=== PATIENT | female | born 1955 | race Caucasian/White ===

== ENCOUNTER 2021-07-19 10:45 | Outpatient (REF) | payer OTHER, SELFPAY ==
[2021-07-19 11:04] LABS: MANUAL DIFF FLAG NO
[2021-07-19 11:18] LABS: Basophils Absolute Auto 0.1 X10*3/uL (0.0-0.2); Basophils Percent Auto 1.3 % (0-2); Eosinophils Absolute Auto 0.2 X10*3/uL (0.0-0.4); Eosinophils Percent Auto 2.7 % (0-4); Hematocrit 45.1 % (37.0-47.0); Hemoglobin 14.3 g/dl (12.0-16.0); Imm Gran Abs Auto 0.02 X10*3/uL (0.00-0.03); Imm Gran Pct Auto 0.3 % (0.0-0.4); Lymphocytes Absolute Auto 1.6 X10*3/uL (1.2-4.9); Lymphocytes Percent Auto 20.4 % (20-40); Mean Corpuscular HGB Conc 31.7 g/dl (31.0-35.0); Mean Corpuscular Hemoglobin 29.5 pg (27.0-33.0); Mean Platelet Volume 8.9 fL (9.4-12.3); Monocytes Absolute Auto 0.6 X10*3/uL (0.1-1.2); Monocytes Percent Auto 7.4 % (2-11); Neutrophils Absolute Auto 5.3 x10*3/uL (2.0-8.3); Neutrophils Percent Auto 67.9 % (45-73); Platelet Count 390 X10*3/uL (160-400); Red Blood Count 4.85 X10*6/uL (4.20-5.50); Red Cell Distribution Width 13.8 % (11.0-16.0); White Blood Count 7.8 X10*3/uL (4.8-10.8)
[2021-07-19 11:43] LABS: Alanine Aminotransferase 27 U/L (0-31); Albumin Level 4.8 g/dL (3.5-5.0); Alkaline Phosphatase 91 U/L (39-117); Anion Gap 13 (12-20); Aspartate Amino Transferase 23 U/L (5-31); Bilirubin Total 0.4 mg/dL (0.0-1.0); Blood Urea Nitrogen 10 mg/dL (9-16); Calcium 10.3 mg/dL (8.4-10.2); Carbon Dioxide 28 mmol/L (22-29); Chloride 100 mmol/L (96-108); Cholesterol 222 mg/dL; Estimated Glomerular Filt Rate > 60; Glucose Fasting 107 mg/dL (60-99); HDL Cholesterol 61 mg/dL; LDL Cholesterol Calculated 147 mg/dl; Sodium 136 mmol/L (135-145); Total Protein 8.1 g/dL (6.5-8.0); Triglycerides 71 mg/dL
[2021-07-19 12:04] LABS: TSH reflex Free T4 0.53 uIU/mL (0.32-4.0)
== END 2021-07-19 10:46 | disposition home or self-care (01) ==
LOC: HO.LAB 10:45
PROVIDERS: PCP Family Medicine; Visit Provider Family Medicine
DX: Z00.00 Encounter for general adult medical examination without abnormal findings (principal)
CPT/HCPCS: 36415; 80053; 80061; 84443; 85025

== ENCOUNTER 2022-03-01 10:41 | Inpatient (IN) | payer OTHER, SELFPAY ==
[2022-03-01] VITALS (11 sets, daily range): BP systolic 100–143; BP diastolic 43–80; PULSE 77–106; RESP 16–24; TEMP 36.5–37; O2SAT 87–98; BMI 11.2
--- NOTE | ~2022-03-01 | CT_ITS ---
EXAMINATION: CT CHEST ANGIOGRAM PE PROTOCOL CLINICAL INFORMATION: Could be an enlarged impressing today, Reason for Exam Hypoxia. Cough, COPD/SOB COMPARISON: 2019 TECHNIQUE: Volumetric imaging was performed through the chest. Reformatted coronal and sagittal imaging was performed. 3-D MIP images performed at a dedicated separate workstation. This CT examination was performed using dose optimization techniques as appropriate, variously including the following: *Automated exposure control *Adjustment of mA and/or kV according to patient size (this includes techniques or standardized protocols for targeted exams where dose is matched to indication/reason for exam; i.e. extremities or head) *Use of iterative reconstruction technique CONTRAST: 65 mL Omnipaque 350 injected DLP: 168 FINDINGS: PULMONARY ARTERIES: There is proper opacification of the pulmonary artery and its main branches. No CT evidence of pulmonary emboli. LINES/TUBES: None LUNGS: Lung Parenchyma: Postsurgical changes, right upper lobe partial pneumonectomy. Chronic unchanged. Adjacent scar stable. Diffuse pulmonary emphysema. Lung Nodules:Newly developed solid nodule right upper lobe measures 1.3 x 1 cm image 14 series 6. Stable hypodense nodule right lower lobe 4 mm image 27 series 6. Several other scattered tiny calcified and noncalcified nodules/densities measuring 5 mm or less. Multiple nodules left lower lobe tree in bud pattern, suggesting infection, acute or chronic over neoplastic process. AIRWAYS: Trachea and bronchi are normal. PLEURA: No pleural effusion or pneumothorax. MEDIASTINUM AND BUDDY: The visualized thyroid gland is unremarkable. No mediastinal, hilar or axillary lymphadenopathy. There is no mediastinal mass. VESSELS: Thoracic aorta is normal in size. HEART AND PERICARDIUM: Heart is normal in size. There is no pericardial effusion. There are few coronary calcifications. CHEST WALL, LOWER NECK, SURROUNDING SOFT TISSUES: Normal VISUALIZED ABDOMEN: Unremarkable BONES: The visualized bony thorax is within normal limits. CT/CT angio chest PE protocol IMPRESSION: * No CT evidence of pulmonary emboli. * There is a new 1.3 cm nodule in the right upper lobe. This require correlation with follow-up PET/CT or CT-guided biopsy if not performed short-term follow-up chest CT in 3 months recommended.. * Additional Several scattered calcified and noncalcified lung nodules measuring 5 mm or less. * Stable postsurgical changes right upper lobe. * Pulmonary emphysema. * No lymphadenopathy. * Multiple nodules left lower lobe tree in bud pattern, suggesting infection, acute or chronic over neoplastic process. Various management parameters for solitary pulmonary nodules are in the literature. According to the UPDATED 2017 Fleischner Society recommendations, the advised follow-up imaging for a single solid nodule measuring 8 mm or greater is: Consider CT, PET/CT, or tissue sampling at 3 months. Reference: Guidelines for Management of Incidental Pulmonary Nodules Detected on CT Images: From the Fleischner Society 2017.
--- NOTE | ~2022-03-01 | XR_ITS ---
EXAMINATION: XR CHEST CLINICAL INFORMATION: Shortness of breath with productive cough. COMPARISON: November 17, 2018 TECHNIQUE: AP portable view of the chest was obtained. FINDINGS: There is hyperinflation of the lungs consistent with COPD. There are calcified granulomas present. There is a region of density seen about the right upper lobe which may represent a lung nodule and CT of the chest would be of help in further evaluation of this finding. No confluent pneumonitis is appreciated. There is scoliosis of the thoracic spine convex right. Images rotated. XR/XR chest 1V IMPRESSION: COPD. Old granulomatous disease. Question right upper lobe nodule.
--- NOTE | 2022-03-01 10:45 | ED.SOB ---
HPI - SOB/Dyspnea General Chief Complaint: Upper Respiratory Symptoms Stated Complaint: PRODUCTIVE COUGH,SOB Time Seen by Provider: 03/01/22 10:44 Source: patient and EMS Mode of arrival: EMS History of Present Illness HPI Narrative: 66-year-old female with a past medical history of chronic back pain, HLD, COPD, presenting to the ED via EMS complaining of productive cough, SOB, generalized fatigue/weakness and decreased p.o. intake x5 days. Admits her [employer] recently sick. Also reports abdominal discomfort and diarrhea. Denies known fever, chills, chest pain, vomiting, dysuria/hematuria, headache MD elicited complaint: shortness of breath and cough Pertinent past history: COPD Related Data Home Medications Medication Instructions Recorded Confirmed gabapentin 400 mg capsule 400 mg PO BEDTIME 03/01/22 03/01/22 Previous Rx's Medication Instructions Recorded foam bandage 5 X 5 (Allevyn #10 ea 02/16/20 Gentle Border) naloxone 4 mg/actuation nasal 4 mg intranasal Q2M PRN opioid 07/30/21 spray (Narcan) overdose #2 ea food supplemt, lactose-reduced 1 ea PO BID nutrition 30 days 08/16/21 0.08 gram-1.5 kcal/mL oral liquid #14,220 mL (Ensure Enlive) omeprazole 40 mg capsule,delayed 40 mg PO DAILY #90 caps 10/29/21 release albuterol sulfate 2.5 mg/3 mL 2.5 mg (3 mL) inhalation Q4-6H PRN 12/24/21 (0.083 %) solution for nebulization shortness of breath or wheezing #90 mL albuterol sulfate 90 mcg/actuation 2 puff inhalation Q4-6H PRN 12/24/21 aerosol inhaler (ProAir HFA) shortness of breath or wheezing 30 days #8.5 grams fluticasone propionate 220 2 puff inhalation BID 30 days #12 01/19/22 mcg/actuation HFA aerosol inhaler grams ipratropium bromide 17 2 puff PO QID #12.9 grams 01/19/22 mcg/actuation HFA aerosol inhaler (Atrovent HFA) ropinirole 4 mg tablet 4 mg PO BEDTIME 30 days #30 tabs 01/19/22 benzonatate 100 mg capsule 100 mg PO TID PRN cough #20 caps 03/04/22 dexamethasone 6 mg tablet 6 mg PO DAILY #6 tabs 03/04/22 guaifenesin 600 mg tablet, 600 mg PO BID #14 tabs 03/04/22 extended release 12 hr (Mucinex) carisoprodol 350 mg tablet 350 mg PO BID PRN muscle pain 30 03/17/22 days #60 tabs oxycodone-acetaminophen 5 mg-325 1 tab PO TID PRN pain 28 days #84 03/17/22 mg tablet (Percocet) tabs Allergies Allergy/AdvReac Type Severity Reaction Status Date / Time bee pollen [BEE STINGS] Allergy Intermediate THROAT Verified 01/10/22 13:37 SWELLING penicillin V Allergy Intermediate nausea and Verified 01/10/22 13:37 vomiting Penicillins [PENICILLINS] Allergy Intermediate YEAST Verified 01/10/22 13:37 INFECTIONS- UTI - NAUSEA codeine [Codeine] Allergy Mild ITCHING Verified 01/10/22 13:37 celecoxib [From Celebrex] AdvReac Severe RECTAL Verified 01/10/22 13:37 BLEEDING Review of Systems Review of Systems: Constitutional: No Fever, No Chills, No Night Sweats,+ Fatigue, + Malaise ENT/Mouth: No Ear Pain, No Nasal Congestion, No Sinus Pain, No Hoarseness, No sore throat, No Rhinorrhea, No Swallowing Difficulty Eyes: No Eye Pain, No Swelling, No Redness, No Vision Changes Cardiovascular: No Chest Pain, + SOB, + Dyspnea on Exertion, + Orthopnea, No Edema, No Palpitations Respiratory: + Cough, + Sputum, + Wheezing, No Smoke Exposure, No Dyspnea Gastrointestinal: No Nausea, No Vomiting, No Diarrhea, No Constipation, No Abdominal pain Genitourinary: No irregular bleeding, No Dysuria, No Urinary Frequency, No Hematuria, No Flank Pain Musculoskeletal: No joint pain, No Myalgias, No Joint Swelling Skin: No Skin Lesions, No rash Neuro: + Weakness, No Numbness, No Paresthesias, No Dizziness, No Headache Yes all other systems are reviewed and are negative Constitutional: Constitutional: Reports as per HPI Neurologic: Denies Abnormal speech present [facility] Past Medical History Attestation statement: The following information was validated with the patient. Surgical History History of biopsy History of fusion of cervical spine History of lung biopsy History of rhinoplasty History of shoulder surgery History of surgery on left wrist Family History Family History Father Cirrhosis Substance use disorder Mother No problems noted. Brother No problems noted. Son No problems noted. Son No problems noted. Daughter No problems noted. Daughter No problems noted. Daughter No problems noted. Social History Social History Household Members: Family Housing: Apartment Do you presently have visiting nurse or other home services: Yes Patient Tobacco Use Status: Current someday Tobacco user Cigarettes Per Day: 2 e-Cigarette/Vaping Use: Never Used Second Hand Smoke Exposure: No service: No Current occupational status: retired and disabled Current occupational exposures/hazards: No Cognitive needs: No Hearing needs: No Vision needs: Yes Physical Exam Vital Signs: Vital Signs: Last Vital Signs Temp 98.3 F 03/04/22 15:48 Pulse 85 03/04/22 15:48 Resp 15 03/04/22 15:48 BP 122/62 03/04/22 15:48 Pulse Ox 92 03/04/22 15:48 O2 Del Method 03/04/22 15:48 O2 Flow Rate 2 03/02/22 04:04 BMI result Body Mass Index 11.2 Const: General: cooperative and no acute distress Nutritional Appearance: cachectic Orientation/consciousness: patient oriented x3 Limitations: no limitations HEENT: Head: Yes normal to inspection and Yes atraumatic Ears: hearing grossly normal bilaterally General nose exam: Normal external nose present Face and sinus: Yes normal facial exam Throat: Yes posterior oropharynx normal Eyes: General: appearance normal, both eyes and all related structures EOM: EOMs intact bilaterally Neck: Neck: Yes normal visual inspection and Yes no meningeal signs Resp: Effort & Inspection: labored and respiratory distress (mild) Auscultation: rhonchi throughout and wheezes expiratory wheezes and throughout Cardio: Rate: regular rate and tachycardic Heart sounds: S1 normal heart sound present and S2 normal heart sound present GI: Inspection: Yes normal to inspection Palpation (GI): Soft to palpation, nontender, no guarding and not rigid Skin: Rashes: no rashes Wounds: no wounds Neuro: General: patient oriented x3, tone normal, moves all extremities, no meningeal signs, no focal motor deficits and CN's II-XI intact bilaterally Cranial nerves: Yes CN's II-XII intact bilaterally Cognition (Neuro): normal cognition Speech: No Abnormal speech present Extrem: General: Yes normal to inspection and Yes no pedal edema Course Course Course Narrative: -1223--no leukocytosis. Lactic acid negative. Initial troponin 8.7 > will obtain 3 hour repeat XR chest 1V IMPRESSION: COPD. Old granulomatous disease. Question right upper lobe nodule. >> patient desatted to 87% on RA > on re-evaluation still very coarse lung sounds > will obtain CTA to rule out PE/pneumonia -COVID-19 positive -1257--potassium low at 3.2 > p.o. repletion ordered. BUN elevated to 39 > likely from dehydration. Hypermagnesemia likely from renal dysfunction/dehydration > will treat with NS 1600--CT angio chest PE protocol IMPRESSION: *? No CT evidence of pulmonary emboli. ? *? There is a new 1.3 cm nodule in the right upper lobe. This require correlation with follow-up PET/CT or CT-guided biopsy if not performed short-term follow-up chest CT in 3 months recommended.. ? *? Additional Several scattered calcified and noncalcified lung nodules measuring 5 mm or less. ? *? Stable postsurgical changes right upper lobe. ? *? Pulmonary emphysema. ? *? No lymphadenopathy. ? *? Multiple nodules left lower lobe tree in bud pattern, suggesting infection, acute or chronic over neoplastic process. ? >> plan to admit for further management Medications Administered Discontinued Medications Generic Name Dose Route Start Last Admin Trade Name Freq PRN Reason Stop Dose Admin Acetaminophen 650 mg 03/01/22 10:56 03/01/22 11:42 Acetaminophen 325 Mg Tablet PO 03/01/22 10:57 650 mg ONCE ONE Administration Acetaminophen 650 mg 03/01/22 18:06 03/02/22 04:49 Acetaminophen 325 Mg Tablet PO 650 mg Q6H PRN Administration Pain, Mild (Pain Scale 1-3) Albuterol Sulfate 5 mg/ 7.5 mg 03/01/22 10:56 03/01/22 11:48 Albuterol Sulfate 2.5 mg INHALE 03/01/22 10:57 7.5 mg ONCE ONE Administration Albuterol/Ipratropium 3 ml 03/01/22 10:56 03/01/22 11:48 Albuterol/Iprat 2.5/0.5mg 3 Ml Ampul.Neb INHALE 03/01/22 10:57 3 ml ONCE ONE Administration Albuterol/Ipratropium 3 ml 03/01/22 20:00 03/04/22 15:19 Albuterol/Iprat 2.5/0.5mg 3 Ml Ampul.Neb INHALE Not Given RQ4H WHILE AWAKE BRIGID Benzocaine 1 lozenge 03/02/22 04:04 03/03/22 21:30 Throat Lozenge, Medicated Lozenge MUCOUS MEM 1 lozenge Q2H PRN Administration Sore Throat Benzonatate 200 mg 03/03/22 19:31 03/04/22 13:59 Benzonatate 100 Mg Capsule PO 200 mg TID PRN Administration cough Carisoprodol 350 mg 03/01/22 18:11 03/03/22 16:14 Carisoprodol 350 Mg Tablet PO 350 mg BID PRN Administration muscle pain Carisoprodol 350 mg 03/04/22 09:00 03/04/22 16:33 Carisoprodol 350 Mg Tablet PO 350 mg BID PRN Administration muscle pain Dexamethasone 6 mg 03/02/22 09:00 03/04/22 08:23 Dexamethasone 6 Mg Tablet PO 03/11/22 08:59 6 mg DAILY BRIGID Administration Enoxaparin Sodium 30 mg 03/01/22 20:00 03/02/22 20:04 Enoxaparin Sodium 30 Mg/0.3 Ml Syringe SUBCUT 30 mg Q24H BRIGID Administration Enoxaparin Sodium 40 mg 03/03/22 20:00 03/03/22 21:29 Enoxaparin Sodium 40 Mg/0.4 Ml Syringe SUBCUT 40 mg Q24H BRIGID Administration Gabapentin 400 mg 03/01/22 21:00 03/03/22 21:29 Gabapentin 400 Mg Capsule PO 400 mg BEDTIME BRIGID Administration Guaifenesin 600 mg 03/03/22 09:40 03/04/22 08:22 Guaifenesin La 600 Mg Tab.Er.12h PO 600 mg BID BRIGID Administration Guaifenesin/Dextromethorphan 5 ml 03/02/22 04:04 03/03/22 03:43 Guaifenesin Dm 100/10/5 Ml 5 Ml Syrup PO 5 ml Q4H PRN Administration Cough Sodium Chloride 1,000 mls @ 999 mls/hr 03/01/22 11:00 03/01/22 13:20 Ns IV 03/01/22 12:00 Infused .Q1H1M BRIGID Infusion Ceftriaxone Sodium 1 gm/ 50 mls @ 100 mls/hr 03/01/22 11:02 03/01/22 13:21 Sodium Chloride IV 03/01/22 11:31 Infused ONCE ONE Infusion Magnesium Sulfate 2 gm in 50 mls @ 25 mls/hr 03/01/22 11:21 03/01/22 12:45 Magnesium Sulfate/H2o IV 03/01/22 13:20 Infused ONCE ONE Infusion Sodium Chloride 500 mls @ 999 mls/hr 03/01/22 13:00 03/01/22 14:43 Ns IV 03/01/22 13:30 Infused .Q31M BRIGID Infusion Lactated Ringer's 1,000 mls @ 100 mls/hr 03/01/22 18:25 03/02/22 05:13 Lr IVCONT 03/02/22 04:24 Infused .Q10H ONE Infusion Iohexol 100 ml 03/01/22 13:43 03/01/22 13:44 Iohexol 350 Mg/Ml 100 Ml Infus..Btl IV 03/01/22 13:44 65 ml ONCE ONE Administration Methylprednisolone Sodium Succinate 125 mg 03/01/22 10:56 03/01/22 11:41 Methylprednisolone Sod Succ 125 Mg/2 Ml Vial IVPUSH 03/01/22 10:57 125 mg ONCE ONE Administration Omeprazole 40 mg 03/02/22 06:30 03/04/22 08:22 Omeprazole 40 Mg Capsule.Dr PO 40 mg DAILY@0630 BRIGID Administration Ondansetron HCl 4 mg 03/01/22 10:56 03/01/22 11:42 Ondansetron Hcl 4 Mg/2 Ml Vial IVPUSH 03/01/22 10:57 4 mg ONCE ONE Administration Oxycodone HCl 5 mg 03/01/22 18:36 03/04/22 00:27 Oxycodone Hcl Immed Release 5 Mg Tablet PO 5 mg TID PRN Administration Pain, Moderate (Pain Scale 4-6 Oxycodone HCl 5 mg 03/04/22 09:00 03/04/22 16:33 Oxycodone Hcl Immed Release 5 Mg Tablet PO 5 mg TID PRN Administration Pain, Moderate (Pain Scale 4-6 Polyethylene Glycol 17 gm 03/03/22 20:17 03/03/22 21:29 Polyethylene Glycol 3350 17 Gm Powd.Pack PO 17 gm DAILY PRN Administration constipation Potassium Chloride 60 meq 03/01/22 12:45 03/01/22 13:18 Potassium Chloride Er 20 Meq Tab.Er.Prt PO 03/01/22 12:46 60 meq ONCE ONE Administration Ropinirole HCl 4 mg 03/01/22 21:00 03/03/22 21:29 Ropinirole Hcl 2 Mg Tablet PO 4 mg BEDTIME BRIGID Administration Sodium Chloride 3 ml 03/02/22 00:00 03/04/22 16:34 0.9 % Sodium Chloride Flush 3 Ml Syringe IVFLUSH 3 ml QSHIFT BRIGID Administration Medical Decision Making Medical Decision Making [facility] Narrative: 66-year-old female with a past medical history of chronic back pain, HLD, COPD, presenting to the ED via EMS complaining of productive cough, SOB, generalized fatigue/weakness and decreased p.o. intake x5 days. On exam tachypneic, tachycardic, satting 94% on room air, cachectic, diffuse expiratory wheeze and rhonchi with coarse lung sounds throughout, abdomen soft, no rebound or guarding. Concern for viral illness vs COPD exacerbation vs pneumonia vs metabolic/infectious etiologies vs gastroenteritis. Low suspicion for ACS/PE or CHF. Low suspicion for severe sepsis at this time. Vital sign abnormalities likely from chronic disease Plan: EKG, labs, CXR, COVID-19/influenza/RSV testing, DuoNeb, IV Solu-Medrol, IV magnesium, +/-CT, anticipate admission Differential Diagnosis Differential Diagnoses: The differential diagnosis associated with the presentation includes As above Admission/Observation Consideration of admission/observation: Escalation of care including admission/observation considered Consult Healthcare Provider Management of the patient was discussed with: Hospitalist Lab Data [facility] Lab Attestation statement: I reviewed the patient's lab results. 03/03/22 06:42 03/04/22 06:19 Labs: Lab Results 03/01/22 03/01/22 03/01/22 Range/Units 11:24 11:25 11:25 WBC 6.0 (4.8-10.8) X10*3/uL RBC 4.60 (4.20-5.50) X10*6/uL Hgb 13.5 (12.0-16.0) g/dl Hct 40.7 (37.0-47.0) % MCV 88.5 (80.0-98.0) fL MCH 29.3 (27.0-33.0) pg MCHC 33.2 (31.0-35.0) g/dl RDW 13.3 (11.0-16.0) % Plt Count 216 D (160-400) X10*3/uL MPV 9.1 L (9.4-12.3) fL Immature Gran % (Auto) 0.5 H (0.0-0.4) % Neut % (Auto) 76.2 H (45-73) % Lymph % (Auto) 11.1 L (20-40) % Gillespie % (Auto) 10.8 (2-11) % Eos % (Auto) 0.7 (0-4) % Baso % (Auto) 0.7 (0-2) % Lymph # (Auto) 0.7 L (1.2-4.9) X10*3/uL Gillespie # (Auto) 0.6 (0.1-1.2) X10*3/uL Eos # (Auto) 0.0 (0.0-0.4) X10*3/uL Baso # (Auto) 0.0 (0.0-0.2) X10*3/uL Abs Immat Gran (auto) 0.03 (0.00-0.03) X10*3/uL Absolute Neuts (auto) 4.5 (2.0-8.3) x10*3/uL Absolute Nucleated RBC 0.000 (0.0-0.012) X10*3/uL Nucleated RBC % (auto) 0.0 (0.0-0.2) /100WBC PT (10.0-13.1) SEC INR (0.9-1.1) Sodium (135-145) mmol/L Potassium (3.3-5.1) mmol/L Chloride (96-108) mmol/L Carbon Dioxide (22-29) mmol/L Anion Gap (12-20) BUN (9-16) mg/dL Creatinine (0.5-1.4) mg/dL Estim Creat Clear Calc Estimated GFR Random Glucose (60-115) mg/dL Lactic Acid 1.4 (0.5-2.0) mmol/L Calcium (8.4-10.2) mg/dL Magnesium (1.6-2.6) mg/dL Ferritin (10-250) ng/mL Total Bilirubin (0.0-1.0) mg/dL Direct Bilirubin (0.0-0.5) mg/dL AST (5-31) U/L ALT (0-31) U/L Alkaline Phosphatase (39-117) U/L Lactate Dehydrogenase (122-220) U/L Troponin I High Sens 8.7 (<3.5-17.0) ng/L C-Reactive Protein (< or = 0.50) mg/dL B-Natriuretic Peptide (<100) pg/mL Total Protein (6.5-8.0) g/dL Albumin (3.5-5.0) g/dL Lipase (8-78) U/L Procalcitonin ng/mL Influenza Type A (PCR) (Negative) Influenza Type B (PCR) (Negative) RSV RNA Qual (PCR) (Negative) SARS-CoV-2 RNA (RT-PCR) (Negative) 03/01/22 03/01/22 03/01/22 Range/Units 11:25 11:25 11:25 WBC (4.8-10.8) X10*3/uL RBC (4.20-5.50) X10*6/uL Hgb (12.0-16.0) g/dl Hct (37.0-47.0) % MCV (80.0-98.0) fL MCH (27.0-33.0) pg MCHC (31.0-35.0) g/dl RDW (11.0-16.0) % Plt Count (160-400) X10*3/uL MPV (9.4-12.3) fL Immature Gran % (Auto) (0.0-0.4) % Neut % (Auto) (45-73) % Lymph % (Auto) (20-40) % Gillespie % (Auto) (2-11) % Eos % (Auto) (0-4) % Baso % (Auto) (0-2) % Lymph # (Auto) (1.2-4.9) X10*3/uL Gillespie # (Auto) (0.1-1.2) X10*3/uL Eos # (Auto) (0.0-0.4) X10*3/uL Baso # (Auto) (0.0-0.2) X10*3/uL Abs Immat Gran (auto) (0.00-0.03) X10*3/uL Absolute Neuts (auto) (2.0-8.3) x10*3/uL Absolute Nucleated RBC (0.0-0.012) X10*3/uL Nucleated RBC % (auto) (0.0-0.2) /100WBC PT 10.6 (10.0-13.1) SEC INR 0.9 (0.9-1.1) Sodium (135-145) mmol/L Potassium (3.3-5.1) mmol/L Chloride (96-108) mmol/L Carbon Dioxide (22-29) mmol/L Anion Gap (12-20) BUN (9-16) mg/dL Creatinine (0.5-1.4) mg/dL Estim Creat Clear Calc Estimated GFR Random Glucose (60-115) mg/dL Lactic Acid (0.5-2.0) mmol/L Calcium (8.4-10.2) mg/dL Magnesium (1.6-2.6) mg/dL Ferritin (10-250) ng/mL Total Bilirubin (0.0-1.0) mg/dL Direct Bilirubin (0.0-0.5) mg/dL AST (5-31) U/L ALT (0-31) U/L Alkaline Phosphatase (39-117) U/L Lactate Dehydrogenase (122-220) U/L Troponin I High Sens (<3.5-17.0) ng/L C-Reactive Protein (< or = 0.50) mg/dL B-Natriuretic Peptide 29 (<100) pg/mL Total Protein (6.5-8.0) g/dL Albumin (3.5-5.0) g/dL Lipase (8-78) U/L Procalcitonin 0.25 ng/mL Influenza Type A (PCR) (Negative) Influenza Type B (PCR) (Negative) RSV RNA Qual (PCR) (Negative) SARS-CoV-2 RNA (RT-PCR) (Negative) 03/01/22 03/01/22 Range/Units 11:38 12:00 WBC (4.8-10.8) X10*3/uL RBC (4.20-5.50) X10*6/uL Hgb (12.0-16.0) g/dl Hct (37.0-47.0) % MCV (80.0-98.0) fL MCH (27.0-33.0) pg MCHC (31.0-35.0) g/dl RDW (11.0-16.0) % Plt Count (160-400) X10*3/uL MPV (9.4-12.3) fL Immature Gran % (Auto) (0.0-0.4) % Neut % (Auto) (45-73) % Lymph % (Auto) (20-40) % Gillespie % (Auto) (2-11) % Eos % (Auto) (0-4) % Baso % (Auto) (0-2) % Lymph # (Auto) (1.2-4.9) X10*3/uL Gillespie # (Auto) (0.1-1.2) X10*3/uL Eos # (Auto) (0.0-0.4) X10*3/uL Baso # (Auto) (0.0-0.2) X10*3/uL Abs Immat Gran (auto) (0.00-0.03) X10*3/uL Absolute Neuts (auto) (2.0-8.3) x10*3/uL Absolute Nucleated RBC (0.0-0.012) X10*3/uL Nucleated RBC % (auto) (0.0-0.2) /100WBC PT (10.0-13.1) SEC INR (0.9-1.1) Sodium 136 (135-145) mmol/L Potassium 3.2 L D (3.3-5.1) mmol/L Chloride 100 (96-108) mmol/L Carbon Dioxide 28 (22-29) mmol/L Anion Gap 11 L (12-20) BUN 39 H (9-16) mg/dL Creatinine 0.85 (0.5-1.4) mg/dL Estim Creat Clear Calc 28.3 Estimated GFR > 60 Random Glucose 149 H (60-115) mg/dL Lactic Acid (0.5-2.0) mmol/L Calcium 8.5 D (8.4-10.2) mg/dL Magnesium 4.8 H* (1.6-2.6) mg/dL Ferritin 105 (10-250) ng/mL Total Bilirubin 0.2 (0.0-1.0) mg/dL Direct Bilirubin < 0.2 (0.0-0.5) mg/dL AST 27 (5-31) U/L ALT 17 (0-31) U/L Alkaline Phosphatase 66 (39-117) U/L Lactate Dehydrogenase 141 (122-220) U/L Troponin I High Sens (<3.5-17.0) ng/L C-Reactive Protein 1.38 H (< or = 0.50) mg/dL B-Natriuretic Peptide (<100) pg/mL Total Protein 5.9 L (6.5-8.0) g/dL Albumin 3.6 (3.5-5.0) g/dL Lipase 28 (8-78) U/L Procalcitonin ng/mL Influenza Type A (PCR) NEGATIVE (Negative) Influenza Type B (PCR) NEGATIVE (Negative) RSV RNA Qual (PCR) NEGATIVE (Negative) SARS-CoV-2 RNA (RT-PCR) POSITIVE A (Negative) Independent Interpretation I performed an independent interpretation of an: EKG and Plain X-Ray Interpretation: My interpretation of the EKG: Normal sinus rhythm at a rate of 98. QTC 490. QRS 74. No STEMI Radiology Impression Discussion of test interpretation with radiology: I have reviewed the radiologist's reading. Independent Historian Clinical information obtained from an independent historian. History obtained from or confirmed by: EMS External Record Review External record reviewed: Office record and Prior outpatient labs Prescription Management I considered prescription management with: Pain Medication, Antiviral and Antibiotic Critical Care Time Critical Care Time Critical Care Time: Yes Total Critical Care Time: 40 Attestation: I have personally provided critical care time exclusive of time spent on separately billable procedures. Time includes review of lab data, radiology results, discussion with consultants, and monitoring for potential decompensation. Intervention performed as documented. Discharge Plan Discharge Clinical Impression: COVID-19, Hypoxia Patient Disposition: Admitted As Inpatient Interventions: Admission Worksheet (ED) Last Done: 03/01/22 19:40 Discharge Date/Time: 03/01/22 20:44
--- NOTE | 2022-03-01 10:57 | ECG_ITS ---
Test Reason : GEN WEAKNESS Blood Pressure : / mmHG Vent. Rate : 098 BPM Atrial Rate : 098 BPM P-R Int : 144 ms QRS Dur : 074 ms QT Int : 384 ms P-R-T Axes : 085 040 073 degrees QTc Int : 490 ms Normal sinus rhythm Right atrial enlargement Minimal voltage criteria for LVH, may be normal variant ( [place] product ) Anterior infarct (cited on or before 18-APR-2017) Abnormal ECG When compared with ECG of 17-NOV-2018 07:02, No significant change was found Referred By: Mini Carranza Electronically Signed By:KAELYN GREENE MD
--- NOTE | 2022-03-01 11:28 | PC.NURSE ---
pt alert and oriented, skin pwd, respirations even and unlabored, ls clear, pt is frail in appearance, pt reports since Thursday having a wet cough/general weakness/diarrhea x1 and is reporting some nausea and poor po intake do to lack of appetite vs stable, ns on the monitor
[2022-03-01 11:30] LABS: MANUAL DIFF FLAG NO
[2022-03-01 11:34] LABS: Basophils Percent Auto 0.7 % (0-2); Eosinophils Percent Auto 0.7 % (0-4); Hematocrit 40.7 % (37.0-47.0); Hemoglobin 13.5 g/dl (12.0-16.0); Imm Gran Abs Auto 0.03 X10*3/uL (0.00-0.03); Imm Gran Pct Auto 0.5 % (0.0-0.4); Lymphocytes Absolute Auto 0.7 X10*3/uL (1.2-4.9); Lymphocytes Percent Auto 11.1 % (20-40); Mean Corpuscular HGB Conc 33.2 g/dl (31.0-35.0); Mean Corpuscular Hemoglobin 29.3 pg (27.0-33.0); Mean Corpuscular Volume 88.5 fL (80.0-98.0); Mean Platelet Volume 9.1 fL (9.4-12.3); Monocytes Absolute Auto 0.6 X10*3/uL (0.1-1.2); Monocytes Percent Auto 10.8 % (2-11); Neutrophils Absolute Auto 4.5 x10*3/uL (2.0-8.3); Neutrophils Percent Auto 76.2 % (45-73); Platelet Count 216 X10*3/uL (160-400); Red Cell Distribution Width 13.3 % (11.0-16.0)
[2022-03-01 11:38] LABS: INTERNATIONAL NORM RATIO 0.9 (0.9-1.1); Prothrombin Time 10.6 SEC (10.0-13.1)
[2022-03-01] MEDS: methylPREDNISolone Sod Succ 125 MG/2 ML VIAL IVPUSH (11:41)
[2022-03-01] MEDS: 0.9 % Sodium Chloride 1,000 ML 999 ML IV (11:41)
[2022-03-01] MEDS: Magnesium Sulfate/H2O 2 GM/50 ML PIGGYBACK IV (11:42)
[2022-03-01] MEDS: Acetaminophen 325 MG TABLET 650 MG PO (11:42)
[2022-03-01] MEDS: ondansetron HCL 4 MG/2 ML VIAL IVPUSH (11:42)
[2022-03-01 11:47] LABS: Lactic Acid 1.4 mmol/L (0.5-2.0)
[2022-03-01] MEDS: Albuterol/Iprat 2.5/0.5MG 3 ML AMPUL.NEB INHALE (11:48)
[2022-03-01] MEDS: Albuterol Sulfate 5 MG, Albuterol Sulfate (0.083%) 2.5 MG 7.5 MG INHALE (11:48)
[2022-03-01 11:57] LABS: B Type Natriuretic Peptide 29 pg/mL (<100)
[2022-03-01 11:58] LABS: Troponin-I High Sensitivity 8.7 ng/L (<3.5-17.0)
--- NOTE | 2022-03-01 12:10 | PC.NURSE ---
pt's oxygen dropped to 87% and put on oxygen 2l via nasal cannual
[2022-03-01] MEDS: cefTRIAXone sodium 1 GM in 0.9 % Sodium Chloride 50 ML IV (12:19)
[2022-03-01 12:32] LABS: Influenza A PCR NEGATIVE (Negative); Influenza B PCR NEGATIVE (Negative); Resp Syncy Virus RNA Qual PCR NEGATIVE (Negative); SARS COV2 PCR INHOUSE POSITIVE (Negative)
[2022-03-01 12:40] LABS: Alanine Aminotransferase 17 U/L (0-31); Albumin Level 3.6 g/dL (3.5-5.0); Alkaline Phosphatase 66 U/L (39-117); Anion Gap 11 (12-20); Aspartate Amino Transferase 27 U/L (5-31); Bilirubin Direct < 0.2 mg/dL (0.0-0.5); Bilirubin Total 0.2 mg/dL (0.0-1.0); Blood Urea Nitrogen 39 mg/dL (9-16); Calcium 8.5 mg/dL (8.4-10.2); Carbon Dioxide 28 mmol/L (22-29); Chloride 100 mmol/L (96-108); Creatinine Clr Calc Pharmacy 28.3; Estimated Glomerular Filt Rate > 60; Glucose Random 149 mg/dL (60-115); Lipase 28 U/L (8-78); Potassium 3.2 mmol/L (3.3-5.1); Sodium 136 mmol/L (135-145); Total Protein 5.9 g/dL (6.5-8.0)
[2022-03-01 12:54] LABS: Magnesium 4.8 mg/dL (1.6-2.6)
[2022-03-01] MEDS: Potassium Chloride ER 20 MEQ TAB.ER.PRT 60 MEQ PO (13:18)
[2022-03-01] MEDS: 0.9 % Sodium Chloride 500 ML 999 ML IV (13:18)
--- NOTE | 2022-03-01 13:39 | PHA.MEDREC ---
Pharmacy Consult ? Medication Reconciliation Pharmacy has completed the medication reconciliation. PT states that she is taking soma tid, but refill hisotry and rx label support bid dosing. also states they take 1 gabapentin amie bazanu
[2022-03-01] MEDS: iohexoL 350 MG/ML 100 ML INFUS..BTL IV (13:44)
--- NOTE | 2022-03-01 16:09 | MHC.EDTECH ---
PT DRANK A CUP OF WATER .
--- NOTE | 2022-03-01 16:56 | P.HPHOSP_ITS ---
History of Present Illness Date of Service: 03/01/22 Chief Complaint: SOB Pt is a 66-year-old female with a PMH significant for COPD, HLD, chronic neck pain, and current smoker who presents to the ED with a 5-day history of SOB and mostly unproductive cough. Pt states her symptoms began on Thursday when she woke up feeling sick : she had a sore throat ( felt like razor blades ), cough and SOB. On Thursday patient also experienced abdominal pain and diarrhea which resolved by the next day and have not yet recurred. Patient has had decreased p.o. intake of both solids and fluids since then and has experienced generalized fatigue and weakness, and lightheadedness and dizziness walking. Of note patient has been vaccinated against COVID and received 1 booster shot. Patient denies fever, chills, nausea, vomiting. No chest pain/pressure, palpitations. In the ED labs were significant for hypokalemia of 3.2, BUN elevated at 39, and hyper magnesium of 4.8. Chest x-ray significant for hyperinflation lungs with question of a right upper lobe nodule. CT of chest found no evidence of pulmonary emboli, but did find left lower lobe nodules suggestive of infection and a new 1.3 cm nodule in the right upper lobe that requires further workup with a PET scan or CT-guided biopsy. Patient tested positive for COVID. Pt will be admitted to the hospital for treatment of COPD exacerbation in the setting of COVID infection. Review of Systems Review of Systems: SOB with exertion Mostly nonproductive cough Sore throat Generalized weakness No chest pain/pressure Yes all other systems are reviewed and are negative [facility] Family History Father Cirrhosis Substance use disorder Mother No problems noted. Brother No problems noted. Son No problems noted. Son No problems noted. Daughter No problems noted. Daughter No problems noted. Daughter No problems noted. Surgical History History of biopsy History of fusion of cervical spine History of lung biopsy History of rhinoplasty History of shoulder surgery History of surgery on left wrist Social History Household Members: Family Housing: Apartment Do you presently have visiting nurse or other home services: Yes Patient Tobacco Use Status: Current someday Tobacco user Cigarettes Per Day: 2 Smoked in Last 30 Days: Yes e-Cigarette/Vaping Use: Never Used Second Hand Smoke Exposure: No Use of substances other than those prescribed or required for medical reasons: No Have you been hit, kicked, punched, or otherwise hurt by someone within the past year? If so, by whom?: No Do you feel safe in your current relationship?: No Current Relationship Is there a partner from a previous relationship who is making you feel unsafe now?: No Are you made to feel afraid or neglected: No Advance Directives: No Do you have thoughts of harming others: None Do you have a plan to hurt others: No Plan Recently lost weight without trying: No Nutrition Risks: No Nutritional Risk Patient : No : No Poor oral hygiene: No service: No Current occupational status: retired and disabled Current occupational exposures/hazards: No Cognitive needs: No Hearing needs: No Vision needs: Yes Meds Allergies Allergy/AdvReac Type Severity Reaction Status Date / Time bee pollen [BEE STINGS] Allergy Intermediate THROAT Verified 01/10/22 13:37 SWELLING penicillin V Allergy Intermediate nausea and Verified 01/10/22 13:37 vomiting Penicillins [PENICILLINS] Allergy Intermediate YEAST Verified 01/10/22 13:37 INFECTIONS- UTI - NAUSEA codeine [Codeine] Allergy Mild ITCHING Verified 01/10/22 13:37 celecoxib [From Celebrex] AdvReac Severe RECTAL Verified 01/10/22 13:37 BLEEDING Home Medications Medication Instructions Recorded Confirmed Last Taken Type gabapentin 400 mg capsule 400 mg PO BEDTIME 03/01/22 03/01/22 02/28/22 History Physical Exam Vital Signs and Narrative: Vital Signs: Last Vital Signs Temp 97.8 F 03/01/22 16:00 Pulse 85 03/01/22 16:00 Resp 16 03/01/22 16:00 BP 111/53 L 03/01/22 16:00 Pulse Ox 97 03/01/22 16:00 O2 Del Method 03/01/22 16:00 O2 Flow Rate 2 03/01/22 16:00 BMI result Body Mass Index 11.2 Constitutional: Frail looking, emaciated. Alert, in no acute distress. Mental Status: Oriented to person, place and time. Eyes: Pupils are equal, round, and reactive to light. Ear, Nose, and Throat: Oropharynx clear, mucous membranes dry. Ears and nose without deformities. Trachea midline. Respiratory: Diffuse expiratory rhonchi. Cardiovascular: S1, S2 regular. No murmurs, rubs, or gallops. Gastrointestinal: Abdomen soft, non-tender, non-distended. Normal bowel sounds. Neurologic: Cranial nerves II-XI are grossly intact. No focal neurological deficits. Moves all extremities spontaneously. Skin: No rashes of lesions. Musculoskeletal: No cyanosis or clubbing. Extremities: No edema. Psychiatric: Normal mood and affect. Results Labs CBC and Chem 7: 03/02/22 08:02 03/02/22 08:02 Labs: Laboratory Results - last 24 hr 03/01/22 03/01/22 03/01/22 11:24 11:25 11:25 MCV 88.5 MCH 29.3 MCHC 33.2 RDW 13.3 Plt Count 216 D MPV 9.1 L Immature Gran % (Auto) 0.5 H Neut % (Auto) 76.2 H Lymph % (Auto) 11.1 L [place] % (Auto) 10.8 Eos % (Auto) 0.7 Baso % (Auto) 0.7 Lymph # (Auto) 0.7 L [place] # (Auto) 0.6 Eos # (Auto) 0.0 Baso # (Auto) 0.0 Abs Immat Gran (auto) 0.03 Absolute Neuts (auto) 4.5 Absolute Nucleated RBC 0.000 Nucleated RBC % (auto) 0.0 PT INR Anion Gap Estim Creat Clear Calc Estimated GFR Random Glucose Lactic Acid 1.4 Calcium Magnesium Total Bilirubin Direct Bilirubin AST ALT Alkaline Phosphatase Troponin I High Sens 8.7 B-Natriuretic Peptide Total Protein Albumin Lipase Influenza Type A (PCR) Influenza Type B (PCR) RSV RNA Qual (PCR) SARS-CoV-2 RNA (RT-PCR) 03/01/22 03/01/22 03/01/22 11:25 11:25 11:38 MCV MCH MCHC RDW Plt Count MPV Immature Gran % (Auto) Neut % (Auto) Lymph % (Auto) [place] % (Auto) Eos % (Auto) Baso % (Auto) Lymph # (Auto) [place] # (Auto) Eos # (Auto) Baso # (Auto) Abs Immat Gran (auto) Absolute Neuts (auto) Absolute Nucleated RBC Nucleated RBC % (auto) PT 10.6 INR 0.9 Anion Gap Estim Creat Clear Calc Estimated GFR Random Glucose Lactic Acid Calcium Magnesium Total Bilirubin Direct Bilirubin AST ALT Alkaline Phosphatase Troponin I High Sens B-Natriuretic Peptide 29 Total Protein Albumin Lipase Influenza Type A (PCR) NEGATIVE Influenza Type B (PCR) NEGATIVE RSV RNA Qual (PCR) NEGATIVE SARS-CoV-2 RNA (RT-PCR) POSITIVE A 03/01/22 12:00 MCV MCH MCHC RDW Plt Count MPV Immature Gran % (Auto) Neut % (Auto) Lymph % (Auto) [place] % (Auto) Eos % (Auto) Baso % (Auto) Lymph # (Auto) [place] # (Auto) Eos # (Auto) Baso # (Auto) Abs Immat Gran (auto) Absolute Neuts (auto) Absolute Nucleated RBC Nucleated RBC % (auto) PT INR Anion Gap 11 L Estim Creat Clear Calc 28.3 Estimated GFR > 60 Random Glucose 149 H Lactic Acid Calcium 8.5 D Magnesium 4.8 H* Total Bilirubin 0.2 Direct Bilirubin < 0.2 AST 27 ALT 17 Alkaline Phosphatase 66 Troponin I High Sens B-Natriuretic Peptide Total Protein 5.9 L Albumin 3.6 Lipase 28 Influenza Type A (PCR) Influenza Type B (PCR) RSV RNA Qual (PCR) SARS-CoV-2 RNA (RT-PCR) Imaging Radiologist's Impressions: Impressions Chest X-Ray 03/01/22 11:06 IMPRESSION: COPD. Old granulomatous disease. Question right upper lobe nodule. Chest CTA 03/01/22 13:52 IMPRESSION: * No CT evidence of pulmonary emboli. * There is a new 1.3 cm nodule in the right upper lobe. This require correlation with follow-up PET/CT or CT-guided biopsy if not performed short-term follow-up chest CT in 3 months recommended.. * Additional Several scattered calcified and noncalcified lung nodules measuring 5 mm or less. * Stable postsurgical changes right upper lobe. * Pulmonary emphysema. * No lymphadenopathy. * Multiple nodules left lower lobe tree in bud pattern, suggesting infection, acute or chronic over neoplastic process. Various management parameters for solitary pulmonary nodules are in the literature. According to the UPDATED 2017 Fleischner Society recommendations, the advised follow-up imaging for a single solid nodule measuring 8 mm or greater is: Consider CT, PET/CT, or tissue sampling at 3 months. Reference: Guidelines for Management of Incidental Pulmonary Nodules Detected on CT Images: From the Fleischner Society 2017. Assessment and Plan (1) COVID-19: Status: Acute (2) Hypoxia: Status: Acute (3) COPD exacerbation: Status: Acute Plan Pt is a 66-year-old female with a PMH significant for COPD, HLD, chronic neck pain, and current smoker who presents to the ED with a 5-day history of SOB and mostly unproductive cough. Pt tested positive for COVID. She will be admitted to the hospital for treatment of acute respiratory failure d/t COPD and COVID infection. # acute respiratory failure in the setting of COVID infection and COPD -- O2 sat was 87% on RA -- 6mg dexamethasone day 03/11 -- DuoNeb 3mg q4h while awake -- check CRP, ferritin, procalcitonin, and LDH, and recheck every other day -- hold on abx for now pending procalcitonin -- symptoms for 5 days; remdesivir not indicated -- nasal canula titrated to O2>92 -- encourage po fluid and solid intake -- pt does not meet sepsis criteria # acute COPD exacerbation -- likely secondary to COVID infection -- DuoNebs, albuterol inhaler, steroids # hypotension -- likely due to hypovolemia from decreased po intake -- IVF, 1L LR 80mls/hr # hypokalemia -- potassium 3.2 at admission; received supplementation -- follow labs # hypermagnesmia -- follow labs # right upper lobe nodule -- CT found a new 1.3 cm nodule in the right upper lobe -- oncology consult -- follow-up outpatient with either PET/CT or CT-guided biopsy # neck pain, chronic -- continue home meds for pain management Full code DVT Prophylaxis: Lovenox, renally dosed Attending: Dr. Addison Pt will require a hospitalization of at least two nights for treatment of respiratory failure and COVID infection. Time Spent With Patient Time: Total time managing care of this patient today ____ minutes. Quality Stroke Does the patient have a stroke diagnosis?: No VTE Prior VTE?: No VTE Risk Level:: Medical - moderate - high VTE Device Contraindication: Treatment Not Indicated VTE Drug Contraindication: N/A - Med Ordered
[2022-03-01] MEDS: Lactated Ringers 1,000 ML 100 ML IVCONT (18:44)
[2022-03-01 19:05] LABS: Procalcitonin 0.25 ng/mL
[2022-03-01 19:09] LABS: C Reactive Protein 1.38 mg/dL (< or = 0.50); Lactate Dehydrogenase 141 U/L (122-220)
[2022-03-01 19:21] LABS: Ferritin 105 ng/mL (10-250)
--- NOTE | 2022-03-01 19:45 | MHC.EDTECH ---
PT WAS SERVED DINNER ,PT ATE 25 % OF MEAL AND DRANK 240 ML WATER .
[2022-03-01] MEDS: Gabapentin 400 MG CAPSULE PO (21:31)
[2022-03-01] MEDS: rOPINIRole HCL 2 MG TABLET 4 MG PO (21:31)
[2022-03-01] MEDS: Enoxaparin Sodium 30 MG/0.3 ML SYRINGE SUBCUT (21:32)
[2022-03-01] MEDS: oxyCODONE HCl Immed Release 5 MG TABLET PO (22:01)
[2022-03-01] MEDS: carisoprodoL 350 MG TABLET PO (22:01)
[2022-03-02] VITALS (9 sets, daily range): BP systolic 107–132; BP diastolic 53–66; PULSE 59–102; RESP 14–21; TEMP 36.8–37.3; O2SAT 91–96
[2022-03-02] MEDS: guaiFENesin DM 100/10/5 ML 5 ML SYRUP PO ×3 (04:43→21:45)
[2022-03-02] MEDS: Throat Lozenge, Medicated LOZENGE 1 LOZENGE MUCOUS MEM ×2 (04:43→21:50)
[2022-03-02] MEDS: Acetaminophen 325 MG TABLET 650 MG PO (04:49)
[2022-03-02] MEDS: Omeprazole 40 MG CAPSULE.DR PO (05:07)
[2022-03-02] MEDS: Albuterol/Iprat 2.5/0.5MG 3 ML AMPUL.NEB INHALE ×3 (07:53→19:12)
[2022-03-02 08:24] LABS: Hematocrit 32.3 % (37.0-47.0); Hemoglobin 10.4 g/dl (12.0-16.0); Mean Corpuscular HGB Conc 32.2 g/dl (31.0-35.0); Mean Corpuscular Hemoglobin 29.1 pg (27.0-33.0); Mean Corpuscular Volume 90.2 fL (80.0-98.0); Mean Platelet Volume 9.4 fL (9.4-12.3); Platelet Count 178 X10*3/uL (160-400); Red Blood Count 3.58 X10*6/uL (4.20-5.50); Red Cell Distribution Width 13.4 % (11.0-16.0); White Blood Count 3.2 X10*3/uL (4.8-10.8)
[2022-03-02 08:43] LABS: Anion Gap 8 (12-20); Blood Urea Nitrogen 21 mg/dL (9-16); Calcium 8.5 mg/dL (8.4-10.2); Carbon Dioxide 29 mmol/L (22-29); Chloride 106 mmol/L (96-108); Estimated Glomerular Filt Rate > 60; Glucose Random 94 mg/dL (60-115); Potassium 4.8 mmol/L (3.3-5.1); Sodium 138 mmol/L (135-145)
[2022-03-02] MEDS: carisoprodoL 350 MG TABLET PO ×2 (09:12→20:12)
[2022-03-02] MEDS: dexAMETHasone 6 MG TABLET PO (09:12)
[2022-03-02] MEDS: oxyCODONE HCl Immed Release 5 MG TABLET PO ×2 (09:13→20:11)
[2022-03-02] MEDS: 0.9 % Sodium Chloride Flush 3 ML SYRINGE IVFLUSH ×2 (09:13→17:29)
--- NOTE | 2022-03-02 10:17 | MHC.CM.PN ---
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
--- NOTE | 2022-03-02 12:44 | HO.PM.IMPN ---
Subjective Subjective Date of Service: 03/02/22 Interval History: the patient was seen and evaluated this morning Laying in bed, feels comfortable having her breakfast Complaining of neck pain Denies any fever, chills or shortness of breath No reported other overnight events. Systemic review: No fever, chills or weakness No chest pain, palpitation Dyspnea improved significantly, less coughing No abdominal pain, nausea or vomiting No urinary symptoms No reported rash Physical Exam Vital Signs: Vital Signs: Last Vital Signs Temp 98.3 F 03/02/22 08:00 Pulse 75 03/02/22 11:31 Resp 18 03/02/22 11:27 BP 132/66 03/02/22 08:00 Pulse Ox 91 L 03/02/22 11:31 O2 Del Method 03/02/22 08:00 O2 Flow Rate 2 03/02/22 04:04 BMI result Body Mass Index 11.2 Const: Other: Constitutional : Awake, interactive, frail looking, not in distress Neck : Normal inspection, Supple Cardiovascular : RRR, no JVP, no lower extremity edema Respiratory : Fair bilateral air entry, no crackles, expiratory wheezes Gastrointestinal: soft, lax, Normal bowel sounds, Non tender Skin : Warm, Dry Neurological : Alert & oriented x3, No focal deficit Objective Data Active Medications Acetaminophen (Acetaminophen 325 Mg Tablet) 650 mg PO Q6H PRN PRN Reason: Pain, Mild (Pain Scale 1-3) Last Admin: 03/02/22 04:49 Dose: 650 mg Documented By: MAX Albuterol Sulfate (Albuterol Sulfate (0.083%) 2.5 Mg/3 Ml Vial.Neb) 2.5 mg INHALE Q4H PRN PRN Reason: shortness of breath or wheezing Albuterol/Ipratropium (Albuterol/Iprat 2.5/0.5mg 3 Ml Ampul.Neb) 3 ml INHALE RQ4H WHILE AWAKE BRIGID Last Admin: 03/02/22 11:25 Dose: 3 ml Documented By: KESHA Benzocaine (Throat Lozenge, Medicated Lozenge) 1 lozenge MUCOUS MEM Q2H PRN PRN Reason: Sore Throat Last Admin: 03/02/22 04:43 Dose: 1 lozenge Documented By: MXA Carisoprodol (Carisoprodol 350 Mg Tablet) 350 mg PO BID PRN PRN Reason: muscle pain Last Admin: 03/02/22 09:12 Dose: 350 mg Documented By: BAILEE Dexamethasone (Dexamethasone 6 Mg Tablet) 6 mg PO DAILY [facility] Stop: 03/11/22 08:59 Last Admin: 03/02/22 09:12 Dose: 6 mg Documented By: BAILEE Enoxaparin Sodium (Enoxaparin Sodium 30 Mg/0.3 Ml Syringe) 30 mg SUBCUT Q24H [facility] Last Admin: 03/01/22 21:32 Dose: 30 mg Documented By: MAX Gabapentin (Gabapentin 400 Mg Capsule) 400 mg PO BEDTIME [facility] Last Admin: 03/01/22 21:31 Dose: 400 mg Documented By: MAX Guaifenesin/Dextromethorphan (Guaifenesin Dm 100/10/5 Ml 5 Ml Syrup) 5 ml PO Q4H PRN PRN Reason: Cough Last Admin: 03/02/22 09:13 Dose: 5 ml Documented By: BAILEE Omeprazole (Omeprazole 40 Mg Capsule.Dr) 40 mg PO DAILY@0630 [facility] Last Admin: 03/02/22 05:07 Dose: 40 mg Documented By: MAX Ondansetron HCl (Ondansetron Hcl 4 Mg/2 Ml Vial) 4 mg IVPUSH Q8H PRN PRN Reason: Nausea and Vomiting Oxycodone HCl (Oxycodone Hcl Immed Release 5 Mg Tablet) 5 mg PO TID PRN PRN Reason: Pain, Moderate (Pain Scale 4-6 Last Admin: 03/02/22 09:13 Dose: 5 mg Documented By: BAILEE Ropinirole HCl (Ropinirole Hcl 2 Mg Tablet) 4 mg PO BEDTIME [facility] Last Admin: 03/01/22 21:31 Dose: 4 mg Documented By: MAX Sodium Chloride (0.9 % Sodium Chloride Flush 3 Ml Syringe) 3 ml IVFLUSH QSHIFT [facility] Last Admin: 03/02/22 09:13 Dose: 3 ml Documented By: BAILEE Labs CBC & Chem 7: 03/02/22 08:02 03/02/22 08:02 Labs: Laboratory Results - last 24 hr 03/01/22 03/01/2203/02/23 11:25 12:00 08:02 MCV 90.2 MCH 29.1 MCHC 32.2 RDW 13.4 Plt Count 178 MPV 9.4 Absolute Nucleated RBC 0.000 Nucleated RBC % (auto) 0.0 Anion Gap Estim Creat Clear Calc Estimated GFR Random Glucose Calcium Magnesium 4.8 H* Ferritin 105 Lactate Dehydrogenase 141 C-Reactive Protein 1.38 H Procalcitonin 0.25 03/02/22 03/02/22 08:02 08:02 MCV MCH MCHC RDW Plt Count MPV Absolute Nucleated RBC Nucleated RBC % (auto) Anion Gap 8 L Estim Creat Clear Calc 33.0 Estimated GFR > 60 Random Glucose 94 Calcium 8.5 Magnesium 2.0 Ferritin Lactate Dehydrogenase C-Reactive Protein Procalcitonin Assessment and Plan (1) COVID-19: Status: Acute (2) Hypoxia: Status: Acute (3) COPD exacerbation: Status: Acute (4) Acute respiratory failure with hypoxia: Status: Acute Plan Pt is a 66-year-old female with a PMH significant for COPD, HLD, chronic neck pain, and current smoker who presents to the ED with a 5-day history of SOB and mostly unproductive cough. Pt tested positive for COVID. She will be admitted to the hospital for treatment of acute respiratory failure d/t COPD and COVID infection. # acute respiratory failure in the setting of COVID infection and COPD Continue 6mg dexamethasone day 2/10 DuoNeb 3mg q4h while awake Follow CRP, and LDH every other day symptoms for 5 days; remdesivir not indicated Wean oxygen down as tolerated encourage po fluid and solid intake # acute COPD exacerbation secondary to COVID infection DuoNebs, albuterol inhaler, steroids # hypotension Improved, likely due to hypovolemia from decreased po intake DC IVF # hypokalemia Recovered after supplementation follow labs # hypermagnesmia Resolved # right upper lobe nodule CT found a new 1.3 cm nodule in the right upper lobe oncology consult follow-up outpatient with either PET/CT or CT-guided biopsy # neck pain, chronic continue home meds for pain management DVT Prophylaxis: Lovenox, renally dosed Pt will require overnight hospital stay for treatment of respiratory failure and COVID infection pending safe discharge plan Time Spent With Patient Time: Total time managing care of this patient today ____ minutes. Quality Stroke Does the patient have a stroke diagnosis?: No VTE Prior VTE?: No VTE Risk Level:: Medical - moderate - high VTE Device Contraindication: Treatment Not Indicated VTE Drug Contraindication: N/A - Med Ordered
[2022-03-02] MEDS: Enoxaparin Sodium 30 MG/0.3 ML SYRINGE SUBCUT (20:04)
[2022-03-02] MEDS: rOPINIRole HCL 2 MG TABLET 4 MG PO (21:43)
[2022-03-02] MEDS: Gabapentin 400 MG CAPSULE PO (21:43)
[2022-03-03] MEDS: 0.9 % Sodium Chloride Flush 3 ML SYRINGE IVFLUSH ×4 (01:01→21:30)
[2022-03-03] MEDS: Omeprazole 40 MG CAPSULE.DR PO (03:43)
[2022-03-03] MEDS: oxyCODONE HCl Immed Release 5 MG TABLET PO ×2 (03:43→16:14)
[2022-03-03] MEDS: guaiFENesin DM 100/10/5 ML 5 ML SYRUP PO (03:43)
[2022-03-03] MEDS: carisoprodoL 350 MG TABLET PO ×2 (03:47→16:14)
[2022-03-03 07:25] LABS: Hematocrit 32.4 % (37.0-47.0); Hemoglobin 10.8 g/dl (12.0-16.0); Mean Corpuscular HGB Conc 33.3 g/dl (31.0-35.0); Mean Platelet Volume 9.4 fL (9.4-12.3); Platelet Count 201 X10*3/uL (160-400); Red Cell Distribution Width 13.4 % (11.0-16.0); White Blood Count 4.2 X10*3/uL (4.8-10.8)
[2022-03-03 07:36] LABS: Anion Gap 10 (12-20); Blood Urea Nitrogen 12 mg/dL (9-16); Calcium 8.7 mg/dL (8.4-10.2); Carbon Dioxide 30 mmol/L (22-29); Chloride 102 mmol/L (96-108); Creatinine Clr Calc Pharmacy 40.9; Estimated Glomerular Filt Rate > 60; Glucose Random 86 mg/dL (60-115); Potassium 4.3 mmol/L (3.3-5.1); Sodium 138 mmol/L (135-145)
[2022-03-03 07:45] VITALS: BP 101/70; PULSE 89; RESP 18; TEMP 36.3; O2SAT 94
[2022-03-03] MEDS: dexAMETHasone 6 MG TABLET PO (08:33)
[2022-03-03] MEDS: Albuterol/Iprat 2.5/0.5MG 3 ML AMPUL.NEB INHALE ×3 (08:48→19:35)
[2022-03-03 08:50] VITALS: PULSE 74; RESP 18; O2SAT 93
--- NOTE | 2022-03-03 10:25 | MHC.CM.PN ---
Female 66 Covid+ DP home with resumption of [employer] services. She may need assist with transportation. DC plan may change pending PT eval.
[2022-03-03] MEDS: guaiFENesin LA 600 MG TAB.ER.12H PO ×2 (10:39→21:29)
[2022-03-03] MEDS: Throat Lozenge, Medicated LOZENGE 1 LOZENGE MUCOUS MEM ×3 (10:39→21:30)
[2022-03-03 11:31] VITALS: BP 106/65; PULSE 90; RESP 18; TEMP 36.6; O2SAT 96
--- NOTE | 2022-03-03 12:15 | P.PNIM_ITS ---
Subjective Subjective Date of Service: 03/03/22 Interval History: the patient was seen and evaluated this morning Laying in bed, feels congested, coughing and feeling tired No reported other overnight events. Systemic review: No fever, chills or weakness No chest pain, palpitation Dyspnea improved significantly, having congestion with coughing No abdominal pain, nausea or vomiting No urinary symptoms No reported rash Physical Exam Vital Signs: Vital Signs: Last Vital Signs Temp 98 F 03/03/22 11:31 Pulse 90 03/03/22 11:31 Resp 18 03/03/22 11:31 BP 106/65 03/03/22 11:31 Pulse Ox 96 03/03/22 11:31 O2 Del Method 03/03/22 11:31 O2 Flow Rate 2 03/02/22 04:04 BMI result Body Mass Index 11.2 Const: Other: Constitutional : Awake, interactive, frail looking, not in distress Neck : Normal inspection, Supple Cardiovascular : RRR, no JVP, no lower extremity edema Respiratory : Fair bilateral air entry, no crackles, expiratory wheezes Gastrointestinal: soft, lax, Normal bowel sounds, Non tender Skin : Warm, Dry Neurological : Alert & oriented x3, No focal deficit Objective Data Active Medications Acetaminophen (Acetaminophen 325 Mg Tablet) 650 mg PO Q6H PRN PRN Reason: Pain, Mild (Pain Scale 1-3) Last Admin: 03/02/22 04:49 Dose: 650 mg Documented By: MAX Albuterol Sulfate (Albuterol Sulfate (0.083%) 2.5 Mg/3 Ml Vial.Neb) 2.5 mg INHALE Q4H PRN PRN Reason: shortness of breath or wheezing Albuterol/Ipratropium (Albuterol/Iprat 2.5/0.5mg 3 Ml Ampul.Neb) 3 ml INHALE RQ4H WHILE AWAKE BRIGID Last Admin: 03/03/22 08:48 Dose: 3 ml Documented By: CAMILLE Benzocaine (Throat Lozenge, Medicated Lozenge) 1 lozenge MUCOUS MEM Q2H PRN PRN Reason: Sore Throat Last Admin: 03/03/22 10:39 Dose: 1 lozenge Documented By: CLAYTON Carisoprodol (Carisoprodol 350 Mg Tablet) 350 mg PO BID PRN PRN Reason: muscle pain Last Admin: 03/03/22 03:47 Dose: 350 mg Documented By: DEEPAK Dexamethasone (Dexamethasone 6 Mg Tablet) 6 mg PO DAILY [facility] Stop: 03/11/22 08:59 Last Admin: 03/03/22 08:33 Dose: 6 mg Documented By: CLAYTON Enoxaparin Sodium (Enoxaparin Sodium 30 Mg/0.3 Ml Syringe) 30 mg SUBCUT Q24H [facility] Last Admin: 03/02/22 20:04 Dose: 30 mg Documented By: CULLEN Gabapentin (Gabapentin 400 Mg Capsule) 400 mg PO BEDTIME [facility] Last Admin: 03/02/22 21:43 Dose: 400 mg Documented By: CULLEN Guaifenesin (Guaifenesin La 600 Mg Tab.Er.12h) 600 mg PO BID [facility] Last Admin: 03/03/22 10:39 Dose: 600 mg Documented By: CLAYTON Omeprazole (Omeprazole 40 Mg Capsule.Dr) 40 mg PO DAILY@0630 [facility] Last Admin: 03/03/22 03:43 Dose: 40 mg Documented By: DEEPAK Ondansetron HCl (Ondansetron Hcl 4 Mg/2 Ml Vial) 4 mg IVPUSH Q8H PRN PRN Reason: Nausea and Vomiting Oxycodone HCl (Oxycodone Hcl Immed Release 5 Mg Tablet) 5 mg PO TID PRN PRN Reason: Pain, Moderate (Pain Scale 4-6 Last Admin: 03/03/22 03:43 Dose: 5 mg Documented By: DEEPAK Ropinirole HCl (Ropinirole Hcl 2 Mg Tablet) 4 mg PO BEDTIME [facility] Last Admin: 03/02/22 21:43 Dose: 4 mg Documented By: CULLEN Sodium Chloride (0.9 % Sodium Chloride Flush 3 Ml Syringe) 3 ml IVFLUSH QSHIFT [facility] Last Admin: 03/03/22 08:34 Dose: 3 ml Documented By: CLAYTON Labs CBC & Chem 7: 03/03/22 06:42 03/03/22 06:42 Labs: Laboratory Results - last 24 hr 03/03/22 03/03/22 06:42 06:42 MCV 90.0 MCH 30.0 MCHC 33.3 RDW 13.4 Plt Count 201 MPV 9.4 Absolute Nucleated RBC 0.000 Nucleated RBC % (auto) 0.0 Anion Gap 10 L Estim Creat Clear Calc 40.9 Estimated GFR > 60 Random Glucose 86 Calcium 8.7 Microbiology Microbiology Results: Microbiology 03/01/22 11:38 Blood Culture - Preliminary Blood - Venous No growth after 24 hours. 03/01/22 11:25 Blood Culture - Preliminary Blood - Venous No growth after 24 hours. Assessment and Plan (1) COVID-19: Status: Acute (2) COPD exacerbation: Status: Acute Plan Pt is a 66-year-old female with a PMH significant for COPD, HLD, chronic neck pain, and current smoker who presents to the ED with a 5-day history of SOB and mostly unproductive cough. Pt tested positive for COVID. She will be admitted to the hospital for treatment of acute respiratory failure d/t COPD and COVID infection. # acute respiratory failure in the setting of COVID infection and COPD Continue 6mg dexamethasone day 3/10 DuoNeb 3mg q4h while awake Start Mucinex symptoms for 5 days; remdesivir not indicated Wean oxygen down as tolerated encourage po fluid and solid intake # acute COPD exacerbation secondary to COVID infection DuoNebs, albuterol inhaler, steroids # hypotension Improved, likely due to hypovolemia from decreased po intake DC IVF # hypokalemia Recovered after supplementation follow labs # hypermagnesmia Resolved # right upper lobe nodule CT found a new 1.3 cm nodule in the right upper lobe oncology consult follow-up outpatient with either PET/CT or CT-guided biopsy # neck pain, chronic continue home meds for pain management DVT Prophylaxis: Lovenox, renally dosed Pt will require overnight hospital stay for treatment of COVID infection pending safe discharge plan Time Spent With Patient Time: Total time managing care of this patient today ____ minutes. Quality Stroke Does the patient have a stroke diagnosis?: No VTE Prior VTE?: No VTE Risk Level:: Medical - moderate - high VTE Device Contraindication: Treatment Not Indicated VTE Drug Contraindication: N/A - Med Ordered
[2022-03-03 14:12] VITALS: PULSE 89; RESP 18; O2SAT 98
[2022-03-03 15:38] VITALS: BP 130/58; PULSE 93; RESP 17; TEMP 36.8; O2SAT 92
[2022-03-03 19:35] VITALS: PULSE 80; RESP 17; O2SAT 95
[2022-03-03] MEDS: Benzonatate 100 MG CAPSULE 200 MG PO (21:29)
[2022-03-03] MEDS: Gabapentin 400 MG CAPSULE PO (21:29)
[2022-03-03] MEDS: polyethylene glycoL 3350 17 GM POWD.PACK PO (21:29)
[2022-03-03] MEDS: rOPINIRole HCL 2 MG TABLET 4 MG PO (21:29)
[2022-03-03] MEDS: Enoxaparin Sodium 40 MG/0.4 ML SYRINGE SUBCUT (21:29)
[2022-03-04] VITALS (7 sets, daily range): BP systolic 122–134; BP diastolic 58–87; PULSE 83–120; RESP 12–16; TEMP 36.6–37.3; O2SAT 91–95; BMI 11.2
[2022-03-04] MEDS: oxyCODONE HCl Immed Release 5 MG TABLET PO ×3 (00:27→16:33)
[2022-03-04 06:52] LABS: Anion Gap 10 (12-20); Blood Urea Nitrogen 9 mg/dL (9-16); C Reactive Protein 0.44 mg/dL (< or = 0.50); Calcium 9.2 mg/dL (8.4-10.2); Carbon Dioxide 34 mmol/L (22-29); Chloride 100 mmol/L (96-108); Creatinine Clr Calc Pharmacy 40.9; Estimated Glomerular Filt Rate > 60; Glucose Random 91 mg/dL (60-115); Lactate Dehydrogenase 173 U/L (122-220); Potassium 4.2 mmol/L (3.3-5.1); Sodium 140 mmol/L (135-145)
[2022-03-04] MEDS: Albuterol/Iprat 2.5/0.5MG 3 ML AMPUL.NEB INHALE ×2 (08:14→11:39)
[2022-03-04] MEDS: guaiFENesin LA 600 MG TAB.ER.12H PO (08:22)
[2022-03-04] MEDS: Omeprazole 40 MG CAPSULE.DR PO (08:22)
[2022-03-04] MEDS: dexAMETHasone 6 MG TABLET PO (08:23)
[2022-03-04] MEDS: carisoprodoL 350 MG TABLET PO ×2 (08:24→16:33)
[2022-03-04] MEDS: 0.9 % Sodium Chloride Flush 3 ML SYRINGE IVFLUSH ×2 (08:25→16:34)
--- NOTE | 2022-03-04 11:10 | MHC.CLN ---
PT IS SEVERELY MALNOURISHED PT WITH MODERATELY DEPLETED SUBCUTANEOUS FAT AND MUSCLE MASS, BMI 11 WITH POOR PO INTAKE AND INCREASED NEEDS R/T ACUTE ILLNESS (COVID) AND PRESSURE INJURY DIET RX: REGULAR-APPROPRIATE RECOMMEND ADDING ENSURE BID TO INCREASE KCALS SUPP TO PROVIDE 700KCALS, 40G PROTEIN MONITOR K+, PHOS AND MG CLOSELY FOR INCREASED RISK FOR RE-FEEDING MONITOR PO INTAKE SEE ALSO FULL CLINICAL NUTRITION ASSESSMENT
--- NOTE | 2022-03-04 13:40 | W.MHC.F2F ---
Service Date Service Date: 03/04/22 Encounter Date of encounter: 03/04/22 Reasons for Services Signs and symptoms assessed: Physical deconditioning Reason for senior care: teach disease management Reason for physical therapy: home safety and mobility and therapeutic exercises Homebound: Leaving the home is medically contraindicated at this time without the asist of a device and/or another person due th the listed conditions above and below. Reason homebound: unsteady gait / fall risk Certification: Based on the above findings, I certify that this patient is confined to the home and needs intermittent senior care care, physical therapy and/or speech therapy, or continues to need occupational therapy. The patient is under my care, and I have initiated the establishment of the plan of care. The patient will be followed by a physician who will periodically review the plan of care. Time Spent With Patient Time: Total time managing care of this patient today ____ minutes.
--- NOTE | 2022-03-04 13:41 | PM.DS ---
DS: Providers Provider Date of Service: 03/04/22 Date of admission: 03/01/22 17:53 Primary care physician: Ed Murillo MD DS: Diagnosis Discharge Diagnosis (1) COVID-19: Status: Acute (2) COPD exacerbation: Status: Acute (3) Acute respiratory failure with hypoxia: Status: Acute DS: Summary Hospital Course Hospital Course: Admission note HPI Pt is a 66-year-old female with a PMH significant for COPD, HLD, chronic neck pain, and current smoker who presents to the ED with a 5-day history of SOB and mostly unproductive cough. Pt states her symptoms began on Thursday when she woke up feeling sick : she had a sore throat ( felt like razor blades ), cough and SOB. On Thursday patient also experienced abdominal pain and diarrhea which resolved by the next day and have not yet recurred.? Patient has had decreased p.o. intake of both solids and fluids since then and has experienced generalized fatigue and weakness, and lightheadedness and dizziness walking.? Of note patient has been vaccinated against COVID and received 1 booster shot.? Patient denies fever, chills, nausea, vomiting.? No chest pain/pressure, palpitations. In the ED labs were significant for hypokalemia of 3.2, BUN elevated at 39, and hyper magnesium of 4.8. Chest x-ray significant for hyperinflation lungs with question of a right upper lobe nodule.? CT of chest found no evidence of pulmonary emboli, but did find left lower lobe nodules suggestive of infection and a new 1.3 cm nodule in the right upper lobe that requires further workup with a PET scan or CT-guided biopsy.? Patient tested positive for COVID. Pt will be admitted to the hospital for treatment of COPD exacerbation in the setting of COVID infection. Hospital course The patient was admitted to the hospital for treatment of acute respiratory failure in setting of COVID-19 infection and COPD exacerbation. Treated with steroids, bronchodilator nebulizers and cough medication with good response over the course of hospital stay as she was weaned off the oxygen and became able to ambulate on room air with no reported dyspnea. She participated with Physical therapy who recommended short-term rehab but she prefers to go back home with visiting nurses which will be arranged by watch case polisher. CT scan of the chest was consistent with right upper lobe nodule of 1.3 cm which will need outpatient follow-up for CT-guided biopsy/PET scan to be arranged by her PCP. Continue dexamethasone as prescribed Continue cough medication as needed Come back to the hospital for any worsening shortness of breath or chest pain Time Spent with Patient Time attestation: Total time managing care of this patient today ____ minutes. Discharge coordination time: Greater than 30 minutes Quality: Safe Use of Opioids Does Pt have an Active Cancer Diagnosis on the Problem List?: No Quality: Stroke Does the patient have a stroke diagnosis?: No Physical Exam Vital Signs: Vital Signs: Last Vital Signs Temp 99.1 F 03/04/22 11:05 Pulse 120 H 03/04/22 11:40 Resp 12 03/04/22 11:40 BP 125/87 03/04/22 11:05 Pulse Ox 91 L 03/04/22 11:05 O2 Del Method 03/04/22 11:05 O2 Flow Rate 2 03/02/22 04:04 BMI result Body Mass Index 11.2 Const: Other: Constitutional : Awake, interactive, frail looking, not in distress Neck : Normal inspection, Supple Cardiovascular : RRR, no JVP, no lower extremity edema Respiratory : Fair bilateral air entry, no crackles, scattered expiratory wheezes Gastrointestinal: soft, lax, Normal bowel sounds, Non tender Skin : Warm, Dry Neurological : Alert & oriented x3, No focal deficit DS: Data Data Completed and Pending Labs on day of discharge: Laboratory Results - last 24 hr 03/04/22 03/04/22 06:19 06:19 Sodium 140 Potassium 4.2 Chloride 100 Carbon Dioxide 34 H Anion Gap 10 L BUN 9 Creatinine 0.59 Estim Creat Clear Calc 40.9 Estimated GFR > 60 Random Glucose 91 Calcium 9.2 Lactate Dehydrogenase 173 C-Reactive Protein 0.44 Preliminary micro results at discharge 03/01/22 11:38 Blood Culture - Preliminary Blood - Venous No growth after 48 hours. 03/01/22 11:25 Blood Culture - Preliminary Blood - Venous No growth after [address] scan - chest: Radiologist's impression: ITS Impressions Chest X-Ray 03/01/22 11:06 IMPRESSION: COPD. Old granulomatous disease. Question right upper lobe nodule. Chest CTA 03/01/22 13:52 IMPRESSION: * No CT evidence of pulmonary emboli. * There is a new 1.3 cm nodule in the right upper lobe. This require correlation with follow-up PET/CT or CT-guided biopsy if not performed short-term follow-up chest CT in 3 months recommended.. * Additional Several scattered calcified and noncalcified lung nodules measuring 5 mm or less. * Stable postsurgical changes right upper lobe. * Pulmonary emphysema. * No lymphadenopathy. * Multiple nodules left lower lobe tree in bud pattern, suggesting infection, acute or chronic over neoplastic process. Various management parameters for solitary pulmonary nodules are in the literature. According to the UPDATED 2017 Fleischner Society recommendations, the advised follow-up imaging for a single solid nodule measuring 8 mm or greater is: Consider CT, PET/CT, or tissue sampling at 3 months. Reference: Guidelines for Management of Incidental Pulmonary Nodules Detected on CT Images: From the Fleischner Society 2017. Discharge Plan Discharge Anticipated Discharge Date/Time: 03/04/22 12:32 Patient Disposition: Home Health Service Discharge Diagnosis: Acute hypoxic respiratory failure COVID-19 infection COPD exacerbation Referrals: Ed Murillo MD [Primary Care Provider] - 1 Week Discharge Medications: New dexamethasone 6 mg Tablet 6 mg PO DAILY Qty: 6 0RF benzonatate 100 mg Capsule 100 mg PO TID PRN (Reason: cough) Qty: 20 0RF guaifenesin [Mucinex] 600 mg Tablet Extended Release 12hr 600 mg PO BID Qty: 14 0RF Continued (DME) Allevyn Gentle Border 5 X 5 bandage See Rx Instructions .ROUTE .MEDSUPPLY Qty: 10 6RF Rx Instructions: change every 72 hours (Q 3 days) naloxone [Narcan] 4 mg/actuation spray,non-aerosol 4 mg intranasal Q2M PRN (Reason: opioid overdose) Qty: 2 2RF Rx Instructions: spray 1 dose into ONE nostril; alternate nostrils w each dose until help arrives Ensure Enlive 0.08 gram-1.5 kcal/mL liquid 1 ea PO BID 30 Days Qty: 14097 12RF Rx Instructions: Chocolate Only omeprazole 40 mg capsule,delayed release(DR/EC) 40 mg PO DAILY Qty: 90 3RF albuterol sulfate 2.5 mg /3 mL (0.083 %) solution for nebulization 2.5 mg inhalation Q4-6H PRN (Reason: shortness of breath or wheezing) Qty: 90 3RF albuterol sulfate [ProAir HFA] 90 mcg/actuation HFA aerosol inhaler 2 puff inhalation Q4-6H PRN (Reason: shortness of breath or wheezing) 30 Days Qty: 8.5 4RF fluticasone propionate 220 mcg/actuation HFA aerosol inhaler 2 puff inhalation BID 30 Days Qty: 12 6RF Atrovent HFA 17 mcg/actuation HFA aerosol inhaler 2 puff PO QID Qty: 12.9 3RF ropinirole 4 mg tablet 4 mg PO BEDTIME 30 Days Qty: 30 3RF Rx Instructions: administer 1-3 hours before bedtime carisoprodol 350 mg tablet 350 mg PO BID PRN (Reason: muscle pain) 30 Days Qty: 60 0RF oxycodone-acetaminophen [Percocet] 5-325 mg tablet 1 tab PO TID PRN (Reason: pain) 28 Days Qty: 84 0RF Rx Instructions: MassPat verified. Partial refill upon request. gabapentin 400 mg capsule 400 mg PO BEDTIME Discharge Orders: Discharge Order (Routine); Ordered 03/04/22 Ordered By: Charline Addison Diet: Advance to usual diet Activity on Discharge: As tolerated Stand Alone Forms: Patient Portal Discharge page Care Plan Goals: Read below Health Concerns: Read below Plan of Treatment: Read below Assessment: You were admitted to the hospital for evaluation of difficulty breathing. Found to have COVID-19 infection along with COPD exacerbation requiring oxygen supplement. Treated with steroids, bronchodilator nebulizers and oxygen which was weaned down to room air during the hospital stay. You were able to ambulate on room air. Continue dexamethasone as prescribed Continue cough medication as needed To follow-up with PCP for evaluation of right-sided lung nodule of 1.3 cm
[2022-03-04] MEDS: Benzonatate 100 MG CAPSULE 200 MG PO (13:59)
--- NOTE | 2022-03-04 14:47 | MHC.CDI.RETR ---
Documented by User: Rosa Collado RN 03/04/22 14:53 Retrospective Query PHYSICIAN'S DOCUMENTATION REQUEST Date of Query: 03/04/22 [id number] Patient Name: Earlene Martinez Admit Date: 03/01/22 Dear Doctor, A review of the medical record indicates additional documentation may be needed. Please review below and update the documentation accordingly. Clinical Indicators: Documentation by the heating and ventilating tender includes the diagnosis of severe malnutrition. Please confirm or rule out this diagnosis below and in the discharge summary: Risk Factors/Clinical Indicators/Treatments POA/RESOLVED/TREAT/RULE OUT Per provider progress notes: Patient has had decreased p.o. intake of both solids and fluids Per heating and ventilating tender consult on 03/04: PT IS SEVERELY MALNOURISHED PT WITH MODERATELY DEPLETED SUBCUTANEOUS FAT AND MUSCLE MASS, BMI 11 WITH POOR PO INTAKE AND INCREASED NEEDS R/T ACUTE ILLNESS (COVID) AND PRESSURE INJURY BMI: 11.3 Height: 5ft 2in Weight: 28kg If possible, please provide in your progress notes, additional specificity regarding the severity of the malnutrition using the above information: Mild Moderate Severe Other (please specify) Unable to determine Use of terms such as suspected, likely, concern for, or probable (associated with a specific diagnosis that is being evaluated, monitored, or treated as if it exists) are acceptable and can be coded in the inpatient setting, when documented at the time of discharge. Thank you, Rosa Collado, MS, RN, CCRN Extension: [phone] Please use your independent medical judgment in providing your response. THIS QUERY IS PART OF THE PERMANENT MEDICAL RECORD Documented by User: Charline Addison MD 03/04/22 15:45 Retrospective Query Provider Response: Severe Protein-Calorie Malnutrition
== END 2022-03-04 05:40 | disposition home health service (06) | DRG 177 ==
LOC: HO.ED 16:47 → HO.EDOVER 18:12 → HO.IMC 19:14
PROVIDERS: Physician Assistant; Admitting Provider Student in an Organized Health Care Education/Training Program; Emergency Provider Emergency Medicine; PCP Family Medicine; Visit Provider Student in an Organized Health Care Education/Training Program
DX: U07.1 COVID-19 (principal); E43 Unspecified severe protein-calorie malnutrition; J96.01 Acute respiratory failure with hypoxia; J44.1 Chronic obstructive pulmonary disease with (acute) exacerbation; Z68.1 Body mass index [BMI] 19.9 or less, adult; Z98.1 Arthrodesis status; G89.29 Other chronic pain; E78.5 Hyperlipidemia, unspecified; R91.8 Other nonspecific abnormal finding of lung field; E87.6 Hypokalemia; M54.2 Cervicalgia; I95.9 Hypotension, unspecified; E83.41 Hypermagnesemia; F17.210 Nicotine dependence, cigarettes, uncomplicated; Z71.6 Tobacco abuse counseling; Z88.0 Allergy status to penicillin; Z88.5 Allergy status to narcotic agent; Z88.6 Allergy status to analgesic agent; Z79.51 Long term (current) use of inhaled steroids; Z79.899 Other long term (current) drug therapy
CPT/HCPCS: 0241U; 36415; 71045; 71275; 80048; 80076; 82728; 83605; 83615; 83690; 83735; 83880; 84145; 84484; 85025; 85027; 85610; 86140; 87040; 93005; 94640; 96361; 96374; 96375; 97161; 99285; J0696; J1650; J2405; J2930; J3475; J8540; Q9967

== ENCOUNTER 2022-10-07 14:18 | Outpatient (AMB) | payer OTHER, SELFPAY ==
--- NOTE | 2022-10-07 13:57 | MHC.PC.OV ---
Intake Visit Reasons: Medications [phone] Intake Note: Patient is calling regarding her medication carisoprodol, . Allergies bee pollen [BEE STINGS] Allergy (Intermediate, Verified 10/07/22 14:01) THROAT SWELLING penicillin V Allergy (Intermediate, Verified 10/07/22 14:01) nausea and vomiting Penicillins [PENICILLINS] Allergy (Intermediate, Verified 10/07/22 14:01) YEAST INFECTIONS- UTI - NAUSEA codeine [Codeine] Allergy (Mild, Verified 10/07/22 14:01) ITCHING celecoxib [From Celebrex] Adverse Reaction (Severe, Verified 10/07/22 14:01) RECTAL BLEEDING Tobacco use date assessed: 10/07/22 Fall risk assessment: No Falls in past year Last assessed Fall Risk: 10/07/22 Dental Screening Dental Screen Date: 10/07/22 Did you have a dental visit in the last 12 months?: Yes Did you have a dental problem in the last 6 months where you did not have access to dental care?: No Was dental information given to patient?: No HPI Medications [phone] HPI Details 67 y/o female presents today to discuss her medications. [facility] Surgical History (Updated 10/07/22 @ 14:03 by Francheska Cornejo CMA) H/O oral surgery History of biopsy History of fusion of cervical spine History of lung biopsy History of rhinoplasty History of shoulder surgery History of surgery on left wrist Family History Father Cirrhosis Substance use disorder Mother No problems noted. Brother No problems noted. Son No problems noted. Son No problems noted. Daughter No problems noted. Daughter No problems noted. Daughter No problems noted. Social History Household Members: Family Housing: Apartment Do you presently have visiting nurse or other home services: Yes Patient Tobacco Use Status: Current someday Tobacco user Cigarettes Per Day: 5 e-Cigarette/Vaping Use: Never Used Second Hand Smoke Exposure: No service: No Current occupational status: retired and disabled Current occupational exposures/hazards: No Cognitive needs: No Hearing needs: No Vision needs: Yes Questionnaire Thrive Questionnaire Date Thrive assessed: 03/11/21 DEON-7 AMB Questionnaire DEON-7 Date DEON - 7 assessed: 03/11/21 Source: Developed by Drs. All Hoyos, Linda Madison, Omar Crowell and colleagues, with an educational wilton from [employer]. Review of Systems Const Denies chills, Denies fatigue, Denies fever(s), Denies headache(s) and Denies weakness ENT Denies dizziness and Denies headache(s) Card Denies dyspnea Resp Denies cough, Denies dyspnea, Denies wheezing and Denies other (shortness of breath) Musc Denies numbness and Denies tingling Neuro Denies dizziness, Denies headache(s), Denies numbness, Denies tingling and Denies weakness Psych Denies anxiety and Denies depression Endo Denies fatigue Aller/Immun Denies wheezing Physical exam (Primary Care) Tobacco/Smoking Status: Tobacco use Status Tobacco use date assessed 10/07/22 10/07/22 14:03 Patient Tobacco Use Status Current someday Tobacco 10/07/22 14:03 e-Cigarette/Vaping Use Never Used 10/07/22 14:03 Thrive Assessment: Date of Thrive Assessment Date Thrive assessed 03/11/21 10/07/22 14:03 Telehealth Telehealth Location of provider rendering services: practice address Location of patient: address on file Patient Identification confirmed using: Name, : Yes Telehealth method: voice only Patient verbally consented to treatment: Yes Patient verbally consented to billing insurance company: Yes Patient informed of any privacy concerns related to visit: Yes Minutes spent on Phone/Video with Pt.: 10 Assessment and Plan Assessment & Plan (1) Chronic pain: Code(s): G89.29 - Other chronic pain Qualifiers: Chronic pain type: other chronic postprocedural pain Qualified Code(s): G89.28 - Other chronic postprocedural pain Plan: Patient takes Percocet and carisoprodol. She had some difficulties getting Her medications Over the weekend she has her medications now. Will ask the nurse navigator to look in to medication deliveries and also to look in to getting her lab draws at home-[facility] may provide this service for their insurance clients. Orders: Orders Comprehensive [place]. Panel Fast Today Z00.00 - Encounter for general adult medical examination without abnormal findings Lipid Panel Today Z00.00 - Encounter for general adult medical examination without abnormal findings TSH reflex Free T4 Today Z00.00 - Encounter for general adult medical examination without abnormal findings Microalbumin, Random (w Creat) Today I10 - Essential (primary) hypertension Complete Blood Count Auto Diff Today Z00.00 - Encounter for general adult medical examination without abnormal findings UA and rflx microscopic Today Z00.00 - Encounter for general adult medical examination without abnormal findings Referrals Nurse Navigator Referral G89.29 - Other chronic pain, J44.9 - Chronic obstructive pulmonary disease, unspecified, M54.9 - Dorsalgia, unspecified Coding Level of Care Code Tele Est Pt Level 2 (68061) Diagnoses Chronic pain G89.28 Chronic pain type: other chronic postprocedural pain
== END 2022-10-07 14:20 | disposition home or self-care (01) ==
LOC: HO.HMGFM 14:19
PROVIDERS: PCP Family Medicine; Visit Provider Family Medicine
DX: G89.28 Other chronic postprocedural pain (principal)
CPT/HCPCS: 99441

== ENCOUNTER 2022-11-18 | Outpatient (REF) | payer OTHER, SELFPAY ==
[2022-11-27 08:31] LABS: Codeine, Ur NEGATIVE; Hydrocodone, Ur NEGATIVE
[2022-11-27 08:32] LABS: Hydromorphone, Ur NEGATIVE; Morphine, Ur NEGATIVE; Norhydrocodone, Ur NEGATIVE; Oxymorphone, Ur NEGATIVE
== END 2022-11-18 00:01 | disposition home or self-care (01) ==
LOC: HO.LNP
PROVIDERS: Visit Provider Family Medicine
DX: M54.9 Dorsalgia, unspecified (principal); G89.29 Other chronic pain
CPT/HCPCS: 80364; 80365

== ENCOUNTER 2022-11-18 15:53 | Outpatient (AMB) | payer OTHER, SELFPAY ==
[2022-11-18 15:58] VITALS: BP 100/62; PULSE 87; O2SAT 96; BMI 11.5
--- NOTE | 2022-11-18 15:58 | MHC.PC.OV ---
Vital Signs 11/18/22 15:58 Height 5 ft 2 in Weight 63 lb BMI 11.5 BP 100/62 Blood Pressure Location Lt brachial Position Sitting Pulse 87 Pulse Source Pulse Oximeter Pulse Oximetry (%) 96 Oxygen Delivery Method Room Air Intake Visit Reasons: Extended exam with f/u labs and health [place] Intake Note: Patient is here for extended exam, and health maintenance. Allergies bee pollen [BEE STINGS] Allergy (Intermediate, Verified 10/07/22 14:01) THROAT SWELLING penicillin V Allergy (Intermediate, Verified 10/07/22 14:01) nausea and vomiting Penicillins [PENICILLINS] Allergy (Intermediate, Verified 10/07/22 14:01) YEAST INFECTIONS- UTI - NAUSEA codeine [Codeine] Allergy (Mild, Verified 10/07/22 14:01) ITCHING celecoxib [From Celebrex] Adverse Reaction (Severe, Verified 10/07/22 14:01) RECTAL BLEEDING Tobacco use date assessed: 11/18/22 Fall risk assessment: 1 Fall in past year Last assessed Fall Risk: 11/18/22 Dental Screening Dental Screen Date: 11/18/22 Did you have a dental visit in the last 12 months?: Yes Did you have a dental problem in the last 6 months where you did not have access to dental care?: No Was dental information given to patient?: Patient has dentist HPI Extended exam with f/u labs and health [place] HPI Details 67 y/o female presents for an extended exam with f/u labs and health maintenance. No recent labs to review. She declines mammograms/colonoscopies. She does not get pap smears. Pt had questions about the pneumonia shot. [facility] Surgical History H/O oral surgery History of fusion of cervical spine History of biopsy History of lung biopsy History of surgery on left wrist History of shoulder surgery History of rhinoplasty Family History Father Cirrhosis Substance use disorder Mother No problems noted. Brother No problems noted. Son No problems noted. Son No problems noted. Daughter No problems noted. Daughter No problems noted. Daughter No problems noted. Social History Household Members: Family Housing: Apartment Do you presently have visiting nurse or other home services: Yes Patient Tobacco Use Status: Current someday Tobacco user Cigarettes Per Day: 7 e-Cigarette/Vaping Use: Never Used Second Hand Smoke Exposure: No service: No Current occupational status: retired and disabled Current occupational exposures/hazards: No Cognitive needs: No Hearing needs: No Vision needs: Yes Questionnaire Thrive Questionnaire Date Thrive assessed: 03/11/21 DEON-7 AMB Questionnaire DEON-7 Date DEON - 7 assessed: 03/11/21 Source: Developed by Drs. All Hoyos, Linda Madison, Omar Crowell and colleagues, with an educational wilton from [employer]. Review of Systems Const Denies chills, Denies fatigue, Denies fever(s), Denies headache(s) and Denies weakness Eyes Denies change in vision ENT Denies dizziness, Denies headache(s), Denies hearing loss, Denies nasal congestion, Denies sinus pain, Denies sinus pressure and Denies sore throat Card Denies chest pain, Denies lightheadedness, Denies dyspnea and Denies other (palpitations) Resp Denies cough, Denies dyspnea and Denies wheezing GI Denies abdominal pain, Denies melena, Denies hematochezia, Denies change in bowel habits, Denies dyspepsia and Denies nausea Denies hematuria and Denies dysuria Musc Denies abnormal gait, Denies myalgias, Denies arthralgias, Denies numbness and Denies tingling Skin/Breast Denies rash, Denies unusual bruising and Denies wounds Neuro Denies abnormal gait, Denies dizziness, Denies headache(s), Denies memory loss, Denies numbness, Denies Sensory deficit (Neuro), Denies tingling and Denies weakness Psych Denies anxiety, Denies depression and Denies memory loss Endo Denies cold intolerance, Denies fatigue, Denies heat intolerance, Denies polydipsia and Denies polyuria Yg/Lymph Denies easy bleeding and Denies easy bruising Aller/Immun Denies wheezing Physical exam (Primary Care) Vital Signs: Last Vital Signs Pulse 87 11/18/22 15:58 BP 100/62 11/18/22 15:58 Pulse Ox 96 11/18/22 15:58 Oxygen Delivery Method Room Air 09/19/23 15:58 BMI result Body Mass Index 11.5 Tobacco/Smoking Status: Tobacco use Status Tobacco use date assessed 11/18/22 11/18/22 16:10 Patient Tobacco Use Status Current someday Tobacco 11/18/22 16:03 e-Cigarette/Vaping Use Never Used 11/18/22 16:03 Thrive Assessment: Date of Thrive Assessment Date Thrive assessed 03/11/21 11/18/22 16:03 Const General: no acute distress, well developed, alert and awake Nutritional Appearance: underweight Orientation/consciousness: patient oriented x3 HENMT Head: Yes normocephalic and Yes atraumatic Ears: hearing grossly normal bilaterally and TM's normal bilaterally General nose exam: Normal external nose present and Normal nares present Mouth: Normal oral and palatal mucosa present and moist mucous membranes Teeth and gingiva: dentition normal Throat: Yes posterior oropharynx normal Eyes General: appearance normal, both eyes and all related structures Pupils: Equal, round and reactive pupils present and Pupil accommodation reflex normal EOM: EOMs intact bilaterally Neck Neck: Yes normal visual inspection, Yes no lymphadenopathy and Yes trachea midline Thyroid: Thyroid normal Carotids: no bruits Lymphatic: no lymphadenopathy noted Chest Chest palpation & inspection: normal inspection of the chest Resp Other: Scattered wheezing and rhonchi at the bases Effort & Inspection: normal respiratory effort Auscultation: clear to auscultation bilaterally Cardio Rate: regular rate Rhythm: regular rhythm Heart sounds: S1 normal heart sound present, S2 normal heart sound present, no gallops, no murmurs and no rubs Bruits: no abdominal aortic bruits and no carotid bruits GI Palpation (GI): No Abdominal aortic bruit present, Soft to palpation, nontender, No hepatosplenomegaly present and No Rebound tenderness present Auscultation: normal bowel sounds General: Yes no CVA tenderness Back/Spine/Pelvis Back: no CVA tenderness Cervical Spine: cervical ROM normal and No Cervical spine tenderness Thoracic/Lumbar Spine: thoraco-lumbar ROM normal, No pain with thoraco-lumbar ROM, No thoracic spinal tenderness and No lumbar spinal tenderness Skin Lesions: no lesions Rashes: no rashes Trauma: no lacerations or abrasions Wounds: no wounds Nails: normal Neuro General: patient oriented x3 Cranial nerves: Yes Equal, round and reactive pupils present Cognition (Neuro): normal cognition Gait exam (Neuro): Normal gait present Motor exam (neuro): 5/5 motor strength present throughout Sensory Exam: No Sensory deficit (Neuro) Deep tendon reflexes (DTR's): Right patellar reflex intensity grade: 2+ and Left patellar reflex intensity grade: 2+ Extrem General: Yes normal to inspection and No edema Psych Appearance: grossly normal Affect: normal affect Attitude: cooperative Thought process: Normal thought process present Assessment and Plan Assessment & Plan (1) COPD (chronic obstructive pulmonary disease): Code(s): J44.9 - Chronic obstructive pulmonary disease, unspecified Plan: Coarse breath sounds today She has increased her smoking and is working on decreasing it again. Continue inhaled medications We will follow-up at her telemedicine appointment in a couple of weeks and if she is still having any signs or symptoms of exacerbation, will ask her to get a chest x-ray. Ordered. (2) Abnormal lung sounds: Code(s): R09.89 - Other specified symptoms and signs involving the circulatory and respiratory systems Plan: As above (3) Smoker: Code(s): F17.200 - Nicotine dependence, unspecified, uncomplicated Plan: Continue working on weaning down and cessation (4) Chronic back pain: Code(s): M54.9 - Dorsalgia, unspecified; G89.29 - Other chronic pain Plan: Appears compliant with medication. Check urine opiate GCMS. (5) Underweight: Code(s): R63.6 - Underweight Plan: Secondary to COPD Has gained couple of lb Will continue to monitor (6) Screening for colon cancer: Code(s): Z12.11 - Encounter for screening for malignant neoplasm of colon Plan: Patient declines testing (7) Breast cancer screening by mammogram: Code(s): Z12.31 - Encounter for screening mammogram for malignant neoplasm of breast Plan: Patient declines testing (8) Immunization counseling: Code(s): Z71.85 - Encounter for immunization safety counseling Plan: Did not have pneumonia shot in office today. She will get her flu shot towards the end this month. I recommended COVID vaccination and she will get her pneumonia shot when available. (9) Adult general medical exam: Code(s): Z00.00 - Encounter for general adult medical examination without abnormal findings Orders: Orders Opiates GCMS Expanded, Ur Today G89.29 - Other chronic pain, M54.9 - Dorsalgia, unspecified XR chest 2V Today R09.89 - Other specified symptoms and signs involving the circulatory and respiratory systems Coding Level of Care Code Est Pt Level 4 (14059) Diagnoses COPD (chronic obstructive pulmonary disease) J44.9 Abnormal lung sounds R09.89 Smoker F17.200 Chronic back pain M54.9; G89.29 Underweight R63.6 Screening for colon cancer Z12.11 Breast cancer screening by mammogram Z12.31 Immunization counseling Z71.85 Adult general medical exam Z00.00
== END 2022-11-18 16:59 | disposition home or self-care (01) ==
PROVIDERS: PCP Family Medicine; Visit Provider Family Medicine
DX: J44.9 Chronic obstructive pulmonary disease, unspecified (principal); R09.89 Other specified symptoms and signs involving the circulatory and respiratory systems; F17.200 Nicotine dependence, unspecified, uncomplicated; M54.9 Dorsalgia, unspecified; G89.29 Other chronic pain; R63.6 Underweight; Z12.11 Encounter for screening for malignant neoplasm of colon; Z12.31 Encounter for screening mammogram for malignant neoplasm of breast; Z71.85 Encounter for immunization safety counseling; Z00.00 Encounter for general adult medical examination without abnormal findings
CPT/HCPCS: 99214

== ENCOUNTER 2022-12-15 14:33 | Outpatient (AMB) | payer OTHER, SELFPAY ==
--- NOTE | 2022-12-15 14:30 | A.OFFPC_ITS ---
Intake Visit Reasons: f/u labs Intake Note: Patient would like to use todays telehealth visit to discuss her labs. 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 Accompanied by: Self / Same As Patient Allergies bee pollen [BEE STINGS] Allergy (Intermediate, Verified 12/15/22 14:33) THROAT SWELLING penicillin V Allergy (Intermediate, Verified 12/15/22 14:33) nausea and vomiting Penicillins [PENICILLINS] Allergy (Intermediate, Verified 12/15/22 14:33) YEAST INFECTIONS- UTI - NAUSEA codeine [Codeine] Allergy (Mild, Verified 12/15/22 14:33) ITCHING celecoxib [From Celebrex] Adverse Reaction (Severe, Verified 12/15/22 14:33) RECTAL BLEEDING Tobacco use date assessed: 11/18/22 HPI f/u labs HPI Details 67 y/o female presents to f/u CPE-labs v ia telemedicine. Labs were drawn 11/11/22. Reviewed labs with pt. TC 167. Triglycerides 60. HDL 56. LDL 99. Pt reports stiffness in her neck. [facility] Surgical History H/O oral surgery History of fusion of cervical spine History of biopsy History of lung biopsy History of surgery on left wrist History of shoulder surgery History of rhinoplasty Family History Father Cirrhosis Substance use disorder Mother No problems noted. Brother No problems noted. Son No problems noted. Son No problems noted. Daughter No problems noted. Daughter No problems noted. Daughter No problems noted. Social History Household Members: Family Housing: Apartment Do you presently have visiting nurse or other home services: Yes Patient Tobacco Use Status: Current someday Tobacco user Cigarettes Per Day: 7 e-Cigarette/Vaping Use: Never Used Second Hand Smoke Exposure: No service: No Current occupational status: retired and disabled Current occupational exposures/hazards: No Cognitive needs: No Hearing needs: No Vision needs: Yes Questionnaire Thrive Questionnaire Date Thrive assessed: 03/11/21 DEON-7 AMB Questionnaire DEON-7 Date DEON - 7 assessed: 03/11/21 Source: Developed by Drs. All Hoyos, Linda B.W. Omar Madison and colleagues, with an educational wilton from [employer]. Physical exam (Primary Care) Tobacco/Smoking Status: Tobacco use Status Tobacco use date assessed 11/18/22 12/15/22 14:34 Patient Tobacco Use Status Current someday Tobacco 12/15/22 14:34 e-Cigarette/Vaping Use Never Used 12/15/22 14:34 Thrive Assessment: Date of Thrive Assessment Date Thrive assessed 03/11/21 12/15/22 14:34 Telehealth Telehealth Location of provider rendering services: practice address Location of patient: address on file Patient Identification confirmed using: Name, : Yes Telehealth method: voice only Patient verbally consented to treatment: Yes Patient verbally consented to billing insurance company: Yes Patient informed of any privacy concerns related to visit: Yes Minutes spent on Phone/Video with Pt.: 8 Assessment and Plan Assessment & Plan (1) Elevated random blood glucose level: Code(s): R73.09 - Other abnormal glucose Plan: Likely?patient?not?fasting Can?check?A1c?at?her?next?appointment (2) Cervicalgia: Code(s): M54.2 - Cervicalgia Plan: Mild?increased?neck?pain?and?stiffness Can?use?a?heating?pad Carisoprodol?and?has?Percocet?chronically?for?chronic?pain. (3) Borderline anemia: Code(s): D64.9 - Anemia, unspecified Plan: Mild?anemia Likely?secondary?to?chronic?opioid?use We?can?monitor?periodically (4) Abnormal lung sounds: Code(s): R09.89 - Other specified symptoms and signs involving the circulatory and respiratory systems Plan: She?had?had?abnormal?lung?sounds?at?her?last?visit. She?has?not?gotten?her?chest?x-ray?and?had?been?apprehensive?about?doing?so. She?says?her?breathing?is?fine She?will?let?me?know?if?she?has?any?problems. We?discussed?that?if?her?lung?exam?is?abnormal?again?I?will?again?recommend?a?ch est?x-ray. Coding Level of Care Code Tele Est Pt Level 2 (74451) Diagnoses Elevated random blood glucose level R73.09 Cervicalgia M54.2 Borderline anemia D64.9 Abnormal lung sounds R09.89
== END 2022-12-15 16:16 | disposition home or self-care (01) ==
PROVIDERS: PCP Family Medicine; Visit Provider Family Medicine
DX: R73.09 Other abnormal glucose (principal); M54.2 Cervicalgia; D64.9 Anemia, unspecified; R09.89 Other specified symptoms and signs involving the circulatory and respiratory systems
CPT/HCPCS: 99441

== ENCOUNTER 2023-08-20 13:45 | Outpatient (AMB) | payer OTHER, SELFPAY ==
--- NOTE | 2023-08-20 14:07 | A.OFFPC_ITS ---
Vital Signs 08/20/23 14:09 Height 5 ft 2 in Weight 74 lb 2 oz BMI 13.6 BP 110/70 Blood Pressure Location Rt brachial Position Sitting Respiration 15 Pulse 92 Pulse Source Pulse Oximeter Temp 97.9 F Temp Source Temporal Artery Scan Pulse Oximetry (%) 95 Oxygen Delivery Method Room Air Intake Visit Reasons: cronic conditions Intake Note: Patient would like small portable oxygen machine ordered. patient has been having [id number] of breath and nausea. 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: No Accompanied by: Self / Same As Patient Allergies bee pollen [BEE STINGS] Allergy (Intermediate, Verified 08/20/23 14:13) THROAT SWELLING penicillin V Allergy (Intermediate, Verified 08/20/23 14:13) nausea and vomiting Penicillins [PENICILLINS] Allergy (Intermediate, Verified 08/20/23 14:13) YEAST INFECTIONS- UTI - NAUSEA codeine [Codeine] Allergy (Mild, Verified 08/20/23 14:13) ITCHING celecoxib [From Celebrex] Adverse Reaction (Severe, Verified 08/20/23 14:13) RECTAL BLEEDING Medication List - Last Reconciled 08/20/23 by Ed Murillo MD albuterol sulfate 2.5 mg (3 mL) inhalation Q4-6H PRN albuterol sulfate 90 mcg/actuation (ProAir HFA) 2 puffs inhalation Q4-6H PRN 30 days carisoprodol 350 mg PO BID PRN 30 days dexamethasone 6 mg PO DAILY fluticasone propionate 220 mcg/actuation 2 puffs inhalation BID 30 days foam bandage (Allevyn Gentle Border) change every 72 hours (Q 3 days) food supplemt, lactose-reduced (Ensure Enlive) 1 ea PO BID 30 days gabapentin 400 mg PO BEDTIME 30 days ipratropium bromide 17 mcg/actuation (Atrovent HFA) 2 puffs PO QID naloxone 4 mg/actuation (Narcan) 4 mg intranasal Q2M PRN omeprazole 40 mg PO DAILY oxycodone-acetaminophen 5-325 mg (Percocet) 1 tab PO TID 28 days ropinirole 6 mg (1.5 x 4 mg) PO BEDTIME 30 days Tobacco use date assessed: 08/20/23 Fall risk assessment: No Falls in past year Last assessed Fall Risk: 08/20/23 Dental Screening Dental Screen Date: 11/18/22 HPI cronic conditions HPI Details 68 y/o female presents to f/u chronic co nditions. Pt reports shortness of breath and nausea. She notes vinegar seems to have provided her some relief for her nausea. Hx of elevated fasting glucose. A1c today 08/20/23 is 5.6%. HPI Comments History of Present Illness Details Documentation assistance for Ed Murillo MD, was provided by Faisal Woodruff,? Network Specialist on 08/20/2023 at 2:18 PM EST. I, Dr. Murillo, have read, observed, and verified documentation. [facility] Medical History (Updated 08/20/23 @ 14:44 by Faisal Woodruff) No pertinent past medical history Surgical History H/O oral surgery History of fusion of cervical spine History of biopsy History of lung biopsy History of surgery on left wrist History of shoulder surgery History of rhinoplasty Family History Father Cirrhosis Substance use disorder Mother No problems noted. Brother No problems noted. Son No problems noted. Son No problems noted. Daughter No problems noted. Daughter No problems noted. Daughter No problems noted. Social History Household Members: Family Housing: Apartment Do you presently have visiting nurse or other home services: Yes Patient Tobacco Use Status: Former Tobacco user Cigarettes Per Day: 7 e-Cigarette/Vaping Use: Never Used Second Hand Smoke Exposure: No service: No Current occupational status: retired and disabled Current occupational exposures/hazards: No Cognitive needs: No Hearing needs: No Vision needs: Yes Questionnaire Thrive Questionnaire Date Thrive assessed: 03/11/21 DEON-7 AMB Questionnaire DEON-7 Date DEON - 7 assessed: 03/11/21 Source: Developed by Drs. All Hoyos, Linda Madison, Omar Crowell and colleagues, with an educational wilton from [employer]. Review of Systems Const Denies chills, Denies fatigue, Denies fever(s), Denies headache(s) and Denies weakness ENT Denies dizziness and Denies headache(s) Card Reports dyspnea Resp Denies cough, Reports dyspnea, Denies wheezing and Denies other (shortness of breath) GI Reports nausea Musc Details: Knee pain Denies numbness and Denies tingling Neuro Denies dizziness, Denies headache(s), Denies numbness, Denies tingling and Denies weakness Psych Denies anxiety and Denies depression Endo Denies fatigue Aller/Immun Denies wheezing Physical exam (Primary Care) Vital Signs: Last Vital Signs Temp 97.9 F 08/20/23 14:09 Pulse 92 08/20/23 14:09 Resp 15 08/20/23 14:09 BP 110/70 08/20/23 14:09 Pulse Ox 95 08/20/23 14:09 Oxygen Delivery Method Room Air 08/20/23 14:09 BMI result Body Mass Index 13.6 Tobacco/Smoking Status: Tobacco use Status Tobacco use date assessed 08/20/23 08/20/23 14:15 Patient Tobacco Use Status Former Tobacco user 08/20/23 14:15 e-Cigarette/Vaping Use Never Used 08/20/23 14:08 Thrive Assessment: Date of Thrive Assessment Date Thrive assessed 03/11/21 08/20/23 14:08 Const General: well developed; No acute distress Nutritional Appearance: well nourished and underweight Orientation/consciousness: patient oriented x3 HENMT Head: Yes normocephalic and Yes atraumatic Eyes General: appearance normal, both eyes and all related structures Pupils: Equal, round and reactive pupils present EOM: EOMs intact bilaterally Resp Other: Squeaking Effort & Inspection: normal respiratory effort Auscultation: not clear to auscultation bilaterally Cardio Rate: regular rate Rhythm: regular rhythm Heart sounds: S1 normal heart sound present, S2 normal heart sound present, no g allops, no murmurs and no rubs Neuro General: patient oriented x3 and gait normal Cranial nerves: Yes Equal, round and reactive pupils present Psych Affect: normal affect Results AMB Hemoglobin A1c AMB Hemoglobin A1c 5.6 % Last Edit by Francheska Cornejo CMA on 08/20/23 14:30 Results Reviewed Results Reviewed: Laboratory Last Values Hgb A1c (Clinic) 5.6 % (4.0-6.0) 08/20/23 14:25 Assessment and Plan Assessment & Plan (1) Shortness of breath: Code(s): R06.02 - Shortness of breath Plan: Significant?shortness?of?breath?over?t he?last?few?months.??However,?today?she?has?marked wheezing?diffusely?and?bilaterally. Likely?COPD?exacerbation Will?give?her A?prednisone?taper She?can?continue?fluticasone?and?albuterol I?am?referr ing?her?to?pulmonary?Medicine.??I?think?she?would?also?benefit?from?supplemental ?oxygen?at?least?while?ambulating. (2) Elevated fasting glucose: Code(s): R73.01 - Impaired fasting glucose Plan: A1c?5.6%?which?is?top?normal?range. Will?continue?to?follow Encouraged?diet?lower?in?sugars?and?starches (3) Underweight: Code(s): R63.6 - Underweight Plan: Likely?secondary?to?chronic?COPD Will?follow Will?also?try?to?treat?her?nausea?- see?below (4) Nausea: Code(s): R11.0 - Nausea Plan: Has?had?Phenergan?in?the?past. Will?trial?Zofran (5) Borderline anemia: Code(s): D64.9 - Anemia, unspecified Plan: Check?labs Orders: Orders Complete Blood Count Auto Diff Today Z00.00 - Encounter for general adult medical examination without abnormal findings Microalbumin, Random (w Creat) Today I10 - Essential (primary) hypertension TSH reflex Free T4 Today Z00.00 - Encounter for general adult medical examination without abnormal findings Vitamin D 25-OH Total Today E55.9 - Vitamin D deficiency, unspecified AMB Hemoglobin A1c Today Z13.9 - Encounter for screening, unspecified Reticulocyte Count Today D64.9 - Anemia, unspecified Vitamin B12 and Folate Today D64.9 - Anemia, unspecified, E53.8 - Deficiency of other specified B group vitamins Comprehensive Met. Panel Today D64.9 - Anemia, unspecified Lipid Panel Today Z00.00 - Encounter for general adult medical examination without abnormal findings Comprehensive [place]. Panel Fast Today Z00.00 - Encounter for general adult medical examination without abnormal findings UA and rflx microscopic Today Z00.00 - Encounter for general adult medical examination without abnormal findings Basic Metabolic Panel Today R06.02 - Shortness of breath, Z00.00 - Encounter for general adult medical examination without abnormal findings IRON PROFILE Today D64.9 - Anemia, unspecified Referrals Pulmonology Referral J44.9 - Chronic obstructive pulmonary disease, unspecified Medications: New ondansetron 4 mg PO Q8H 30 days PRN 10 tabs 1RF nausea and vomiting Coding Level of Care Code Est Pt Level 4 (64580) Diagnoses Shortness of breath R06.02 Elevated fasting glucose R73.01 Underweight R63.6 Nausea R11.0 Borderline anemia D64.9
[2023-08-20 14:09] VITALS: BP 110/70; PULSE 92; RESP 15; TEMP 36.6; O2SAT 95; BMI 13.6
== END 2023-08-20 15:08 | disposition home or self-care (01) ==
PROVIDERS: PCP Family Medicine; Visit Provider Family Medicine
DX: R06.02 Shortness of breath (principal); R73.01 Impaired fasting glucose; R63.6 Underweight; R11.0 Nausea; D64.9 Anemia, unspecified
CPT/HCPCS: 83036; 99214

== ENCOUNTER 2023-08-20 14:55 | Outpatient (REF) | payer OTHER, SELFPAY ==
[2023-08-20 17:30] LABS: MANUAL DIFF FLAG NO
[2023-08-20 17:36] LABS: Basophils Absolute Auto 0.1 X10*3/uL (0.0-0.2); Basophils Percent Auto 1.3 % (0-2); Eosinophils Absolute Auto 0.7 X10*3/uL (0.0-0.4); Eosinophils Percent Auto 8.9 % (0-4); Hemoglobin 10.4 g/dl (12.0-16.0); Imm Gran Abs Auto 0.03 X10*3/uL (0.00-0.03); Imm Gran Pct Auto 0.4 % (0.0-0.4); Immature Retic Fraction 14.1 % (3.0-15.9); Lymphocytes Absolute Auto 0.8 X10*3/uL (1.2-4.9); Lymphocytes Percent Auto 10.1 % (20-40); Mean Corpuscular HGB Conc 30.6 g/dl (31.0-35.0); Mean Corpuscular Hemoglobin 25.6 pg (27.0-33.0); Mean Corpuscular Volume 83.7 fL (80.0-98.0); Mean Platelet Volume 9.3 fL (9.4-12.3); Monocytes Absolute Auto 0.5 X10*3/uL (0.1-1.2); Monocytes Percent Auto 6.5 % (2-11); Neutrophils Percent Auto 72.8 % (45-73); Platelet Count 310 X10*3/uL (160-400); Red Blood Count 4.06 X10*6/uL (4.20-5.50); Red Cell Distribution Width 16.5 % (11.0-16.0); Retic HGB Equivalent 28.8 pg (30.0-35.0); Reticulocytes Absolute 0.042 X10*6/uL (0.026-0.095); White Blood Count 8.2 X10*3/uL (4.8-10.8)
[2023-08-20 17:53] LABS: Alanine Aminotransferase 8 U/L (0-31); Albumin Level 3.9 g/dL (3.5-5.0); Alkaline Phosphatase 87 U/L (39-117); Anion Gap 13 (12-20); Aspartate Amino Transferase 14 U/L (5-31); Bilirubin Total 0.2 mg/dL (0.0-1.0); Blood Urea Nitrogen 12 mg/dL (9-16); Calcium 9.3 mg/dL (8.4-10.2); Carbon Dioxide 31 mmol/L (22-29); Chloride 100 mmol/L (96-108); Estimated Glomerular Filt Rate > 60; Glucose Random 86 mg/dL (60-115); Iron 26 mcg/dL (30-160); Percent Iron Saturation 7 % (15-50); Potassium 3.9 mmol/L (3.3-5.1); Sodium 140 mmol/L (135-145); Total Iron Binding Capacity 365 mcg/dL (228-428); Unsaturated Iron Binding 339 ug/dL
[2023-08-20 18:08] LABS: TSH reflex Free T4 1.01 uIU/mL (0.32-4.0); Vitamin D 25-OH Total 38.2 ng/mL (>30)
[2023-08-20 18:23] LABS: Vitamin B12 235 pg/mL (200-900)
== END 2023-08-20 14:56 | disposition home or self-care (01) ==
LOC: HO.WFDLDS 14:55
PROVIDERS: Visit Provider Family Medicine
DX: Z00.00 Encounter for general adult medical examination without abnormal findings (principal); E55.9 Vitamin D deficiency, unspecified; D64.9 Anemia, unspecified; E53.8 Deficiency of other specified B group vitamins; R06.02 Shortness of breath; I10 Essential (primary) hypertension
CPT/HCPCS: 36415; 80053; 82306; 82607; 82746; 83540; 84443; 85025; 85045

== ENCOUNTER 2024-02-16 11:57 | Outpatient (AMB) | payer OTHER, SELFPAY ==
--- NOTE | 2024-02-16 13:01 | A.OFFPC_ITS ---
Vital Signs 02/16/24 13:07 Height 5 ft 2 in Weight 67 lb 8 oz BMI 12.3 BP 90/62 Blood Pressure Location Rt brachial Position Sitting Respiration 14 Pulse 86 Pulse Source Pulse Oximeter Temp 98.3 F Temp Source Oral Pulse Oximetry (%) 87 L Oxygen Delivery Method Room Air Intake Visit Reasons: CPE with f/u labs and health maint. 30 mins Intake Note: cpe Allergies bee pollen [BEE STINGS] Allergy (Intermediate, Verified 02/16/24 13:02) THROAT SWELLING penicillin V Allergy (Intermediate, Verified 02/16/24 13:02) nausea and vomiting Penicillins [PENICILLINS] Allergy (Intermediate, Verified 02/16/24 13:02) YEAST INFECTIONS- UTI - NAUSEA codeine [Codeine] Allergy (Mild, Verified 02/16/24 13:02) ITCHING celecoxib [From Celebrex] Adverse Reaction (Severe, Verified 02/16/24 13:02) RECTAL BLEEDING Medication List - Last Reconciled 02/16/24 by Ed Murillo MD albuterol sulfate 90 mcg/actuation 2 puffs inhalation Q4-6H PRN 30 days albuterol sulfate 2.5 mg (3 mL) inhalation Q4-6H PRN carisoprodol 350 mg PO BID PRN 30 days dexamethasone 6 mg PO DAILY fluticasone propionate 220 mcg/actuation 2 puffs inhalation BID 30 days foam bandage (Allevyn Gentle Border) change every 72 hours (Q 3 days) food supplemt, lactose-reduced (Ensure Enlive) 1 ea PO BID 30 days ipratropium bromide 17 mcg/actuation (Atrovent HFA) 2 puffs PO QID naloxone 4 mg/actuation (Narcan) 4 mg intranasal Q2M PRN omeprazole 40 mg PO DAILY oxycodone-acetaminophen 5-325 mg (Percocet) 1 tab PO TID 28 days ropinirole 6 mg (1.5 x 4 mg) PO BEDTIME 30 days Tobacco use date assessed: 08/20/23 Dental Screening Dental Screen Date: 11/18/22 HPI CPE with f/u labs and health maint. 30 mins HPI Details 68 y/o female presents for a CPE with f/ u labs and health maintenance. No recent labs to review. Did have a mild anemia from last set of labs drawn. Had lost some weight since last office visit. Has not been able to get her protein shakes. Reports ongoing shortness of breath. [facility] Medical History No pertinent past medical history Surgical History H/O oral surgery History of fusion of cervical spine History of biopsy History of lung biopsy History of surgery on left wrist History of shoulder surgery History of rhinoplasty Family History Father Cirrhosis Substance use disorder Mother No problems noted. Brother No problems noted. Son No problems noted. Son No problems noted. Daughter No problems noted. Daughter No problems noted. Daughter No problems noted. Social History Household Members: Family Housing: Apartment Do you presently have visiting nurse or other home services: Yes Patient Tobacco Use Status: Former Tobacco user Cigarettes Per Day: 7 e-Cigarette/Vaping Use: Never Used Second Hand Smoke Exposure: No service: No Current occupational status: retired and disabled Current occupational exposures/hazards: No Cognitive needs: No Hearing needs: No Vision needs: Yes Questionnaire Thrive Questionnaire Date Thrive assessed: 03/11/21 DEON-7 AMB Questionnaire DEON-7 Date DEON - 7 assessed: 03/11/21 Source: Developed by Drs. All Hoyos, Linda Madison, Omar Crowell and colleagues, with an educational wilton from [employer]. Review of Systems Const Denies chills, Denies fatigue, Denies fever(s), Denies headache(s) and Denies weakness Eyes Denies change in vision ENT Denies dizziness, Denies headache(s), Denies hearing loss, Denies nasal congestion, Denies sinus pain, Denies sinus pressure and Denies sore throat Card Denies chest pain, Denies lightheadedness, Reports dyspnea and Denies other (palpitations) Resp Denies cough, Reports dyspnea and Denies wheezing GI Denies abdominal pain, Denies melena, Denies hematochezia, Denies change in bowel habits, Denies dyspepsia and Denies nausea Denies hematuria and Denies dysuria Musc Denies abnormal gait, Denies myalgias, Denies arthralgias, Denies numbness and Denies tingling Skin/Breast Denies rash, Denies unusual bruising and Denies wounds Neuro Denies abnormal gait, Denies dizziness, Denies headache(s), Denies memory loss, Denies numbness, Denies Sensory deficit (Neuro), Denies tingling and Denies weakness Psych Reports anxiety, Denies depression and Denies memory loss Endo Denies cold intolerance, Denies fatigue, Denies heat intolerance, Denies polydipsia and Denies polyuria Yg/Lymph Denies easy bleeding and Denies easy bruising Aller/Immun Denies wheezing Physical exam (Primary Care) Vital Signs: Last Vital Signs Temp 98.3 F 02/16/24 13:07 Pulse 86 02/16/24 13:07 Resp 14 02/16/24 13:07 BP 90/62 02/16/24 13:07 Pulse Ox 87 L 02/16/24 13:07 Oxygen Delivery Method Room Air 02/16/24 13:07 BMI result Body Mass Index 12.3 Tobacco/Smoking Status: Tobacco use Status Tobacco use date assessed 08/20/23 02/16/24 13:12 Patient Tobacco Use Status Former Tobacco user 02/16/24 13:12 e-Cigarette/Vaping Use Never Used 02/16/24 13:12 Thrive Assessment: Date of Thrive Assessment Date Thrive assessed 03/11/21 02/16/24 13:12 Const General: no acute distress, well developed, alert and awake Nutritional Appearance: underweight Orientation/consciousness: patient oriented x3 HENMT Head: Yes normocephalic and Yes atraumatic Ears: hearing grossly normal bilaterally and TM's normal bilaterally General nose exam: Normal external nose present and Normal nares present Mouth: Normal oral and palatal mucosa present and moist mucous membranes Teeth and gingiva: dentition normal Throat: Yes posterior oropharynx normal Eyes General: appearance normal, both eyes and all related structures Pupils: Equal, round and reactive pupils present and Pupil accommodation reflex normal EOM: EOMs intact bilaterally Neck Neck: Yes normal visual inspection, Yes no lymphadenopathy and Yes trachea midline Thyroid: Thyroid normal Carotids: no bruits Lymphatic: no lymphadenopathy noted Chest Chest palpation & inspection: normal inspection of the chest Resp Effort & Inspection: normal respiratory effort Auscultation: clear to auscultation bilaterally Cardio Rate: regular rate Rhythm: regular rhythm Heart sounds: S1 normal heart sound present, S2 normal heart sound present, no gallops, no murmurs and no rubs Bruits: no abdominal aortic bruits and no carotid bruits GI Palpation (GI): No Abdominal aortic bruit present, Soft to palpation, nontender, No hepatosplenomegaly present and No Rebound tenderness present Auscultation: normal bowel sounds General: Yes no CVA tenderness Back/Spine/Pelvis Back: no CVA tenderness Cervical Spine: cervical ROM normal and No Cervical spine tenderness Thoracic/Lumbar Spine: thoraco-lumbar ROM normal, No pain with thoraco-lumbar ROM, No thoracic spinal tenderness and No lumbar spinal tenderness Skin Lesions: no lesions Rashes: no rashes Trauma: no lacerations or abrasions Wounds: no wounds Nails: normal Neuro General: patient oriented x3 Cranial nerves: Yes Equal, round and reactive pupils present Cognition (Neuro): normal cognition Gait exam (Neuro): Normal gait present Motor exam (neuro): 5/5 motor strength present throughout Sensory Exam: No Sensory deficit (Neuro) Deep tendon reflexes (DTR's): Right patellar reflex intensity grade: 2+ and Left patellar reflex intensity grade: 2+ Extrem General: Yes normal to inspection and No edema Psych Appearance: grossly normal Affect: normal affect Attitude: cooperative Thought process: Normal thought process present Coding Level of Care Code Est Pt Level 3 (89404) Est Pt Prev Care >65y(06178) Diagnoses Adult general medical exam Z00.00 Shortness of breath R06.02 COPD (chronic obstructive pulmonary disease) J44.9 Underweight R63.6 Unsteady gait R26.81 Mild anemia D64.9 Screening for colon cancer Z12.11 Breast cancer screening by mammogram Z12.31 Screening for osteoporosis Z13.820 Anxiety F41.9 Assessment & Plan Assessment & Plan (1) Adult general medical exam: Code(s): Z00.00 - Encounter for general adult medical examination without abnormal findings Category: Medical Plan: 68-year-old?female?presents?for complete?physical?exam (2) Shortness of breath: Code(s): R06.02 - Shortness of breath Category: Medical Plan: Ongoing?shortness?of?breath?and?worsening?hypoxia?despite?qu itting?smoking?1?year?ago. Patient?declines?referral?to?pulmonology?at?this?time. She?would?benefit?from?an?oxygen?concentrator?and?I?will?send?script (3) COPD (chronic obstructive pulmonary disease): Code(s): J44.9 - Chronic obstructive pulmonary disease, unspecified Category: Medical Plan: Lungs are CTA No wheezing, No secretions Pt has quit smoking and remained so Still SOB and Hypoxic. See above Continue inhaled medications (4) Underweight: Code(s): R63.6 - Underweight Category: Medical Plan: Continue?nutrition?supplement?drink Work?at?high?calorie?foods?and?high?protein?foods (5) Unsteady gait: Code(s): R26.81 - Unsteadiness on feet Category: Medical Plan: Use?cane?or?walker?as?needed May?benefit?from?physical?therapy?once?her?shortness?of?breath?is?improved (6) Mild anemia: Code(s): D64.9 - Anemia, unspecified Category: Medical Plan: Stable Continue?OTC?iron?supplement?as?tolerated Will?recheck?labs?at?a?subsequent?visit (7) Screening for colon cancer: Code(s): Z12.11 - Encounter for screening for malignant neoplasm of colon Category: Medical Plan: Patient?has?Cologuard?test?at?home Encouraged?her?to?take?test?and?send?in (8) Breast cancer screening by mammogram: Code(s): Z12.31 - Encounter for screening mammogram for malignant neoplasm of breast Category: Medical Plan: Patient?declines?mammogram She?performs?self?examinations?and?me?know?if?she?has?any?concerns (9) Screening for osteoporosis: Code(s): Z13.820 - Encounter for screening for osteoporosis Category: Medical Plan: Bone?density?test?ordered (10) Anxiety: Code(s): F41.9 - Anxiety disorder, unspecified Category: Medical Plan: Patient?has?difficulty?with?outpatient?test?such?as?bone?density?testing?in?publ ic She?had?had?a?script?for?diazepam?in?the?past. Will?give?her?a?script?and?she?c an?use?p.r.n.?for?getting?on?the?house?and?for?procedures. Advised?her?not?to?use?too?close?to?her?pain?medication?or?to?close?to?bed Medications: New miscellaneous medical supply Oxygen Concetrator. Daily As directed, 999 days 1 ea 0RF J44.9 - Chronic obstructive pulmonary disease, unspecified, R09.02 - Hypoxemia diazepam Take once a day as needed for anxiety prior medical visits/procedures. 2 mg PO DAILY 30 days PRN 5 tabs 0RF Anxiety/procedures Refilled oxycodone-acetaminophen 5-325 mg (Percocet) [facility] verified. Partial refill upon request. 1 tab PO TID 28 days 84 tabs 0RF pain M54.9 - Dorsalgia, unspecified carisoprodol 350 mg PO BID 30 days PRN 60 tabs 0RF muscle pain omeprazole 40 mg PO DAILY 90 caps 3RF
[2024-02-16 13:07] VITALS: BP 90/62; PULSE 86; RESP 14; TEMP 36.8; O2SAT 87; BMI 12.3
== END 2024-02-16 13:50 | disposition home or self-care (01) ==
PROVIDERS: PCP Family Medicine; Visit Provider Family Medicine
DX: Z00.00 Encounter for general adult medical examination without abnormal findings (principal); R06.02 Shortness of breath; J44.9 Chronic obstructive pulmonary disease, unspecified; D64.9 Anemia, unspecified; R63.6 Underweight; R26.81 Unsteadiness on feet; Z12.11 Encounter for screening for malignant neoplasm of colon; Z12.31 Encounter for screening mammogram for malignant neoplasm of breast; Z13.820 Encounter for screening for osteoporosis; F41.9 Anxiety disorder, unspecified

== ENCOUNTER 2024-02-16 12:33 | Outpatient (REF) | payer OTHER, SELFPAY ==
[2024-02-16 13:52] LABS: MANUAL DIFF FLAG NO
[2024-02-16 13:55] LABS: Basophils Absolute Auto 0.1 X10*3/uL (0.0-0.2); Eosinophils Absolute Auto 0.2 X10*3/uL (0.0-0.4); Eosinophils Percent Auto 3.3 % (0-4); Hematocrit 37.3 % (37.0-47.0); Imm Gran Abs Auto 0.01 X10*3/uL (0.00-0.03); Imm Gran Pct Auto 0.2 % (0.0-0.4); Lymphocytes Absolute Auto 0.7 X10*3/uL (1.2-4.9); Lymphocytes Percent Auto 11.9 % (20-40); Mean Corpuscular HGB Conc 29.5 g/dl (31.0-35.0); Mean Corpuscular Hemoglobin 23.3 pg (27.0-33.0); Mean Corpuscular Volume 78.9 fL (80.0-98.0); Monocytes Absolute Auto 0.4 X10*3/uL (0.1-1.2); Monocytes Percent Auto 6.5 % (2-11); Neutrophils Absolute Auto 4.6 x10*3/uL (2.0-8.3); Neutrophils Percent Auto 76.1 % (45-73); Platelet Count 399 X10*3/uL (160-400); Red Blood Count 4.73 X10*6/uL (4.20-5.50); Red Cell Distribution Width 16.4 % (11.0-16.0)
[2024-02-16 14:01] LABS: Appearance Urine Clear; Color Urine Yellow; Glucose Urine UA Negative (Negative); Leukocyte Esterase Urine Negative (Negative); Nitrite Urine Negative (Negative); Urine Blood Negative (Negative); Urine Ketones Negative (Negative); Urine Protein Negative (Neg-Trace)
[2024-02-16 14:16] LABS: Alanine Aminotransferase 8 U/L (0-31); Alkaline Phosphatase 82 U/L (39-117); Anion Gap 10 (12-20); Aspartate Amino Transferase 17 U/L (5-31); Bilirubin Total 0.3 mg/dL (0.0-1.0); Blood Urea Nitrogen 12 mg/dL (9-16); Calcium 9.1 mg/dL (8.4-10.2); Carbon Dioxide 37 mmol/L (22-29); Chloride 93 mmol/L (96-108); Cholesterol 181 mg/dL (<200); Estimated Glomerular Filt Rate > 60; Glucose Fasting 101 mg/dL (60-99); Glucose Random 100 mg/dL (60-115); HDL Cholesterol 53 mg/dL (>40); LDL Cholesterol Calculated 114 mg/dL (<100); Potassium 4.1 mmol/L (3.3-5.1); Sodium 136 mmol/L (135-145); Triglycerides 74 mg/dL (<150)
[2024-02-16 14:27] LABS: Creatinine Urine 56.88 mg/dL; Microalbum/Creatinine Ratio Ur 10.5 ug/mg cr (<30)
[2024-02-16 14:35] LABS: TSH reflex Free T4 0.71 uIU/mL (0.32-4.0)
== END 2024-02-16 12:34 | disposition home or self-care (01) ==
LOC: HO.WFDLDS 12:33
PROVIDERS: Visit Provider Family Medicine
DX: Z00.01 Encounter for general adult medical examination with abnormal findings (principal); R06.02 Shortness of breath; R09.02 Hypoxemia; I10 Essential (primary) hypertension; J44.9 Chronic obstructive pulmonary disease, unspecified; R63.6 Underweight; R26.81 Unsteadiness on feet; D64.9 Anemia, unspecified; F41.9 Anxiety disorder, unspecified; Z87.891 Personal history of nicotine dependence
CPT/HCPCS: 36415; 80048; 80053; 80061; 81003; 82043; 82570; 84443; 85025; 99212; 99397

== ENCOUNTER 2024-03-21 14:16 | Inpatient (IN) | payer OTHER, SELFPAY ==
[2024-03-21] VITALS (7 sets, daily range): BP systolic 109–125; BP diastolic 53–66; PULSE 91–108; RESP 14–16; TEMP 36.7–36.8; O2SAT 86–100; BMI 15.7
--- NOTE | ~2024-03-21 | XR_ITS ---
EXAMINATION: XR CHEST CLINICAL INFORMATION: hypoxia COMPARISON: CTA chest 03/01/2022 TECHNIQUE: 2 views of the chest were obtained. FINDINGS: The lungs are inflated with bilateral pleural effusions right greater than left and underlying atelectasis. There are multiple small pulmonary nodules in both upper lobes. The heart size and pulmonary vascularity is normal. No gross bony abnormality seen. XR/XR chest 2V IMPRESSION: Bilateral pleural effusions right greater than left with underlying atelectasis. There are several bilateral upper lobe parenchymal nodules. On previous CT chest exam solitary nodule was visualized in right upper lobe. Electronically signed by: Ortiz Chaudhry MD 03/21/2024 04:24 PM EST
--- NOTE | ~2024-03-21 | XR_ITS ---
EXAMINATION: XR CHEST 1 VIEW HISTORY: s/p chest tube manipulation, evaluate right pneumo COMPARISON: Comparison is made with the prior examination performed earlier in the day at 9:36 AM. FINDINGS: A single AP portable view of the chest performed at 11:58 AM is submitted. A right-sided chest tube is again seen in place at the lung base. There is a small right pneumothorax without change. The lungs remain hyperinflated, consistent with COPD. Multiple calcified granulomas are again noted in the upper lung zones. Again seen is a small left pleural effusion. There is no pulmonary vascular congestion. The heart is normal in size. The bones are intact. XR/XR chest 1V IMPRESSION: Right-sided chest tube in place. Small right pneumothorax without change. Small left pleural effusion. Electronically signed by: All Varma MD 03/28/2024 12:56 PM [facility]
--- NOTE | ~2024-03-21 | XR_ITS ---
CLINICAL HISTORY: chest pain 1 view chest x-ray 8:07 p.m. Comparison: Same date 11:58 a.m. Findings: Right chest catheter has changed position. It now projects over the right mid chest. Minimal right apical pneumothorax. This is decreased since prior study. New left pleural effusion and basilar atelectasis. Heart size normal. No bony abnormality. Impression: Trace right apical pneumothorax, improving New left base atelectasis and pleural effusion This document has been electronically signed by: Yves Carl MD on 03/28/2024 21:13:00
--- NOTE | ~2024-03-21 | XR_ITS ---
EXAMINATION: XR CHEST CLINICAL INFORMATION: right chest tube clamped @ 815 COMPARISON: August 25, 2024 at 7:30 AM. TECHNIQUE: Frontal view of the chest was obtained. FINDINGS: There is a small to moderate volume of right-sided pneumothorax best seen on the upper right hemithorax. Pigtail chest tube ends in the periphery of the right lower hemithorax. There is a meniscal shaped opacity in the left lower hemithorax with blunting of the left costophrenic angle. Pulmonary reticular nodular pattern. Cardiomediastinal silhouette is normal size. Multilevel thoracic spondylosis. Metallic hardware lower cervical spine no fully included in the [id number]. XR/XR chest 1V IMPRESSION: Right-sided pneumothorax, small to moderate volume. Left-sided pleural effusion, moderate volume. Smaller since prior exam. Chronic interstitial lung disease. Electronically signed by: José Miguel Dutta MD 03/28/2024 10:30 AM [facility]
--- NOTE | ~2024-03-21 | XR_ITS ---
EXAMINATION: XR CHEST 1 VIEW HISTORY: s/p right chest tube for loculated effusion COMPARISON: Comparison is made with the prior examination dated 03/24/2024. FINDINGS: A single AP portable view of the chest performed at 2:21 PM is submitted. There is been interval placement of a chest tube at the right lung base. A tiny residual right pleural effusion is noted. There is a tiny right apical pneumothorax. Again seen is a small left pleural effusion. Underlying atelectasis or pneumonia at the left lung base is not excluded. There is no pulmonary vascular congestion. The heart is normal in size. There is degenerative disc disease of the spine. XR/XR chest 1V IMPRESSION: 1. Interval insertion of a right chest tube. The previously seen pleural effusion is much smaller. Tiny right apical pneumothorax. 2. Small left pleural effusion. Underlying atelectasis or pneumonia at the left lung base is not excluded. Electronically signed by: All Varma MD 03/25/2024 02:50 PM EST
--- NOTE | ~2024-03-21 | FL_ITS ---
EXAMINATION: Modified Barium Swallow CLINICAL INFORMATION: Dysphagia COMPARISON: None TECHNIQUE: Modified barium swallow was performed under lateral fluoroscopy with patient in standing position. Barium mixed with solids and liquids of different consistencies was administered by the speech pathologist. Examination was recorded in the fluoroscopy suite. FINDINGS: Posterior cervical hardware is present at C3-C6. Trace laryngeal penetration is seen with thin consistency barium. No subglottic or tracheal aspiration was observed. There is moderate cricopharyngeal achalasia present. FLUOROSCOPY TIME: 1 minute 36 seconds Number of Spot Images: N/A DOSE AREA PRODUCT: 293 uGy-m2 (microgray-meter squared) FL/FL Modified Barium Swallow IMPRESSION: 1. Trace laryngeal penetration with thin consistency barium. No subglottic or tracheal aspiration was observed. 2. Moderate cricopharyngeal achalasia. 3. Posterior cervical hardware is noted at C3-C6. Refer to the speech therapy report for further clarification This procedure was performed by Wilder Ha PA-C, and supervised by Dr. Negro Electronically signed by: Bruce Negro MD 03/24/2024 03:21 PM [facility] [place]
--- NOTE | ~2024-03-21 | US_ITS ---
CLINICAL HISTORY: abd pain, ?cholecystitis US Abdomen Limited, Right Upper Quadrant COMPARISON: Portions of CT/SR - CT ABDOMEN PELVIS WO IV CON - 03/21/24 17:18 EST FINDINGS: Multiple echogenic, shadowing calculi in the gallbladder. No gallbladder wall thickening. No pericholecystic fluid. Mildly distended gallbladder. Negative sonographic Concepcion sign. No bile duct dilation. Common bile duct measures 5 mm in diameter. Small ascites adjacent to the liver and gallbladder. IMPRESSION: Cholelithiasis without evidence of acute cholecystitis. Small ascites. This document has been electronically signed by: George Vanegas MD on 03/22/2024 00:01:25
--- NOTE | ~2024-03-21 | US_ITS ---
PROCEDURE: Ultrasound-guided chest tube placement HISTORY: Right loculated pleural effusion SPECIMEN: A specimen was appropriately labeled and sent to the laboratory as requested ACCESS: 5 fr Yueh needle/catheter MEDICATIONS: 10 mL 1% lidocaine TECHNIQUE/FINDINGS Appropriate preprocedural clinical history and imaging studies were reviewed. The patient was brought to the department and placed in the left lateral decubitus position. Ultrasound images of the right thorax were obtained to localize a large loculated pleural effusion. Permanent ultrasound images were saved. The risks and benefits and possible complications were discussed with the patient and consent form was signed. An area of the patient's right back was prepped and draped in the usual sterile fashion. 10 mL of 1% lidocaine was used to obtain local anesthesia of the skin and deeper tissues. A 25 gauge hypodermic needle was introduced to sample pleural fluid and demonstrate a safe access route. A 5 Camb[place]ian Yueh catheter was then used to access the pleural cavity. A 0.035 guidewire was then placed through the catheter and into the chest. The access site was then dilated. A 10 fr locking catheter was then advanced over the wire and into the right pleural space. The wire was removed and the catheter was secured to the skin with a single suture and a sterile dressing was applied over the site. The catheter was then connected to a close chest drainage system. The patient tolerated the procedure well. There were no immediate complications US/US drain thoracentesis w image Impression: Ultrasound-guided right chest tube placement yielding yellow fluid. This procedures performed by Wilder Ha PA-C and supervised by Dr. Matos. Electronically signed by: Kris Matos MD 03/25/2024 02:20 PM [facility] [place]
--- NOTE | ~2024-03-21 | CT_ITS ---
CLINICAL HISTORY: abdominal pain, elevated liver enzymes CT abdomen and pelvis without contrast Comparison: 09/12/2013 Findings: Bilateral partially loculated pleural effusions. These are only partially visualized on this study. Bilateral lower lobe atelectasis noted. No acute bony abnormalities. Body wall edema consistent with anasarca. Small volume ascites in abdomen and pelvis. Hepatomegaly without significant focal abnormality. Pancreas, Spleen and adrenal glands unremarkable. Cholelithiasis with gallbladder distention. Pericholecystic fluid also noted. Gallbladder wall never well visualized. Consider ultrasound if symptomatic. No bilateral renal stone or hydronephrosis. No focal renal abnormality or ureteral dilation. No evidence for aortic aneurysm. 6 cm right pelvic soft tissue mass noted. Etiology and origin are unknown. Question primary disease versus metastatic disease. Free fluid noted in the pelvis. Uterus not well visualized. Impression: Right pelvic mass as above Anasarca with ascites and body wall edema Cholelithiasis with gallbladder distention Consider ultrasound if biliary colic symptoms Bilateral pleural effusions with lower lobe atelectasis This document has been electronically signed by: Yves Carl MD on 03/21/2024 18:48:20
--- NOTE | ~2024-03-21 | XR_ITS ---
EXAMINATION: XR CHEST CLINICAL INFORMATION: assess for pneumo, chest tube removed COMPARISON: Chest x-ray 03/29/2024. TECHNIQUE: Frontal view of the chest was obtained. FINDINGS: There is hyperinflated lungs without any acute pneumonic process. Increased interstitial markings likely chronic changes are stable. There is trace right apical pneumothorax improved since 03/29/2024. No pleural effusion seen. The heart size and pulmonary vascularity is normal through no gross bony abnormality. XR/XR chest 1V IMPRESSION: Trace right apical pneumothorax improved since 03/21/2024. No further follow up needed. Hyperinflated lungs with diffuse interstitial prominence is stable. Electronically signed by: Ortiz Chaudhry MD 03/30/2024 08:33 AM [facility]
--- NOTE | ~2024-03-21 | XR_ITS ---
CLINICAL HISTORY: follow up chest tube pneumo 1 view chest x-ray Comparison: CR - XR CHEST 1V - 03/26/24 08:41 EST CR/SR - XR CHEST 1V - 03/25/24 14:20 EST CR/SR - XR CHEST 1V - 03/24/24 08:07 EST Findings: Stable right pigtail chest tube with trace residual right pneumothorax decreased from prior. Stable left base consolidation with small pleural effusion. Stable cardiomediastinal silhouette. Stable with additional chronic lung changes. Lower cervical fusion. Nonobstructive bowel gas pattern. Impression: Trace right pneumothorax decreased from prior. No other changes. This document has been electronically signed by: Ulices Farias MD on 03/27/2024 08:46:50
--- NOTE | ~2024-03-21 | CT_ITS ---
CLINICAL HISTORY: eval loculated pleural effusions, sob, hypoxia CT chest without contrast Comparison: 03/01/2022 Findings: Moderate-sized bilateral loculated pleural effusions. Bilateral lower lobe subsegmental atelectasis. Stable bilateral linear and nodular densities. Stable irregular right apical scarring noted. No significant mediastinal adenopathy. Dense coronary artery calcifications. No acute bony abnormality. Impression: Moderate-size bilateral loculated pleural effusions Bilateral lower lobe subsegmental atelectasis Stable chronic findings as above This document has been electronically signed by: Yves Carl MD on 03/21/2024 21:24:00
--- NOTE | ~2024-03-21 | XR_ITS ---
CLINICAL HISTORY: s p right chest tube reposition 1 view chest x-ray. Comparison: CR - XR CHEST 1V - 03/28/24 20:07 EST Findings: Normal lung volumes. Stable pleural-parenchymal disease left lower lobe. Stable infiltrate versus atelectasis right upper lobe. Stable less than 5% right apical pneumothorax. Heart size normal. No passive venous congestion. Patient is rotated. Posterior fusion cervical spine partially imaged.Minimal subcutaneous emphysema right lateral travis thorax. Right-sided percutaneous pleural catheter unchanged in position. Impression: 1. Stable less than 5% right apical pneumothorax with percutaneous pleural catheter unchanged. Stable pleural-parenchymal disease left lower lobe and infiltrate/atelectasis right upper lobe. This document has been electronically signed by: Malcom Johnson MD on 03/29/2024 11:42:01
--- NOTE | ~2024-03-21 | XR_ITS ---
CLINICAL HISTORY: follow up chest tube apical neumo 1 view chest x-ray Comparison: CR/SR - XR CHEST 1V - 03/25/24 14:20 EST CR/SR - XR CHEST 1V - 03/24/24 08:07 EST Findings: Similar appearance to small right basilar pigtail chest tube. Right pneumothorax measures slightly larger currently at approximate 10%. Proximally 5% on prior. Residual blunting right lateral costophrenic sulcus suggesting residual small effusion. Continued opacification left base suggesting left pleural effusion and consolidation. Additional chronic appearing changes throughout the remainder of the chest appearing stable with stable cardiomediastinal silhouette. Nonobstructive bowel gas pattern with enteric contrast in the colon. Bones unchanged. Impression: Mild increase in in size of small right pneumothorax. Otherwise little change. This document has been electronically signed by: Ulices Farias MD on 03/26/2024 09:24:18
--- NOTE | ~2024-03-21 | XR_ITS ---
EXAMINATION: XR CHEST CLINICAL INFORMATION: right chest tube clamped, evaluate for pneumothora COMPARISON: Chest x-ray 03/29/2024 at 7:54 AM. TECHNIQUE: Frontal view of the chest was obtained. FINDINGS: The lungs are hyperinflated from emphysema. Chronic interstitial markings are stable. Left apical likely calcified nodule, stable There is a small right apical pneumothorax which is stable compared to earlier exam from 754. There is a right chest tube in the mid lungs which is stable. Right lateral chest wall emphysema has improved. There is bilateral apical pleural thickening which is stable. XR/XR chest 1V IMPRESSION: Stable very small right apical pneumothorax. No change in the right chest catheter with its tip in the right midlung. Emphysema, stable Electronically signed by: Ortiz Chaudhry MD 03/29/2024 12:10 PM [facility]
--- NOTE | ~2024-03-21 | IR_ITS ---
68-year-old female status post right chest tube placement for loculated pleural effusion. Patient is developed a small pneumothorax and subcutaneous emphysema. The catheter has retracted most the chest wall. The patient presents for repositioning of the catheter. PROCEDURES: 1. Fluoroscopic replacement of the right chest tube. CLINICIANS: Wilder Ha PA-C MEDICATIONS: -Fentanyl 75 mcg, and lidocaine 1% 10 mL SQ -Antibiotics: None -For additional details, please see nursing flowsheet. COMPLICATIONS: None ESTIMATED BLOOD LOSS: < 5 ml CONTRAST: None SPECIMENS: None PROCEDURE NOTE: The procedure, risks, benefits, and alternatives were carefully explained to the patient and written informed consent was obtained. The patient was placed in the left decubitus position on the exam table. A timeout was performed. The patient's right back was prepped and draped in usual sterile fashion. The right pleural catheter was cut, and a 0.035 stiff Glidewire was inserted through the catheter and coiled into the right pleural space. The catheter was removed over the wire. Using a 5 Malaysian KMP, the wire was manipulated superiorly to the mid chest. The wire was exchanged for 0.035 J-wire. Over the wire, a new 10 Malaysian locking pigtail was advanced and coiled in the mid chest. The catheter was secured to the skin with a 2-0 nylon pursestring suture. Xeroform gauze was applied over the dressing. An image demonstrating the catheter position was saved in PACS. There were no immediate complications. The patient was stable after the procedure and transferred back to the medical floor. IR/IR Drain Lung Right Impression: Fluoroscopic replacement of the right chest tube. The tube now overlies the right mid chest. The tube will remain on suction overnight. This procedure was performed by Wilder Ha PA-C and supervised by Dr. Matos. Electronically signed by: Kris Matos MD 04/06/2024 01:47 PM [facility]
--- NOTE | ~2024-03-21 | US_ITS ---
CLINICAL HISTORY: ascites US abdomen limited Comparison: US - US ABDOMEN LIMITED - 03/21/24 23:02 EST Findings: Mild ascites visualized in the right upper quadrant and right lower quadrant. No ascites seen on left side of the abdomen. Right-sided pleural effusion is visualized. IMPRESSION: 1. Mild ascites in right upper quadrant and right lower quadrant. 2. Right pleural effusion. This document has been electronically signed by: Zaynab Martin MD on 03/23/2024 20:12:49
--- NOTE | ~2024-03-21 | XR_ITS ---
EXAMINATION: XR CHEST CLINICAL INFORMATION: re-eval effusions COMPARISON: Re-evaluate effusions TECHNIQUE: Frontal view of the chest was obtained. FINDINGS: There is bibasilar moderate haziness from effusion or underlying atelectasis. Small nodular densities and patchy linear opacity visualized in right upper lobe likely scarring atelectasis. Punctate nodule is seen in the left upper lobe. The heart size and pulmonary vascularity is normal. No gross bony abnormality seen. XR/XR chest 1V IMPRESSION: Bibasilar pleural effusions with underlying atelectasis. Scarring atelectasis right upper lobe. In addition there are small nodules seen in bilateral upper lobes. Electronically signed by: Ortiz Chaudhry MD 03/24/2024 08:52 AM EST
--- NOTE | 2024-03-21 15:03 | ECG_ITS ---
Test Reason : weakness Blood Pressure : */* mmHG Vent. Rate : 101 BPM Atrial Rate : 101 BPM P-R Int : 150 ms QRS Dur : 76 ms QT Int : 338 ms P-R-T Axes : 93 122 44 degrees QTcB Int : 438 ms Suspect limb lead reversal, interpretation assumes no reversal Sinus tachycardia Low voltage QRS Possible Anterolateral infarct Abnormal ECG When compared with ECG of 01-Mar-2022 11:11, Significant changes have occurred Referred By: Deepa Mcnamara Electronically Signed By: KAELYN GREENE MD
--- NOTE | 2024-03-21 15:10 | PC.NURSE ---
pt was placed on O2 NC 3l and increased to 93% during triage
[2024-03-21] MEDS: Albuterol/Iprat 2.5/0.5MG 3 ML AMPUL.NEB INHALE (15:28)
--- NOTE | 2024-03-21 15:37 | ED.ABDPAIN ---
HPI - Abdominal Pain General Chief Complaint: Abdominal Pain Stated Complaint: DTR STS WEAK,ABD PAIN X DAYS PER EMS Time Seen by Provider: 03/21/24 14:33 Source: patient and EMS Mode of arrival: EMS Limitations: no limitations History of Present Illness ED Provider: Deepa Mcnamara APRN HPI narrative: 66-year-old female with a past medical history of chronic back pain, HLD, COPD here with complaints of left-sided abdominal pain for the last 4 days with decreased appetite and nausea. Patient denies any diarrhea, constipation, urinary symptoms, fevers or chills. She does reports shortness of breath but no cough or fever. She is a former smoker and quit 1 year ago. She does not have home oxygen. She was 86% on room air for EMS. Denies chest pain, leg swelling, leg pain, orthopnea. No recent travel or sick contact. Related Data Previous Rx's ?Medication ?Instructions ?Recorded foam bandage 5 X 5 (Allevyn #10 ea 02/16/20 Gentle Border) naloxone 4 mg/actuation nasal 4 mg intranasal Q2M PRN opioid 07/30/21 spray (Narcan) overdose #2 ea dexamethasone 6 mg tablet 6 mg PO DAILY #6 tabs 03/04/22 food supplemt, lactose-reduced 1 ea PO BID nutrition 30 days 06/17/22 0.08 gram-1.5 kcal/mL oral liquid #14,220 mL (Ensure Enlive) fluticasone propionate 220 2 puff inhalation BID 30 days #12 10/02/23 mcg/actuation HFA aerosol inhaler grams ipratropium bromide 17 2 puff PO QID #12.9 grams 10/28/23 mcg/actuation HFA aerosol inhaler (Atrovent HFA) ropinirole 4 mg tablet 6 mg (1.5 x 4 mg) PO BEDTIME 30 12/25/23 days #45 tabs albuterol sulfate 2.5 mg/3 mL 2.5 mg (3 mL) inhalation Q4-6H PRN 01/26/24 (0.083 %) solution for nebulization shortness of breath or wheezing #90 mL diazepam 2 mg tablet 2 mg PO DAILY PRN 02/16/24 Anxiety/procedures 30 days #5 tabs miscellaneous medical supply #1 ea 02/16/24 omeprazole 40 mg capsule,delayed 40 mg PO DAILY #90 caps 02/16/24 release albuterol sulfate 90 mcg/actuation 2 puff inhalation Q4-6H PRN 03/18/24 aerosol inhaler shortness of breath or wheezing 30 days #8.5 grams carisoprodol 350 mg tablet 350 mg PO BID PRN muscle pain 30 03/20/24 days #60 tabs oxycodone-acetaminophen 5 mg-325 1 tab PO TID pain 28 days #84 tabs 03/20/24 mg tablet (Percocet) Allergies Allergy/AdvReac Type Severity Reaction Status Date / Time bee pollen [BEE STINGS] Allergy Intermediate THROAT Verified 03/21/24 15:12 SWELLING penicillin V Allergy Intermediate nausea and Verified 03/21/24 15:12 vomiting Penicillins [PENICILLINS] Allergy Intermediate YEAST Verified 03/21/24 15:12 INFECTIONS- UTI - NAUSEA codeine [Codeine] Allergy Mild ITCHING Verified 03/21/24 15:12 celecoxib [From Celebrex] AdvReac Severe RECTAL Verified 03/21/24 15:12 BLEEDING Review of Systems Review of Systems Yes all other systems are reviewed and are negative Constitutional: Reports no additional constitutional complaints, Denies body ache(s), Denies chills, Denies fever(s), Denies headache(s) and Denies weakness Eyes: Reports no additional eye complaints and Denies change in vision Reports system reviewed and no additional complaints, except as documented, Denies dizziness, Denies headache(s), Denies nasal congestion, Denies nasal discharge and Denies neck pain Cardiovascular: Reports no additional cardiovascular complaints, Denies chest pain, Denies leg edema and Reports dyspnea Respiratory: Reports no additional respiratory complaints, Denies cough and Reports dyspnea Gastrointestinal: Reports no additional gastrointestinal complaints, Reports abdominal pain, Denies diarrhea, Denies nausea and Denies vomiting Genitourinary: Reports no additional female genitourinary complaints and Denies urinary incontinence Musculoskeletal: Reports no additional musculoskeletal complaints, Denies back pain, Denies arthralgias, Denies joint swelling, Denies neck pain, Denies numbness and Denies tingling Skin/Breast: Reports system reviewed and no additional complaints, except as docu and Denies rash Denies Abnormal speech present, Denies dizziness, Denies headache(s), Denies numbness, Denies tingling and Denies weakness PMFSH Past Medical History Attestation statement: The following information was validated with the patient. Source: old records reviewed and nursing notes reviewed Medical History No pertinent past medical history Surgical History H/O oral surgery History of fusion of cervical spine History of biopsy History of lung biopsy History of surgery on left wrist History of shoulder surgery History of rhinoplasty Family History Family History Father Cirrhosis Substance use disorder Mother No problems noted. Brother No problems noted. Son No problems noted. Son No problems noted. Daughter No problems noted. Daughter No problems noted. Daughter No problems noted. Social History Social History Household Members: Family Housing: Apartment Do you presently have visiting nurse or other home services: Yes Unable to assess alcohol history related to: Unknown Patient Tobacco Use Status: Former Tobacco user Cigarettes Per Day: 7 e-Cigarette/Vaping Use: Never Used Second Hand Smoke Exposure: No Use of substances other than those prescribed or required for medical reasons: Unknown Advance Directives: No Advance Directives Information Provided: No Do you have a plan to hurt others: No Plan service: No Current occupational status: retired and disabled Current occupational exposures/hazards: No Cognitive needs: No Hearing needs: No Vision needs: Yes Physical Exam ED Vital Signs: Vital Signs - 24 hr 03/21/24 15:10 03/21/24 15:25 03/21/24 17:38 Temperature 98.1 F Pulse Rate 105 H 105 H 108 H Respiratory Rate 16 16 16 Blood Pressure 114/55 L Pulse Oximetry 86 L 95 Oxygen Delivery Method Room Air Nasal Cannula Oxygen Flow Rate 4 03/21/24 19:15 Temperature 98.3 F Pulse Rate 93 Respiratory Rate 14 Blood Pressure 115/59 L Pulse Oximetry 97 Oxygen Delivery Method Nasal Cannula Oxygen Flow Rate 6 BMI result Body Mass Index 15.7 Const General: cooperative, healthy appearing, comfortable and no acute distress Orientation/consciousness: patient oriented x3 Limitations: no limitations HENMT Head: Yes normal to inspection Ears: hearing grossly normal bilaterally General nose exam: Normal external nose present Face and sinus: Yes normal facial exam Mouth: Normal oral and palatal mucosa present Throat: Yes posterior oropharynx normal Eyes General: appearance normal, both eyes and all related structures Pupils: Equal, round and reactive pupils present Neck Neck: Yes normal visual inspection Chest Chest palpation & inspection: normal inspection of the chest Resp Effort & Inspection: normal respiratory effort Auscultation: wheezes Cardio Rate: regular rate Rhythm: regular rhythm Peripheral pulses: Peripheral pulses 2+ throughout GI Inspection: Yes normal to inspection Palpation (GI): Soft to palpation, Tenderness to palpation present (GI) in the LLQ and in the LUQ; with no rebound tenderness and no guarding Auscultation: normal bowel sounds Back/Spine/Pelvis Thoracic/Lumbar Spine: thoracic and lumbar spine normal to inspection Skin General skin exam: no rashes or lesions noted Neuro General: patient oriented x3, no focal motor deficits and normal sensation to monofilament Cranial nerves: Yes Equal, round and reactive pupils present Cognition (Neuro): normal cognition Speech: No Abnormal speech present Gait exam (Neuro): Normal gait present Motor exam (neuro): 5/5 motor strength present throughout Extrem General: Yes normal to inspection, Yes no pedal edema and Yes no calf tenderness Course Course Course Narrative: 1640- lactic is 4.4. No clear source of infection. At this time infection can not be ruled out so antibiotics will be given. Labs show mildly elevated renal function however potassium is 6.0. Patient will be given insulin, dextrose and Lokelma. Patient's labs also show elevated LFTs from baseline and a microcytic anemia. Patient does not require a blood transfusion at this time. Refusing rectal exam. She has been taking excedrin (multiple tabs daily) for migraines. Her BNP is elevated 1845 and her chest x-ray shows bilateral effusions. Clinically she does not appear to be in fluid overload and has no leg swelling, no leg pain, no JVD on exam. She has wheezing on exam which seems to be more related to her COPD versus congestive heart failure. her CT is pending Reevaluation(s) Reevaluation #1: 194- CT shows right pelvic mass with small ascites, cholelithiasis. I have low suspicion for SBP. I have high suspicion for malignancy. Spoke to patient and she tells me she has had this mass for years and has been seen by [facility] and had negative US for malignancy. May need further w/u now. See discussions in MDM with specialist. VBG initially showed mild acidosis which improved while in ER without need for BIPAP. Plan is for inpatient management by hospitalist pending repeat labs, UA and CT chest Reevaluation #2: 2015-Confirmed with medicine they will follow up on repeat labs, UA, CT chest and plan to admit to service Medical Decision Making Medical Decision Making MDM Narrative: 66-year-old female with a past medical history of chronic back pain, HLD, COPD here with complaints of left-sided abdominal pain for the last 4 days with decreased appetite and nausea. Patient denies any diarrhea, constipation, urinary symptoms, fevers or chills. She does reports shortness of breath but no cough or fever. She is a former smoker and quit 1 year ago. She does not have home oxygen. She was 86% on room air for EMS. Denies chest pain, leg swelling, leg pain, orthopnea. No recent travel or sick contact. on arrival patient's room air saturation is 86%. She improved with 2 L of nasal cannula. This is from chronic lung disease and not from infection. Her lungs have some wheezing. She has tenderness to the left upper and left lower quadrant with no rebound or guarding. Patient will need labs, viral testing, EKG, chest x-ray, CT abdomen and pelvis, UA will provide Solu-Medrol, nebulizer, analgesia, antiemetic Differential Diagnosis Differential Diagnoses: The differential diagnosis associated with the presentation includes 1640- AP- diverticulitis, appendicitis, SBO, UTI. low suspicion for ACS, AAA SOB-COPD exacerbation, viral syndrome, influenza, pneumonia, PE Admission/Observation Consideration of admission/observation: Escalation of care including admission/observation considered see course of care Consult Healthcare Provider Management of the patient was discussed with: Hospitalist and Lab Support Service Tech CT shows 1) R pelvic mass with anasarca w/ ascites (small volume). Etiology and origin are unknown. Question primary disease versus metastatic disease. Sent patient information to [facility] [employer] [employer](Mahendra) to make aware of patient @[phone] 2) Cholelithiasis with gallbladder distention with elevated LFTS. Pain is left sided on exam and she has no RUQ pain on palpation. Elevated liver enzymes may be multifactorial. No obstructing stone seen. Spoke to Estela (@1845) who reviewed CT imaging. No surgical intervention at this time. 3) Spoke to Dr Stanford at 1900. Requesting repeat BMP, VBG which have been ordered and are pending. Also requested CT chest d/t ?loculated pleural effusions seen on CT. This was ordered. Lab Data MDM Lab Attestation statement: I reviewed the patient's lab results. 03/21/24 15:36 03/21/24 19:37 Labs: Lab Results 03/21/24 03/21/24 03/21/24 Range/Units 15:36 15:37 16:02 WBC 9.1 (4.8-10.8) X10*3/uL RBC 4.52 (4.20-5.50) X10*6/uL Hgb 9.7 L (12.0-16.0) g/dl Hct 35.4 L (37.0-47.0) % MCV 78.3 L (80.0-98.0) fL MCH 21.5 L (27.0-33.0) pg MCHC 27.4 L (31.0-35.0) g/dl RDW 18.3 H (11.0-16.0) % Plt Count 315 (160-400) X10*3/uL MPV 9.0 L (9.4-12.3) fL Immature Gran % (Auto) 0.3 (0.0-0.4) % Neut % (Auto) 89.0 H (45-73) % Lymph % (Auto) 2.6 L (20-40) % [place] % (Auto) 7.4 (2-11) % Eos % (Auto) 0.0 (0-4) % Baso % (Auto) 0.7 (0-2) % Lymph # (Auto) 0.2 L (1.2-4.9) X10*3/uL [place] # (Auto) 0.7 (0.1-1.2) X10*3/uL Eos # (Auto) 0.0 (0.0-0.4) X10*3/uL Baso # (Auto) 0.1 (0.0-0.2) X10*3/uL Abs Immat Gran (auto) 0.03 (0.00-0.03) X10*3/uL Absolute Neuts (auto) 8.1 (2.0-8.3) x10*3/uL Absolute Nucleated RBC 0.040 H (0.0-0.012) X10*3/uL Nucleated RBC % (auto) 0.4 H (0.0-0.2) /100WBC PT 19.3 H (10.9-12.4) SEC INR 1.7 H (0.9-1.1) VBG pH 7.23 L (7.32-7.43) VBG pCO2 80 mmHg VBG pO2 47 mmHg VBG HCO3 33 H (22-26) mmol/L VBG O2 Saturation 59.0 % VBG Base Excess 4.0 mmol/L Sodium 135 (135-145) mmol/L Potassium 6.0 H* D (3.3-5.1) mmol/L Chloride 95 L (96-108) mmol/L Carbon Dioxide 29 (22-29) mmol/L Anion Gap 17 (12-20) BUN 36 H (9-16) mg/dL Creatinine 1.66 H (0.5-1.4) mg/dL Estim Creat Clear Calc 19.6 Estimated GFR 31 Random Glucose 85 (60-115) mg/dL Lactic Acid 4.4 H* (0.5-2.0) mmol/L Lactic Acid F/U @ 2Hr (0.5-2.0) mmol/L Calcium 8.8 (8.4-10.2) mg/dL Magnesium 2.1 (1.6-2.6) mg/dL Total Bilirubin 1.4 H (0.0-1.0) mg/dL Direct Bilirubin 0.8 H (0.0-0.5) mg/dL AST 556 H (5-31) U/L ALT 476 H (0-31) U/L Alkaline Phosphatase 78 (39-117) U/L Total Creatine Kinase 51 (26-140) U/L Troponin I High Sens 32.8 H D (<3.5-17.0) ng/L B-Natriuretic Peptide 1845 H (<100) pg/mL Total Protein 5.9 L (6.5-8.0) g/dL Albumin 3.3 L (3.5-5.0) g/dL Salicylates (15-30) mg/dL Acetaminophen (<30) mcg/mL Influenza Type A (PCR) NEGATIVE (Negative) Influenza Type B (PCR) NEGATIVE (Negative) RSV RNA Qual (PCR) NEGATIVE (Negative) SARS-CoV-2 RNA (RT-PCR) NEGATIVE (Negative) 03/21/24 03/21/24 03/21/24 Range/Units 18:16 19:37 19:39 WBC (4.8-10.8) X10*3/uL RBC (4.20-5.50) X10*6/uL Hgb (12.0-16.0) g/dl Hct (37.0-47.0) % MCV (80.0-98.0) fL MCH (27.0-33.0) pg MCHC (31.0-35.0) g/dl RDW (11.0-16.0) % Plt Count (160-400) X10*3/uL MPV (9.4-12.3) fL Immature Gran % (Auto) (0.0-0.4) % Neut % (Auto) (45-73) % Lymph % (Auto) (20-40) % [place] % (Auto) (2-11) % Eos % (Auto) (0-4) % Baso % (Auto) (0-2) % Lymph # (Auto) (1.2-4.9) X10*3/uL [place] # (Auto) (0.1-1.2) X10*3/uL Eos # (Auto) (0.0-0.4) X10*3/uL Baso # (Auto) (0.0-0.2) X10*3/uL Abs Immat Gran (auto) (0.00-0.03) X10*3/uL Absolute Neuts (auto) (2.0-8.3) x10*3/uL Absolute Nucleated RBC (0.0-0.012) X10*3/uL Nucleated RBC % (auto) (0.0-0.2) /100WBC PT (10.9-12.4) SEC INR (0.9-1.1) VBG pH 7.32 (7.32-7.43) VBG pCO2 60 mmHg VBG pO2 65 mmHg VBG HCO3 31 H (22-26) mmol/L VBG O2 Saturation 90.0 % VBG Base Excess 4.1 mmol/L Sodium 134 L (135-145) mmol/L Potassium 5.6 H (3.3-5.1) mmol/L Chloride 96 (96-108) mmol/L Carbon Dioxide 28 (22-29) mmol/L Anion Gap 16 (12-20) BUN 33 H (9-16) mg/dL Creatinine 1.44 H (0.5-1.4) mg/dL Estim Creat Clear Calc 22.7 Estimated GFR 36 Random Glucose 191 H (60-115) mg/dL Lactic Acid (0.5-2.0) mmol/L Lactic Acid F/U @ 2Hr 3.2 H* (0.5-2.0) mmol/L Calcium 8.4 (8.4-10.2) mg/dL Magnesium (1.6-2.6) mg/dL Total Bilirubin (0.0-1.0) mg/dL Direct Bilirubin (0.0-0.5) mg/dL AST (5-31) U/L ALT (0-31) U/L Alkaline Phosphatase (39-117) U/L Total Creatine Kinase (26-140) U/L Troponin I High Sens 34.0 H (<3.5-17.0) ng/L B-Natriuretic Peptide (<100) pg/mL Total Protein (6.5-8.0) g/dL Albumin (3.5-5.0) g/dL Salicylates < 5.0 L (15-30) mg/dL Acetaminophen < 3 (<30) mcg/mL Influenza Type A (PCR) (Negative) Influenza Type B (PCR) (Negative) RSV RNA Qual (PCR) (Negative) SARS-CoV-2 RNA (RT-PCR) (Negative) Independent Interpretation I performed an independent interpretation of an: EKG, Plain X-Ray and CT Scan Interpretation: I independently viewed the EKG which shows sinus tachycardia with a rate of 101, normal IL, normal QRS, and QT I independently reviewed the x-ray and CT scan agree with the radiology report Radiology Impression Discussion of test interpretation with radiology: I have reviewed the radiologist's reading. Radiologist Impression: [address] [address] XRay Report Signed Patient: Earlene Martinez MR#: [id number] : 1955 Acct:[id number] Age/Sex: 68 / F ADM Date: 03/21/24 Loc: HO.ED Attending Dr: Ordering Physician: Deepa Mcnamara NP Date of Service: 03/21/24 Procedure(s): XR chest 2V Accession Number(s): [id number] cc: Ed Murillo MD; Deepa Mcnamara CLINICAL TRIAL SPECIALIST~ EXAMINATION: XR CHEST CLINICAL INFORMATION: hypoxia COMPARISON: CTA chest 03/01/2022 TECHNIQUE: 2 views of the chest were obtained. FINDINGS: The lungs are inflated with bilateral pleural effusions right greater than left and underlying atelectasis. There are multiple small pulmonary nodules in both upper lobes. The heart size and pulmonary vascularity is normal. No gross bony abnormality seen. XR/XR chest 2V IMPRESSION: Bilateral pleural effusions right greater than left with underlying atelectasis. There are several bilateral upper lobe parenchymal nodules. On previous CT chest exam solitary nodule was visualized in right upper lobe. Electronically signed by: Ortiz Chaudhry MD 03/21/2024 04:24 PM [facility] [place] [address] CT Scan Report Signed Patient: Earlene Martinez MR#: [id number] : 1955 Acct:[id number] Age/Sex: 68 / F ADM Date: 03/21/24 Loc: HO.ED Attending Dr: Ordering Physician: Deepa Mcnamara NP Date of Service: 03/21/24 Procedure(s): CT abdomen pelvis wo IV con Accession Number(s): [id number] cc: Ed Murillo MD; Deepa Mcnamara NP~ Report Number: [id number]: Total DLP = 434.00 mGy-cm CLINICAL HISTORY: abdominal pain, elevated liver enzymes CT abdomen and pelvis without contrast Comparison: 09/12/2013 Findings: Bilateral partially loculated pleural effusions. These are only partially visualized on this study. Bilateral lower lobe atelectasis noted. No acute bony abnormalities. Body wall edema consistent with anasarca. Small volume ascites in abdomen and pelvis. Hepatomegaly without significant focal abnormality. Pancreas, Spleen and adrenal glands unremarkable. Cholelithiasis with gallbladder distention. Pericholecystic fluid also noted. Gallbladder wall never well visualized. Consider ultrasound if symptomatic. No bilateral renal stone or hydronephrosis. No focal renal abnormality or ureteral dilation. No evidence for aortic aneurysm. 6 cm right pelvic soft tissue mass noted. Etiology and origin are unknown. Question primary disease versus metastatic disease. Free fluid noted in the pelvis. Uterus not well visualized. Impression: Right pelvic mass as above Anasarca with ascites and body wall edema Cholelithiasis with gallbladder distention Consider ultrasound if biliary colic symptoms Bilateral pleural effusions with lower lobe atelectasis This document has been electronically signed by: Yves Carl MD on 03/21/2024 18:48:20 Independent Historian Clinical information obtained from an independent historian. History obtained from or confirmed by: EMS Medications Administered Discontinued Medications Generic Name Dose Route Start Last Admin Trade Name Freq PRN Reason Stop Dose Admin Albuterol/Ipratropium 3 ml 03/21/24 15:25 03/21/24 15:28 Albuterol/Iprat 2.5/0.5mg 3 Ml Ampul.Neb INHALE 03/21/24 15:26 3 ml ONCE ONE Administration Ceftriaxone Sodium 2 gm 03/21/24 16:40 03/21/24 17:50 Ceftriaxone Sodium 2 Gm Vial IVPUSH 03/21/24 16:41 2 gm ONCE ONE Administration Sodium Chloride 1,000 mls @ 999 mls/hr 03/21/24 15:15 03/21/24 16:54 Ns IV 03/21/24 16:15 999 mls/hr .Q1H1M STA Administration Dextrose 250 mls @ 750 mls/hr 03/21/24 17:00 03/21/24 17:51 D10 IV 03/21/24 17:19 750 mls/hr Q15M STA Administration Insulin Human Regular 5 unit 03/21/24 16:55 03/21/24 18:40 Insulin Regular, Human 100 Unit/Ml 10 Ml Vial IVPUSH 03/21/24 16:56 5 unit ONCE ONE Administration Methylprednisolone Sodium Succinate 60 mg 03/21/24 15:38 03/21/24 16:55 Methylprednisolone Sod Succ 125 Mg/2 Ml Vial IVPUSH 03/21/24 15:39 60 mg ONCE ONE Administration Morphine Sulfate 2 mg 03/21/24 15:18 03/21/24 16:54 Morphine Sulfate 2 Mg/Ml Cartridge IVPUSH 03/21/24 15:19 2 mg ONCE ONE Administration Protocol Ondansetron HCl 4 mg 03/21/24 15:18 03/21/24 16:55 Ondansetron Hcl 4 Mg/2 Ml Vial IVPUSH 03/21/24 15:19 4 mg ONCE ONE Administration Sodium Zirconium Cyclosilicate 10 gm 03/21/24 16:55 03/21/24 17:50 Sodium Zirconium Cyclosilicate 10 Gm Powd.Pack PO 03/21/24 16:56 10 gm ONCE ONE Administration Critical Care Time Critical Care Time Critical Care Time: Yes Total Critical Care Time: 120 Attestation: multiple electrolyte lab abnormalities requiring intervention, hypoxia requiring supplemental oxygen, discussion with both specialist and hospitalist Discharge Plan Discharge Clinical Impression: Hypoxia, Pleural effusion, Elevated brain natriuretic peptide (BNP) level, Anemia, Acute hyperkalemia, PACO (acute kidney injury), Elevated lactic acid level, Elevated liver enzymes, Pelvic mass Patient Disposition: Admitted As Inpatient Print Language: Citizen Of [place]
[2024-03-21 15:44] LABS: MANUAL DIFF FLAG NO
[2024-03-21 15:45] LABS: Basophils Absolute Auto 0.1 X10*3/uL (0.0-0.2); Basophils Percent Auto 0.7 % (0-2); Hematocrit 35.4 % (37.0-47.0); Hemoglobin 9.7 g/dl (12.0-16.0); Imm Gran Abs Auto 0.03 X10*3/uL (0.00-0.03); Imm Gran Pct Auto 0.3 % (0.0-0.4); Lymphocytes Absolute Auto 0.2 X10*3/uL (1.2-4.9); Lymphocytes Percent Auto 2.6 % (20-40); Mean Corpuscular HGB Conc 27.4 g/dl (31.0-35.0); Mean Corpuscular Hemoglobin 21.5 pg (27.0-33.0); Mean Corpuscular Volume 78.3 fL (80.0-98.0); Monocytes Absolute Auto 0.7 X10*3/uL (0.1-1.2); Monocytes Percent Auto 7.4 % (2-11); NRBC Pct Auto 0.4 /100WBC (0.0-0.2); Neutrophils Absolute Auto 8.1 x10*3/uL (2.0-8.3); Platelet Count 315 X10*3/uL (160-400); Red Blood Count 4.52 X10*6/uL (4.20-5.50); Red Cell Distribution Width 18.3 % (11.0-16.0); White Blood Count 9.1 X10*3/uL (4.8-10.8)
[2024-03-21 15:50] LABS: INTERNATIONAL NORM RATIO 1.7 (0.9-1.1); Prothrombin Time 19.3 SEC (10.9-12.4)
[2024-03-21 16:07] LABS: VBG HCO3 33 mmol/L (22-26); VBG pCO2 80 mmHg; VBG pH 7.23 (7.32-7.43); VBG pO2 47 mmHg
[2024-03-21 16:08] LABS: Venous Blood Gas Refer to POC result
[2024-03-21 16:12] LABS: Troponin-I High Sensitivity 32.8 ng/L (<3.5-17.0)
[2024-03-21 16:30] LABS: Influenza A PCR NEGATIVE (Negative); Influenza B PCR NEGATIVE (Negative); Resp Syncy Virus RNA Qual PCR NEGATIVE (Negative); SARS COV2 PCR INHOUSE NEGATIVE (Negative)
[2024-03-21 16:39] LABS: Lactic Acid 4.4 mmol/L (0.5-2.0)
[2024-03-21 16:41] LABS: Alanine Aminotransferase 476 U/L (0-31); Albumin Level 3.3 g/dL (3.5-5.0); Alkaline Phosphatase 78 U/L (39-117); Anion Gap 17 (12-20); Aspartate Amino Transferase 556 U/L (5-31); Bilirubin Direct 0.8 mg/dL (0.0-0.5); Bilirubin Total 1.4 mg/dL (0.0-1.0); Blood Urea Nitrogen 36 mg/dL (9-16); Calcium 8.8 mg/dL (8.4-10.2); Carbon Dioxide 29 mmol/L (22-29); Chloride 95 mmol/L (96-108); Creatinine Clr Calc Pharmacy 19.6; Estimated Glomerular Filt Rate 31; Glucose Random 85 mg/dL (60-115); Magnesium 2.1 mg/dL (1.6-2.6); Sodium 135 mmol/L (135-145); Total Protein 5.9 g/dL (6.5-8.0)
[2024-03-21] MEDS: Morphine Sulfate 2 MG/ML CARTRIDGE IVPUSH (16:54)
[2024-03-21] MEDS: 0.9 % Sodium Chloride 1,000 ML 999 ML IV (16:54)
[2024-03-21] MEDS: ondansetron HCL 4 MG/2 ML VIAL IVPUSH (16:55)
[2024-03-21] MEDS: methylPREDNISolone Sod Succ 125 MG/2 ML VIAL 60 MG IVPUSH (16:55)
[2024-03-21 17:02] LABS: B Type Natriuretic Peptide 1845 pg/mL (<100)
--- NOTE | 2024-03-21 17:07 | PC.NURSE ---
22 ga iv placed in rac
[2024-03-21 17:42] LABS: Reflex Lactate? Lactic Acid Added
[2024-03-21] MEDS: Sodium Zirconium Cyclosilicate 10 GM POWD.PACK PO (17:50)
[2024-03-21] MEDS: cefTRIAXone sodium 2 GM VIAL IVPUSH (17:50)
[2024-03-21] MEDS: Dextrose 10 % 250 ML 750 ML IV (17:51)
[2024-03-21] MEDS: Insulin Regular, Human 100 UNIT/ML 10 ML VIAL IVPUSH (18:40)
[2024-03-21 18:57] LABS: ~Lactic Acid-LAB USE ONLY 3.2 mmol/L (0.5-2.0)
--- NOTE | 2024-03-21 19:39 | MHC.EDTECH ---
This tech took over care of pt at 1900,rounded and introduced self to pt,vitals taken,repeat labs drawn and sent to lab,pt is refusing the occult stool,and to be straight cathed,provider is aware,attempting to get a a urine at this time
[2024-03-21 19:46] LABS: VBG Base Excess 4.1 mmol/L; VBG HCO3 31 mmol/L (22-26); VBG pCO2 60 mmHg; VBG pH 7.32 (7.32-7.43); VBG pO2 65 mmHg
[2024-03-21 19:48] LABS: Venous Blood Gas Refer to POC result
[2024-03-21 19:58] LABS: Acetaminophen LAB < 3 mcg/mL (<30); Salicylate < 5.0 mg/dL (15-30)
--- NOTE | 2024-03-21 19:59 | MHC.EDTECH ---
Patient got up to commode with minimal assist,pt urinated 100MLS of urine concentrated in color, sample collected and sent to lab,belongings list completed,copy placed in chart
[2024-03-21 20:02] LABS: Anion Gap 16 (12-20); Blood Urea Nitrogen 33 mg/dL (9-16); Carbon Dioxide 28 mmol/L (22-29); Chloride 96 mmol/L (96-108); Creatinine Clr Calc Pharmacy 22.7; Estimated Glomerular Filt Rate 36; Glucose Random 191 mg/dL (60-115); Potassium 5.6 mmol/L (3.3-5.1); Sodium 134 mmol/L (135-145)
[2024-03-21 20:05] LABS: Calcium 8.4 mg/dL (8.4-10.2)
[2024-03-21 20:11] LABS: Appearance Urine Cloudy; Color Urine Dark Yellow; Glucose Urine UA Negative (Negative); Leukocyte Esterase Urine Small (1+) (Negative); Nitrite Urine Negative (Negative); Specific Gravity - Urine 1.025 (1.005-1.025); UMIC TRIGGER UACC YES; Urine Blood Negative (Negative); Urine Ketones Trace mg/dL (Negative); Urine Protein 300 (3+) mg/dL (Neg-Trace)
[2024-03-21 20:19] LABS: Reflex Lactate? 2 Y
[2024-03-21 21:00] LABS: Bacteria Urine 4+ (None Seen); Calcium Oxalate Crystals Urine Present; Granular Casts Urine Present; Other Crystals Urine Present; RBC Urine 0-2 /HPF (0-2); UACC Culture Trigger YES; WBC Urine 0-5 /HPF (0-5)
[2024-03-21 21:03] LABS: ~Lactic Acid-LAB USE ONLY 3.1 mmol/L (0.5-2.0)
--- NOTE | 2024-03-21 21:26 | PHA.MEDREC ---
Addendum entered by Cindy Ramirez mihir 03/21/24 21:51: Reviewed by pharmacist Original Note: Pharmacy Consult ? Medication Reconciliation Pharmacy has completed the medication reconciliation.Spoke to patient to confirm med list. Patient had Pharmacy labels of her medications. Patient is no longer taking Dexamethasone 6 mg, Diazepam 2 mg. Patient last took her medication yesterday.
--- NOTE | 2024-03-21 22:34 | P.HPHOSP_ITS ---
History of Present Illness Date of Service: 03/21/24 Attending physician on admission: Feroz Stanford Chief Complaint: LLQ pain, SOB Patient is a 68-year-old female with a past medical history significant for chronic back pain, HLD, COPD unspecified and ?MAC, to the ED with complaints of left lower quadrant pain, dry heaves, decreased appetite, and shortness of breath with exertion, and bloating with eating for the past 4 days. She reports the shortness of breath has been going on for much longer than this. She has no diagnosis of congestive heart failure, cirrhosis or kidney issues. She denies any hematochezia or melena. She has had dry heaves but no actual vomiting. Her left lower quadrant pain radiates from the flank. She denies any history of kidney stones and is not constipated. She has no urinary symptoms including hematuria, dysuria, urgency or frequency. She experiences shortness of breath mostly with exertion but feels that she would have orthopnea she lied flat. She reports due to chronic neck pain she can not lie flat. She has also been experiencing numbness and tingling in her toes. Review of Systems 2 Constitutional: Constitutional: Denies body ache(s), Denies chills, Reports fatigue, Denies fever(s) and Denies headache(s) Eyes: Eyes: Denies change in vision ENT: Denies headache(s), Denies nasal congestion, Denies nasal discharge and Denies sore throat Comments: dry throat Cardiovascular: Cardiovascular: Denies chest pain, Denies rapid heart rate, Denies lightheadedness and Reports dyspnea on exertion Respiratory: Respiratory: Denies chest congestion, Denies cough, Reports dyspnea on exertion and Denies wheezing Gastrointestinal: Gastrointestinal: Denies melena, Denies hematochezia, Denies coffee ground emesis, Denies constipation, Denies diarrhea, Reports nausea and Denies vomiting Genitourinary: Genitourinary: Denies difficulty voiding, Denies dysuria and Denies urinary urgency Musculoskeletal: Musculoskeletal: Denies myalgias Integumentary/Breasts: Skin/Breast: Denies rash Neurologic: Denies confusion and Denies headache(s) Psychiatric: Psychiatric: Denies confusion Endocrine: Endocrine: Reports fatigue Hematologic/Lymphatic: Hematologic/Lymphatic: Denies easy bleeding and Denies easy bruising Allergic/Immunologic: Allergic/Immunologic: Denies wheezing PMFSH Medical History No pertinent past medical history Family History Father Cirrhosis Substance use disorder Mother No problems noted. Brother No problems noted. Son No problems noted. Son No problems noted. Daughter No problems noted. Daughter No problems noted. Daughter No problems noted. Surgical History H/O oral surgery History of fusion of cervical spine History of biopsy History of lung biopsy History of surgery on left wrist History of shoulder surgery History of rhinoplasty Social History Household Members: Family Housing: Apartment Do you presently have visiting nurse or other home services: Yes Unable to assess alcohol history related to: Unknown Patient Tobacco Use Status: Former Tobacco user Cigarettes Per Day: 7 e-Cigarette/Vaping Use: Never Used Second Hand Smoke Exposure: No Use of substances other than those prescribed or required for medical reasons: Unknown Advance Directives: No Advance Directives Information Provided: No Do you have a plan to hurt others: No Plan service: No Current occupational status: retired and disabled Current occupational exposures/hazards: No Cognitive needs: No Hearing needs: No Vision needs: Yes Narrative: No smoking, drinking or drug use Meds Allergies Allergy/AdvReac Type Severity Reaction Status Date / Time bee pollen [BEE STINGS] Allergy Intermediate THROAT Verified 03/21/24 15:12 SWELLING penicillin V Allergy Intermediate nausea and Verified 03/21/24 15:12 vomiting Penicillins [PENICILLINS] Allergy Intermediate YEAST Verified 03/21/24 15:12 INFECTIONS- UTI - NAUSEA codeine [Codeine] Allergy Mild ITCHING Verified 03/21/24 15:12 celecoxib [From Celebrex] AdvReac Severe RECTAL Verified 03/21/24 15:12 BLEEDING Home Medications ?Medication ?Instructions ?Recorded ?Confirmed ?Last Taken ?Type ipratropium bromide 17 2 puff inhalation QID 03/21/24 03/21/24 03/20/24 History mcg/actuation HFA aerosol inhaler (Atrovent HFA) omeprazole 40 mg capsule,delayed 40 mg PO DAILY@0630 03/21/24 03/21/24 03/20/24 History release Physical Exam 2 Vital Signs and Narrative: Vital Signs: Last Vital Signs Temp 98.3 F 03/21/24 19:15 Pulse 93 03/21/24 19:15 Resp 14 03/21/24 19:15 BP 115/59 L 03/21/24 19:15 Pulse Ox 97 03/21/24 19:15 O2 Del Method Nasal Cannula 03/21/24 19:15 O2 Flow Rate 6 03/21/24 19:15 BMI result Body Mass Index 15.7 General: AOx3, no acute distress Resp: CTA bilaterally. diminished throughout CVS: S1, S2, RRR GI: +BS, NT, distended Skin: Warm, dry Neuro: Cranial nerves II-XII grossly intact bilaterally. Motor grossly intact bilaterally Extremities: No LE edema Psych: Appropriate affect Const: General: No confusion Orientation/consciousness: No confusion Neuro: General: No confusion Results Labs 03/21/24 15:36 03/21/24 19:37 Labs: Laboratory Results - last 24 hr 03/21/24 03/21/24 03/21/24 15:36 15:37 16:02 MCV 78.3 L MCH 21.5 L MCHC 27.4 L RDW 18.3 H Plt Count 315 MPV 9.0 L Immature Gran % (Auto) 0.3 Neut % (Auto) 89.0 H Lymph % (Auto) 2.6 L Clayton % (Auto) 7.4 Eos % (Auto) 0.0 Baso % (Auto) 0.7 Lymph # (Auto) 0.2 L [place] # (Auto) 0.7 Eos # (Auto) 0.0 Baso # (Auto) 0.1 Abs Immat Gran (auto) 0.03 Absolute Neuts (auto) 8.1 Absolute Nucleated RBC 0.040 H Nucleated RBC % (auto) 0.4 H PT 19.3 H INR 1.7 H VBG pH 7.23 L VBG pCO2 80 VBG pO2 47 VBG HCO3 33 H VBG O2 Saturation 59.0 VBG Base Excess 4.0 Anion Gap 17 Estim Creat Clear Calc 19.6 Estimated GFR 31 Random Glucose 85 Lactic Acid 4.4 H* Lactic Acid F/U @ 2Hr Lactic Acid F/U @ 4Hr Calcium 8.8 Magnesium 2.1 Total Bilirubin 1.4 H Direct Bilirubin 0.8 H AST 556 H ALT 476 H Alkaline Phosphatase 78 Total Creatine Kinase 51 Troponin I High Sens 32.8 H D B-Natriuretic Peptide 1845 H Total Protein 5.9 L Albumin 3.3 L Urine Color Urine Appearance Urine pH Ur Specific [place] Urine Protein Urine Glucose (UA) Urine Ketones Urine Blood Urine Nitrite Ur Leukocyte Esterase Urine RBC Urine WBC Ur Squamous Epith Cells Calcium Oxalate Crystal Other Crystals Urine Bacteria Hyaline Casts Granular Casts Salicylates Acetaminophen Influenza Type A (PCR) NEGATIVE Influenza Type B (PCR) NEGATIVE RSV RNA Qual (PCR) NEGATIVE SARS-CoV-2 RNA (RT-PCR) NEGATIVE 03/21/24 03/21/24 03/21/24 18:16 19:37 19:39 MCV MCH MCHC RDW Plt Count MPV Immature Gran % (Auto) Neut % (Auto) Lymph % (Auto) [place] % (Auto) Eos % (Auto) Baso % (Auto) Lymph # (Auto) [place] # (Auto) Eos # (Auto) Baso # (Auto) Abs Immat Gran (auto) Absolute Neuts (auto) Absolute Nucleated RBC Nucleated RBC % (auto) PT INR VBG pH 7.32 VBG pCO2 60 VBG pO2 65 VBG HCO3 31 H VBG O2 Saturation 90.0 VBG Base Excess 4.1 Anion Gap 16 Estim Creat Clear Calc 22.7 Estimated GFR 36 Random Glucose 191 H Lactic Acid Lactic Acid F/U @ 2Hr 3.2 H* Lactic Acid F/U @ 4Hr Calcium 8.4 Magnesium Total Bilirubin Direct Bilirubin AST ALT Alkaline Phosphatase Total Creatine Kinase Troponin I High Sens 34.0 H B-Natriuretic Peptide Total Protein Albumin Urine Color Urine Appearance Urine pH Ur Specific [place] Urine Protein Urine Glucose (UA) Urine Ketones Urine Blood Urine Nitrite Ur Leukocyte Esterase Urine RBC Urine WBC Ur Squamous Epith Cells Calcium Oxalate Crystal Other Crystals Urine Bacteria Hyaline Casts Granular Casts Salicylates < 5.0 L Acetaminophen < 3 Influenza Type A (PCR) Influenza Type B (PCR) RSV RNA Qual (PCR) SARS-CoV-2 RNA (RT-PCR) 03/21/24 03/21/24 19:58 20:39 MCV MCH MCHC RDW Plt Count MPV Immature Gran % (Auto) Neut % (Auto) Lymph % (Auto) [place] % (Auto) Eos % (Auto) Baso % (Auto) Lymph # (Auto) [place] # (Auto) Eos # (Auto) Baso # (Auto) Abs Immat Gran (auto) Absolute Neuts (auto) Absolute Nucleated RBC Nucleated RBC % (auto) PT INR VBG pH VBG pCO2 VBG pO2 VBG HCO3 VBG O2 Saturation VBG Base Excess Anion Gap Estim Creat Clear Calc Estimated GFR Random Glucose Lactic Acid Lactic Acid F/U @ 2Hr Lactic Acid F/U @ 4Hr 3.1 H* Calcium Magnesium Total Bilirubin Direct Bilirubin AST ALT Alkaline Phosphatase Total Creatine Kinase Troponin I High Sens B-Natriuretic Peptide Total Protein Albumin Urine Color Dark Yellow Urine Appearance Cloudy Urine pH 5.0 Ur Specific [place] 1.025 Urine Protein 300 (3+) H Urine Glucose (UA) Negative Urine Ketones Trace Urine Blood Negative Urine Nitrite Negative Ur Leukocyte Esterase Small (1+) H Urine RBC 0-2 Urine WBC 0-5 Ur Squamous Epith Cells 6-10 Calcium Oxalate Crystal Present Other Crystals Present Urine Bacteria 4+ Hyaline Casts 3-5 Granular Casts Present Salicylates Acetaminophen Influenza Type A (PCR) Influenza Type B (PCR) RSV RNA Qual (PCR) SARS-CoV-2 RNA (RT-PCR) Imaging Radiologist's Impressions: Impressions Chest X-Ray 03/21/24 16:10 IMPRESSION: Bilateral pleural effusions right greater than left with underlying atelectasis. There are several bilateral upper lobe parenchymal nodules. On previous CT chest exam solitary nodule was visualized in right upper lobe. Electronically signed by: Ortiz Chaudhry MD 03/21/2024 04:24 PM [facility] [place] Assessment and Plan (1) Acute respiratory failure with hypoxia: Status: Acute (2) Acute exacerbation of CHF (congestive heart failure): Status: Acute (3) PACO (acute kidney injury): Status: Acute (4) Acute hyperkalemia: Status: Acute (5) Pelvic mass: Status: Acute (6) Anemia: Status: Acute (7) Lactic acid acidosis: Status: Acute (8) Hyperglycemia: Status: Acute Plan Patient is a 68-year-old female with a past medical history significant for chronic back pain, HLD, COPD unspecified and ?MAC, to the ED with complaints of left lower quadrant pain, dry heaves, decreased appetite, and shortness of breath with exertion, and bloating with eating for the past 4 days. Acute hypoxic respiratory failure secondary to acute exacerbation of CHF with bilateral pleural effusions - WBC 9.1, mild tachypnea, lactic acid elevated secondary to hypoperfusion, no infectious source, no sepsis - BNP 1845, LFTs elevated, AST 556, ALT 406 - chest x-ray with bilateral pleural effusions right greater than left with underlying atelectasis - chest CT with moderate size bilateral loculated pleural effusions, bilateral lower lobe sub segmental atelectasis - hold off on IV fluids - Lasix 60 mg q.d. - echocardiogram - repeat chest x-ray in a few days to re-evaluate loculated pleural effusion - low-salt diet - monitor CBC and BMP Hyperkalemia - potassium 6.0, 5.6 on repeat - secondary to PACO, monitor BMP Left lower quadrant/left flank pain, pain likely secondary to chronic back pain - abdominopelvic CT with right pelvic mass, 6 cm, cholelithiasis without gallbladder distention, anasarca with ascites and body wall edema - pelvic mass known to patient, reports this has been followed for many years and she was told this was benign - follow-up outpatient regarding pelvic mass Lactic acidosis - no sepsis, secondary to hypoperfusion due to heart failure Anemia, normocytic - hemoglobin 9.7, hematocrit 35.4 - fecal occult blood test - check B12 and folate given numbness and tingling in fingers - repeat CBC - consider GI consult if H&H continues to drop Hyperglycemia - check A1c COPD unspecified - continue home meds Full code VTE prophylaxis: Lovenox Patient with acute hypoxic respiratory failure secondary to acute decompensation of congestive heart failure complicated by bilateral pleural effusions, requiring admission for at least 2 midnight stay for diuresis and monitoring. Quality Stroke Does the patient have a stroke diagnosis?: No VTE Prior VTE?: No VTE Risk Level:: Medical - moderate - high VTE Device Contraindication: Treatment Not Indicated VTE Drug Contraindication: N/A - Med Ordered
[2024-03-21] MEDS: Heparin Sodium,Porcine 5,000 UNIT/ML VIAL 5000 UNIT SUBCUT (23:32)
[2024-03-21] MEDS: Furosemide 100 MG/10 ML VIAL 60 MG IVPUSH (23:34)
[2024-03-21] MEDS: 0.9 % Sodium Chloride Flush 3 ML SYRINGE IVFLUSH (23:34)
[2024-03-22] VITALS (7 sets, daily range): BP systolic 95–113; BP diastolic 39–77; PULSE 88–94; RESP 12–20; TEMP 36.5–36.8; O2SAT 95–100
[2024-03-22 01:23] LABS: Vitamin B12 794 pg/mL (200-900)
[2024-03-22 05:23] LABS: Hemoglobin 9.6 g/dl (12.0-16.0); Mean Corpuscular HGB Conc 27.4 g/dl (31.0-35.0); Mean Corpuscular Hemoglobin 21.1 pg (27.0-33.0); Mean Corpuscular Volume 77.1 fL (80.0-98.0); NRBC Pct Auto 0.7 /100WBC (0.0-0.2); Platelet Count 281 X10*3/uL (160-400); Red Blood Count 4.54 X10*6/uL (4.20-5.50); Red Cell Distribution Width 18.1 % (11.0-16.0); White Blood Count 10.6 X10*3/uL (4.8-10.8)
[2024-03-22 05:35] LABS: Anion Gap 16 (12-20); Blood Urea Nitrogen 39 mg/dL (9-16); Calcium 8.4 mg/dL (8.4-10.2); Carbon Dioxide 28 mmol/L (22-29); Chloride 97 mmol/L (96-108); Creatinine Clr Calc Pharmacy 18.8; Estimated Glomerular Filt Rate 29; Glucose Random 119 mg/dL (60-115); Potassium 5.7 mmol/L (3.3-5.1); Sodium 135 mmol/L (135-145)
--- NOTE | 2024-03-22 05:40 | PC.NURSE ---
dr chacon made aware of potassium of 5.7. message acknowledged no new orders
[2024-03-22 06:28] LABS: Estimated Average Glucose 126 mg/dL; Hemoglobin A1C 105.1944 umol/L; Total Hemoglobin (HGBA1C) 2491.7613 umol/L
[2024-03-22] MEDS: Sodium Zirconium Cyclosilicate 10 GM POWD.PACK PO (06:36)
--- NOTE | 2024-03-22 07:00 | CA_ITS ---
Transthoracic Echocardiogram Patient (Last, First, Middle): Earlene Martinez A Gender: Female Date of : 1955 Age: 68 Procedure Date: 03/22/2024 Procedure Type: Transthoracic Echocardiogram Location: ER Height: 157.48 cm Weight: 38.56 kg BSA: 1.33 m2 Heart Rate: bpm BP: 94 / 35 mmHg Applied Biology Professor: BOZENA Referring MD: Feroz Stanford MD Bolting Machine Operator: Willard Navarro MD Symptoms: CHF Study Quality: Adequate ECG Rhythm: Sinus Conclusions: - 1. Normal LV ejection fraction of 65-70% with grade 1 diastolic dysfunction 2. Moderately dilated right ventricle with [id number] RV dysfunction 3. Moderately dilated right atrium 4. Moderate tricuspid regurgitation next 5. [id number] elevated right ventricular systolic pressure with significantly elevated right atrial pressures 6. No gross pericardial effusion Findings Left Ventricle Normal left ventricular size, thickness, and systolic function. The visually estimated ejection fraction is between 65-70%. There is a flattened septum in systole consistent with right ventricular pressure overload. Spectral Doppler is indicative of an impaired relaxation filling pattern. E/E prime ratio is <8, consistent with normal filling pressures. Evidence suggests grade I (mild) diastolic dysfunction. Right Ventricle Moderately increased right ventricular cavity size. There is mild to moderately decreased right ventricular systolic function. Atria The left atrium is normal in size. There is no evidence of interatrial shunt. The right atrium is moderately dilated. Aortic Valve Normal aortic valve structure and function. There is no aortic valve stenosis. There is no aortic valve regurgitation. Mitral Valve Normal mitral valve structure and function. There is trace mitral valve regurgitation. There is no mitral valve stenosis. Pulmonic Valve The pulmonic valve is likely normal. There is trace pulmonic valve regurgitation. Tricuspid Valve Normal tricuspid valve structure. There is moderate tricuspid valve regurgitation. Significantly elevated right atrial pressure. Mild to moderate pulmonary hypertension is present. Great Vessels All visible segments of the aorta are normal in size. The pulmonary artery was not well visualized. There is no dilatation of the ascending aorta measuring 3.40 cm. Venous The inferior vena cava is moderately dilated and does not collapse with inspiration. Pericardium/Pleural There is no evidence of pericardial effusion. There is a left sided pleural effusion. Measurements 2D Linear Measurements IVSd: 0.99 0.6-0.9/0.6-1.0 cm LVIDd: 3.10 3.9-5.3/4.2-5.9 cm LVIDd Index: 2.33 2.4-3.2/2.2-3.1 cm/m2 LVIDs: 2.09 2.0-3.6 cm LVPWd: 0.84 0.7-1.1 cm LA Diam: 2.50 2.7-3.8/3.0-4.0 cm LAIDs Index: 1.88 1.5-2.3 cm/m2 LV Mass: 93.71 67-162/88-224 g LV Mass Index: 70.46 43-95/49-115 g/m2 LVOT Diam: 2.00 3.0+(-)1.3 cm 2D Systolic Function EF 4C: 67.50 >55% EF 2C: 69.40 >55% EF BiP: 68.90 >55% Mitral Valve MV Pk E: 0.83 MV PK A: 0.83 MV Decel Time: 212.00 E/A: 1.00 E'Lateral: 11.40 E'Medial: 7.29 E/E' Med: 11.30 E/E' Lat: 7.30 PHT: 62.00 MVA PHT: 3.55 Decel Wirt: 3.91 Aortic Valve AoV Pk Bhargav: 1.28 AoV Mn Bhargav: 0.90 AoV VTI: 0.24 AoV Pk Grad: 7.00 Aov Mn Grad: 4.00 MICHELE Cont.VTI: 2.18 LVOT LVOT Pk Bhargav: 1.06 LVOT Mn Bhargav: 0.60 LVOT VTI: 0.17 LVOT Pk Grad: 4.00 LVOT Mn Grad: 2.00 LVOT Diam: 2.00 LVOT Area: 3.14 Diastolic Function MV Pk E: 0.83 MV Pk A: 0.83 E/A: 1.00 E'Medial: 7.29 E/E' Med: 11.30 E' Laterial: 11.40 E/E' Lat: 7.30 Right Ventricle TAPSE (mm): 15.10 TVS' Bhargav: 12.40 Tricuspid Valve TR Pk Bhargav: 2.82 TR Pk Grad: 32.00 RA Press: 15.00 RVSP: 47.00 Great Vessels Aorta Sinus of Valsalva: 3.72 2.0-3.[address] Ridge: 2.55 1.7-3.4 cm Ao Asc: 3.40 2.1-3.4 cm Updated in Other Vendor System with Status of Final Willard Navarro MD electronically signed on 03/22/2024 12:12:52 PM with status of Final
[2024-03-22 07:30] LABS: Glucose, Whole Blood 114 mg/dL (60-115)
[2024-03-22] MEDS: 0.9 % Sodium Chloride Flush 3 ML SYRINGE IVFLUSH ×2 (09:27→16:28)
--- NOTE | 2024-03-22 09:51 | MHC.CM.PN ---
IMM 03/22/24, Pt lives with her dtr (who is recovering from surgery). She has [employer] services 20 hrs per week. For DME, she has walker with a seat, cane, nebulizer. She will need assistance with transport home at [place]. PCP confirmed: Dr. Murillo, HCP discussed, pt declined to complete form. DCP: home with services. CM to follow for DC needs.
--- NOTE | 2024-03-22 09:58 | PC.NURSE ---
Pt is alert and oriented. Speaking full sentences. Breathing is unlabored on rest. NSR on tele. Pt states chronic neck pain, declines to change position at this time. Pharmacy made aware of med rec. BP soft, Iesha GUM DIPPER made aware and order to hold Lasix at this time. Pt states only voiding last night, Iesha GUM DIPPER aware. No extr. edema noted. IV patent however area below insertion site ( posterior forearm) noted swollen,no redness, not cool or hot touch, denies pain. ?dependent edema, elevated on pillows at this time. Sat 98% on 4lpm via nc. Pt able to make needs known. Did report some swallowing difficulties with breakfast, other neuros intact. Iesha aware ? swallow eval
[2024-03-22 12:04] LABS: Glucose, Whole Blood 114 mg/dL (60-115)
[2024-03-22] MEDS: Heparin Sodium,Porcine 5,000 UNIT/ML VIAL 5000 UNIT SUBCUT ×2 (12:14→22:48)
--- NOTE | 2024-03-22 13:36 | HO.PM.IMPN ---
Subjective Subjective Date of Service: 03/22/24 Review of Systems Follow up resp failure feeling generally unwell Physical Exam Vital Signs: Vital Signs: Last Vital Signs Temp 98.3 F 03/22/24 05:22 Pulse 88 03/22/24 12:05 Resp 14 03/22/24 12:05 BP 96/39 L 03/22/24 12:05 Pulse Ox 98 03/22/24 12:05 O2 Del Method Nasal Cannula 03/22/24 12:05 O2 Flow Rate 4 03/22/24 12:05 BMI result Body Mass Index 15.7 Appearing in no acute distress lung sounds are clear to auscultation heart regular rate rhythm, clear S1, S2 positive bowel sounds, abdomen is soft, nontender neuro patient is alert x3, no focal deficits Objective Data Active Medications Acetaminophen (Acetaminophen 325 Mg Tablet) 650 mg PO Q6H PRN PRN Reason: Pain, Mild 1-3,fever,headache Calcium Carbonate (Calcium Carbonate 750 Mg Tab.Chew) 750 mg PO Q4H PRN PRN Reason: Heartburn Furosemide (Furosemide 100 Mg/10 Ml Vial) 60 mg IVPUSH DAILY [facility]; Protocol Last Admin: 03/22/24 09:35 Dose: Not Given Documented By: MIGUEL Non-Admin Reason: Physician Held Med Glucose (Glucose Gel 15 Gm Gel..Gram.) 15 gm PO Q15M PRN; Protocol PRN Reason: per Hypoglycemia Standing Ord. Heparin Sodium (Porcine) (Heparin Sodium,Porcine 5,000 Unit/Ml Vial) 5,000 unit SUBCUT Q12H [facility] Last Admin: 03/22/24 12:14 Dose: 5,000 unit Documented By: MIGUEL Dextrose (D10) 250 mls @ 750 mls/hr IV Q15M PRN; Protocol PRN Reason: per Hypoglycemia Standing Ord. Insulin Human Lispro (Insulin Lispro 100 Unit/Ml 3 Ml Vial) 0 unit SUBCUT QIDACHS [facility]; Protocol Last Admin: 03/22/24 12:14 Dose: Not Given Documented By: MIGUEL Non-Admin Reason: No Insulin Coverage Melatonin (Melatonin 3 Mg Tablet) 6 mg PO BEDTIME PRN PRN Reason: Insomnia Ondansetron HCl (Ondansetron Hcl 4 Mg/2 Ml Vial) 4 mg IVPUSH Q8H PRN PRN Reason: Nausea and Vomiting Sodium Chloride (0.9 % Sodium Chloride Flush 3 Ml Syringe) 3 ml IVFLUSH QSHIFT [facility] Last Admin: 03/22/24 09:27 Dose: 3 ml Documented By: MIGUEL Labs 03/22/24 05:18 03/22/24 05:18 Labs: Laboratory Results - last 24 hr 03/21/24 03/21/24 03/21/24 15:36 15:37 16:02 MCV 78.3 L MCH 21.5 L MCHC 27.4 L RDW 18.3 H Plt Count 315 MPV 9.0 L Immature Gran % (Auto) 0.3 Neut % (Auto) 89.0 H Lymph % (Auto) 2.6 L Henry % (Auto) 7.4 Eos % (Auto) 0.0 Baso % (Auto) 0.7 Lymph # (Auto) 0.2 L Henry # (Auto) 0.7 Eos # (Auto) 0.0 Baso # (Auto) 0.1 Abs Immat Gran (auto) 0.03 Absolute Neuts (auto) 8.1 Absolute Nucleated RBC 0.040 H Nucleated RBC % (auto) 0.4 H PT 19.3 H INR 1.7 H VBG pH 7.23 L VBG pCO2 80 VBG pO2 47 VBG HCO3 33 H VBG O2 Saturation 59.0 VBG Base Excess 4.0 Anion Gap 17 Estim Creat Clear Calc 19.6 Estimated GFR 31 POC Glucose Random Glucose 85 Estimat Average Glucose Hemoglobin A1c % Lactic Acid 4.4 H* Lactic Acid F/U @ 2Hr Lactic Acid F/U @ 4Hr Calcium 8.8 Magnesium 2.1 Total Bilirubin 1.4 H Direct Bilirubin 0.8 H AST 556 H ALT 476 H Alkaline Phosphatase 78 Total Creatine Kinase 51 Troponin I High Sens 32.8 H D B-Natriuretic Peptide 1845 H Total Protein 5.9 L Albumin 3.3 L Vitamin B12 Folate Urine Color Urine Appearance Urine pH Ur Specific Greenleaf Urine Protein Urine Glucose (UA) Urine Ketones Urine Blood Urine Nitrite Ur Leukocyte Esterase Urine RBC Urine WBC Ur Squamous Epith Cells Calcium Oxalate Crystal Other Crystals Urine Bacteria Hyaline Casts Granular Casts Salicylates Acetaminophen Influenza Type A (PCR) NEGATIVE Influenza Type B (PCR) NEGATIVE RSV RNA Qual (PCR) NEGATIVE SARS-CoV-2 RNA (RT-PCR) NEGATIVE 03/21/24 03/21/24 03/21/24 18:16 19:37 19:39 MCV MCH MCHC RDW Plt Count MPV Immature Gran % (Auto) Neut % (Auto) Lymph % (Auto) Henry % (Auto) Eos % (Auto) Baso % (Auto) Lymph # (Auto) Henry # (Auto) Eos # (Auto) Baso # (Auto) Abs Immat Gran (auto) Absolute Neuts (auto) Absolute Nucleated RBC Nucleated RBC % (auto) PT INR VBG pH 7.32 VBG pCO2 60 VBG pO2 65 VBG HCO3 31 H VBG O2 Saturation 90.0 VBG Base Excess 4.1 Anion Gap 16 Estim Creat Clear Calc 22.7 Estimated GFR 36 POC Glucose Random Glucose 191 H Estimat Average Glucose Hemoglobin A1c % Lactic Acid Lactic Acid F/U @ 2Hr 3.2 H* Lactic Acid F/U @ 4Hr Calcium 8.4 Magnesium Total Bilirubin Direct Bilirubin AST ALT Alkaline Phosphatase Total Creatine Kinase Troponin I High Sens 34.0 H B-Natriuretic Peptide Total Protein Albumin Vitamin B12 Folate Urine Color Urine Appearance Urine pH Ur Specific Greenleaf Urine Protein Urine Glucose (UA) Urine Ketones Urine Blood Urine Nitrite Ur Leukocyte Esterase Urine RBC Urine WBC Ur Squamous Epith Cells Calcium Oxalate Crystal Other Crystals Urine Bacteria Hyaline Casts Granular Casts Salicylates < 5.0 L Acetaminophen < 3 Influenza Type A (PCR) Influenza Type B (PCR) RSV RNA Qual (PCR) SARS-CoV-2 RNA (RT-PCR) 03/21/24 03/21/24 03/22/24 19:58 20:39 00:12 MCV MCH MCHC RDW Plt Count MPV Immature Gran % (Auto) Neut % (Auto) Lymph % (Auto) Henry % (Auto) Eos % (Auto) Baso % (Auto) Lymph # (Auto) Henry # (Auto) Eos # (Auto) Baso # (Auto) Abs Immat Gran (auto) Absolute Neuts (auto) Absolute Nucleated RBC Nucleated RBC % (auto) PT INR VBG pH VBG pCO2 VBG pO2 VBG HCO3 VBG O2 Saturation VBG Base Excess Anion Gap Estim Creat Clear Calc Estimated GFR POC Glucose Random Glucose Estimat Average Glucose 126 Hemoglobin A1c % 6.0 Lactic Acid Lactic Acid F/U @ 2Hr Lactic Acid F/U @ 4Hr 3.1 H* Calcium Magnesium Total Bilirubin Direct Bilirubin AST ALT Alkaline Phosphatase Total Creatine Kinase Troponin I High Sens B-Natriuretic Peptide Total Protein Albumin Vitamin B12 794 Folate 16.0 Urine Color Dark Yellow Urine Appearance Cloudy Urine pH 5.0 Ur Specific Greenleaf 1.025 Urine Protein 300 (3+) H Urine Glucose (UA) Negative Urine Ketones Trace Urine Blood Negative Urine Nitrite Negative Ur Leukocyte Esterase Small (1+) H Urine RBC 0-2 Urine WBC 0-5 Ur Squamous Epith Cells 6-10 Calcium Oxalate Crystal Present Other Crystals Present Urine Bacteria 4+ Hyaline Casts 3-5 Granular Casts Present Salicylates Acetaminophen Influenza Type A (PCR) Influenza Type B (PCR) RSV RNA Qual (PCR) SARS-CoV-2 RNA (RT-PCR) 03/22/24 03/22/24 03/22/24 05:18 07:25 12:00 MCV 77.1 L MCH 21.1 L MCHC 27.4 L RDW 18.1 H Plt Count 281 MPV 9.0 L Immature Gran % (Auto) Neut % (Auto) Lymph % (Auto) Henry % (Auto) Eos % (Auto) Baso % (Auto) Lymph # (Auto) Henry # (Auto) Eos # (Auto) Baso # (Auto) Abs Immat Gran (auto) Absolute Neuts (auto) Absolute Nucleated RBC 0.070 H Nucleated RBC % (auto) 0.7 H PT INR VBG pH VBG pCO2 VBG pO2 VBG HCO3 VBG O2 Saturation VBG Base Excess Anion Gap 16 Estim Creat Clear Calc 18.8 Estimated GFR 29 POC Glucose 114 114 Random Glucose 119 H Estimat Average Glucose Hemoglobin A1c % Lactic Acid Lactic Acid F/U @ 2Hr Lactic Acid F/U @ 4Hr Calcium 8.4 Magnesium Total Bilirubin Direct Bilirubin AST ALT Alkaline Phosphatase Total Creatine Kinase Troponin I High Sens B-Natriuretic Peptide Total Protein Albumin Vitamin B12 Folate Urine Color Urine Appearance Urine pH Ur Specific Greenleaf Urine Protein Urine Glucose (UA) Urine Ketones Urine Blood Urine Nitrite Ur Leukocyte Esterase Urine RBC Urine WBC Ur Squamous Epith Cells Calcium Oxalate Crystal Other Crystals Urine Bacteria Hyaline Casts Granular Casts Salicylates Acetaminophen Influenza Type A (PCR) Influenza Type B (PCR) RSV RNA Qual (PCR) SARS-CoV-2 RNA (RT-PCR) Microbiology Microbiology Results: Microbiology 03/21/24 Unknown Urine Culture - Preliminary Urine clean catch - Clean Catch Midstream No growth to date. Assessment and Plan (1) Elevated brain natriuretic peptide (BNP) level: Status: Acute Plan 68-year-old female with a past medical history significant for chronic back pain, HLD, COPD unspecified and ?MAC, to the ED with complaints of left lower quadrant pain, dry heaves, decreased appetite, and shortness of breath with exertion, and bloating with eating for the past 4 days. Acute hypoxic respiratory failure secondary to acute exacerbation of CHF with bilateral pleural effusions WBC 9.1, mild tachypnea, lactic acid elevated secondary to hypoperfusion, no infectious source, no sepsis BNP 1845, LFTs elevated, AST 556, ALT [address] with moderate size bilateral loculated pleural effusions, bilateral lower lobe sub segmental atelectasis Lasix 60 mg q.d. echocardiogram> grade 1 diastolic dysfunction, no valvular issues repeat chest x-ray in a few days to re-evaluate loculated pleural effusion cardiology consult pending Dysphagia speech consultation Hyperkalemia secondary to PACO, monitor BMP s/p lokelma Left lower quadrant/left flank pain, pain likely secondary to chronic back pain abdominopelvic CT with right pelvic mass, 6 cm, cholelithiasis without gallbladder distention, anasarca with ascites and body wall edema pelvic mass known to patient, reports this has been followed for many years and she was told this was benign follow-up outpatient regarding pelvic mass Lactic acidosis no sepsis secondary to hypoperfusion due to heart failure Anemia, normocytic hemoglobin 9.7, hematocrit 35.4 fecal occult blood test pending normal B12 and folate consider GI consult if H&H continues to drop Hyperglycemia A1c 6.0 COPD unspecified continue home meds Full code Attending Dr. Huerta VTE prophylaxis: Lovenox Quality Stroke Does the patient have a stroke diagnosis?: No VTE Prior VTE?: No VTE Risk Level:: Medical - moderate - high VTE Device Contraindication: Treatment Not Indicated VTE Drug Contraindication: N/A - Med Ordered
[2024-03-22 16:32] LABS: Glucose, Whole Blood 138 mg/dL (60-115)
--- NOTE | 2024-03-22 17:03 | MHC.SL.SWA ---
Speech Pathologist Impression: Risk of Aspiration, Pharyngoesophageal Dysphagia Dysphasia Diet Status: Downgrade to NDD3 Liquid Consistency and Strategies for Safe Swallow: Liquid Intake Recommendation: Thin Liquid Intake Strategies: Small Sips Solid Food Consistency: Dietary Recommendations: Chopped/Advanced (NDD3) Oral Medication Intake: Whole with Liquid Please contact the pharmacy regarding appropriate crushable or liquid drug formulations that are available whenever modified delivery is recommended. Compensatory Strategies and Precautions to be Taken for Safe Swallow: Sitting Upright (90 deg) Small Bites and Sips Alternate Liquids/Solids Rate of Ingestion Change Supervision While Eating and Drinking for Safe Swallow: Intermittent Supervision Swallowing Recommended Treatments: Compens. Strategy Educat. Recommendation for Speech: Inpatient Speech Therapy Modified Barium Swallow Study - Outpatient Comment: Patient w/ pharyngoesophageal symptoms, reporting globus sensation and hx reflux. She is recommended G.I. consult, followed by [facility] (outpatient) if indicated Frequency/Duration: M-F Date Range for Service Req: Timeline to reassess: PRN Dial Lathe Operator Clinican/Clinical Fellow: No Supervisory Statement: I have reviewed and agree with the student/clinical fellow's documentation: N/A Speech Language Pathologist: Little Gonzalez M.A., CCC-WAITER/WAITRESS CABIN CLASS
[2024-03-22] MEDS: carisoprodoL 350 MG TABLET PO (22:45)
[2024-03-22] MEDS: ondansetron HCL 4 MG/2 ML VIAL IVPUSH (22:45)
[2024-03-22] MEDS: oxyCODONE HCl Immed Release 5 MG TABLET PO (22:45)
[2024-03-22] MEDS: Acetaminophen 325 MG TABLET 650 MG PO (22:46)
[2024-03-22] MEDS: rOPINIRole HCL 2 MG TABLET 6 MG PO (22:47)
[2024-03-23] VITALS (11 sets, daily range): BP systolic 90–106; BP diastolic 43–56; PULSE 80–96; RESP 12–20; TEMP 36.5–37.5; O2SAT 93–100; BMI 15.7
[2024-03-23] MEDS: 0.9 % Sodium Chloride Flush 3 ML SYRINGE IVFLUSH ×4 (00:31→21:20)
[2024-03-23] MEDS: Omeprazole 40 MG CAPSULE.DR PO (07:34)
--- NOTE | 2024-03-23 07:47 | PC.NURSE ---
Pt refuses to have POC assessed this AM prior to breakfast. Insulin held at this time as appropriate dosing cannot be determined. Pt given breakfast and will continue to assess POC throughout the day as ordered/PRN.
--- NOTE | 2024-03-23 07:48 | MHC.EDTECH ---
PATIENT REFUSED POC BLOOD GLUCOSE. PATIENT STATES THAT SHE IS NOT DIABETIC. RN AWARE.
--- NOTE | 2024-03-23 09:16 | P.PNIM_ITS ---
Subjective Subjective Date of Service: 03/23/24 Review of Systems Follow up resp failure feeling generally unwell Physical Exam 2 Vital Signs: Vital Signs: Last Vital Signs Temp 97.7 F 03/23/24 06:33 Pulse 88 03/23/24 06:33 Resp 12 03/23/24 06:33 BP 106/56 L 03/23/24 06:33 Pulse Ox 100 03/23/24 06:33 O2 Del Method Nasal Cannula 03/23/24 06:33 O2 Flow Rate 2 03/23/24 06:33 BMI result Body Mass Index 15.7 Appearing in no acute distress, thin and frail lung sounds are clear to auscultation heart regular rate rhythm, clear S1, S2 positive bowel sounds, abdomen is soft, nontender neuro patient is alert x3, no focal deficits Objective Data Active Medications Acetaminophen (Acetaminophen 325 Mg Tablet) 650 mg PO Q6H PRN PRN Reason: Pain, Mild 1-3,fever,headache Last Admin: 03/22/24 22:46 Dose: 650 mg Documented By: TAPAN Calcium Carbonate (Calcium Carbonate 750 Mg Tab.Chew) 750 mg PO Q4H PRN PRN Reason: Heartburn Carisoprodol (Carisoprodol 350 Mg Tablet) 350 mg PO BID PRN PRN Reason: muscle pain Last Admin: 03/22/24 22:45 Dose: 350 mg Documented By: TAPAN Fluticasone Propionate (Fluticasone Propionate 250 Mcg Blst.W.Dev) 2 puff INHALE RBID [facility] Furosemide (Furosemide 100 Mg/10 Ml Vial) 60 mg IVPUSH DAILY BRIG[facility]; Protocol Last Admin: 03/22/24 09:35 Dose: Not Given Documented By: MIGUEL Non-Admin Reason: Physician Held Med Glucose (Glucose Gel 15 Gm Gel..Gram.) 15 gm PO Q15M PRN; Protocol PRN Reason: per Hypoglycemia Standing Ord. Heparin Sodium (Porcine) (Heparin Sodium,Porcine 5,000 Unit/Ml Vial) 5,000 unit SUBCUT Q12H [facility] Last Admin: 03/22/24 22:48 Dose: 5,000 unit Documented By: TAPAN Dextrose (D10) 250 mls @ 750 mls/hr IV Q15M PRN; Protocol PRN Reason: per Hypoglycemia Standing Ord. Insulin Human Lispro (Insulin Lispro 100 Unit/Ml 3 Ml Vial) 0 unit SUBCUT QIDACHS [facility]; Protocol Last Admin: 03/23/24 07:35 Dose: Not Given Documented By: CELE Non-Admin Reason: Pt refused POC, see note Ipratropium [place] (Ipratropium [place] 1 Puff/17 Mcg Inhaler) 2 puff INHALE RQID [facility] Melatonin (Melatonin 3 Mg Tablet) 6 mg PO BEDTIME PRN PRN Reason: Insomnia Omeprazole (Omeprazole 40 Mg Capsule.Dr) 40 mg PO DAILY@0630 [facility] Last Admin: 03/23/24 07:34 Dose: 40 mg Documented By: CELE Ondansetron HCl (Ondansetron Hcl 4 Mg/2 Ml Vial) 4 mg IVPUSH Q8H PRN PRN Reason: Nausea and Vomiting Last Admin: 03/22/24 22:45 Dose: 4 mg Documented By: TAPAN Oxycodone HCl (Oxycodone Hcl Immed Release 5 Mg Tablet) 5 mg PO TID [facility] Last Admin: 03/22/24 22:45 Dose: 5 mg Documented By: TAPAN Ropinirole HCl (Ropinirole Hcl 2 Mg Tablet) 6 mg PO BEDTIME [facility] Last Admin: 03/22/24 22:47 Dose: 4 mg Documented By: TAPAN Comments: takes 4mg of Requip daily, NOT 6mg. Given 4mg Requip. Sodium Chloride (0.9 % Sodium Chloride Flush 3 Ml Syringe) 3 ml IVFLUSH QSHIFT [facility] Last Admin: 03/23/24 00:31 Dose: 3 ml Documented By: TAPAN Labs 03/23/24 09:23 03/23/24 09:23 Labs: Laboratory Results - last 24 hr 03/22/24 03/22/24 12:00 16:27 POC Glucose 114 138 H Microbiology Microbiology Results: Microbiology 03/21/24 16:01 Blood Culture - Preliminary Blood - Venous No growth after 24 hours. 03/21/24 15:57 Blood Culture - Preliminary Blood - Venous No growth after 24 hours. 03/21/24 Unknown Urine Culture - Preliminary Urine clean catch - Clean Catch Midstream No growth to date. Assessment and Plan (1) Elevated brain natriuretic peptide (BNP) level: Status: Acute Plan 68-year-old female with a past medical history significant for chronic back pain, HLD, COPD unspecified and ?MAC, to the ED with complaints of left lower quadrant pain, dry heaves, decreased appetite, and shortness of breath with exertion, and bloating with eating for the past 4 days. Acute hypoxic respiratory failure secondary to acute exacerbation of CHF with bilateral pleural effusions lactic acid elevated secondary to hypoperfusion, no infectious source, no sepsis BNP 1845, LFTs elevated, AST 556, ALT [address] with moderate size bilateral loculated pleural effusions, bilateral lower lobe sub segmental atelectasis Lasix 60 mg q.d. initially echocardiogram> grade 1 diastolic dysfunction, no valvular issues repeat chest x-ray in a few days to re-evaluate loculated pleural effusion cardiology consult> not overly overloaded, gentle diuresis lasix 20 mg BID IV , right sided heart failure, consult pulm for likely resp status contributing Dysphagia speech consultation> rec GI consultation and possible MBS if indicated Hyperkalemia secondary to PACO, monitor BMP s/p lokelma Left lower quadrant/left flank pain, pain likely secondary to chronic back pain abdominopelvic CT with right pelvic mass, 6 cm, cholelithiasis without gallbladder distention, anasarca with ascites and body wall edema pelvic mass known to patient, reports this has been followed for many years and she was told this was benign follow-up outpatient regarding pelvic mass Anemia, normocytic hemoglobin 9.7, hematocrit 35.4 fecal occult blood test pending normal B12 and folate consider GI consult if H&H continues to drop Hyperglycemia A1c 6.0 no need to check BS COPD unspecified continue home meds Full code Attending Dr. Funes VTE prophylaxis: Heparin Quality Stroke Does the patient have a stroke diagnosis?: No VTE Prior VTE?: No VTE Risk Level:: Medical - moderate - high VTE Device Contraindication: Treatment Not Indicated VTE Drug Contraindication: N/A - Med Ordered
[2024-03-23 09:43] LABS: Hematocrit 32.7 % (37.0-47.0); Mean Corpuscular HGB Conc 27.5 g/dl (31.0-35.0); Mean Corpuscular Hemoglobin 21.6 pg (27.0-33.0); Mean Corpuscular Volume 78.6 fL (80.0-98.0); Mean Platelet Volume 9.4 fL (9.4-12.3); NRBC Pct Auto 0.4 /100WBC (0.0-0.2); Platelet Count 207 X10*3/uL (160-400); Red Blood Count 4.16 X10*6/uL (4.20-5.50); White Blood Count 6.8 X10*3/uL (4.8-10.8)
[2024-03-23 09:57] LABS: Anion Gap 8 (12-20); Blood Urea Nitrogen 48 mg/dL (9-16); Calcium 8.4 mg/dL (8.4-10.2); Carbon Dioxide 35 mmol/L (22-29); Chloride 97 mmol/L (96-108); Creatinine Clr Calc Pharmacy 26.9; Estimated Glomerular Filt Rate 44; Glucose Random 119 mg/dL (60-115); Sodium 135 mmol/L (135-145)
[2024-03-23 10:04] LABS: B Type Natriuretic Peptide 1230 pg/mL (<100)
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
[2024-03-23] MEDS: Acetaminophen 325 MG TABLET 650 MG PO ×2 (10:53→16:55)
[2024-03-23] MEDS: carisoprodoL 350 MG TABLET PO (10:54)
[2024-03-23] MEDS: oxyCODONE HCl Immed Release 5 MG TABLET PO ×3 (10:54→21:21)
[2024-03-23] MEDS: Furosemide 100 MG/10 ML VIAL 60 MG IVPUSH (10:55)
[2024-03-23] MEDS: Heparin Sodium,Porcine 5,000 UNIT/ML VIAL 5000 UNIT SUBCUT (10:56)
--- NOTE | 2024-03-23 11:22 | MHC.CM.PN ---
EMR REVIEWED, PT W/CHF, PLAN TO CONT IV LASIX BID, PER HOSPITALIST ANTIC DC IN 1-2 DAYS, CM WILL CONT TO FOLLOW DC NEEDS.
[2024-03-23] MEDS: Fluticasone Propionate 250 MCG BLST.W.DEV 2 PUFF INHALE ×2 (11:37→19:27)
[2024-03-23] MEDS: Ipratropium Bromide 1 PUFF/17 MCG INHALER 2 PUFF INHALE ×3 (11:45→19:27)
--- NOTE | 2024-03-23 12:55 | MHC.CLN ---
PT IS MODERATELY MALNOURISHED PT WITH MILDLY DEPLETED SUBCUTANEOUS FAT AND MUSCLE MASS WITH BMI 15.7 PT WITH 16% SIGNIFICANT WT GAIN X 6 MONTHS. PT PREVIOUSLY DX SEVERE PCM HOWEVER WT UP SINCE LAST ASSESSMENT (03/04/22) AND IMPROVED OVERALL. NOW DX MODERATELY MALNOURISHED-NON SEVERE IN CONTEXT OF CHRONIC ILLNESS DIET RX: CARDIAC CHOPPED-APPROPRIATE RECOMMEND ADDING ENSURE BID TO INCREASE KCALS AND PROMOTE FURTHER WT GAIN SUPP TO PROVIDE 700KCALS, 40G PROTEIN MONITOR PO INTAKE AND ENCOURAGE SUPPLEMENTS SEE ALSO FULL CLINICAL NUTRITION ASSESSMENT
--- NOTE | 2024-03-23 13:19 | MHC.SLORD ---
Speech Language Pathology Order Status: Pt seen for dysphagia treatment, RN consulted. Pt sitting upright in bed, expressed she 'cannot eat anything' as food/liquid does not pass. Pt requested assistance with setting up her computer and having blankets adjusted. Pt did not want to eat at time WAX ENGRAVER present, though asked when lunch was coming. Pt endorsed history of GI issues. WAX ENGRAVER texted hospitalist to request GI consult given nature of pt complaints and history. WAX ENGRAVER continues to follow, pt is on NDD3 with thins. RN noted pt took oral meds without difficulty.
[2024-03-23] MEDS: Midodrine HCl 5 MG TABLET PO (17:05)
[2024-03-23] MEDS: rOPINIRole HCL 2 MG TABLET 6 MG PO (21:20)
[2024-03-24] VITALS (12 sets, daily range): BP systolic 99–112; BP diastolic 50–74; PULSE 83–93; RESP 14–20; TEMP 36.4–37.7; O2SAT 90–97
[2024-03-24] MEDS: Heparin Sodium,Porcine 5,000 UNIT/ML VIAL 5000 UNIT SUBCUT ×2 (00:48→11:31)
[2024-03-24] MEDS: bisacodyL 5 MG TABLET.DR 10 MG PO ×2 (05:35→21:12)
[2024-03-24] MEDS: Omeprazole 40 MG CAPSULE.DR PO (05:35)
[2024-03-24] MEDS: Ipratropium Bromide 1 PUFF/17 MCG INHALER 2 PUFF INHALE ×4 (07:54→21:13)
[2024-03-24] MEDS: Fluticasone Propionate 250 MCG BLST.W.DEV 2 PUFF INHALE (07:54)
--- NOTE | 2024-03-24 08:00 | CONS_ITS ---
DATE OF SERVICE: 03/23/2024 REFERRING PHYSICIAN: Iesha Grimm NP REASON FOR CONSULTATION: Oropharyngeal dysphagia. HISTORY OF PRESENT ILLNESS: The patient is a pleasant 68-year-old woman, who was admitted to the hospital on March 21 with complaints of left lower quadrant pain and swelling as well as abdominal bloating, decreased oral appetite and decreased oral intake and shortness of breath with exertion. GI consultation was requested regarding the patient's complaints of dysphagia. She states that since admission she has had symptoms of discomfort in the neck area with food seeming to stick, which improves when she drinks liquids. She has not had problems like this before. She denies chronic reflux symptoms and has previously been evaluated with upper endoscopy approximately 13 years ago for reflux. At that time, findings were consistent with Cecilia and an irregular EG junction biopsies showed gastritis. H pylori testing was negative and she had no evidence of Cam esophagus. She was treated with acid suppressive therapy with improvement. During this hospitalization, she was evaluated with speech pathology and dietary recommendations included chopped/advance diet (NDD 3) with compensatory strategies. GI consultation was recommended. She has been on a proton pump inhibitor as an outpatient and this has been continued. PAST MEDICAL HISTORY: 1. COPD. 2. Back pain. 3. Hyperlipidemia. 4. Congestive heart failure. 5. Pelvic mass, benign according to the patient. 6. Anxiety. 7. Hyperlipidemia. CURRENT MEDICATIONS: Her current medication list is reviewed in the chart. ALLERGIES: MULTIPLE ALLERGIES ARE REVIEWED. FAMILY HISTORY: This is reviewed with the patient and is noncontributory. SOCIAL HISTORY: There is no current tobacco, alcohol, or substance abuse. She states she has quit smoking 1 year ago. REVIEW OF SYSTEMS: SKIN: No pruritus. HEENT: Negative. CARDIOPULMONARY: No shortness of breath or chest pain currently. GASTROINTESTINAL: As above. GENITOURINARY: Negative. NEUROPSYCHIATRIC: Negative. PHYSICAL EXAMINATION: GENERAL: Shows a pleasant female, who is somewhat cachectic and appears older than her stated age. VITAL SIGNS: Reviewed in electronic medical record and are stable. She has been afebrile. SKIN: Anicteric. HEENT: Shows no scleral icterus. NECK: Without lymphadenopathy or thyromegaly. LUNGS: Clear. HEART: Shows a regular rate and rhythm. S1, S2. No murmur. ABDOMEN: Soft. Bowel sounds are present. There appears to be some mild swelling to the left lower side of the abdomen and less so on the right. EXTREMITIES: Without edema. LABORATORY DATA: CT imaging is reviewed. This showed a right pelvic mass which the patient states has been benign. There is also some small volume of ascites in the abdomen and pelvis. She has hepatomegaly, but no focal abnormality. Pericholecystic fluid was noted. Liver function tests are also elevated and needs followup. Speech pathology records are reviewed. She is receiving dysphagia treatment. IMPRESSION: 1. Dysphagia. 2. Gastroesophageal reflux disease. 3. Elevated liver function tests with abnormal CT scan with ascites and pericholecystic fluid. I agree with treating her symptomatically with speech pathology for her dysphagia. This seems consistent with oropharyngeal dysphagia and I would recommend modified barium swallow as Speech Pathology has recommended. Her reflux symptoms appear under good control at this time, and I would recommend continuing her proton pump inhibitor. She should have followup liver function tests because of her elevated liver function tests as well as ultrasound imaging because of the abnormalities on CT scan and she may need further evaluation of her pelvic mass given her findings as well. Thanks for asking me to see her. I will follow her in the hospital with you. MD JIMENA Pires/GARRETT / [phone]
[2024-03-24 08:45] LABS: INTERNATIONAL NORM RATIO 1.2 (0.9-1.1); Prothrombin Time 14.3 SEC (10.9-12.4)
[2024-03-24 08:57] LABS: Alanine Aminotransferase 522 U/L (0-31); Albumin Level 3.2 g/dL (3.5-5.0); Alkaline Phosphatase 69 U/L (39-117); Anion Gap 8 (12-20); Aspartate Amino Transferase 202 U/L (5-31); Bilirubin Direct 0.3 mg/dL (0.0-0.5); Bilirubin Total 0.5 mg/dL (0.0-1.0); Blood Urea Nitrogen 36 mg/dL (9-16); Calcium 8.4 mg/dL (8.4-10.2); Carbon Dioxide 38 mmol/L (22-29); Chloride 96 mmol/L (96-108); Creatinine Clr Calc Pharmacy 47.3; Estimated Glomerular Filt Rate > 60; Glucose Random 74 mg/dL (60-115); Lipase 14 U/L (8-78); Potassium 4.7 mmol/L (3.3-5.1); Sodium 137 mmol/L (135-145); Total Protein 5.7 g/dL (6.5-8.0)
--- NOTE | 2024-03-24 10:40 | PM.PNCARD ---
Subjective Subjective Date of Service: 03/24/24 Principal diagnosis: Right heart failure Interval history: Patient says she is feeling better. She has had more appetite. Intake and output chart not clear if this is accurate. Clinically she seems to be improving. Using oxygen all the time although says that she can not use oxygen at home due to financial issues. Review of Systems Constitutional: Reports no additional constitutional complaints Cardiovascular: Reports Abdominal Distension, Denies chest pain, Denies rapid heart rate, Denies lightheadedness, Denies Loss of Consciousness, Reports dyspnea and Reports dyspnea on exertion Respiratory: Reports dyspnea, Reports dyspnea on exertion and Reports wheezing Allergic/Immunologic: Reports wheezing Physical Exam Vital Signs: Last Vital Signs Temp 98.5 F 03/24/24 07:27 Pulse 86 03/24/24 07:57 Resp 18 03/24/24 07:57 BP 102/62 03/24/24 07:27 Pulse Ox 94 03/24/24 07:27 O2 Del Method Nasal Cannula 03/24/24 07:27 O2 Flow Rate 1 03/24/24 07:27 BMI result Body Mass Index 15.7 Const General: cooperative, alert, awake and ill appearing Nutritional Appearance: cachectic and malnourished Orientation/consciousness: patient oriented x3 HEENT Head: Yes normocephalic and Yes atraumatic Neck Neck: Yes trachea midline, Yes supple and Yes JVD Resp Effort & Inspection: decreased respiratory effort Auscultation: no rhonchi and diminished lung sounds Cardio Jugular venous distension: JVD Palpation: heave (RV heave) Rate: regular rate Rhythm: regular rhythm Heart sounds: S1 normal heart sound present, S2 normal heart sound present, no click, no gallops and no murmurs GI Inspection: Yes distended Auscultation: normal bowel sounds Skin General skin exam: no rashes or lesions noted Neuro General: patient oriented x3 and no focal motor deficits Extrem General: Yes edema (Of the upper arms) Objective Labs and Meds 03/23/24 09:23 03/24/24 07:54 Lab results: Laboratory Results - last 24 hr 03/24/24 07:54 PT 14.3 H D INR 1.2 H Sodium 137 Potassium 4.7 Chloride 96 Carbon Dioxide 38 H Anion Gap 8 L BUN 36 H Creatinine 0.69 Estim Creat Clear Calc 47.3 Estimated GFR > 60 Random Glucose 74 Calcium 8.4 Total Bilirubin 0.5 Direct Bilirubin 0.3 AST 202 H ALT 522 H Alkaline Phosphatase 69 Total Protein 5.7 L Albumin 3.2 L Lipase 14 Imaging Radiologist's impression: Impressions Chest X-Ray 03/24/24 08:10 IMPRESSION: Bibasilar pleural effusions with underlying atelectasis. Scarring atelectasis right upper lobe. In addition there are small nodules seen in bilateral upper lobes. Electronically signed by: Ortiz Chaudhry MD 03/24/2024 08:52 AM [facility] Progress Note: A&P Assessment and plan (1) Acute exacerbation of CHF (congestive heart failure): Status: Acute Assessment and Plan: Acute heart failure, predominantly right heart failure related to cor pulmonale related to severe COPD which most likely requires chronic oxygen therapy. Discussed with her. She is not willing to go home with oxygen therapy due to financial issues. Please involve case management. She remains high risk for recurrent hospitalization related to this issue. Continue aggressive treatment of underlying COPD with bronchodilators therapy probably nebulizer therapy. I would switch her to p.o. Bumex 1 mg daily. Strict intake and output chart at home. Avoid sodium loading was discussed. Will sign of the case. Thank you for allowing me to partake in her care Time Spent With Patient Time: Total time managing care of this patient today ____ minutes. Progress Note: Quality Stroke Does the patient have a stroke diagnosis?: No Procedures Date of Service Date of Service: 03/24/24
--- NOTE | 2024-03-24 11:12 | MHC.SLORD ---
Speech Language Pathology Order Status: MBSS scheduled for 2:15pm today, Radiology to arrange for transport. PA notified via [employer] secure text.
[2024-03-24] MEDS: Midodrine HCl 5 MG TABLET PO (11:22)
[2024-03-24] MEDS: oxyCODONE HCl Immed Release 5 MG TABLET PO ×3 (11:25→20:58)
[2024-03-24] MEDS: 0.9 % Sodium Chloride Flush 3 ML SYRINGE IVFLUSH ×3 (11:25→20:59)
--- NOTE | 2024-03-24 12:50 | PM.CNPUL ---
History of Present Illness History of Present Illness Consult date: 03/24/24 Chief complaint: Abd pain Narrative: This is an in patient pulmonary consultation. The patient is a 68-year-old female with a past medical history significant for chronic back pain, HLD, COPD unspecified and ?MAC, to the ED with complaints of left lower quadrant pain, dry heaves, decreased appetite, and shortness of breath with exertion, and bloating with eating for the past 4 days. She reports the shortness of breath has been going on for much longer than this. She has no diagnosis of congestive heart failure, cirrhosis or kidney issues. She denies any hematochezia or melena. She has had dry heaves but no actual vomiting. Her left lower quadrant pain radiates from the flank. She denies any history of kidney stones and is not constipated. The patient did have a CT scan of the chest which I personally reviewed. Does have some emphysematous changes in addition to a loculated pleural effusion on the right side. She was placed on diuresis cm to the hospital. We did talk about undergo any diagnostic and therapeutic thoracentesis. However the patient is declining at this time. In addition the patient did have a blood test on arrival demonstrating acute on chronic hypercarbic failure with a pCO2 of 80 mmHg. . Now she is likely at her baseline 60 mm of mercury Review of Systems Constitutional: Constitutional: Reports no additional constitutional complaints Cardiovascular: Cardiovascular: Reports Abdominal Distension, Denies chest pain, Denies rapid heart rate, Denies lightheadedness, Denies Loss of Consciousness, Reports dyspnea and Reports dyspnea on exertion Respiratory: Respiratory: Reports dyspnea, Reports dyspnea on exertion and Reports wheezing Allergic/Immunologic: Allergic/Immunologic: Reports wheezing [facility] Past Medical History Medical History No pertinent past medical history Family History Family History Father Cirrhosis Substance use disorder Mother No problems noted. Brother No problems noted. Son No problems noted. Son No problems noted. Daughter No problems noted. Daughter No problems noted. Daughter No problems noted. Surgical History Surgical History H/O oral surgery History of fusion of cervical spine History of biopsy History of lung biopsy History of surgery on left wrist History of shoulder surgery History of rhinoplasty Social History Social History Household Members: Children Household Members Other:: daughter Housing: House Do you presently have visiting nurse or other home services: Yes ([facility]) Unable to assess alcohol history related to: Unknown Patient Tobacco Use Status: Former Tobacco user Cigarettes Per Day: 7 e-Cigarette/Vaping Use: Former Use Second Hand Smoke Exposure: No Substance Use Type: Marijuana service: No Current occupational status: retired and disabled Current occupational exposures/hazards: No Cognitive needs: No Hearing needs: No Vision needs: Yes Meds Allergies Allergy/AdvReac Type Severity Reaction Status Date / Time bee pollen [BEE STINGS] Allergy Intermediate THROAT Verified 03/21/24 15:12 SWELLING penicillin V Allergy Intermediate nausea and Verified 03/21/24 15:12 vomiting Penicillins [PENICILLINS] Allergy Intermediate YEAST Verified 03/21/24 15:12 INFECTIONS- UTI - NAUSEA codeine [Codeine] Allergy Mild ITCHING Verified 03/21/24 15:12 celecoxib [From Celebrex] AdvReac Severe RECTAL Verified 03/21/24 15:12 BLEEDING Active Medications: Current Medications Acetaminophen (Acetaminophen 325 Mg Tablet) 650 mg PO Q6H PRN PRN Reason: Pain, Mild 1-3,fever,headache Last Admin: 03/23/24 16:55 Dose: 650 mg Bisacodyl (Bisacodyl 5 Mg Tablet.Dr) 10 mg PO BEDTIME PRN PRN Reason: Constipation Last Admin: 03/24/24 05:35 Dose: 10 mg Calcium Carbonate (Calcium Carbonate 750 Mg Tab.Chew) 750 mg PO Q4H PRN PRN Reason: Heartburn Carisoprodol (Carisoprodol 350 Mg Tablet) 350 mg PO BID PRN PRN Reason: muscle pain Last Admin: 03/23/24 10:54 Dose: 350 mg Fluticasone Propionate (Fluticasone Propionate 250 Mcg Blst.W.Dev) 2 puff [facility]HALE [facility] Last Admin: 03/24/24 07:54 Dose: 2 puff Furosemide (Furosemide 20 Mg/2 Ml Vial) 20 mg IVPUSH BID@0900,1800 [facility]; Protocol Last Admin: 03/24/24 10:10 Dose: Not Given Glucose (Glucose Gel 15 Gm Gel..Gram.) 15 gm PO Q15M PRN; Protocol PRN Reason: per Hypoglycemia Standing Ord. Heparin Sodium (Porcine) (Heparin Sodium,Porcine 5,000 Unit/Ml Vial) 5,000 unit SUBCUT Q12H [facility] Last Admin: 03/24/24 11:31 Dose: 5,000 unit Dextrose (D10) 250 mls @ 750 mls/hr IV Q15M PRN; Protocol PRN Reason: per Hypoglycemia Standing Ord. Ipratropium [place] (Ipratropium [place] 1 Puff/17 Mcg Inhaler) 2 puff INHALE RQID [facility] Last Admin: 03/24/24 11:46 Dose: 2 puff Melatonin (Melatonin 3 Mg Tablet) 6 mg PO BEDTIME PRN PRN Reason: Insomnia Midodrine (Midodrine Hcl 5 Mg Tablet) 5 mg PO TID PRN PRN Reason: Hypotension Last Admin: 03/24/24 11:22 Dose: 5 mg Omeprazole (Omeprazole 40 Mg Capsule.Dr) 40 mg PO DAILY@06 [facility] Last Admin: 03/24/24 05:35 Dose: 40 mg Ondansetron HCl (Ondansetron Hcl 4 Mg/2 Ml Vial) 4 mg IVPUSH Q8H PRN PRN Reason: Nausea and Vomiting Last Admin: 03/22/24 22:45 Dose: 4 mg Oxycodone HCl (Oxycodone Hcl Immed Release 5 Mg Tablet) 5 mg PO TID [facility] Last Admin: 03/24/24 11:25 Dose: 5 mg Ropinirole HCl (Ropinirole Hcl 2 Mg Tablet) 6 mg PO BEDTIME [facility] Last Admin: 03/23/24 21:20 Dose: 6 mg Sodium Chloride (0.9 % Sodium Chloride Flush 3 Ml Syringe) 3 ml IVFLUSH QSHIFT [facility] Last Admin: 03/24/24 11:25 Dose: 3 ml Home Medications ?Medication ?Instructions ?Recorded ?Confirmed ?Last Taken ?Type ipratropium bromide 17 2 puff inhalation QID 03/21/24 03/21/24 03/20/24 History mcg/actuation HFA aerosol inhaler (Atrovent HFA) omeprazole 40 mg capsule,delayed 40 mg PO DAILY@0630 03/21/24 03/21/24 03/20/24 History release Physical Exam Vital Signs: Vital Signs: Last Vital Signs Temp 97.5 F 03/24/24 11:25 Pulse 87 03/24/24 11:53 Resp 16 03/24/24 11:53 BP 99/50 L 03/24/24 11:25 Pulse Ox 96 03/24/24 11:25 O2 Del Method Nasal Cannula 03/24/24 11:25 O2 Flow Rate 2 03/24/24 11:25 BMI result Body Mass Index 15.7 Const: General: cooperative, alert, awake and ill appearing Nutritional Appearance: cachectic and malnourished Orientation/consciousness: patient oriented x3 HEENT: Head: Yes normocephalic and Yes atraumatic Neck: Neck: Yes trachea midline, Yes supple and Yes JVD Resp: Effort & Inspection: decreased respiratory effort Auscultation: no rhonchi and diminished lung sounds Cardio: Jugular venous distension: JVD Palpation: heave (RV heave) Rate: regular rate Rhythm: regular rhythm Heart sounds: S1 normal heart sound present, S2 normal heart sound present, no click, no gallops and no murmurs GI: Inspection: Yes distended Auscultation: normal bowel sounds Skin: General skin exam: no rashes or lesions noted Neuro: General: patient oriented x3 and no focal motor deficits Extrem: General: Yes edema (Of the upper arms) Results Laboratory Findings 03/23/24 09:23 03/24/24 07:54 ABG, PT/INR, D-dimer: PT/INR, D-dimer PT 14.3 SEC (10.9-12.4) H D 03/24/24 07:54 INR 1.2 (0.9-1.1) H 03/24/24 07:54 Abnormal lab findings: Abnormal Labs 03/21/24 03/21/24 03/21/24 15:36 15:37 16:02 RBC Hgb 9.7 L Hct 35.4 L MCV 78.3 L MCH 21.5 L MCHC 27.4 L RDW 18.3 H MPV 9.0 L Neut % (Auto) 89.0 H Lymph % (Auto) 2.6 L Lymph # (Auto) 0.2 L Absolute Nucleated RBC 0.040 H Nucleated RBC % (auto) 0.4 H PT 19.3 H INR 1.7 H VBG pH 7.23 L VBG HCO3 33 H Sodium Potassium 6.0 H* D Chloride 95 L Carbon Dioxide Anion Gap BUN 36 H Creatinine 1.66 H POC Glucose Random Glucose Lactic Acid 4.4 H* Lactic Acid F/U @ 2Hr Lactic Acid F/U @ 4Hr Total Bilirubin 1.4 H Direct Bilirubin 0.8 H AST 556 H ALT 476 H Troponin I High Sens 32.8 H D B-Natriuretic Peptide 1845 H Total Protein 5.9 L Albumin 3.3 L Urine Protein Ur Leukocyte Esterase Salicylates 03/21/24 03/21/24 03/21/24 18:16 19:37 19:39 RBC Hgb Hct MCV MCH MCHC RDW MPV Neut % (Auto) Lymph % (Auto) Lymph # (Auto) Absolute Nucleated RBC Nucleated RBC % (auto) PT INR VBG pH VBG HCO3 31 H Sodium 134 L Potassium 5.6 H Chloride Carbon Dioxide Anion Gap BUN 33 H Creatinine 1.44 H POC Glucose Random Glucose 191 H Lactic Acid Lactic Acid F/U @ 2Hr 3.2 H* Lactic Acid F/U @ 4Hr Total Bilirubin Direct Bilirubin AST ALT Troponin I High Sens 34.0 H B-Natriuretic Peptide Total Protein Albumin Urine Protein Ur Leukocyte Esterase Salicylates < 5.0 L 03/21/24 03/21/24 03/22/24 19:58 20:39 05:18 RBC Hgb 9.6 L Hct 35.0 L MCV 77.1 L MCH 21.1 L MCHC 27.4 L RDW 18.1 H MPV 9.0 L Neut % (Auto) Lymph % (Auto) Lymph # (Auto) Absolute Nucleated RBC 0.070 H Nucleated RBC % (auto) 0.7 H PT INR VBG pH VBG HCO3 Sodium Potassium 5.7 H Chloride Carbon Dioxide Anion Gap BUN 39 H Creatinine 1.74 H POC Glucose Random Glucose 119 H Lactic Acid Lactic Acid F/U @ 2Hr Lactic Acid F/U @ 4Hr 3.1 H* Total Bilirubin Direct Bilirubin AST ALT Troponin I High Sens B-Natriuretic Peptide Total Protein Albumin Urine Protein 300 (3+) H Ur Leukocyte Esterase Small (1+) H Salicylates 03/22/24 03/23/24 03/24/24 16:27 09:23 07:54 RBC 4.16 L Hgb 9.0 L Hct 32.7 L MCV 78.6 L MCH 21.6 L MCHC 27.5 L RDW 18.0 H MPV Neut % (Auto) Lymph % (Auto) Lymph # (Auto) Absolute Nucleated RBC 0.030 H Nucleated RBC % (auto) 0.4 H PT 14.3 H D INR 1.2 H VBG pH VBG HCO3 Sodium Potassium Chloride Carbon Dioxide 35 H 38 H Anion Gap 8 L 8 L BUN 48 H 36 H Creatinine POC Glucose 138 H Random Glucose 119 H Lactic Acid Lactic Acid F/U @ 2Hr Lactic Acid F/U @ 4Hr Total Bilirubin Direct Bilirubin AST 202 H ALT 522 H Troponin I High Sens B-Natriuretic Peptide 1230 H Total Protein 5.7 L Albumin 3.2 L Urine Protein Ur Leukocyte Esterase Salicylates Microbiology: Microbiology 03/21/24 16:01 Blood - Venous Blood Culture - Preliminary No growth after 48 hours. 03/21/24 15:57 Blood - Venous Blood Culture - Preliminary No growth after 48 hours. 03/21/24 Unknown Urine clean catch - Clean Catch Midstream Urine Culture - Final No growth. Assessment and Plan (1) Acute and chronic respiratory failure, unspecified whether with hypoxia or hypercapnia: Status: Acute (2) COPD (chronic obstructive pulmonary disease): Qualifiers: COPD type: emphysema Emphysema type: centrilobular Qualified Code(s): J43.2 - Centrilobular emphysema Status: Acute (3) Pleural effusion: Status: Acute Plan consider Thoracentesis for therapeutic and diagnostic reasons continue oxygen to keep pox 89-94% continue diuresis as tolerated respiratory therapy Procedures Date of Service Date of Service: 03/24/24
--- NOTE | 2024-03-24 13:56 | HO.PM.IMPN ---
Subjective Subjective Date of Service: 03/24/24 Interval History: seen and examined this morning follow up for right heart failure, pleural effusions, reports globus sensation denies sob Review of Systems Review of Systems: Yes all other systems are reviewed and are negative Constitutional Constitutional: Denies chills and Denies fever(s) Cardiovascular Cardiovascular: Denies chest pain and Denies dyspnea Respiratory Respiratory: Denies dyspnea Gastrointestinal Gastrointestinal: Denies abdominal pain Physical Exam Vital Signs: Vital Signs: Last Vital Signs Temp 97.5 F 03/24/24 11:25 Pulse 87 03/24/24 11:53 Resp 16 03/24/24 11:53 BP 99/50 L 03/24/24 11:25 Pulse Ox 96 03/24/24 11:25 O2 Del Method Nasal Cannula 03/24/24 11:25 O2 Flow Rate 2 03/24/24 11:25 BMI result Body Mass Index 15.7 Const: Other: thin, frail; chronically ill-appearing Orientation/consciousness: patient oriented x3 Resp: Effort & Inspection: normal respiratory effort, able to speak in complete sentences, no respiratory distress and no use of accessory muscles Cardio: Rate: regular rate GI: Inspection: No distended Palpation (GI): Soft to palpation Neuro: General: patient oriented x3, moves all extremities and CN's II-XI intact bilaterally Objective Data Active Medications Acetaminophen (Acetaminophen 325 Mg Tablet) 650 mg PO Q6H PRN PRN Reason: Pain, Mild 1-3,fever,headache Last Admin: 03/23/24 16:55 Dose: 650 mg Documented By: YURIDIA Bisacodyl (Bisacodyl 5 Mg Tablet.Dr) 10 mg PO BEDTIME PRN PRN Reason: Constipation Last Admin: 03/24/24 05:35 Dose: 10 mg Documented By: CHEN-LAINA Calcium Carbonate (Calcium Carbonate 750 Mg Tab.Chew) 750 mg PO Q4H PRN PRN Reason: Heartburn Carisoprodol (Carisoprodol 350 Mg Tablet) 350 mg PO BID PRN PRN Reason: muscle pain Last Admin: 03/23/24 10:54 Dose: 350 mg Documented By: YURIDIA Fluticasone Propionate (Fluticasone Propionate 250 Mcg Blst.W.Dev) 2 puff [facility] Last Admin: 03/24/24 07:54 Dose: 2 puff Documented By: AMMY Furosemide (Furosemide 20 Mg/2 Ml Vial) 20 mg IVPUSH BID@0900,1800 [facility]; Protocol Last Admin: 03/24/24 10:10 Dose: Not Given Documented By: GARDENIA Non-Admin Reason: Physician Held Med Glucose (Glucose Gel 15 Gm Gel..Gram.) 15 gm PO Q15M PRN; Protocol PRN Reason: per Hypoglycemia Standing Ord. Heparin Sodium (Porcine) (Heparin Sodium,Porcine 5,000 Unit/Ml Vial) 5,000 unit SUBCUT Q12H [facility] Last Admin: 03/24/24 11:31 Dose: 5,000 unit Documented By: GARDENIA Dextrose (D10) 250 mls @ 750 mls/hr IV Q15M PRN; Protocol PRN Reason: per Hypoglycemia Standing Ord. Ipratropium [place] (Ipratropium [place] 1 Puff/17 Mcg Inhaler) 2 puff INHALE RQID [facility] Last Admin: 03/24/24 11:46 Dose: 2 puff Documented By: KESHA Melatonin (Melatonin 3 Mg Tablet) 6 mg PO BEDTIME PRN PRN Reason: Insomnia Midodrine (Midodrine Hcl 5 Mg Tablet) 5 mg PO TID PRN PRN Reason: Hypotension Last Admin: 03/24/24 11:22 Dose: 5 mg Documented By: GARDENIA Omeprazole (Omeprazole 40 Mg Capsule.Dr) 40 mg PO DAILY@0630 [facility] Last Admin: 03/24/24 05:35 Dose: 40 mg Documented By: GENIE Ondansetron HCl (Ondansetron Hcl 4 Mg/2 Ml Vial) 4 mg IVPUSH Q8H PRN PRN Reason: Nausea and Vomiting Last Admin: 03/22/24 22:45 Dose: 4 mg Documented By: ABLLYNETTE Oxycodone HCl (Oxycodone Hcl Immed Release 5 Mg Tablet) 5 mg PO TID [facility] Last Admin: 03/24/24 11:25 Dose: 5 mg Documented By: GARDENIA Ropinirole HCl (Ropinirole Hcl 2 Mg Tablet) 6 mg PO BEDTIME [facility] Last Admin: 03/23/24 21:20 Dose: 6 mg Documented By: GENIE Sodium Chloride (0.9 % Sodium Chloride Flush 3 Ml Syringe) 3 ml IVFLUSH QSHIFT [facility] Last Admin: 03/24/24 11:25 Dose: 3 ml Documented By: GARDENIA Labs 03/23/24 09:23 03/24/24 07:54 Labs: Laboratory Results - last 24 hr 03/24/24 07:54 PT 14.3 H D INR 1.2 H Anion Gap 8 L Estim Creat Clear Calc 47.3 Estimated GFR > 60 Random Glucose 74 Calcium 8.4 Total Bilirubin 0.5 Direct Bilirubin 0.3 AST 202 H ALT 522 H Alkaline Phosphatase 69 Total Protein 5.7 L Albumin 3.2 L Lipase 14 Microbiology Microbiology Results: Microbiology 03/21/24 16:01 Blood Culture - Preliminary Blood - Venous No growth after 48 hours. 03/21/24 15:57 Blood Culture - Preliminary Blood - Venous No growth after 48 hours. 03/21/24 Unknown Urine Culture - Final Urine clean catch - Clean Catch Midstream No growth. Assessment and Plan (1) Acute and chronic respiratory failure, unspecified whether with hypoxia or hypercapnia: Status: Acute Plan 68-year-old female with a past medical history significant for chronic back pain, HLD, COPD unspecified and ?MAC, to the ED with complaints of left lower quadrant pain, dry heaves, decreased appetite, and shortness of breath with exertion, and bloating with eating for the past 4 days. Acute hypoxic respiratory failure secondary to acute exacerbation of CHF with bilateral pleural effusions seen by cardiology. s/p lasix 20 mg BID IV, consult pulm for likely resp status contributing echocardiogram> grade 1 diastolic dysfunction, decreased right ventricular function treated with IV lasix, BNP trending down will transition to po bumex per cardiology rec repeat chest x-ray seen by pulm - rec thoracentesis - pt declines currently requiring oxygen - pt declines to go home with oxygen elevated LFTs trending down Abdominal ultrasound with cholelithiasis without evidence of acute cholecystitis bilirubin normal, no abdominal pain Continue to trend acute lactic acidosis due to to hypoperfusion, not sepsis Dysphagia seen by speech > rec GI consultation seen by GI, rec modified barium swallow continue NDD3 diet modified barium swallow - no evidence of aspiration moderate cricophargygeal achalasia and cervical hardware that could be contributing to symptoms PACO resolved Hyperkalemia secondary to PACO, monitor BMP s/p lokelma resolved Left lower quadrant/left flank pain CT of AP with right pelvic mass, 6 cm, cholelithiasis without gallbladder distention, anasarca with ascites and body wall edema pelvic mass known to patient, reports this has been followed for many years and she was told this was benign follow-up outpatient regarding pelvic mass Anemia, normocytic hemoglobin 9.7, hematocrit 35.4 fecal occult blood test pending normal B12 and folate no acute blood loss noted seen by GI Hyperglycemia A1c 6.0 no need to check BS COPD unspecified continue home meds per outpatient notes - pt has refused referral to pulm Full code VTE prophylaxis: Heparin Quality Stroke Does the patient have a stroke diagnosis?: No VTE Prior VTE?: No VTE Risk Level:: Medical - moderate - high VTE Device Contraindication: Treatment Not Indicated VTE Drug Contraindication: N/A - Med Ordered
--- NOTE | 2024-03-24 14:04 | MHC.CM.PN ---
CM met with pt. to discuss DCP, She is active with [facility] services, she said she cannot afford the increase in her electric bill if she has home O2. Task submitted for [facility] to discuss if they have any programs that can help with this. Pt. is open to having [facility] services at home at [place] if this is what is recommended. This referral can include SW to assist with exploring options to assist her with her electric bill and home O2. DCP: TBD, referral in for [facility] preliminarily.
--- NOTE | 2024-03-24 16:08 | MHC.SL.IMP ---
Date of Plan of Treatment: 03/24/24 Onset of Symptoms/Illness: 03/08/24 Date Treatment Started: 03/22/24 Admitting Diagnosis: Acute and chronic respiratory failure, unspecified whether with hypoxia or hypercapnia Primary Speech & Language Diagnosis: R13.13 Pharyngeal Phase Dysphagia Reason for Today's Visit: 40028 Modified Barium Swallow Study Pre-evaluation Dietary Consistencies: Chopped/Advanced (NDD3) Pre-evaluation Liquid Consistency: Thin Pre-evaluation Medication Administration: Whole with Liquid Medical History: Modified Barium Swallow Study Fluoroscopic Evaluation of Swallowing Function CPT Code 37017 Evaluation Year: 2024 Reason for Study: Difficulty swallowing Referring Physician: Adrienne COSTA Evaluating Clinician: Little Gonzalez MA, CCC-ASSOCIATE BUYER Study Number: 1 Patient Name: Earlene Martinez Status: Inpatient, Stretcher Age: 68 Gender: Female Medical History Medical History No pertinent past medical history Surgical History H/O oral surgery History of fusion of cervical spine History of biopsy History of lung biopsy History of surgery on left wrist History of shoulder surgery History of rhinoplasty Current (pre-evaluation) Intake/Diet: Route: PO Diet Grade: Chopped/Advanced (NDD3) Liquid Consistencies: Thin Pre-Study Functional Oral Intake Scale (FOIS): 5- Total oral intake of multiple consistencies requiring special preparation Pain: None reported at time of study SUBJECTIVE: Patient admitted for acute hypoxic respiratory failure secondary to acute exacerbation of CHF with bilateral pleural effusions. Chest CT showed: moderate size bilateral loculated pleural effusions, bilateral lower lobe sub segmental atelectasis. Patient reported difficulty swallowing for the past two weeks, with globus sensation on both solids and liquids. Patient denies coughing, choking, or odynophagia. Patient says she must swallow a few times to get things down. She was recommended further workup with Og, seen by Dr. Terry earlier today. Per Dr. Terry, her reflux symptoms seem to be well managed at this time. She was recommended further evaluation of oropharyngeal dysphagia with MBSS. Food and Liquid Trials: Oral Impairment: Lip Closure: Did not test Oral Impairment: Tongue Control During Bolus Hold: Did not test Oral Impairment: Bolus Preparation/Mastication: 1=Slow prolonged chewing/mashing with complete re-collection Oral Impairment: Bolus Transport/Lingual Motion: 1= Delayed initiation of tongue motion Oral Impairment: Oral Residue: 1=Trace residue lining oral structures Oral Impairment:Initiation of Pharyngeal Swallow: 2=Bolus head at posterior laryngeal surface of epiglottis Pharyngeal Impairment: Soft Palate Elevation: 0=No bolus between soft palate (SP)/pharyngeal wall (PW) Pharyngeal Impairment: Laryngeal Elevation: 0=Complete superior movement of thyroid cartilage (see description) Pharyngeal Impairment: Anterior Hyoid Excursion: 0=Complete anterior movement Pharyngeal Impairment: Epiglottic Movement: 2=No inversion Pharyngeal Impairment: Laryngeal Vestibular Closure:: 1=Incomplete: narrow column air/contrast in laryngeal vestibule Pharyngeal Impairment: Pharyngeal Stripping Wave: 0=Present: complete Pharyngeal Impairment: Pharyngeal Contraction: Did not test Pharyngeal Impairment: Pharyngoesophageal Segment Openin=Partial distention/partial duration: partial obstruction of flow Pharyngeal Impairment: Tongue Base (TB) Retraction: 1=Trace column of contrast/air between TB and posterior PW Pharyngeal Impairment: Pharyngeal Residue: 2=Collection of residue within or on pharyngeal structures Pharyngeal Impairment: Esophageal Clearance Upright Position: Did not test Impressions and Recommendations OBJECTIVE: Time-out: performed at 14:15 Evaluation Start: 14:00; Stop: 14:10 Patient Positioning: Seated 70-90 degrees Viewing Planes: LATERAL ONLY Contrast: MBSImP? Standardized Protocol using commercially prepared, standardized Barium viscosities, including: Varibar? THIN LIQUID (40% w/v, <15 cps) , Varibar? PUDDING (40% w/v, <5030-5337 cps) , 1/2 Shortbread Cookie (1 x1 x.25 ) MBSImP ID: [id number] MBSImP Results: Lip closure for intraoral bolus containment could not be assessed due to logistical reasons not related to physiologic impairment. Tongue control during bolus hold could not be assessed due to logistical reasons not related to physiologic impairment. Bolus preparation and mastication resulted in slow, prolonged chewing/mashing but with complete re-collection. Bolus transport/lingual motion demonstrated delayed initiation of tongue motion. Oral residue was a trace, lining oral structures. Initiation of the pharyngeal swallow occurred as the bolus head was at the posterior laryngeal surface of the epiglottis. Soft palate elevation resulted in no bolus between the soft palate and the pharyngeal wall. Laryngeal elevation demonstrated complete superior movement of the thyroid cartilage with complete approximation of the arytenoids to the epiglottic petiole. Anterior hyoid excursion demonstrated complete anterior movement. Epiglottic movement resulted in no inversion. Laryngeal vestibular closure was incomplete, with a narrow column of air/contrast noted within the laryngeal vestibule at the height of the swallow. Pharyngeal stripping wave was present and complete. Pharyngeal contraction could not be determined due to logistical reasons not related to physiologic impairment. Pharyngoesophageal segment opening demonstrated partial distension/partial duration, with partial obstruction of bolus flow. Tongue base retraction allowed a trace column of contrast or air between the retracted tongue base and the posterior pharyngeal wall. Pharyngeal residue was a collection of residue within or on pharyngeal structures. Esophageal clearance in the upright position could not be assessed due to logistical reasons not related to physiologic impairment. Oral Impairment Score: 4 (absence of score, component 1component 2) Pharyngeal Impairment Score: 6 (absence of score, component 13) Esophageal Impairment Score: --- (absence of score, component 17) Laryngeal Penetration and Aspiration: Neither penetration nor aspiration was observed in today's study with Cookie, Pudding-thick. Penetration was observed in today's study. Thin Contrast entered the airway, remained above the vocal folds, and was ejected from the airway. Structural Abnormalities Noted: Cervical Hardware C3-C6, likely contributing to pharyngeal residue Moderate Cricopharyngeal Achalasia, likely contributing to pharyngeal residue ASSESSMENT: Clinician Assessment: This exam was conducted by the radiologist and the speech pathologist. Patient was seated upright in a stretcher for lateral view only. Patient was able to feed herself without difficulty and trialed the following consistencies: thin (via individual cup sips, straw sips), puree, and regular solid. Mastication was mildly prolonged, but with adequate recollection. Mildly delayed posterior lingual transport. There was trace residue on the tongue and palate, which cleared with dry swallows. Pharyngeal swallow trigger initiated as the bolus head reached the posterior laryngeal surface of the epiglottis. No evidence of nasopharyngeal reflux. Complete laryngeal elevation. Partial epiglottic inversion seen when patient swallowed food and liquid, no inversion seen on dry swallows. Incomplete laryngeal vestibular closure with trace penetration above the vocal folds on thin liquids, mostly cleared with subsequent swallows. There was mild residue in the valleculae, pyriform sinuses, and on the posterior pharyngeal wall. Residue was reduced with dry swallows. Partial distention and partial duration through the pharyngoesophgeal segment opening. No evidence of aspiration during this exam. Liquid Intake Recommendation: Thin Liquid Intake Strategies: Small Sips Dietary Recommendations: Chopped/Advanced (NDD3) Medication Administration: Whole with Liquid Please contact the pharmacy regarding appropriate crushable or liquid drug formulations that are available whenever modified delivery is recommended. Compensatory Strategies Recommended: Sitting Upright (90 deg), Double Swallow, Small Bites and Sips, Alternate Liquids/Solids, Rate of Ingestion Change Supervision during eating and or drinking: None Needed Recommended Treatments: Compens. Strategy Educat. Recommendation for Speech Therapy: Inpatient Speech Therapy Text Comment: Intake Recommendations: Route: PO Diet Grade: Chopped/Advanced (NDD3) Liquid Consistencies: Thin Post-Study Functional Oral Intake Scale (FOIS): 5- Total oral intake of multiple consistencies requiring special preparation Trace penetration above the vocal folds with trials of thin liquid. No evidence of aspiration during this exam. Moderate cricopharyngeal achalasia, which contributed to mild residuals in the pyriform sinuses and on the posterior pharyngeal wall, and likely causing patient?s symptoms of globus sensation and needing multiple swallows to get things down. Also noted cervical hardware at C3-C6, which could also be exacerbating patient?s symptoms. No changes recommended to patient?s diet, as she reports more difficulty with harder meats. Recommend patient take small bites, chew food well, and alternate with sips of liquid. Therapy Recommendations: Therapy will be continued- ASSOCIATE BUYER to f/u 1x at bedside for education RE: MBSS results and recommendations Adjustment Clerk Goals: ? The patient and/or family will participate in further education for swallowing goals. Short Term Goals: ? Education - The patient, family will verbalize/demonstrate understanding of the results of this evaluation, the above recommendations, and the swallowing guidelines. Frequency/Duration: 1 f/u Date Range for Service Requested: Timeline to reassess: PRN Clinician - Supplemental, Miscellaneous Communication: It is important to note MBSS objective studies are snapshots in time and Patient function might vary with factors such as time of day or concomitant medical conditions. For this reason, the final treatment plan for this patient should rest with their medical care team. Additional recommendations should be considered with the totality of the Patient in mind. Thank for the opportunity to participate in the care of this patient. If you have any questions about the content of this report, please contact the [facility] at [facility]. Education: Education regarding findings from today's study and plans for therapy were provided to Patient only through Verbal Instruction. Understanding was expressed by the Patient only. Manager Consumer Clinician/Clinical Fellow: No Supervisory Statement: N/A Speech Language Pathologist: Little Gonzalez M.A., CCC-ASSOCIATE BUYER
--- NOTE | 2024-03-24 20:45 | PM.EVENT ---
Event Note Date of Service: 03/24/24 Event Note: GI Modified barium swallow results, including radiology and speech pathology reports are reviewed. Based on these and the dietary intake documented in the medical record, endoscopic evaluation is not likely to be of benefit. Time Spent With Patient Time: Total time managing care of this patient today ____ minutes.
[2024-03-24] MEDS: rOPINIRole HCL 2 MG TABLET 6 MG PO (20:58)
[2024-03-24] MEDS: Acetaminophen 325 MG TABLET 650 MG PO (22:12)
[2024-03-25] VITALS (15 sets, daily range): BP systolic 98–127; BP diastolic 43–62; PULSE 83–105; RESP 8–18; TEMP 36.2–37.3; O2SAT 92–98
[2024-03-25] MEDS: Heparin Sodium,Porcine 5,000 UNIT/ML VIAL 5000 UNIT SUBCUT (01:15)
[2024-03-25] MEDS: Omeprazole 40 MG CAPSULE.DR PO (05:39)
[2024-03-25 07:21] LABS: Hematocrit 30.3 % (37.0-47.0); Hemoglobin 8.5 g/dl (12.0-16.0)
[2024-03-25 07:51] LABS: Alanine Aminotransferase 430 U/L (0-31); Alkaline Phosphatase 64 U/L (39-117); Aspartate Amino Transferase 152 U/L (5-31); Bilirubin Direct 0.3 mg/dL (0.0-0.5); Bilirubin Total 0.5 mg/dL (0.0-1.0); Blood Urea Nitrogen 18 mg/dL (9-16); Calcium 8.5 mg/dL (8.4-10.2); Creatinine Clr Calc Pharmacy 60.5; Estimated Glomerular Filt Rate > 60; Glucose Random 77 mg/dL (60-115); Total Protein 5.5 g/dL (6.5-8.0)
[2024-03-25 07:58] LABS: Anion Gap 8 (12-20); Carbon Dioxide 39 mmol/L (22-29); Chloride 95 mmol/L (96-108); Potassium 4.3 mmol/L (3.3-5.1); Sodium 138 mmol/L (135-145)
[2024-03-25] MEDS: Ipratropium Bromide 1 PUFF/17 MCG INHALER 2 PUFF INHALE ×3 (08:24→21:17)
[2024-03-25 08:25] LABS: Iron 16 mcg/dL (30-160); Percent Iron Saturation 5 % (15-50); Total Iron Binding Capacity 348 mcg/dL (228-428); Unsaturated Iron Binding 332 ug/dL
[2024-03-25 08:40] LABS: Ferritin 31 ng/mL (10-250)
[2024-03-25] MEDS: Bumetanide 1 MG TABLET PO (09:12)
[2024-03-25] MEDS: oxyCODONE HCl Immed Release 5 MG TABLET PO ×3 (09:12→21:11)
[2024-03-25] MEDS: 0.9 % Sodium Chloride Flush 3 ML SYRINGE IVFLUSH ×3 (09:13→21:12)
[2024-03-25] MEDS: carisoprodoL 350 MG TABLET PO ×2 (09:17→21:24)
[2024-03-25] MEDS: Acetaminophen 325 MG TABLET 650 MG PO (09:18)
--- NOTE | 2024-03-25 09:53 | MHC.SL.SWA ---
Speech Pathologist Impression: Pharyngeal dysphagia Dysphasia Diet Status: No change Liquid Consistency and Strategies for Safe Swallow: Liquid Intake Recommendation: Thin Liquid Intake Strategies: Small Sips Solid Food Consistency: Dietary Recommendations: Chopped/Advanced (NDD3) Additional Modifications to Solid Foods: Discussed MBSS findings, patient verbalized understanding and denied having any questions at this time. No changes made to diet order. Recommend patient take small bites, chew food well, and alternate with sips of liquid. Appreciated GI note, Dr. Terry documented: Modified barium swallow results, including radiology and speech pathology reports are reviewed. Based on these and the dietary intake documented in the medical record, endoscopic evaluation is not likely to be of benefit. Oral Medication Intake: Whole with Liquid Please contact the pharmacy regarding appropriate crushable or liquid drug formulations that are available whenever modified delivery is recommended. Compensatory Strategies and Precautions to be Taken for Safe Swallow: Sitting Upright (90 deg) Double Swallow Small Bites and Sips Alternate Liquids/Solids Rate of Ingestion Change Supervision While Eating and Drinking for Safe Swallow: None Needed Foods to Avoid: Swallowing Recommended Treatments: Compens. Strategy Educat. Recommendation for Speech: D/C Please re-refer with any changes or further concern. Financial Consultant Clinican/Clinical Fellow: No Supervisory Statement: I have reviewed and agree with the student/clinical fellow's documentation: N/A Speech Language Pathologist: Little Gonzalez M.A., CCC-HIRED HELP
[2024-03-25 10:06] LABS: OBS Int Ctl Valid YES; OBS1 NEGATIVE (NEGATIVE)
[2024-03-25 10:17] LABS: Lactate Dehydrogenase 224 U/L (122-220)
--- NOTE | 2024-03-25 11:42 | PM.PROC ---
Brief Operative Note Date of procedure: 03/25/24 Pre-op diagnosis: Bilateral loculated pleural effusions R>L Post-op diagnosis: same Procedure: US right chest tube 10 fr drain placed into loculated right effusion. Clear serous fluid removed and sent for analysis. Anesthesia: local
[2024-03-25] MEDS: Lidocaine HCl 1 % MPF 5 ML VIAL SUBCUT (11:52)
--- NOTE | 2024-03-25 11:56 | MHC.CLN ---
Addendum entered by Robyn Cortes, PRICILLA 03/25/24 11:57: PT WITH VARIABLE INTAKE RANGING FROM 25-100% Original Note: F/U PT IS MODERATELY MALNOURISHED PT WITH MILDLY DEPLETED SUBCUTANEOUS FAT AND MUSCLE MASS WITH BMI 15.7 PT WITH 16% SIGNIFICANT WT GAIN X 6 MONTHS. PT PREVIOUSLY DX SEVERE PCM HOWEVER WT UP SINCE LAST ASSESSMENT (03/04/22) AND IMPROVED OVERALL. NOW DX MODERATELY MALNOURISHED-NON SEVERE IN CONTEXT OF CHRONIC ILLNESS SEE FULL CLINICAL NUTRITION ASSESSMENT DATED 03/23/24 DIET RX: CARDIAC CHOPPED-APPROPRIATE RIB KNITTER FOLLOWING PT RECEIVING ENSURE BID TO INCREASE KCALS AND PROMOTE FURTHER WT GAIN SUPP PROVIDES 700KCALS, 40G PROTEIN MONITOR PO INTAKE AND ENCOURAGE SUPPLEMENTS
[2024-03-25 12:14] LABS: MN% 82.2 %; PMN% 17.8 %; RBC Pleural Fluid < 0.002 X10*6/uL; WBC Pleural Fluid 0.116 X10*3/uL
[2024-03-25 13:21] LABS: BF Shift QC OK YES; Lymphocytes Pleural Fluid 23 %; Monocytes Pleural Fluid 13 %; Neutrophils Pleural Fluid 26 %; Other Cells Plerual Fl 38 %
--- NOTE | 2024-03-25 13:50 | HO.PM.IMPN ---
Subjective Subjective Date of Service: 03/25/24 Interval History: seen and examined this morning Follow-up for shortness of breath, reporting increased dyspnea this morning Now agreeable to thoracentesis Review of Systems Review of Systems: Yes all other systems are reviewed and are negative Constitutional Constitutional: Denies chills and Denies fever(s) Cardiovascular Cardiovascular: Denies chest pain, Denies palpitations, Denies dyspnea and Denies dyspnea on exertion Respiratory Respiratory: Denies dyspnea and Denies dyspnea on exertion Gastrointestinal Gastrointestinal: Denies abdominal pain, Denies nausea and Denies vomiting Endocrine Endocrine: Denies palpitations Physical Exam Vital Signs: Vital Signs: Last Vital Signs Temp 97.1 F 03/25/24 07:08 Pulse 91 03/25/24 11:45 Resp 12 03/25/24 11:45 BP 99/49 L 03/25/24 11:45 Pulse Ox 98 03/25/24 11:45 O2 Del Method Nasal Cannula 03/25/24 11:45 O2 Flow Rate 2 03/25/24 11:45 BMI result Body Mass Index 15.7 Const: Other: thin, frail; chronically ill-appearing General: alert and awake Orientation/consciousness: patient oriented x3 Resp: Effort & Inspection: normal respiratory effort, able to speak in complete sentences, no respiratory distress and no use of accessory muscles Cardio: Rate: regular rate GI: Inspection: No distended Palpation (GI): Soft to palpation Neuro: General: patient oriented x3, moves all extremities and CN's II-XI intact bilaterally Extrem: General: Yes no pedal edema Objective Data Active Medications Acetaminophen (Acetaminophen 325 Mg Tablet) 650 mg PO Q6H PRN PRN Reason: Pain, Mild 1-3,fever,headache Last Admin: 03/25/24 09:18 Dose: 650 mg Documented By: OPAL Bisacodyl (Bisacodyl 5 Mg Tablet.Dr) 10 mg PO BEDTIME PRN PRN Reason: Constipation Last Admin: 03/24/24 21:12 Dose: 10 mg Documented By: GENIE Bumetanide (Bumetanide 1 Mg Tablet) 1 mg PO DAILY BRIGID; Protocol Last Admin: 03/25/24 09:12 Dose: 1 mg Documented By: OPAL Calcium Carbonate (Calcium Carbonate 750 Mg Tab.Chew) 750 mg PO Q4H PRN PRN Reason: Heartburn Carisoprodol (Carisoprodol 350 Mg Tablet) 350 mg PO BID PRN PRN Reason: muscle pain Last Admin: 03/25/24 09:17 Dose: 350 mg Documented By: OPAL Fluticasone Propionate (Fluticasone Propionate 250 Mcg Blst.W.Dev) 2 puff INHALE RBID PENDING SALE TO [facility] Last Admin: 03/25/24 08:24 Dose: Not Given Documented By: KESHA Non-Admin Reason: Patient Refused Glucose (Glucose Gel 15 Gm Gel..Gram.) 15 gm PO Q15M PRN; Protocol PRN Reason: per Hypoglycemia Standing Ord. Heparin Sodium (Porcine) (Heparin Sodium,Porcine 5,000 Unit/Ml Vial) 5,000 unit SUBCUT Q12H PENDING SALE TO [facility] Last Admin: 03/25/24 13:26 Dose: Not Given Documented By: OPAL Non-Admin Reason: Off Unit: Surgery Dextrose (D10) 250 mls @ 750 mls/hr IV Q15M PRN; Protocol PRN Reason: per Hypoglycemia Standing Ord. Ipratropium Clifton (Ipratropium Clifton 1 Puff/17 Mcg Inhaler) 2 puff INHALE RQID PENDING SALE TO [facility] Last Admin: 03/25/24 13:02 Dose: Not Given Documented By: KESHA Non-Admin Reason: Patient Refused Melatonin (Melatonin 3 Mg Tablet) 6 mg PO BEDTIME PRN PRN Reason: Insomnia Omeprazole (Omeprazole 40 Mg Capsule.Dr) 40 mg PO DAILY@0630 PENDING SALE TO [facility] Last Admin: 03/25/24 05:39 Dose: 40 mg Documented By: GENIE Ondansetron HCl (Ondansetron Hcl 4 Mg/2 Ml Vial) 4 mg IVPUSH Q8H PRN PRN Reason: Nausea and Vomiting Last Admin: 03/22/24 22:45 Dose: 4 mg Documented By: ABLLYNETTE Oxycodone HCl (Oxycodone Hcl Immed Release 5 Mg Tablet) 5 mg PO TID PENDING SALE TO [facility] Last Admin: 03/25/24 09:12 Dose: 5 mg Documented By: OPAL Ropinirole HCl (Ropinirole Hcl 2 Mg Tablet) 6 mg PO BEDTIME PENDING SALE TO [facility] Last Admin: 03/24/24 20:58 Dose: 6 mg Documented By: HO.N-CONNO Sodium Chloride (0.9 % Sodium Chloride Flush 3 Ml Syringe) 3 ml IVFLUSH QSHIFT PENDING SALE TO [facility] Last Admin: 03/25/24 09:13 Dose: 3 ml Documented By: OPAL Labs 03/25/24 06:47 03/25/24 06:47 Labs: Laboratory Results - last 24 hr 03/25/24 03/25/24 03/25/24 06:47 09:37 09:53 Anion Gap 8 L Estim Creat Clear Calc 60.5 Estimated GFR > 60 Random Glucose 77 Calcium 8.5 Iron 16 L TIBC 348 % Saturation 5 L Unsat Iron Binding 332 Ferritin 31 Total Bilirubin 0.5 Direct Bilirubin 0.3 AST 152 H ALT 430 H Alkaline Phosphatase 64 Lactate Dehydrogenase 224 H Total Protein 5.5 L Albumin 3.0 L Pleural WBC Pleural RBC Pleural Neutrophils Pleural Lymphocytes Pleural Monocytes Pleural Other Cells Stool Occult Blood NEGATIVE Blood Type A Negative Antibody Screen NEGATIVE 03/25/24 11:30 Anion Gap Estim Creat Clear Calc Estimated GFR Random Glucose Calcium Iron TIBC % Saturation Unsat Iron Binding Ferritin Total Bilirubin Direct Bilirubin AST ALT Alkaline Phosphatase Lactate Dehydrogenase Total Protein Albumin Pleural WBC 0.116 Pleural RBC < 0.002 Pleural Neutrophils 26 Pleural Lymphocytes 23 Pleural Monocytes 13 Pleural Other Cells 38 Stool Occult Blood Blood Type Antibody Screen Assessment and Plan (1) Acute respiratory failure with hypoxia: Status: Acute (2) Pelvic mass: Status: Acute (3) Elevated liver enzymes: Status: Acute (4) Pleural effusion: Status: Acute Plan 68-year-old female with a past medical history significant for chronic back pain, HLD, COPD unspecified and ?MAC, to the ED with complaints of left lower quadrant pain, dry heaves, decreased appetite, and shortness of breath with exertion, and bloating with eating for the past 4 days. Acute hypoxic respiratory failure secondary to acute exacerbation of CHF with bilateral pleural effusions seen by cardiology. s/p lasix 20 mg BID IV, consult pulm for likely resp status contributing echocardiogram> grade 1 diastolic dysfunction, decreased right ventricular function treated with IV lasix, BNP trending down will transition to po bumex per cardiology rec repeat chest x-ray seen by pulm - rec thoracentesis - pt initially declined, now agreeable. Given loculated effusions, pulmonary recommends small chest tube, discussed with IR currently requiring oxygen - pt declines to go home with oxygen. will follow Incentive spirometry b/l pleural effusions now agreeable to thoracentesis/chest tube follow fluid studies elevated LFTs trending down Abdominal ultrasound with cholelithiasis without evidence of acute cholecystitis bilirubin normal, no abdominal pain Continue to trend acute lactic acidosis due to to hypoperfusion, not sepsis Dysphagia seen by speech > rec GI consultation seen by GI, rec modified barium swallow modified barium swallow - no evidence of aspiration moderate cricophargygeal achalasia and cervical hardware that could be contributing to symptoms continue NDD3 diet d/w GI, no need for EGD PACO resolved Hyperkalemia secondary to PACO, monitor BMP s/p lokelma resolved Left lower quadrant/left flank pain CT of AP with right pelvic mass, 6 cm, cholelithiasis without gallbladder distention, anasarca with ascites and body wall edema pelvic mass known to patient, reports this has been followed for many years and she was told this was benign. no previous imaging in system to compare follow-up outpatient regarding pelvic mass chronic normocytic anemia fecal occult blood test pending. normal B12 and folate H/H trending down, no acute blood loss noted; iron levels low probable chronic loss has never had colonoscopy will start po iron seen by GI Hyperglycemia A1c 6.0 no need to check BS COPD unspecified continue home meds per outpatient notes - pt has refused referral to pulm moderate protein calorie malnutrition BMI 15.7 Continue dietary supplements Full code VTE prophylaxis: Heparin dispo: PT rec STR Requires ongoing inpatient stay for management of dyspnea, loculated pleural effusion requiring thoracentesis/chest tube Quality Stroke Does the patient have a stroke diagnosis?: No VTE Prior VTE?: No VTE Risk Level:: Medical - moderate - high VTE Device Contraindication: Treatment Not Indicated VTE Drug Contraindication: N/A - Med Ordered
--- NOTE | 2024-03-25 14:14 | P.CDIM_ITS ---
PROVIDER RESPONSE TEXT: To clarify, the appropriate diagnosis supported by the clinical indicators: Moderate Protein Calorie Malnutrition QUERY TEXT: PHYSICIAN'S DOCUMENTATION REQUEST Date of Query: 03/25/2024 02:07 PM EST Patient Name: Earlene Martinez Admit Date: 03/22/2024 Dear Adrienne Gates PA, A review of the medical record indicates additional documentation may be needed. Please review below and update the documentation accordingly. Clinical Indicators: Height: ( ) 5'2 Weight: ( ) 39 kg BMI: ( ) 15.7 Other Clinical Notes Supporting Significance of the BMI: Per Clinical Nutrition Assessment 03/23/24: moderately malnourished mildly depleted subcutaneous fat and muscle mass in the context of chronic illness recommend adding Ensure If possible, please provide an associated diagnosis related to the abnormal BMI, such as: Underweight Weight loss Cachexia Anorexia Moderate Protein Calorie Malnutrition Other (explain) Clinically unable to determine (explain) Thank you, Trista Carpenter RN Use of terms such as suspected, likely, concern for, or probable (associated with a specific diagnosi s that is being evaluated, monitored, or treated as if it exists) are acceptable and can be coded in the inpatient se tting, when documented at the time of discharge. Please use your independent medical judgment in providing your response. THIS QUERY IS PART OF THE PERMANENT MEDICAL RECORD
--- NOTE | 2024-03-25 14:33 | MHC.CM.PN ---
Per rounds, pt. is not yet ready to DC, PT have rec. STR, referrals are out and some are following.
--- NOTE | 2024-03-25 15:15 | HO.WOUND ---
Wound Consult: Initial 68yr old? [place] [facility] [place] - See progress notes and H&P for detailed history.? Wound consult placed for Bilateral Heel redness.? Patient agreeable to assessment and photo documentation.? Patient denies pain and tenderness to her heels. Bilateral heels assessed and re noted to be intact and no pigmentation changes noted. No s/s of pressure injury noted or concerns. Of importance bilateral heels were elevated off of the bed surface with use of pillows. Recommend continued off loading intervention. Recommendations: 1. Turn and Reposition every 2 hours and as needed for patient comfort.? Use pillows or wedges to support off loading positions. 2. Off Load all bony prominences with use of pillows and heel boots if needed.? Apply Preventative foams where needed. ? 3. Monitor for incontinence and moisture control, use barrier creams when needed for prevention and treatment. 4. Provide adequate and supplemental nutrition.? 5. Order low air loss mattress. 6. When applicable maintain blood glucose levels per Providers order. Re-consult wound care Nurse for wound deterioration or wound changes.
--- NOTE | 2024-03-25 19:26 | P.PNGI_ITS ---
Subjective Subjective Date of Service: 03/25/24 Interval History: Eating generally well some globus with certain foods, not others Critical Care Time (minutes): 0 Physical Exam 2 Vital Signs: Vital Signs: Last Vital Signs Temp 99.2 F 03/25/24 15:13 Pulse 88 03/25/24 16:04 Resp 16 03/25/24 16:04 BP 98/45 L 03/25/24 15:13 Pulse Ox 95 03/25/24 15:13 O2 Del Method Nasal Cannula 03/25/24 15:13 O2 Flow Rate 2 03/25/24 15:13 BMI result Body Mass Index 15.7 GI: Other: abdomen is soft and nontender Objective Data Labs 03/25/24 06:47 03/25/24 06:47 Labs: Laboratory Results - last 24 hr 03/25/24 03/25/24 03/25/24 06:47 09:37 09:53 Hgb 8.5 L Hct 30.3 L Sodium 138 Potassium 4.3 Chloride 95 L Carbon Dioxide 39 H Anion Gap 8 L BUN 18 H Creatinine 0.54 Estim Creat Clear Calc 60.5 Estimated GFR > 60 Random Glucose 77 Calcium 8.5 Iron 16 L TIBC 348 % Saturation 5 L Unsat Iron Binding 332 Ferritin 31 Total Bilirubin 0.5 Direct Bilirubin 0.3 AST 152 H ALT 430 H Alkaline Phosphatase 64 Lactate Dehydrogenase 224 H Total Protein 5.5 L Albumin 3.0 L Pleural WBC Pleural RBC Pleural Neutrophils Pleural Lymphocytes Pleural Monocytes Pleural Other Cells Stool Occult Blood NEGATIVE Blood Type A Negative Antibody Screen NEGATIVE 03/25/24 11:30 Hgb Hct Sodium Potassium Chloride Carbon Dioxide Anion Gap BUN Creatinine Estim Creat Clear Calc Estimated GFR Random Glucose Calcium Iron TIBC % Saturation Unsat Iron Binding Ferritin Total Bilirubin Direct Bilirubin AST ALT Alkaline Phosphatase Lactate Dehydrogenase Total Protein Albumin Pleural WBC 0.116 Pleural RBC < 0.002 Pleural Neutrophils 26 Pleural Lymphocytes 23 Pleural Monocytes 13 Pleural Other Cells 38 Stool Occult Blood Blood Type Antibody Screen Microbiology Microbiology Results: Microbiology 03/25/24 11:30 Thoracentesis Fluid Gram Stain - Final 03/21/24 16:01 Blood - Venous Blood Culture - Preliminary No growth after 48 hours. 03/21/24 15:57 Blood - Venous Blood Culture - Preliminary No growth after 48 hours. 03/21/24 Unknown Urine clean catch - Clean Catch Midstream Urine Culture - Final No growth. Procedures Date of Service Date of Service: 03/25/24 Progress Note: A&P Assessment and plan (1) Elevated liver enzymes: Status: Acute Assessment and Plan: her modified barium swallow and speech pathology results are reviewed and discussed with Earlene in detail. She seems to be getting adequate calories by her report. Endoscopy is unlikely to improve this, and is high risk given her underlying comorbid conditions. Hct slightly lower, some hematochezia today from constipation, but no significant gi bleeding. LFT's are improving, and seem consistent with r side heart failure and hepatic congestion. Time Spent With Patient Time: Total time managing care of this patient today ____ minutes. Quality Stroke Does the patient have a stroke diagnosis?: No VTE Prior VTE?: No VTE Risk Level:: Medical - moderate - high VTE Device Contraindication: Treatment Not Indicated VTE Drug Contraindication: N/A - Med Ordered
[2024-03-25] MEDS: rOPINIRole HCL 2 MG TABLET 6 MG PO (21:10)
[2024-03-25] MEDS: Docusate Sodium 100 MG CAPSULE PO (21:11)
[2024-03-26] VITALS (10 sets, daily range): BP systolic 94–124; BP diastolic 38–65; PULSE 86–96; RESP 16–19; TEMP 36–36.8; O2SAT 93–100
[2024-03-26] MEDS: Heparin Sodium,Porcine 5,000 UNIT/ML VIAL 5000 UNIT SUBCUT ×3 (00:37→20:12)
[2024-03-26] MEDS: Acetaminophen 325 MG TABLET 650 MG PO ×3 (02:54→19:44)
[2024-03-26] MEDS: Omeprazole 40 MG CAPSULE.DR PO (05:14)
[2024-03-26] MEDS: Bumetanide 1 MG TABLET PO (08:45)
[2024-03-26] MEDS: 0.9 % Sodium Chloride Flush 3 ML SYRINGE IVFLUSH ×2 (08:45→20:13)
[2024-03-26] MEDS: Ferrous Sulfate 324 MG TABLET.DR PO (08:45)
[2024-03-26] MEDS: oxyCODONE HCl Immed Release 5 MG TABLET PO ×3 (08:45→20:12)
[2024-03-26] MEDS: polyethylene glycoL 3350 17 GM POWD.PACK PO (08:45)
[2024-03-26] MEDS: carisoprodoL 350 MG TABLET PO ×2 (08:48→20:12)
[2024-03-26 09:52] LABS: Hematocrit 30.7 % (37.0-47.0); Mean Corpuscular HGB Conc 29.3 g/dl (31.0-35.0); Mean Corpuscular Hemoglobin 21.6 pg (27.0-33.0); Mean Corpuscular Volume 73.8 fL (80.0-98.0); Mean Platelet Volume 8.6 fL (9.4-12.3); Platelet Count 177 X10*3/uL (160-400); Red Blood Count 4.16 X10*6/uL (4.20-5.50); Red Cell Distribution Width 18.2 % (11.0-16.0); White Blood Count 5.5 X10*3/uL (4.8-10.8)
[2024-03-26 10:16] LABS: Alanine Aminotransferase 319 U/L (0-31); Albumin Level 2.8 g/dL (3.5-5.0); Alkaline Phosphatase 63 U/L (39-117); Anion Gap 10 (12-20); Aspartate Amino Transferase 90 U/L (5-31); Bilirubin Direct 0.3 mg/dL (0.0-0.5); Bilirubin Total 0.7 mg/dL (0.0-1.0); Blood Urea Nitrogen 9 mg/dL (9-16); Calcium 8.2 mg/dL (8.4-10.2); Carbon Dioxide 37 mmol/L (22-29); Chloride 95 mmol/L (96-108); Creatinine Clr Calc Pharmacy 72.6; Estimated Glomerular Filt Rate > 60; Glucose Random 115 mg/dL (60-115); Potassium 3.7 mmol/L (3.3-5.1); Sodium 138 mmol/L (135-145); Total Protein 5.2 g/dL (6.5-8.0)
[2024-03-26] MEDS: Ipratropium Bromide 1 PUFF/17 MCG INHALER 2 PUFF INHALE ×3 (10:50→20:28)
--- NOTE | 2024-03-26 11:27 | P.PNGI_ITS ---
Subjective Subjective Date of Service: 03/26/24 Interval History: some pain at catheter site eating well no bleeding Critical Care Time (minutes): 0 Physical Exam 2 Vital Signs: Vital Signs: Last Vital Signs Temp 98.2 F 03/26/24 07:47 Pulse 91 03/26/24 10:54 Resp 18 03/26/24 10:54 BP 106/65 03/26/24 08:45 Pulse Ox 98 03/26/24 07:47 O2 Del Method Nasal Cannula 03/26/24 07:47 O2 Flow Rate 2 03/26/24 07:47 BMI result Body Mass Index 15.7 GI: Other: abd is soft and nontender Objective Data Labs 03/26/24 09:37 03/26/24 09:37 Labs: Laboratory Results - last 24 hr 03/25/24 03/26/24 11:30 09:37 WBC 5.5 RBC 4.16 L Hgb 9.0 L Hct 30.7 L MCV 73.8 L MCH 21.6 L MCHC 29.3 L RDW 18.2 H Plt Count 177 MPV 8.6 L Absolute Nucleated RBC 0.000 Nucleated RBC % (auto) 0.0 Sodium 138 Potassium 3.7 Chloride 95 L Carbon Dioxide 37 H Anion Gap 10 L BUN 9 Creatinine 0.45 L Estim Creat Clear Calc 72.6 Estimated GFR > 60 Random Glucose 115 Calcium 8.2 L Total Bilirubin 0.7 Direct Bilirubin 0.3 AST 90 H ALT 319 H Alkaline Phosphatase 63 Total Protein 5.2 L Albumin 2.8 L Pleural WBC 0.116 Pleural RBC < 0.002 Pleural Neutrophils 26 Pleural Lymphocytes 23 Pleural Monocytes 13 Pleural Other Cells 38 Microbiology Microbiology Results: Microbiology 03/25/24 11:30 Thoracentesis Fluid Gram Stain - Final 03/25/24 11:30 Thoracentesis Fluid Anaerobic Culture - Preliminary No growth to date. 03/25/24 11:30 Thoracentesis Fluid Body Fluid Culture - Preliminary No growth to date. 03/21/24 16:01 Blood - Venous Blood Culture - Preliminary No growth after 48 hours. 03/21/24 15:57 Blood - Venous Blood Culture - Preliminary No growth after 48 hours. 03/21/24 Unknown Urine clean catch - Clean Catch Midstream Urine Culture - Final No growth. Procedures Date of Service Date of Service: 03/26/24 Progress Note: A&P Assessment and plan (1) Acute and chronic respiratory failure, unspecified whether with hypoxia or hypercapnia: Status: Acute Assessment and Plan: gi issues appear stable no bleeding continue present rx Time Spent With Patient Time: Total time managing care of this patient today ____ minutes. Quality Stroke Does the patient have a stroke diagnosis?: No VTE Prior VTE?: No VTE Risk Level:: Medical - moderate - high VTE Device Contraindication: Treatment Not Indicated VTE Drug Contraindication: N/A - Med Ordered
[2024-03-26 13:03] LABS: Magnesium 1.5 mg/dL (1.6-2.6)
--- NOTE | 2024-03-26 13:55 | HO.PM.IMPN ---
Subjective Subjective Date of Service: 03/26/24 Interval History: Seen and examined this morning Follow-up for shortness of breath, pleural effusions Right chest tube in place with good amount of straw-colored output breathing easier Review of Systems Review of Systems: Yes all other systems are reviewed and are negative Constitutional Constitutional: Denies chills and Denies fever(s) Cardiovascular Cardiovascular: Denies chest pain and Denies palpitations Respiratory Respiratory: Denies cough Gastrointestinal Gastrointestinal: Denies abdominal pain, Denies nausea and Denies vomiting Endocrine Endocrine: Denies palpitations Physical Exam Vital Signs: Vital Signs: Last Vital Signs Temp 98.2 F 03/26/24 12:00 Pulse 91 03/26/24 12:00 Resp 19 03/26/24 12:00 BP 97/47 L 03/26/24 12:00 Pulse Ox 99 03/26/24 12:00 O2 Del Method Nasal Cannula 03/26/24 12:00 O2 Flow Rate 2 03/26/24 12:00 BMI result Body Mass Index 15.7 Const: Other: thin, frail; chronically ill-appearing General: alert and awake Orientation/consciousness: patient oriented x3 Chest: Other: right chest tube; large volume straw colored output Resp: Effort & Inspection: normal respiratory effort, able to speak in complete sentences, no respiratory distress and no use of accessory muscles Cardio: Rate: regular rate GI: Inspection: No distended Palpation (GI): Soft to palpation and nontender Neuro: General: patient oriented x3, moves all extremities and CN's II-XI intact bilaterally Extrem: General: Yes no pedal edema Objective Data Active Medications Acetaminophen (Acetaminophen 325 Mg Tablet) 650 mg PO Q6H PRN PRN Reason: Pain, Mild 1-3,fever,headache Last Admin: 03/26/24 12:46 Dose: 650 mg Documented By: VLADISLAV Bisacodyl (Bisacodyl 5 Mg Tablet.Dr) 10 mg PO BEDTIME PRN PRN Reason: Constipation Last Admin: 03/24/24 21:12 Dose: 10 mg Documented By: GENIE Bumetanide (Bumetanide 1 Mg Tablet) 1 mg PO DAILY BRIGID; Protocol Last Admin: 03/26/24 08:45 Dose: 1 mg Documented By: VLADISLAV Calcium Carbonate (Calcium Carbonate 750 Mg Tab.Chew) 750 mg PO Q4H PRN PRN Reason: Heartburn Carisoprodol (Carisoprodol 350 Mg Tablet) 350 mg PO BID PRN PRN Reason: muscle pain Last Admin: 03/26/24 08:48 Dose: 350 mg Documented By: VLADISLAV Docusate Sodium (Docusate Sodium 100 Mg Capsule) 100 mg PO BEDTIME [facility] Last Admin: 03/25/24 21:11 Dose: 100 mg Documented By: GENIE Ferrous Sulfate (Ferrous Sulfate 324 Mg Tablet.) 324 mg PO DAILY [facility] Last Admin: 03/26/24 08:45 Dose: 324 mg Documented By: VLADISLAV Fluticasone Propionate (Fluticasone Propionate 250 Mcg Blst.W.Dev) 2 puff INHALE RBID [facility] Last Admin: 03/26/24 08:05 Dose: Not Given Documented By: ANKUSH Non-Admin Reason: Patient Refused Glucose (Glucose Gel 15 Gm Gel..Gram.) 15 gm PO Q15M PRN; Protocol PRN Reason: per Hypoglycemia Standing Ord. Heparin Sodium (Porcine) (Heparin Sodium,Porcine 5,000 Unit/Ml Vial) 5,000 unit SUBCUT Q12H [facility] Last Admin: 03/26/24 12:50 Dose: 5,000 unit Documented By: VLADISLAV Dextrose (D10) 250 mls @ 750 mls/hr IV Q15M PRN; Protocol PRN Reason: per Hypoglycemia Standing Ord. Magnesium Sulfate (Magnesium Sulfate/H2o) 2 gm in 50 mls @ 25 mls/hr IV ONCE ONE Stop: 03/26/24 15:53 Ipratropium Kathleen (Ipratropium Kathleen 1 Puff/17 Mcg Inhaler) 2 puff INHALE RQID [facility] Last Admin: 03/26/24 10:50 Dose: 2 puff Documented By: ANKUSH Melatonin (Melatonin 3 Mg Tablet) 6 mg PO BEDTIME PRN PRN Reason: Insomnia Omeprazole (Omeprazole 40 Mg Capsule.) 40 mg PO DAILY@0630 [facility] Last Admin: 03/26/24 05:14 Dose: 40 mg Documented By: GENIE Ondansetron HCl (Ondansetron Hcl 4 Mg/2 Ml Vial) 4 mg IVPUSH Q8H PRN PRN Reason: Nausea and Vomiting Last Admin: 03/22/24 22:45 Dose: 4 mg Documented By: TAPAN Oxycodone HCl (Oxycodone Hcl Immed Release 5 Mg Tablet) 5 mg PO TID [facility] Last Admin: 03/26/24 08:45 Dose: 5 mg Documented By: VLADISLAV Polyethylene Glycol (Polyethylene Glycol 3350 17 Gm Powd.Pack) 17 gm PO DAILY [facility] Last Admin: 03/26/24 08:45 Dose: 17 gm Documented By: VLADISLAV Ropinirole HCl (Ropinirole Hcl 2 Mg Tablet) 6 mg PO BEDTIME [facility] Last Admin: 03/25/24 21:10 Dose: 6 mg Documented By: CHEN-LAINA Sodium Chloride (0.9 % Sodium Chloride Flush 3 Ml Syringe) 3 ml IVFLUSH QSHIFT [facility] Last Admin: 03/26/24 08:45 Dose: 3 ml Documented By: VLADISLAV Labs 03/26/24 09:37 03/26/24 09:37 Labs: Laboratory Results - last 24 hr 03/26/24 09:37 MCV 73.8 L MCH 21.6 L MCHC 29.3 L RDW 18.2 H Plt Count 177 MPV 8.6 L Absolute Nucleated RBC 0.000 Nucleated RBC % (auto) 0.0 Anion Gap 10 L Estim Creat Clear Calc 72.6 Estimated GFR > 60 Random Glucose 115 Calcium 8.2 L Magnesium 1.5 L Total Bilirubin 0.7 Direct Bilirubin 0.3 AST 90 H ALT 319 H Alkaline Phosphatase 63 Total Protein 5.2 L Albumin 2.8 L Microbiology Microbiology Results: Microbiology 03/25/24 11:30 Gram Stain - Final Thoracentesis Fluid Anaerobic Culture - Preliminary No growth to date. Body Fluid Culture - Preliminary No growth to date. Assessment and Plan (1) Acute exacerbation of CHF (congestive heart failure): Status: Acute (2) Pleural effusion: Status: Acute Plan 68-year-old female with a past medical history significant for chronic back pain, HLD, COPD unspecified and ?MAC, to the ED with complaints of left lower quadrant pain, dry heaves, decreased appetite, and shortness of breath with exertion, and bloating with eating for the past 4 days. Acute hypoxic respiratory failure secondary to acute exacerbation of CHF with bilateral pleural effusions seen by cardiology. s/p lasix 20 mg BID IV - recommended to consult pulm for possible respiratory condition contributing echocardiogram> grade 1 diastolic dysfunction, decreased right ventricular function treated with IV lasix, BNP trending down transitioned to po bumex per cardiology rec. bp soft, will reduce dose seen by pulm - rec thoracentesis - pt initially declined, now agreeable. Given loculated effusions, pulmonary recommends small chest tube, discussed with IR currently requiring oxygen - pt declines to go home with oxygen. will follow Incentive spirometry b/l pleural effusions initially refused thoracentesis/chest tube but now agreeable hest tube placed by IR 03/25 - LDH/protein pending; culture, no growth to date follow fluid studies follow up cxr with small pneumothorax pulmonology following elevated LFTs trending down Abdominal ultrasound with cholelithiasis without evidence of acute cholecystitis bilirubin normal, no abdominal pain Continue to trend acute lactic acidosis due to to hypoperfusion, not sepsis Dysphagia seen by speech > rec GI consultation seen by GI, rec modified barium swallow modified barium swallow - no evidence of aspiration moderate cricophargygeal achalasia and cervical hardware that could be contributing to symptoms tolerating NDD3 diet d/w GI, no need for EGD PACO resolved Hyperkalemia secondary to PACO, monitor BMP s/p lokelma resolved Left lower quadrant/left flank pain CT of AP with right pelvic mass, 6 cm, cholelithiasis without gallbladder distention, anasarca with ascites and body wall edema pelvic mass known to patient, reports this has been followed for many years and she was told this was benign. no previous imaging in system to compare follow-up outpatient regarding pelvic mass chronic normocytic anemia fecal occult blood test pending. normal B12 and folate no acute blood loss noted; iron levels low probable chronic loss has never had colonoscopy will start po iron seen by GI, no further work up planned at this time Hyperglycemia A1c 6.0 no need to check BS COPD unspecified continue home meds per outpatient notes - pt has refused referral to pulm moderate protein calorie malnutrition BMI 15.7 low albumin Continue dietary supplements Full code VTE prophylaxis: Heparin dispo: PT rec STR Requires ongoing inpatient stay for management of dyspnea, loculated pleural effusion requiring thoracentesis/chest tube Quality Stroke Does the patient have a stroke diagnosis?: No VTE Prior VTE?: No VTE Risk Level:: Medical - moderate - high VTE Device Contraindication: Treatment Not Indicated VTE Drug Contraindication: N/A - Med Ordered
[2024-03-26] MEDS: Magnesium Sulfate/H2O 2 GM/50 ML PIGGYBACK IV (14:52)
[2024-03-26] MEDS: Albumin Human 25 % 100 ML IV ×2 (14:52→16:27)
--- NOTE | 2024-03-26 15:17 | P.PNPL_ITS ---
Subjective Subjective Date of Service: 03/26/24 Principal diagnosis: Right heart failure Interval history: Seen and examined. Feels alot better. CT with significant drainage. Appears serious and lung expanded well. LIkely cardiogenic syndrome. 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 Although, not alot of ascites. Awaiting cytology. Has a small pTX. We will keep her on suction for now. CXR in the morning and consider water seal tomorrow. Objective Data Labs 03/26/24 09:37 03/26/24 09:37 Labs: Laboratory Results - last 24 hr 03/26/24 09:37 WBC 5.5 RBC 4.16 L Hgb 9.0 L Hct 30.7 L MCV 73.8 L MCH 21.6 L MCHC 29.3 L RDW 18.2 H Plt Count 177 MPV 8.6 L Absolute Nucleated RBC 0.000 Nucleated RBC % (auto) 0.0 Sodium 138 Potassium 3.7 Chloride 95 L Carbon Dioxide 37 H Anion Gap 10 L BUN 9 Creatinine 0.45 L Estim Creat Clear Calc 72.6 Estimated GFR > 60 Random Glucose 115 Calcium 8.2 L Magnesium 1.5 L Total Bilirubin 0.7 Direct Bilirubin 0.3 AST 90 H ALT 319 H Alkaline Phosphatase 63 Total Protein 5.2 L Albumin 2.8 L Microbiology Microbiology Results: Microbiology 03/25/24 11:30 Thoracentesis Fluid Gram Stain - Final 03/25/24 11:30 Thoracentesis Fluid Anaerobic Culture - Preliminary No growth to date. 03/25/24 11:30 Thoracentesis Fluid Body Fluid Culture - Preliminary No growth to date. 03/21/24 16:01 Blood - Venous Blood Culture - Preliminary No growth after 48 hours. 03/21/24 15:57 Blood - Venous Blood Culture - Preliminary No growth after 48 hours. 03/21/24 Unknown Urine clean catch - Clean Catch Midstream Urine Culture - Final No growth. Review of Systems Constitutional: Reports no additional constitutional complaints Cardiovascular: Reports Abdominal Distension, Denies chest pain, Denies rapid heart rate, Denies lightheadedness, Denies Loss of Consciousness, Reports dyspnea and Reports dyspnea on exertion Respiratory: Reports dyspnea, Reports dyspnea on exertion and Reports wheezing Allergic/Immunologic: Reports wheezing Physical Exam 2 Vital Signs: Vital Signs: Last Vital Signs Temp 97.1 F 03/26/24 15:14 Pulse 86 03/26/24 15:14 Resp 19 03/26/24 15:14 BP 94/38 L 03/26/24 15:14 Pulse Ox 100 03/26/24 15:14 O2 Del Method Nasal Cannula 03/26/24 15:14 O2 Flow Rate 2 03/26/24 15:14 BMI result Body Mass Index 15.7 Const: General: cooperative, alert, awake and ill appearing Nutritional Appearance: cachectic and malnourished Orientation/consciousness: patient oriented x3 HEENT: Head: Yes normocephalic and Yes atraumatic Neck: Neck: Yes trachea midline, Yes supple and Yes JVD Resp: Effort & Inspection: decreased respiratory effort Auscultation: no rhonchi and diminished lung sounds Cardio: Jugular venous distension: JVD Palpation: heave (RV heave) Rate: regular rate Rhythm: regular rhythm Heart sounds: S1 normal heart sound present, S2 normal heart sound present, no click, no gallops and no murmurs GI: Inspection: Yes distended Auscultation: normal bowel sounds Skin: General skin exam: no rashes or lesions noted Neuro: General: patient oriented x3 and no focal motor deficits Extrem: General: Yes edema (Of the upper arms) Procedures Date of Service Date of Service: 03/26/24 Assessment and Plan Assessment and plan (1) Acute and chronic respiratory failure, unspecified whether with hypoxia or hypercapnia: Status: Acute (2) Acute exacerbation of CHF (congestive heart failure): Status: Acute (3) Pleural effusion: Status: Acute (4) Pneumothorax: Problem details: ?ex vacuo Status: Acute Plan CXR in the am Likely chest tube to water seal tomorrow as long as PTX is not any worse awating lab results. No need for abx at this time Time Spent With Patient Time: Total time managing care of this patient today ____ minutes. Progress Note: Quality Stroke Does the patient have a stroke diagnosis?: No
[2024-03-26] MEDS: Docusate Sodium 100 MG CAPSULE PO (20:12)
[2024-03-26] MEDS: rOPINIRole HCL 2 MG TABLET 6 MG PO (20:13)
[2024-03-27 03:52] VITALS: BP 107/55; PULSE 96; RESP 16; TEMP 36.4; O2SAT 100
[2024-03-27] MEDS: Acetaminophen 325 MG TABLET 650 MG PO (03:59)
[2024-03-27] MEDS: Omeprazole 40 MG CAPSULE.DR PO (04:00)
[2024-03-27 08:00] VITALS: BP 109/54; PULSE 80; RESP 20; TEMP 36.3; O2SAT 98
[2024-03-27] MEDS: Ferrous Sulfate 324 MG TABLET.DR PO (08:18)
[2024-03-27] MEDS: Bumetanide 1 MG TABLET 0.5 MG PO (08:19)
[2024-03-27] MEDS: 0.9 % Sodium Chloride Flush 3 ML SYRINGE IVFLUSH ×2 (08:19→17:59)
[2024-03-27] MEDS: oxyCODONE HCl Immed Release 5 MG TABLET PO ×3 (08:19→20:37)
[2024-03-27] MEDS: carisoprodoL 350 MG TABLET PO ×2 (08:23→20:36)
[2024-03-27] MEDS: bisacodyL 5 MG TABLET.DR 10 MG PO (08:23)
[2024-03-27] MEDS: Ipratropium Bromide 1 PUFF/17 MCG INHALER 2 PUFF INHALE ×2 (08:45→20:09)
[2024-03-27 08:50] VITALS: PULSE 80; RESP 20; O2SAT 98
[2024-03-27 09:35] LABS: Anion Gap 9 (12-20); Blood Urea Nitrogen 14 mg/dL (9-16); Calcium 9.1 mg/dL (8.4-10.2); Chloride 89 mmol/L (96-108); Creatinine Clr Calc Pharmacy 59.4; Estimated Glomerular Filt Rate > 60; Glucose Random 73 mg/dL (60-115); Potassium 4.9 mmol/L (3.3-5.1); Sodium 137 mmol/L (135-145)
[2024-03-27 09:38] LABS: Carbon Dioxide 44 mmol/L (22-29)
[2024-03-27] MEDS: acetaZOLAMIDE sodium 500 MG VIAL 250 MG IVPUSH ×2 (10:48→20:38)
[2024-03-27] MEDS: Heparin Sodium,Porcine 5,000 UNIT/ML VIAL 5000 UNIT SUBCUT ×2 (10:49→20:36)
[2024-03-27 10:57] VITALS: BP 91/53; PULSE 90; RESP 20; TEMP 36.3; O2SAT 96
--- NOTE | 2024-03-27 12:56 | HO.PM.IMPN ---
Subjective Subjective Date of Service: 03/27/24 Interval History: seen and examined this morning follow up for chf, pleural effusions decreasing output from chest tube pain better, sob better Review of Systems Review of Systems: Yes all other systems are reviewed and are negative Constitutional Constitutional: Denies chills and Denies fever(s) Cardiovascular Cardiovascular: Denies chest pain Physical Exam Vital Signs: Vital Signs: Last Vital Signs Temp 97.4 F 03/27/24 10:57 Pulse 90 03/27/24 10:57 Resp 20 03/27/24 10:57 BP 91/53 L 03/27/24 10:57 Pulse Ox 96 03/27/24 10:57 O2 Del Method Nasal Cannula 03/27/24 10:57 O2 Flow Rate 2 03/27/24 10:57 BMI result Body Mass Index 15.7 Const: Other: thin, frail; chronically ill-appearing General: alert and awake Orientation/consciousness: patient oriented x3 Chest: Other: right chest tube; straw colored output Resp: Effort & Inspection: normal respiratory effort, able to speak in complete sentences, no respiratory distress and no use of accessory muscles Cardio: Rate: regular rate GI: Inspection: No distended Palpation (GI): Soft to palpation and nontender Neuro: General: patient oriented x3, moves all extremities and CN's II-XI intact bilaterally Extrem: General: Yes no pedal edema Objective Data Active Medications Acetaminophen (Acetaminophen 325 Mg Tablet) 650 mg PO Q6H PRN PRN Reason: Pain, Mild 1-3,fever,headache Last Admin: 03/27/24 03:59 Dose: 650 mg Documented By: ANDERSON Acetazolamide (Acetazolamide Sodium 500 Mg Vial) 250 mg IVPUSH BID [facility] Last Admin: 03/27/24 10:48 Dose: 250 mg Documented By: VLADISLAV Bisacodyl (Bisacodyl 5 Mg Tablet.Dr) 10 mg PO BEDTIME PRN PRN Reason: Constipation Last Admin: 03/27/24 08:23 Dose: 10 mg Documented By: VLADISLAV Bumetanide (Bumetanide 1 Mg Tablet) 0.5 mg PO DAILY [facility]; Protocol Last Admin: 03/27/24 08:19 Dose: 0.5 mg Documented By: VLADISLAV Calcium Carbonate (Calcium Carbonate 750 Mg Tab.Chew) 750 mg PO Q4H PRN PRN Reason: Heartburn Carisoprodol (Carisoprodol 350 Mg Tablet) 350 mg PO BID PRN PRN Reason: muscle pain Last Admin: 03/27/24 08:23 Dose: 350 mg Documented By: VLADISLAV Docusate Sodium (Docusate Sodium 100 Mg Capsule) 100 mg PO BEDTIME [facility] Last Admin: 03/26/24 20:12 Dose: 100 mg Documented By: ANDERSON Ferrous Sulfate (Ferrous Sulfate 324 Mg Tablet.) 324 mg PO DAILY [facility] Last Admin: 03/27/24 08:18 Dose: 324 mg Documented By: VLADISLAV Fluticasone Propionate (Fluticasone Propionate 250 Mcg Blst.W.Dev) 2 puff INHALE RBID [facility] Last Admin: 03/27/24 08:45 Dose: Not Given Documented By: LILI Non-Admin Reason: Patient Refused Glucose (Glucose Gel 15 Gm Gel..Gram.) 15 gm PO Q15M PRN; Protocol PRN Reason: per Hypoglycemia Standing Ord. Heparin Sodium (Porcine) (Heparin Sodium,Porcine 5,000 Unit/Ml Vial) 5,000 unit SUBCUT Q12H [facility] Last Admin: 03/27/24 10:49 Dose: 5,000 unit Documented By: VLADISLAV Dextrose (D10) 250 mls @ 750 mls/hr IV Q15M PRN; Protocol PRN Reason: per Hypoglycemia Standing Ord. Ipratropium [place] (Ipratropium [place] 1 Puff/17 Mcg Inhaler) 2 puff INHALE RQID [facility] Last Admin: 03/27/24 08:45 Dose: 2 puff Documented By: LILI Melatonin (Melatonin 3 Mg Tablet) 6 mg PO BEDTIME PRN PRN Reason: Insomnia Omeprazole (Omeprazole 40 Mg Capsule.) 40 mg PO DAILY@0630 [facility] Last Admin: 03/27/24 04:00 Dose: 40 mg Documented By: ANDERSON Ondansetron HCl (Ondansetron Hcl 4 Mg/2 Ml Vial) 4 mg IVPUSH Q8H PRN PRN Reason: Nausea and Vomiting Last Admin: 03/22/24 22:45 Dose: 4 mg Documented By: TAPAN Oxycodone HCl (Oxycodone Hcl Immed Release 5 Mg Tablet) 5 mg PO TID [facility] Last Admin: 03/27/24 08:19 Dose: 5 mg Documented By: VLADISLAV Polyethylene Glycol (Polyethylene Glycol 3350 17 Gm Powd.Pack) 17 gm PO DAILY [facility] Last Admin: 03/27/24 08:19 Dose: Not Given Documented By: VLADISLAV Non-Admin Reason: Patient Refused Ropinirole HCl (Ropinirole Hcl 2 Mg Tablet) 6 mg PO BEDTIME [facility] Last Admin: 03/26/24 20:13 Dose: 6 mg Documented By: ANDERSON Sodium Chloride (0.9 % Sodium Chloride Flush 3 Ml Syringe) 3 ml IVFLUSH QSHIFT [facility] Last Admin: 03/27/24 08:19 Dose: 3 ml Documented By: VLADISLAV Labs 03/26/24 09:37 03/27/24 08:36 Labs: Laboratory Results - last 24 hr 03/26/24 03/27/24 09:37 08:36 Anion Gap 9 L Estim Creat Clear Calc 59.4 Estimated GFR > 60 Random Glucose 73 Calcium 9.1 D Magnesium 1.5 L Microbiology Microbiology Results: Microbiology 03/25/24 11:30 Gram Stain - Final Thoracentesis Fluid Anaerobic Culture - Preliminary No growth to date. Body Fluid Culture - Final No growth after 2 days 03/21/24 16:01 Blood Culture - Final Blood - Venous No growth after 5 days. 03/21/24 15:57 Blood Culture - Final Blood - Venous No growth after 5 days. Assessment and Plan (1) Pneumothorax: Status: Acute (2) Acute exacerbation of CHF (congestive heart failure): Status: Acute (3) Pleural effusion: Status: Acute Plan 68-year-old female with a past medical history significant for chronic back pain, HLD, COPD unspecified and ?MAC, to the ED with complaints of left lower quadrant pain, dry heaves, decreased appetite, and shortness of breath with exertion, and bloating with eating for the past 4 days. Acute hypoxic respiratory failure secondary to acute exacerbation of CHF with bilateral pleural effusions seen by cardiology. s/p lasix 20 mg BID IV - recommended to consult pulm for possible respiratory condition contributing echocardiogram> grade 1 diastolic dysfunction, decreased right ventricular function treated with IV lasix, BNP trending down transitioned to po bumex per cardiology rec. bp soft due to medications (not sepsis), dose reduced to 0.5mg; now with increase bicarb hold bumex, start diamox and follow seen by pulm - rec thoracentesis - pt initially declined, now agreeable. Given loculated effusions, pulmonary recommends small chest tube, discussed with IR currently requiring oxygen - pt declines to go home with oxygen. will follow, attempt to wean Incentive spirometry b/l pleural effusions initially refused thoracentesis/chest tube but now agreeable chest tube placed by IR 03/25 - LDH/protein pending; culture, no growth to date follow fluid studies - cytology ordered but not sent follow up with lab thursday follow up cxr with small pneumothorax, repeat 03/27 improved;placed to water seal pulmonology following, decreasing output, plan for IR to remove Thursday elevated LFTs trending down Abdominal ultrasound with cholelithiasis without evidence of acute cholecystitis bilirubin normal, no abdominal pain ?due to chf acute lactic acidosis due to to hypoperfusion, not sepsis Dysphagia seen by speech > rec GI consultation seen by GI, rec modified barium swallow modified barium swallow - no evidence of aspiration moderate cricophargygeal achalasia and cervical hardware that could be contributing to symptoms tolerating NDD3 diet d/w GI, no need for EGD PACO resolved Hyperkalemia secondary to PACO, monitor BMP s/p lokelma resolved Left lower quadrant/left flank pain CT of [place] with right pelvic mass, 6 cm, cholelithiasis without gallbladder distention, anasarca with ascites and body wall edema pelvic mass known to patient, reports this has been followed for many years and she was told this was benign. no previous imaging in system to compare follow-up outpatient regarding pelvic mass chronic normocytic anemia fecal occult blood test pending. normal B12 and folate no acute blood loss noted; iron levels low probable chronic loss has never had colonoscopy started on po iron seen by GI, no further work up planned at this time Hyperglycemia A1c 6.0 no need to check BS COPD unspecified continue home meds per outpatient notes - pt has refused referral to pulm moderate protein calorie malnutrition BMI 15.7 low albumin Continue dietary supplements Full code VTE prophylaxis: Heparin dispo: PT rec STR Requires ongoing inpatient stay for management of dyspnea, loculated pleural effusion requiring thoracentesis/chest tube Quality Stroke Does the patient have a stroke diagnosis?: No VTE Prior VTE?: No VTE Risk Level:: Medical - moderate - high VTE Device Contraindication: Treatment Not Indicated VTE Drug Contraindication: N/A - Med Ordered
[2024-03-27] MEDS: Milk of Magnesia 30 ML ORAL.SUSP 15 ML PO (14:32)
[2024-03-27 15:22] VITALS: BP 101/50; PULSE 91; RESP 20; TEMP 37; O2SAT 94
[2024-03-27] MEDS: Albumin Human 25 % 100 ML IV ×2 (17:59→19:26)
--- NOTE | 2024-03-27 18:20 | PC.NURSE ---
Chest tube collection chamber replaced at 1800. Total output = 2000 cc. New collection chamber in place
--- NOTE | 2024-03-27 19:18 | P.PNPL_ITS ---
Subjective Subjective Date of Service: 03/27/24 Principal diagnosis: Right heart failure Interval history: Seen and examined. CXR reviewed. Chest tube is decreasing drainage. On water seal without air leak. Chest tube can be removed at this time. Still awaiting pathology. Once the ct is removed the effusion needs to be monitored. Consider pleurodesis if it reoccurs. Objective Data Labs 03/26/24 09:37 03/27/24 08:36 Labs: Laboratory Results - last 24 hr 03/27/24 08:36 Sodium 137 Potassium 4.9 D Chloride 89 L Carbon Dioxide 44 H* Anion Gap 9 L BUN 14 Creatinine 0.55 Estim Creat Clear Calc 59.4 Estimated GFR > 60 Random Glucose 73 Calcium 9.1 D Microbiology Microbiology Results: Microbiology 03/25/24 11:30 Thoracentesis Fluid Gram Stain - Final 03/25/24 11:30 Thoracentesis Fluid Anaerobic Culture - Preliminary No growth to date. 03/25/24 11:30 Thoracentesis Fluid Body Fluid Culture - Final No growth after 2 days 03/21/24 16:01 Blood - Venous Blood Culture - Final No growth after 5 days. 03/21/24 15:57 Blood - Venous Blood Culture - Final No growth after 5 days. 03/21/24 Unknown Urine clean catch - Clean Catch Midstream Urine Culture - Final No growth. Review of Systems Constitutional: Reports no additional constitutional complaints Cardiovascular: Reports Abdominal Distension, Denies chest pain, Denies rapid heart rate, Denies lightheadedness, Denies Loss of Consciousness, Reports dyspnea and Reports dyspnea on exertion Respiratory: Reports dyspnea, Reports dyspnea on exertion and Reports wheezing Allergic/Immunologic: Reports wheezing Physical Exam 2 Vital Signs: Vital Signs: Last Vital Signs Temp 98.6 F 03/27/24 15:22 Pulse 91 03/27/24 15:22 Resp 20 03/27/24 15:22 BP 101/50 L 03/27/24 15:22 Pulse Ox 94 03/27/24 15:22 O2 Del Method Nasal Cannula 03/27/24 15:22 O2 Flow Rate 2 03/27/24 15:22 BMI result Body Mass Index 15.7 Const: General: cooperative, alert, awake and ill appearing Nutritional Appearance: cachectic and malnourished Orientation/consciousness: patient oriented x3 HEENT: Head: Yes normocephalic and Yes atraumatic Neck: Neck: Yes trachea midline, Yes supple and Yes JVD Resp: Effort & Inspection: decreased respiratory effort Auscultation: no rhonchi and diminished lung sounds Cardio: Jugular venous distension: JVD Palpation: heave (RV heave) Rate: regular rate Rhythm: regular rhythm Heart sounds: S1 normal heart sound present, S2 normal heart sound present, no click, no gallops and no murmurs GI: Inspection: Yes distended Auscultation: normal bowel sounds Skin: General skin exam: no rashes or lesions noted Neuro: General: patient oriented x3 and no focal motor deficits Extrem: General: Yes edema (Of the upper arms) Procedures Date of Service Date of Service: 03/27/24 Assessment and Plan Assessment and plan (1) Acute and chronic respiratory failure, unspecified whether with hypoxia or hypercapnia: Status: Acute (2) Acute exacerbation of CHF (congestive heart failure): Status: Acute (3) Pleural effusion: Status: Acute (4) Pneumothorax: Problem details: no air leak, better Status: Acute Plan Unfortunately, the pleural fluid labs are sent out, still waiting on LDH and protein to categorize the effusion. Still, hydrostatic pressures are likely playing a role with HFPEF. With the 6cm adnexal mass and ascites documented on the U/S we also need to consider Scotrun syndrome. d/c chest tube by radiology, monitor for recurrence awating lab results and cytology. diuresis as tolerated Time Spent With Patient Time: Total time managing care of this patient today ____ minutes. Progress Note: Quality Stroke Does the patient have a stroke diagnosis?: No
[2024-03-27 20:00] VITALS: BP 117/59; PULSE 93; RESP 18; TEMP 36.9; O2SAT 93
[2024-03-27] MEDS: rOPINIRole HCL 2 MG TABLET 6 MG PO (20:37)
[2024-03-27] MEDS: Docusate Sodium 100 MG CAPSULE PO (22:30)
[2024-03-28] VITALS (12 sets, daily range): BP systolic 85–134; BP diastolic 42–88; PULSE 83–93; RESP 14–22; TEMP 36.5–37; O2SAT 92–99
[2024-03-28] MEDS: Acetaminophen 325 MG TABLET 650 MG PO (02:56)
[2024-03-28 07:46] LABS: LDH Pleural Fluid 58
[2024-03-28 07:47] LABS: Total Protein Pleural Fluid 1.6
[2024-03-28] MEDS: Ferrous Sulfate 324 MG TABLET.DR PO (08:11)
[2024-03-28] MEDS: acetaZOLAMIDE sodium 500 MG VIAL 250 MG IVPUSH ×2 (08:11→19:43)
[2024-03-28 08:12] LABS: Anion Gap 10 (12-20); Blood Urea Nitrogen 13 mg/dL (9-16); Calcium 9.5 mg/dL (8.4-10.2); Carbon Dioxide 32 mmol/L (22-29); Chloride 98 mmol/L (96-108); Creatinine Clr Calc Pharmacy 53.6; Estimated Glomerular Filt Rate > 60; Glucose Random 66 mg/dL (60-115); Potassium 3.7 mmol/L (3.3-5.1); Sodium 136 mmol/L (135-145)
[2024-03-28] MEDS: Docusate Sodium 100 MG CAPSULE PO ×2 (08:12→19:43)
[2024-03-28] MEDS: Omeprazole 40 MG CAPSULE.DR PO (08:12)
[2024-03-28] MEDS: carisoprodoL 350 MG TABLET PO ×2 (08:12→19:47)
[2024-03-28] MEDS: oxyCODONE HCl Immed Release 5 MG TABLET PO ×3 (08:12→19:43)
[2024-03-28] MEDS: Sennosides 8.6 MG TABLET 8.8 MG PO (08:12)
[2024-03-28] MEDS: 0.9 % Sodium Chloride Flush 3 ML SYRINGE IVFLUSH ×3 (08:13→19:53)
--- NOTE | 2024-03-28 10:42 | MHC.CLN ---
F/U PT IS MODERATELY MALNOURISHED SEE FULL CLINICAL NUTRITION ASSESSMENT DATED 03/23/24 PO INTAKE IMPROVED 75-100% DIET RX: CARDIAC CHOPPED-APPROPRIATE PT RECEIVING ENSURE BID TO INCREASE KCALS AND PROMOTE FURTHER WT GAIN SUPP PROVIDES 700KCALS, 40G PROTEIN WEEKLY WEIGHTS MONITOR PO INTAKE AND ENCOURAGE SUPPLEMENTS
--- NOTE | 2024-03-28 11:22 | P.PNIM_ITS ---
Subjective Subjective Date of Service: 03/28/24 Interval History: Follow up visit for CHF, and pleural effusions Chest tube in place Pain and shortness of breath has improved, endorses discomfort R/T being in bed/postional Review of Systems Review of Systems: Yes all other systems are reviewed and are negative Constitutional Denies fever, chills Cardiovascular Denies CP, palpitations Gastrointestinal Denies N/V/D, or abd pain Physical Exam 2 Vital Signs: Vital Signs: Last Vital Signs Temp 97.7 F 03/28/24 08:00 Pulse 84 03/28/24 08:00 Resp 14 03/28/24 08:00 BP 133/88 03/28/24 08:00 Pulse Ox 94 03/28/24 08:00 O2 Del Method Humidified O2 03/28/24 08:00 O2 Flow Rate 1 03/28/24 08:00 BMI result Body Mass Index 15.7 Const: Orientation/consciousness: patient oriented x3 Resp: Effort & Inspection: normal respiratory effort and able to speak in complete sentences Cardio: Rate: regular rate Rhythm: regular rhythm GI: Auscultation: normal bowel sounds Neuro: General: patient oriented x3 Cranial nerves: Yes CN's II-XII intact bilaterally Objective Data Active Medications Acetaminophen (Acetaminophen 325 Mg Tablet) 650 mg PO Q6H PRN PRN Reason: Pain, Mild 1-3,fever,headache Last Admin: 03/28/24 02:56 Dose: 650 mg Documented By: VIJAY Acetazolamide (Acetazolamide Sodium 500 Mg Vial) 250 mg IVPUSH BID [facility] Last Admin: 03/28/24 08:11 Dose: 250 mg Documented By: MARIA G Bisacodyl (Bisacodyl 5 Mg Tablet.Dr) 10 mg PO BEDTIME PRN PRN Reason: Constipation Last Admin: 03/27/24 08:23 Dose: 10 mg Documented By: VLADISLAV Bumetanide (Bumetanide 1 Mg Tablet) 0.5 mg PO DAILY [facility]; Protocol Last Admin: 03/27/24 08:19 Dose: 0.5 mg Documented By: VLADISLAV Calcium Carbonate (Calcium Carbonate 750 Mg Tab.Chew) 750 mg PO Q4H PRN PRN Reason: Heartburn Carisoprodol (Carisoprodol 350 Mg Tablet) 350 mg PO BID PRN PRN Reason: muscle pain Last Admin: 03/28/24 08:12 Dose: 350 mg Documented By: MARIA G Docusate Sodium (Docusate Sodium 100 Mg Capsule) 100 mg PO BID [facility] Last Admin: 03/28/24 08:12 Dose: 100 mg Documented By: MARIA G Ferrous Sulfate (Ferrous Sulfate 324 Mg Tablet.) 324 mg PO DAILY [facility] Last Admin: 03/28/24 08:11 Dose: 324 mg Documented By: MARIA G Fluticasone Propionate (Fluticasone Propionate 250 Mcg Blst.W.Dev) 2 puff INHALE RBID [facility] Last Admin: 03/28/24 07:58 Dose: Not Given Documented By: AZAM Non-Admin Reason: refused Glucose (Glucose Gel 15 Gm Gel..Gram.) 15 gm PO Q15M PRN; Protocol PRN Reason: per Hypoglycemia Standing Ord. Heparin Sodium (Porcine) (Heparin Sodium,Porcine 5,000 Unit/Ml Vial) 5,000 unit SUBCUT Q12H [facility] Last Admin: 03/27/24 20:36 Dose: 5,000 unit Documented By: VIJAY Dextrose (D10) 250 mls @ 750 mls/hr IV Q15M PRN; Protocol PRN Reason: per Hypoglycemia Standing Ord. Ipratropium [place] (Ipratropium [place] 1 Puff/17 Mcg Inhaler) 2 puff INHALE RQID [facility] Last Admin: 03/28/24 07:58 Dose: Not Given Documented By: AZAM Non-Admin Reason: refused Magnesium Hydroxide (Milk Of Magnesia 30 Ml Oral.Susp) 15 ml PO DAILY PRN PRN Reason: Constipation Last Admin: 03/27/24 14:32 Dose: 15 ml Documented By: VLADISLAV Melatonin (Melatonin 3 Mg Tablet) 6 mg PO BEDTIME PRN PRN Reason: Insomnia Omeprazole (Omeprazole 40 Mg Capsule.) 40 mg PO DAILY@0630 [facility] Last Admin: 03/28/24 08:12 Dose: 40 mg Documented By: MARIA G Ondansetron HCl (Ondansetron Hcl 4 Mg/2 Ml Vial) 4 mg IVPUSH Q8H PRN PRN Reason: Nausea and Vomiting Last Admin: 03/22/24 22:45 Dose: 4 mg Documented By: TAPAN Oxycodone HCl (Oxycodone Hcl Immed Release 5 Mg Tablet) 5 mg PO TID [facility] Last Admin: 03/28/24 08:12 Dose: 5 mg Documented By: MARIA G Ropinirole HCl (Ropinirole Hcl 2 Mg Tablet) 6 mg PO BEDTIME [facility] Last Admin: 03/27/24 20:37 Dose: 6 mg Documented By: CHEN-CELESTE Senna (Sennosides 8.6 Mg Tablet) 8.8 mg PO DAILY [facility] Last Admin: 03/28/24 08:12 Dose: 8.8 mg Documented By: MARIA G Sodium Chloride (0.9 % Sodium Chloride Flush 3 Ml Syringe) 3 ml IVFLUSH QSHIFT [facility] Last Admin: 03/28/24 08:13 Dose: 3 ml Documented By: MARIA G Labs 03/26/24 09:37 03/28/24 06:56 Labs: Laboratory Results - last 24 hr 03/25/24 03/28/24 11:30 06:56 Anion Gap 10 L Estim Creat Clear Calc 53.6 Estimated GFR > 60 Random Glucose 66 Calcium 9.5 Pleural Total Protein 1.6 Pleural LDH 58 Microbiology Microbiology Results: Microbiology 03/25/24 11:30 Gram Stain - Final Thoracentesis Fluid Anaerobic Culture - Preliminary No growth to date. Body Fluid Culture - Final No growth after 2 days Assessment and Plan (1) Elevated brain natriuretic peptide (BNP) level: Status: Acute Plan 68-year-old female with a past medical history significant for chronic back pain, HLD, COPD unspecified and ?MAC, to the ED with complaints of left lower quadrant pain, dry heaves, decreased appetite, and shortness of breath with exertion, and bloating with eating for the past 4 days. Acute hypoxic respiratory failure secondary to acute exacerbation of CHF with bilateral pleural effusions Cardiology>lasix 20 mg BID IV, changed to Bumex 1mg/daily, follow with strict I&O chart at home Echocardiogram, showed grade 1 diastolic dysfunction, decreased RV function BP soft due to medications Supplemental 02 requiring Incentive spirometry Pulm>chest tube removal, patho pending, monitor effusions. Could considered pleurodesis if reoccurs IR unable to remove CT due to continuing Pneumo Metabolic alkalosis. Resolved High bicarb hold bumex diamox and follow b/l pleural effusions Chest tube placed by IR 03/25 - cytolog pending; culture, no growth to date follow fluid studies - cytology ordered but not sent, follow up with lab completed/[facility] will send follow up cxr with small pneumothorax, repeat 03/28 improved;left side smaller since previous exam (03/27) pulmonology following, decreasing output, plan for IR to remove today Elevated LFTs trending down Abdominal ultrasound with cholelithiasis without evidence of acute cholecystitis bilirubin normal, no abdominal pain ?due to chf Acute lactic acidosis resolved-due to to hypoperfusion, not sepsis Dysphagia seen by speech, rec GI consultation - no evidence of aspiration moderate cricophargygeal achalasia and cervical hardware that could be contributing to symptoms tolerating NDD3 diet d/w GI, no need for EGD PACO resolved Hyperkalemia secondary to PACO, monitor BMP s/p lokelma resolved Left lower quadrant/left flank pain CT of [facility] with right pelvic mass, 6 cm, cholelithiasis without gallbladder distention, anasarca with ascites and body wall edema pelvic mass known to patient, reports this has been followed for many years and she was told this was benign. no previous imaging in system to compare follow-up outpatient regarding pelvic mass chronic normocytic anemia fecal occult blood test pending. normal B12 and folate no acute blood loss noted; iron levels low probable chronic loss has never had colonoscopy started on po iron seen by GI, no further work up planned at this time Hyperglycemia A1c 6.0 no need to check BS COPD unspecified continue home meds per outpatient notes - pt has refused referral to pulm moderate protein calorie malnutrition BMI 15.7 low albumin Continue dietary supplements Full code VTE prophylaxis: Heparin Attending Dr. Huerta dispo: PT rec STR Quality Stroke Does the patient have a stroke diagnosis?: No VTE Prior VTE?: No VTE Risk Level:: Medical - moderate - high VTE Device Contraindication: Treatment Not Indicated VTE Drug Contraindication: N/A - Med Ordered
[2024-03-28] MEDS: Heparin Sodium,Porcine 5,000 UNIT/ML VIAL 5000 UNIT SUBCUT ×2 (12:05→22:54)
[2024-03-28] MEDS: fentaNYL citrate/PF 100 MCG/2 ML VIAL 50 MCG IVPUSH ×2 (13:33→13:42)
--- NOTE | 2024-03-28 13:58 | PCN2_ITS ---
Brief Operative Note Date of procedure: 03/28/24 Pre-op diagnosis: s/p right chest tube for pleural effusion, worsening subcuta neous emphysema Post-op diagnosis: same Procedure: CXR this morning demonstrated a small pneumothorax and subcutaneous emphysema. The right chest tube appeared to be significantly retracted to the chest wall. Tube was advanced bedside, however, follow up cxr demonstrated worsening subcutaneous emphysema. 10 fr basilar tube was replaced under fluoroscopy and positioned in right mid chest without immediate complications. Will keep to suction overnight.
[2024-03-28] MEDS: HYDROmorphone HCl 0.5 MG/0.5 ML SYRINGE IVPUSH ×3 (15:58→22:53)
--- NOTE | 2024-03-28 16:03 | MHC.CM.PN ---
Per rounds, pt is not ready to DC yet, she has chest tube in. CM spoke with pt. about her choice of STR. She requested a referral go to [place], she has been there before, referral updated, and a list of accepting STRs given to pt at her request.
[2024-03-28] MEDS: bisacodyL 5 MG TABLET.DR 10 MG PO (19:43)
[2024-03-28] MEDS: rOPINIRole HCL 2 MG TABLET 6 MG PO (19:43)
[2024-03-29] VITALS (10 sets, daily range): BP systolic 97–119; BP diastolic 49–70; PULSE 85–100; RESP 16–20; TEMP 36.1–36.6; O2SAT 92–98
[2024-03-29] MEDS: HYDROmorphone HCl 0.5 MG/0.5 ML SYRINGE IVPUSH ×5 (01:04→21:05)
--- NOTE | 2024-03-29 06:36 | PC.NURSE ---
Patient refuse Omeprazole at this time reported she will take it when breakfast arrives on the unit.
[2024-03-29 08:15] LABS: Hematocrit 31.1 % (37.0-47.0); Hemoglobin 8.7 g/dl (12.0-16.0); Mean Corpuscular Hemoglobin 21.3 pg (27.0-33.0); Mean Corpuscular Volume 76.2 fL (80.0-98.0); Mean Platelet Volume 9.1 fL (9.4-12.3); Platelet Count 190 X10*3/uL (160-400); Red Blood Count 4.08 X10*6/uL (4.20-5.50); Red Cell Distribution Width 19.3 % (11.0-16.0); White Blood Count 6.1 X10*3/uL (4.8-10.8)
[2024-03-29 08:36] LABS: Anion Gap 8 (12-20); Blood Urea Nitrogen 10 mg/dL (9-16); Calcium 9.1 mg/dL (8.4-10.2); Carbon Dioxide 28 mmol/L (22-29); Chloride 102 mmol/L (96-108); Creatinine Clr Calc Pharmacy 48.8; Estimated Glomerular Filt Rate > 60; Glucose Random 94 mg/dL (60-115); Potassium 4.4 mmol/L (3.3-5.1); Sodium 134 mmol/L (135-145)
[2024-03-29 08:42] LABS: B Type Natriuretic Peptide 897 pg/mL (<100)
[2024-03-29] MEDS: Ipratropium Bromide 1 PUFF/17 MCG INHALER 2 PUFF INHALE ×3 (08:42→20:24)
--- NOTE | 2024-03-29 08:51 | HO.PM.IMPN ---
Subjective Subjective Date of Service: 03/29/24 Interval History: Follow up visit for CHF, and pleural effusions Chest tube in place, possible dc today pain at ct site Review of Systems Review of Systems: Yes all other systems are reviewed and are negative Constitutional Denies fever, chills Cardiovascular Denies CP, palpitations Gastrointestinal Denies N/V/D, or abd pain Physical Exam Vital Signs: Vital Signs: Last Vital Signs Temp 97.7 F 03/29/24 07:30 Pulse 100 03/29/24 08:43 Resp 18 03/29/24 08:43 BP 115/58 L 03/29/24 07:30 Pulse Ox 95 03/29/24 07:30 O2 Del Method Nasal Cannula 03/29/24 07:30 O2 Flow Rate 2 03/29/24 07:30 BMI result Body Mass Index 15.7 Appearing in no acute distress, thin and frail appearing lung sounds dim at ct site heart regular rate rhythm, clear S1, S2 positive bowel sounds, abdomen is soft, nontender neuro patient is alert x3, no focal deficits Objective Data Active Medications Acetaminophen (Acetaminophen 325 Mg Tablet) 650 mg PO Q6H PRN PRN Reason: Pain, Mild 1-3,fever,headache Last Admin: 03/28/24 02:56 Dose: 650 mg Documented By: VIJAY Acetazolamide (Acetazolamide Sodium 500 Mg Vial) 250 mg IVPUSH BID [facility] Last Admin: 03/28/24 19:43 Dose: 250 mg Documented By: PRICILLA Bisacodyl (Bisacodyl 5 Mg Tablet.) 10 mg PO BEDTIME PRN PRN Reason: Constipation Last Admin: 03/28/24 19:43 Dose: 10 mg Documented By: PRICILLA Bumetanide (Bumetanide 1 Mg Tablet) 0.5 mg PO DAILY [facility]; Protocol Last Admin: 03/27/24 08:19 Dose: 0.5 mg Documented By: VLADISLAV Calcium Carbonate (Calcium Carbonate 750 Mg Tab.Chew) 750 mg PO Q4H PRN PRN Reason: Heartburn Carisoprodol (Carisoprodol 350 Mg Tablet) 350 mg PO BID PRN PRN Reason: muscle pain Last Admin: 03/28/24 19:47 Dose: 350 mg Documented By: PRICILLA Docusate Sodium (Docusate Sodium 100 Mg Capsule) 100 mg PO BID [facility] Last Admin: 03/28/24 19:43 Dose: 100 mg Documented By: PRICILLA Ferrous Sulfate (Ferrous Sulfate 324 Mg Tablet.) 324 mg PO DAILY [facility] Last Admin: 03/28/24 08:11 Dose: 324 mg Documented By: MARIA G Fluticasone Propionate (Fluticasone Propionate 250 Mcg Blst.W.Dev) 2 puff INHALE RBID [facility] Last Admin: 03/29/24 08:43 Dose: Not Given Documented By: CAMILLE Non-Admin Reason: Patient Refused Glucose (Glucose Gel 15 Gm Gel..Gram.) 15 gm PO Q15M PRN; Protocol PRN Reason: per Hypoglycemia Standing Ord. Heparin Sodium (Porcine) (Heparin Sodium,Porcine 5,000 Unit/Ml Vial) 5,000 unit SUBCUT Q12H [facility] Last Admin: 03/28/24 22:54 Dose: 5,000 unit Documented By: PRICILLA Hydromorphone HCl (Hydromorphone Hcl 0.5 Mg/0.5 Ml Syringe) 0.5 mg IVPUSH Q3H PRN; Protocol PRN Reason: Pain, Severe (Pain Scale 7-10) Last Admin: 03/29/24 04:30 Dose: 0.5 mg Documented By: REYES Dextrose (D10) 250 mls @ 750 mls/hr IV Q15M PRN; Protocol PRN Reason: per Hypoglycemia Standing Ord. Ipratropium [place] (Ipratropium [place] 1 Puff/17 Mcg Inhaler) 2 puff INHALE RQID [facility] Last Admin: 03/29/24 08:42 Dose: 2 puff Documented By: CAMILLE Magnesium Hydroxide (Milk Of Magnesia 30 Ml Oral.Susp) 15 ml PO DAILY PRN PRN Reason: Constipation Last Admin: 03/27/24 14:32 Dose: 15 ml Documented By: VLADISLAV Melatonin (Melatonin 3 Mg Tablet) 6 mg PO BEDTIME PRN PRN Reason: Insomnia Omeprazole (Omeprazole 40 Mg Capsule.) 40 mg PO DAILY@0630 [facility] Last Admin: 03/28/24 08:12 Dose: 40 mg Documented By: MARIA G Ondansetron HCl (Ondansetron Hcl 4 Mg/2 Ml Vial) 4 mg IVPUSH Q8H PRN PRN Reason: Nausea and Vomiting Last Admin: 03/22/24 22:45 Dose: 4 mg Documented By: TAPAN Oxycodone HCl (Oxycodone Hcl Immed Release 5 Mg Tablet) 5 mg PO TID [facility] Last Admin: 03/28/24 19:43 Dose: 5 mg Documented By: PRICILLA Ropinirole HCl (Ropinirole Hcl 2 Mg Tablet) 6 mg PO BEDTIME [facility] Last Admin: 03/28/24 19:43 Dose: 6 mg Documented By: PRICILLA Senna (Sennosides 8.6 Mg Tablet) 8.8 mg PO DAILY [facility] Last Admin: 03/28/24 08:12 Dose: 8.8 mg Documented By: MARIA G Sodium Chloride (0.9 % Sodium Chloride Flush 3 Ml Syringe) 3 ml IVFLUSH QSHIFT [facility] Last Admin: 03/28/24 19:53 Dose: 3 ml Documented By: PRICILLA Labs 03/29/24 07:25 03/29/24 07:25 Labs: Laboratory Results - last 24 hr 03/25/24 03/29/24 03/29/24 09:37 07:25 08:09 MCV 76.2 L MCH 21.3 L MCHC 28.0 L RDW 19.3 H Plt Count 190 MPV 9.1 L Absolute Nucleated RBC 0.000 Nucleated RBC % (auto) 0.0 Anion Gap 8 L Estim Creat Clear Calc 48.8 Estimated GFR > 60 Random Glucose 94 Calcium 9.1 B-Natriuretic Peptide 897 H Crossmatch See Detail Microbiology Microbiology Results: Microbiology 03/25/24 11:30 Gram Stain - Final Thoracentesis Fluid Anaerobic Culture - Preliminary No growth to date. Body Fluid Culture - Final No growth after 2 days Assessment and Plan (1) Elevated brain natriuretic peptide (BNP) level: Status: Acute Plan 68-year-old female with a past medical history significant for chronic back pain, HLD, COPD unspecified and ?MAC, to the ED with complaints of left lower quadrant pain, dry heaves, decreased appetite, and shortness of breath with exertion, and bloating with eating for the past 4 days. Acute hypoxic respiratory failure secondary to acute exacerbation of CHF with bilateral pleural effusions Cardiology>lasix 20 mg BID IV, changed to Bumex 1mg/daily, follow with strict I&O chart at home Echocardiogram, showed grade 1 diastolic dysfunction, decreased RV function Incentive spirometry Pulm>chest tube, patho pending, monitor effusions. IR>clamped tube, repeat cxr looks better, CT removed Metabolic alkalosis. Resolved High bicarb hold bumex diamox and follow b/l pleural effusions Chest tube placed by IR 03/25 - cytology pending; culture, no growth to date follow fluid studies - cytology ordered but not sent, follow up with lab completed/aware will send pulmonology following Elevated LFTs trending down Abdominal ultrasound with cholelithiasis without evidence of acute cholecystitis bilirubin normal, no abdominal pain Acute lactic acidosis resolved-due to to hypoperfusion, not sepsis Dysphagia seen by speech, rec GI consultation - no evidence of aspiration moderate cricophargygeal achalasia and cervical hardware that could be contributing to symptoms tolerating NDD3 diet d/w GI, no need for EGD PACO resolved Hyperkalemia secondary to PACO, monitor BMP s/p lokelma resolved Left lower quadrant/left flank pain CT of [place] with right pelvic mass, 6 cm, cholelithiasis without gallbladder distention, anasarca with ascites and body wall edema pelvic mass known to patient, reports this has been followed for many years and she was told this was benign. no previous imaging in system to compare follow-up outpatient regarding pelvic mass Chronic normocytic anemia fecal occult blood test pending. normal B12 and folate no acute blood loss noted; iron levels low probable chronic loss has never had colonoscopy started on po iron seen by GI, no further work up planned at this time Hyperglycemia A1c 6.0 no need to check BS COPD unspecified continue home meds per outpatient notes - pt has refused referral to pulm Moderate protein calorie malnutrition BMI 15.7 low albumin Continue dietary supplements Full code VTE prophylaxis: Heparin Bowel reg Senna and colace Attending Dr. Huerta dispo: PT rec STR Quality Stroke Does the patient have a stroke diagnosis?: No VTE Prior VTE?: No VTE Risk Level:: Medical - moderate - high VTE Device Contraindication: Treatment Not Indicated VTE Drug Contraindication: N/A - Med Ordered
[2024-03-29] MEDS: Omeprazole 40 MG CAPSULE.DR PO (09:00)
[2024-03-29] MEDS: 0.9 % Sodium Chloride Flush 3 ML SYRINGE IVFLUSH ×3 (09:19→21:06)
[2024-03-29] MEDS: acetaZOLAMIDE sodium 500 MG VIAL 250 MG IVPUSH ×2 (09:19→21:10)
[2024-03-29] MEDS: carisoprodoL 350 MG TABLET PO ×2 (09:27→21:29)
[2024-03-29] MEDS: Sennosides 8.6 MG TABLET 17.2 MG PO (09:27)
[2024-03-29] MEDS: Ferrous Sulfate 324 MG TABLET.DR PO (09:28)
[2024-03-29] MEDS: oxyCODONE HCl Immed Release 5 MG TABLET PO ×3 (09:28→21:29)
[2024-03-29] MEDS: Docusate Sodium 100 MG CAPSULE PO ×2 (09:28→21:03)
--- NOTE | 2024-03-29 11:42 | PM.EVENT ---
Event Note Date of Service: 03/29/24 Event Note: CXR this morning reviewed. No air leak on exam. 2 hr clamping trial performed this morning. Repeat CXR demonstrates no change in tiny apical pneumothorax. Right chest tube was removed bedside. No immediate complications. Time Spent With Patient Time: Total time managing care of this patient today ____ minutes.
[2024-03-29] MEDS: Heparin Sodium,Porcine 5,000 UNIT/ML VIAL 5000 UNIT SUBCUT ×2 (14:02→21:36)
[2024-03-29] MEDS: rOPINIRole HCL 2 MG TABLET 6 MG PO (21:01)
[2024-03-30] VITALS (13 sets, daily range): BP systolic 91–110; BP diastolic 40–65; PULSE 81–104; RESP 16–19; TEMP 36.2–37.3; O2SAT 81–100; BMI 16.2
[2024-03-30] MEDS: Omeprazole 40 MG CAPSULE.DR PO (05:48)
[2024-03-30] MEDS: Acetaminophen 325 MG TABLET 650 MG PO ×2 (05:48→18:14)
[2024-03-30] MEDS: HYDROmorphone HCl 0.5 MG/0.5 ML SYRINGE IVPUSH ×2 (05:53→19:11)
[2024-03-30] MEDS: Ipratropium Bromide 1 PUFF/17 MCG INHALER 2 PUFF INHALE ×3 (07:56→20:33)
[2024-03-30] MEDS: Sennosides 8.6 MG TABLET 17.2 MG PO (08:16)
[2024-03-30] MEDS: Ferrous Sulfate 324 MG TABLET.DR PO (08:16)
[2024-03-30] MEDS: carisoprodoL 350 MG TABLET PO ×2 (08:17→21:31)
[2024-03-30] MEDS: acetaZOLAMIDE sodium 500 MG VIAL 250 MG IVPUSH (08:17)
[2024-03-30] MEDS: Docusate Sodium 100 MG CAPSULE PO ×2 (08:17→21:06)
[2024-03-30] MEDS: oxyCODONE HCl Immed Release 5 MG TABLET PO ×3 (08:17→21:31)
[2024-03-30] MEDS: 0.9 % Sodium Chloride Flush 3 ML SYRINGE IVFLUSH ×3 (08:22→19:12)
[2024-03-30] MEDS: ondansetron HCL 4 MG/2 ML VIAL IVPUSH (08:26)
--- NOTE | 2024-03-30 10:33 | MHC.CLN ---
F/U PO INTAKE 75-100% DIET RX: CARDIAC CHOPPED-APPROPRIATE PT RECEIVING ENSURE BID TO INCREASE KCALS AND PROMOTE FURTHER WT GAIN SUPP PROVIDES 700KCALS, 40G PROTEIN OBTAIN WEEKLY WEIGHT R/T MALNUTRITION MONITOR PO INTAKE AND ENCOURAGE SUPPLEMENTS
--- NOTE | 2024-03-30 10:44 | MHC.CM.PN ---
Addendum entered by Maryam Moseley RN 03/30/24 12:04: CM MET W/PT, PT PREFERS [facility], REF UPDATED AND CM HAS REQUESTED FACILITY SUBMIT FOR INSURANCE AUTH. Addendum entered by Maryam Moseley RN 03/30/24 10:48: P.T. IS RECOMMENDING STR, CM TO MEET W/PT TO DISCUSS PREFERRED SNF MULTIPLE ARE FOLLOWING. Original Note: EMR REVIEWED, PER HOSPITALIST ANTIC PT WILL BE MEDICALLY CLEARED FOR DC HOME W/NEW [facility] TOMORROW 03/31, P.T. PENDING, CM WILL CONT TO FOLLOW DC NEEDS.
[2024-03-30] MEDS: Heparin Sodium,Porcine 5,000 UNIT/ML VIAL 5000 UNIT SUBCUT ×2 (11:19→21:10)
--- NOTE | 2024-03-30 11:46 | P.PNIM_ITS ---
Subjective Subjective Date of Service: 03/30/24 Interval History: Follow up visit for CHF, and pleural effusions Chest tube removed pain at ct site Review of Systems Review of Systems: Yes all other systems are reviewed and are negative Constitutional Denies fever, chills Cardiovascular Denies CP, palpitations Gastrointestinal Denies N/V/D, or abd pain Physical Exam 2 Vital Signs: Vital Signs: Last Vital Signs Temp 98.0 F 03/30/24 11:13 Pulse 94 03/30/24 11:13 Resp 17 03/30/24 11:13 BP 101/65 03/30/24 11:13 Pulse Ox 93 03/30/24 11:13 O2 Del Method Room Air 03/30/24 11:13 O2 Flow Rate 2 03/30/24 07:19 BMI result Body Mass Index 16.2 Appearing in no acute distress lung sounds are clear to auscultation heart regular rate rhythm, clear S1, S2 positive bowel sounds, abdomen is soft, nontender neuro patient is alert x3, no focal deficits Objective Data Active Medications Acetaminophen (Acetaminophen 325 Mg Tablet) 650 mg PO Q6H PRN PRN Reason: Pain, Mild 1-3,fever,headache Last Admin: 03/30/24 05:48 Dose: 650 mg Documented By: TAMIKO Acetazolamide (Acetazolamide Sodium 500 Mg Vial) 250 mg IVPUSH DAILY [facility] Last Admin: 03/30/24 08:17 Dose: 250 mg Documented By: GARDENIA Bisacodyl (Bisacodyl 5 Mg Tablet.Dr) 10 mg PO BEDTIME PRN PRN Reason: Constipation Last Admin: 03/28/24 19:43 Dose: 10 mg Documented By: PRICILLA Bumetanide (Bumetanide 1 Mg Tablet) 0.5 mg PO DAILY [facility]; Protocol Last Admin: 03/27/24 08:19 Dose: 0.5 mg Documented By: VLADISLAV Calcium Carbonate (Calcium Carbonate 750 Mg Tab.Chew) 750 mg PO Q4H PRN PRN Reason: Heartburn Carisoprodol (Carisoprodol 350 Mg Tablet) 350 mg PO BID PRN PRN Reason: muscle pain Last Admin: 03/30/24 08:17 Dose: 350 mg Documented By: GARDENIA Dextrose (Dextrose 50 % 25 Gm/50 Ml Syringe) 25 gm IVPUSH Q15M PRN PRN Reason: HYPOGLYCEMIA STANDING PROTOCOL Docusate Sodium (Docusate Sodium 100 Mg Capsule) 100 mg PO BID [facility] Last Admin: 03/30/24 08:17 Dose: 100 mg Documented By: GARDENIA Ferrous Sulfate (Ferrous Sulfate 324 Mg Tablet.) 324 mg PO DAILY [facility] Last Admin: 03/30/24 08:16 Dose: 324 mg Documented By: GARDENIA Fluticasone Propionate (Fluticasone Propionate 250 Mcg Blst.W.Dev) 2 puff INHALE RBID [facility] Last Admin: 03/30/24 07:58 Dose: Not Given Documented By: AMMY Non-Admin Reason: Patient Refused Glucose (Glucose Gel 15 Gm Gel..Gram.) 15 gm PO Q15M PRN; Protocol PRN Reason: per Hypoglycemia Standing Ord. Heparin Sodium (Porcine) (Heparin Sodium,Porcine 5,000 Unit/Ml Vial) 5,000 unit SUBCUT Q12H [facility] Last Admin: 03/30/24 11:19 Dose: 5,000 unit Documented By: GARDENIA Hydromorphone HCl (Hydromorphone Hcl 0.5 Mg/0.5 Ml Syringe) 0.5 mg IVPUSH Q3H PRN; Protocol PRN Reason: Pain, Severe (Pain Scale 7-10) Last Admin: 03/30/24 05:53 Dose: 0.5 mg Documented By: TAMIKO Ipratropium [place] (Ipratropium [place] 1 Puff/17 Mcg Inhaler) 2 puff INHALE RQID [facility] Last Admin: 03/30/24 07:56 Dose: 2 puff Documented By: AMMY Magnesium Hydroxide (Milk Of Magnesia 30 Ml Oral.Susp) 15 ml PO DAILY PRN PRN Reason: Constipation Last Admin: 03/27/24 14:32 Dose: 15 ml Documented By: VLADISLAV Melatonin (Melatonin 3 Mg Tablet) 6 mg PO BEDTIME PRN PRN Reason: Insomnia Omeprazole (Omeprazole 40 Mg Capsule.) 40 mg PO DAILY@0630 [facility] Last Admin: 03/30/24 05:48 Dose: 40 mg Documented By: TAMIKO Ondansetron HCl (Ondansetron Hcl 4 Mg/2 Ml Vial) 4 mg IVPUSH Q8H PRN PRN Reason: Nausea and Vomiting Last Admin: 03/30/24 08:26 Dose: 4 mg Documented By: GARDENIA Oxycodone HCl (Oxycodone Hcl Immed Release 5 Mg Tablet) 5 mg PO TID [facility] Last Admin: 03/30/24 08:17 Dose: 5 mg Documented By: GARDENIA Ropinirole HCl (Ropinirole Hcl 2 Mg Tablet) 6 mg PO BEDTIME [facility] Last Admin: 03/29/24 21:01 Dose: 6 mg Documented By: TAMIKO Senna (Sennosides 8.6 Mg Tablet) 17.2 mg PO DAILY [facility] Last Admin: 03/30/24 08:16 Dose: 17.2 mg Documented By: GARDENIA Sodium Chloride (0.9 % Sodium Chloride Flush 3 Ml Syringe) 3 ml IVFLUSH QSHIFT [facility] Last Admin: 03/30/24 08:22 Dose: 3 ml Documented By: GARDENIA Labs 03/29/24 07:25 03/29/24 07:25 Microbiology Microbiology Results: Microbiology 03/25/24 11:30 Gram Stain - Final Thoracentesis Fluid Anaerobic Culture - Final NO GROWTH AFTER 5 DAYS Body Fluid Culture - Final No growth after 2 days Assessment and Plan (1) Elevated brain natriuretic peptide (BNP) level: Status: Acute Plan 68-year-old female with a past medical history significant for chronic back pain, HLD, COPD unspecified and ?MAC, to the ED with complaints of left lower quadrant pain, dry heaves, decreased appetite, and shortness of breath with exertion, and bloating with eating for the past 4 days. Acute hypoxic respiratory failure secondary to acute exacerbation of CHF with bilateral pleural effusions Cardiology>lasix 20 mg BID IV, changed to Bumex 1mg/daily, follow with strict I&O chart at home Echocardiogram, showed grade 1 diastolic dysfunction, decreased RV function Incentive spirometry Pulm>s/p chest tube , patho pending, monitor effusions. IR>removed chest tube 03/29/24 Metabolic alkalosis. Resolved s/p High bicarb held bumex diamox decreased, will resume bumex b/l pleural effusions s/p Chest tube placed by IR 03/25 - cytology pending; culture, no growth to date pulmonology following Elevated LFTs trending down Abdominal ultrasound with cholelithiasis without evidence of acute cholecystitis bilirubin normal, no abdominal pain Acute lactic acidosis resolved-due to to hypoperfusion, not sepsis Dysphagia seen by speech, rec GI consultation - no evidence of aspiration moderate cricophargygeal achalasia and cervical hardware that could be contributing to symptoms tolerating NDD3 diet d/w GI, no need for EGD PACO resolved Hyperkalemia secondary to PACO, monitor BMP s/p lokelma resolved Left lower quadrant/left flank pain CT of [place] with right pelvic mass, 6 cm, cholelithiasis without gallbladder distention, anasarca with ascites and body wall edema pelvic mass known to patient, reports this has been followed for many years and she was told this was benign. no previous imaging in system to compare follow-up outpatient regarding pelvic mass Chronic normocytic anemia fecal occult blood test pending. normal B12 and folate no acute blood loss noted; iron levels low probable chronic loss has never had colonoscopy started on po iron seen by GI, no further work up planned at this time Hyperglycemia A1c 6.0 no need to check BS COPD unspecified continue home meds per outpatient notes - pt has refused referral to pulm Moderate protein calorie malnutrition BMI 16.3 low albumin Continue dietary supplements Full code VTE prophylaxis: Heparin Bowel reg Senna and colace Attending Dr. Huerta dispo: PT rec STR but patient would like to go home Quality Stroke Does the patient have a stroke diagnosis?: No VTE Prior VTE?: No VTE Risk Level:: Medical - moderate - high VTE Device Contraindication: Treatment Not Indicated VTE Drug Contraindication: N/A - Med Ordered
--- NOTE | 2024-03-30 15:11 | P.CDIM_ITS ---
PROVIDER RESPONSE TEXT: To clarify, the appropriate diagnosis supported by the clinical indicators: Diastolic QUERY TEXT: PHYSICIAN'S DOCUMENTATION REQUEST Date of Query: 03/30/2024 01:39 PM EST Patient Name: Earlene Martinez Admit Date: 03/22/2024 Dear Iesha Grimm BRAID FOLDER, A review of the medical record indicates additional documentation may be needed. Please review below and update the documentation accordingly. Clinical Indicators: Acute exacerbation of CHF IV Lasix changed to Bumex Echocardiogram showed grade1 diastolic dysfunction, decreased RV function No PMH CHF Please provide further specificity regarding the most likely type of CHF you are evaluating, treating , or monitoring. Systolic Diastolic Combined Systolic/Diastolic Other (explain) Clinically unable to determine (explain) Thank you, Trista Carpenter RN Use of terms such as suspected, likely, concern for, or probable (associated with a specific diagnosi s that is being evaluated, monitored, or treated as if it exists) are acceptable and can be coded in the inpatient se tting, when documented at the time of discharge. Please use your independent medical judgment in providing your response. THIS QUERY IS PART OF THE PERMANENT MEDICAL RECORD
[2024-03-30] MEDS: rOPINIRole HCL 2 MG TABLET 6 MG PO (21:06)
[2024-03-31 03:20] VITALS: BP 107/55; PULSE 81; RESP 16; TEMP 37.2; O2SAT 100
[2024-03-31] MEDS: Omeprazole 40 MG CAPSULE.DR PO (05:54)
[2024-03-31] MEDS: oxyCODONE HCl Immed Release 5 MG TABLET PO ×2 (07:53→15:29)
[2024-03-31] MEDS: 0.9 % Sodium Chloride Flush 3 ML SYRINGE IVFLUSH ×2 (07:53→15:29)
[2024-03-31] MEDS: acetaZOLAMIDE sodium 500 MG VIAL 250 MG IVPUSH (07:53)
[2024-03-31] MEDS: Docusate Sodium 100 MG CAPSULE PO (07:53)
[2024-03-31] MEDS: Sennosides 8.6 MG TABLET 17.2 MG PO (07:53)
[2024-03-31 07:54] VITALS: BP 107/55
[2024-03-31] MEDS: Bumetanide 1 MG TABLET 0.5 MG PO (07:54)
[2024-03-31] MEDS: Ferrous Sulfate 324 MG TABLET.DR PO (07:54)
[2024-03-31] MEDS: Acetaminophen 325 MG TABLET 650 MG PO ×2 (07:56→15:31)
[2024-03-31 08:00] VITALS: BP 102/51; PULSE 82; RESP 18; TEMP 36.8; O2SAT 90
[2024-03-31] MEDS: carisoprodoL 350 MG TABLET PO (09:33)
[2024-03-31] MEDS: Heparin Sodium,Porcine 5,000 UNIT/ML VIAL 5000 UNIT SUBCUT (10:31)
[2024-03-31 11:36] VITALS: BP 96/42; PULSE 90; RESP 18; TEMP 37; O2SAT 91
[2024-03-31 11:49] VITALS: BP 96/42; PULSE 90; O2SAT 91
[2024-03-31 15:42] VITALS: BP 107/59; PULSE 83; RESP 18; TEMP 37.5; O2SAT 98
--- NOTE | 2024-03-31 15:45 | HO.PM.IMPN ---
Subjective Subjective Date of Service: 03/31/24 Physical Exam Vital Signs: Vital Signs: Last Vital Signs Temp 99.5 F 03/31/24 15:42 Pulse 83 03/31/24 15:42 Resp 18 03/31/24 15:42 BP 107/59 L 03/31/24 15:42 Pulse Ox 98 03/31/24 15:42 O2 Del Method Nasal Cannula 03/31/24 15:42 O2 Flow Rate 3 03/31/24 15:42 BMI result Body Mass Index 16.2 Objective Data Active Medications Acetaminophen (Acetaminophen 325 Mg Tablet) 650 mg PO Q6H PRN PRN Reason: Pain, Mild 1-3,fever,headache Last Admin: 03/31/24 15:31 Dose: 650 mg Documented By: VLADISLAV Acetazolamide (Acetazolamide Sodium 500 Mg Vial) 250 mg IVPUSH DAILY [facility] Last Admin: 03/31/24 07:53 Dose: 250 mg Documented By: VLADISLAV Bisacodyl (Bisacodyl 5 Mg Tablet.) 10 mg PO BEDTIME PRN PRN Reason: Constipation Last Admin: 03/28/24 19:43 Dose: 10 mg Documented By: PRICILLA Bumetanide (Bumetanide 1 Mg Tablet) 0.5 mg PO DAILY [facility]; Protocol Last Admin: 03/31/24 07:54 Dose: 0.5 mg Documented By: VLADISLAV Calcium Carbonate (Calcium Carbonate 750 Mg Tab.Chew) 750 mg PO Q4H PRN PRN Reason: Heartburn Carisoprodol (Carisoprodol 350 Mg Tablet) 350 mg PO BID PRN PRN Reason: muscle pain Last Admin: 03/31/24 09:33 Dose: 350 mg Documented By: VLADISLAV Dextrose (Dextrose 50 % 25 Gm/50 Ml Syringe) 25 gm IVPUSH Q15M PRN PRN Reason: HYPOGLYCEMIA STANDING PROTOCOL Docusate Sodium (Docusate Sodium 100 Mg Capsule) 100 mg PO BID [facility] Last Admin: 03/31/24 07:53 Dose: 100 mg Documented By: VLADISLAV Ferrous Sulfate (Ferrous Sulfate 324 Mg Tablet.) 324 mg PO DAILY [facility] Last Admin: 03/31/24 07:54 Dose: 324 mg Documented By: VLADISLAV Fluticasone Propionate (Fluticasone Propionate 250 Mcg Blst.W.Dev) 2 puff INHALE RBID [facility] Last Admin: 03/31/24 07:56 Dose: Not Given Documented By: AMMY Non-Admin Reason: Patient Refused Glucose (Glucose Gel 15 Gm Gel..Gram.) 15 gm PO Q15M PRN; Protocol PRN Reason: per Hypoglycemia Standing Ord. Heparin Sodium (Porcine) (Heparin Sodium,Porcine 5,000 Unit/Ml Vial) 5,000 unit SUBCUT Q12H [facility] Last Admin: 03/31/24 10:31 Dose: 5,000 unit Documented By: VLADISLAV Hydromorphone HCl (Hydromorphone Hcl 0.5 Mg/0.5 Ml Syringe) 0.5 mg IVPUSH Q3H PRN; Protocol PRN Reason: Pain, Severe (Pain Scale 7-10) Last Admin: 03/30/24 19:11 Dose: 0.5 mg Documented By: TAMIKO Ipratropium [place] (Ipratropium [place] 1 Puff/17 Mcg Inhaler) 2 puff INHALE RQID [facility] Last Admin: 03/31/24 15:08 Dose: Not Given Documented By: AMMY Non-Admin Reason: Patient Refused Magnesium Hydroxide (Milk Of Magnesia 30 Ml Oral.Susp) 15 ml PO DAILY PRN PRN Reason: Constipation Last Admin: 03/27/24 14:32 Dose: 15 ml Documented By: VLADISLAV Melatonin (Melatonin 3 Mg Tablet) 6 mg PO BEDTIME PRN PRN Reason: Insomnia Omeprazole (Omeprazole 40 Mg Capsule.Dr) 40 mg PO DAILY@0630 [facility] Last Admin: 03/31/24 05:54 Dose: 40 mg Documented By: TAMIKO Ondansetron HCl (Ondansetron Hcl 4 Mg/2 Ml Vial) 4 mg IVPUSH Q8H PRN PRN Reason: Nausea and Vomiting Last Admin: 03/30/24 08:26 Dose: 4 mg Documented By: GARDENIA Oxycodone HCl (Oxycodone Hcl Immed Release 5 Mg Tablet) 5 mg PO TID [facility] Last Admin: 03/31/24 15:29 Dose: 5 mg Documented By: VLADISLAV Ropinirole HCl (Ropinirole Hcl 2 Mg Tablet) 6 mg PO BEDTIME [facility] Last Admin: 03/30/24 21:06 Dose: 6 mg Documented By: TAMIKO Senna (Sennosides 8.6 Mg Tablet) 17.2 mg PO DAILY [facility] Last Admin: 03/31/24 07:53 Dose: 17.2 mg Documented By: VLADISLAV Sodium Chloride (0.9 % Sodium Chloride Flush 3 Ml Syringe) 3 ml IVFLUSH QSHIFT [facility] Last Admin: 03/31/24 15:29 Dose: 3 ml Documented By: VLADISLAV Labs 03/29/24 07:25 03/29/24 07:25 Assessment and Plan Plan 68-year-old female with a past medical history significant for chronic back pain, HLD, COPD unspecified and ?MAC, to the ED with complaints of left lower quadrant pain, dry heaves, decreased appetite, and shortness of breath with exertion, and bloating with eating for the past 4 days. Acute hypoxic respiratory failure secondary to acute exacerbation of CHF with bilateral pleural effusions Cardiology>lasix 20 mg BID IV, changed to Bumex 1mg/daily, follow with strict I&O chart at home Echocardiogram, showed grade 1 diastolic dysfunction, decreased RV function Incentive spirometry Pulm>s/p chest tube , patho pending, monitor effusions. IR>removed chest tube 03/29/24 Metabolic alkalosis. Resolved s/p High bicarb held bumex diamox decreased, will resume bumex b/l pleural effusions s/p Chest tube placed by IR 03/25 - cytology pending; culture, no growth to date pulmonology following Elevated LFTs trending down Abdominal ultrasound with cholelithiasis without evidence of acute cholecystitis bilirubin normal, no abdominal pain Acute lactic acidosis resolved-due to to hypoperfusion, not sepsis Dysphagia seen by speech, rec GI consultation - no evidence of aspiration moderate cricophargygeal achalasia and cervical hardware that could be contributing to symptoms tolerating NDD3 diet d/w GI, no need for EGD PACO resolved Hyperkalemia secondary to PACO, monitor BMP s/p lokelma resolved Left lower quadrant/left flank pain CT of [facility] with right pelvic mass, 6 cm, cholelithiasis without gallbladder distention, anasarca with ascites and body wall edema pelvic mass known to patient, reports this has been followed for many years and she was told this was benign. no previous imaging in system to compare follow-up outpatient regarding pelvic mass Chronic normocytic anemia fecal occult blood test pending. normal B12 and folate no acute blood loss noted; iron levels low probable chronic loss has never had colonoscopy started on po iron seen by GI, no further work up planned at this time Hyperglycemia A1c 6.0 no need to check BS COPD unspecified continue home meds per outpatient notes - pt has refused referral to pulm Moderate protein calorie malnutrition BMI 16.3 low albumin Continue dietary supplements Full code VTE prophylaxis: Heparin Bowel reg Senna and colace dispo: PT rec STR but patient would like to go home Quality Stroke Does the patient have a stroke diagnosis?: No VTE Prior VTE?: No VTE Risk Level:: Medical - moderate - high VTE Device Contraindication: Treatment Not Indicated VTE Drug Contraindication: N/A - Med Ordered
--- NOTE | 2024-03-31 16:25 | PM.DS ---
DS: Providers Provider Date of Service: 03/31/24 Date of admission: 03/21/24 22:34 Date of discharge: 03/31/24 Primary care physician: Ed Murillo MD Consults: 03/22/24 14:44 Consult to Cardiology Routine Consulting Provider: [facility] Reason for consultation: CHF 03/23/24 09:20 Consult to Gastroenterology Routine Consulting Provider: All Cummings Reason for consultation: globus sensation with swallowing 03/23/24 14:51 Consult to Pulmonology Routine Consulting Provider: [facility] Reason for consultation: cor pulmonale 03/23/24 15:33 Consult to Wound Care Routine Reason for consultation: Heels red, high risk DS: Diagnosis Discharge Diagnosis (1) Elevated brain natriuretic peptide (BNP) level: Status: Acute DS: Summary Hospital Course Hospital Course: History of presenting illness: Date of Service: 03/21/24 Attending physician on admission: Feroz Stanford Chief Complaint: LLQ pain, SOB Patient is a 68-year-old female with a past medical history significant for chronic back pain, HLD, COPD unspecified and ?MAC, to the ED with complaints of left lower quadrant pain, dry heaves, decreased appetite, and shortness of breath with exertion, and bloating with eating for the past 4 days. She reports the shortness of breath has been going on for much longer than this. She has no diagnosis of congestive heart failure, cirrhosis or kidney issues. She denies any hematochezia or melena. She has had dry heaves but no actual vomiting. Her left lower quadrant pain radiates from the flank. She denies any history of kidney stones and is not constipated. She has no urinary symptoms including hematuria, dysuria, urgency or frequency. She experiences shortness of breath mostly with exertion but feels that she would have orthopnea she lied flat. She reports due to chronic neck pain she can not lie flat. She has also been experiencing numbness and tingling in her toes. Hospital course: 68-year-old female with a past medical history significant for chronic back pain, HLD, COPD unspecified presented to ED with complaints of left lower quadrant pain, dry heaves, decreased appetite, and shortness of breath with exertion, and bloating with eating for the past 4 days, patient admitted with following medical issues. Acute hypoxic respiratory failure secondary to acute exacerbation of CHF with bilateral pleural effusions predominantly right heart failure related to cor pulmonale related to severe COPD, patient treated aggressively with iv diuretics with good response subsequently transitioned to by mouth Bumex,echocardiogram, showed grade 1 diastolic dysfunction, decreased RV function , patient underwent chest tube placement, pathology showed no malignant cells, chest tube removed on March 29, currently patient is hemodynamically stable recommend to continue oxygen therapy. With aggressive diuretic since patient noted to have metabolic alkalosis treated with Diamox bicarb normalized, PACO due to cardiorenal syndrome resolved. Elevated LFTs, abdominal ultrasound showed cholelithiasis without evidence of acute cholecystitis, patient asymptomatic with no abdominal pain question elevated LFTs due to passive congestion. Acute lactic acidosis resolved-due to to hypoperfusion, not sepsis Dysphagia seen by speech, no evidence of aspiration moderate cricophargygeal achalasia and cervical hardware that could be contributing to symptoms, tolerating NDD3 diet , GI recommend no EGD at this time. Hyperkalemia secondary to PACO resolved. Left lower quadrant/left flank pain CT of [place] with right pelvic mass, 6 cm, cholelithiasis without gallbladder distention, anasarca with ascites and body wall edema, pelvic mass known to patient, reports this has been followed for many years and she was told this was benign. no previous imaging in system to compare , recommend outpatient follow-up with PCP Chronic normocytic anemia: fecal occult blood test negative. normal B12 and folate, no acute blood loss noted; iron levels low probable chronic loss has never had colonoscopy, started on po iron ,seen by GI, no further work up planned at this time,Recommend to gradually increase dose of ferrous sulfate to twice daily as tolerated. Hyperglycemia A1c 6.0,no need to follow blood sugars. COPD unspecified continue home meds Moderate protein calorie malnutrition, BMI 16.3,low albumin,Continue dietary supplements Time Attestation Discharge Coordination Time (in mins): 40 Quality: Safe Use of Opioids Does Pt have an Active Cancer Diagnosis on the Problem List?: No Quality: Stroke Does the patient have a stroke diagnosis?: No Physical Exam Vital Signs: Vital Signs: Last Vital Signs Temp 99.5 F 03/31/24 15:42 Pulse 83 03/31/24 15:42 Resp 18 03/31/24 15:42 BP 107/59 L 03/31/24 15:42 Pulse Ox 98 03/31/24 15:42 O2 Del Method Nasal Cannula 03/31/24 15:42 O2 Flow Rate 3 03/31/24 15:42 BMI result Body Mass Index 16.2 Const: Other: General frail weak appearing in no acute distress lung sounds are clear to auscultation heart regular rate rhythm, clear S1, S2 positive bowel sounds, abdomen soft, non tender neuro alert x3, no focal deficits Skin no rash DS: Data Data Completed and Pending Completed studies during hospitalization [Text1]: Pending at discharge 03/25/24 09:00 Cytology [PTH] Urgent Discharge Plan Discharge Anticipated Discharge Date/Time: 03/31/24 16:13 Patient Disposition: er [facility] Discharge Diagnosis: Acute hypoxic respiratory failure secondary to acute CHF exacerbation with preserved EF Referrals: [facility] [Outside] - 1 Week [facility] [Outside] - 1 Week Ed Murillo MD [Primary Care Provider] - 1 Week Discharge Medications: New sennosides [Senna Lax] 8.6 mg Tablet 17.2 mg PO DAILY Qty: 30 0RF docusate sodium 100 mg Capsule 100 mg PO BID Qty: 60 0RF Rx Instructions: Hold for loose stools. bumetanide 1 mg Tablet 0.5 mg PO DAILY Qty: 30 0RF Protocol: Hold for SBP< HOLD for SBP < : 90 ferrous sulfate 324 mg (65 mg iron) Tablet,Delayed Release (Dr/Ec) 324 mg PO DAILY Qty: 30 0RF Continued (DME) Allevyn Gentle Border 5 X 5 bandage See Rx Instructions .ROUTE .MEDSUPPLY Qty: 10 6RF Rx Instructions: change every 72 hours (Q 3 days) fluticasone propionate 220 mcg/actuation HFA aerosol inhaler 2 puff inhalation BID 30 Days Qty: 12 6RF ropinirole 4 mg tablet 6 mg PO BEDTIME 30 Days Qty: 45 3RF Rx Instructions: administer 1-3 hours before bedtime albuterol sulfate 2.5 mg /3 mL (0.083 %) solution for nebulization 2.5 mg inhalation Q4-6H PRN (Reason: shortness of breath or wheezing) Qty: 90 3RF albuterol sulfate 90 mcg/actuation HFA aerosol inhaler 2 puff inhalation Q4-6H PRN (Reason: shortness of breath or wheezing) 30 Days Qty: 8.5 4RF oxycodone-acetaminophen [Percocet] 5-325 mg tablet 1 tab PO TID 28 Days Qty: 84 0RF Rx Instructions: MassPat verified. Partial refill upon request. carisoprodol 350 mg tablet 350 mg PO BID PRN (Reason: muscle pain) 30 Days Qty: 60 0RF Atrovent HFA 17 mcg/actuation HFA aerosol inhaler 2 puff INHALATION QID omeprazole 40 mg capsule,delayed release(DR/EC) 40 mg PO DAILY@0630 Ensure Enlive 0.08 gram-1.5 kcal/mL liquid 1 ea PO BID 30 Days Qty: 71970 12RF Rx Instructions: Chocolate Only (DME) miscellaneous medical supply Misc See Rx Instructions .ROUTE .MEDSUPPLY Qty: 1 0RF Rx Instructions: Oxygen Concetrator. Daily As directed, 999 days Discharge Orders: Discharge Order (Routine); Ordered 03/31/24 Ordered By: Charles Barrios Diet: ndd3 diet Activity on Discharge: As tolerated Stand Alone Forms: Patient Portal Discharge page Print Language: Amharic Care Plan Goals: Acute hypoxic respiratory failure, continue oxygen support and Bumex 0.5 mg daily, follow low-salt diet continue home inhalers Predominantly right heart failure related to cor pulmonale related to severe COPD continue oxygen therapy. continue stool softeners Continue iron supplement for iron deficiency increase ferrous sulfate to twice daily in next 1 week Ensure supplements b.i.d. Health Concerns: Known pelvic mass recommend outpatient follow-up Moderate protein calorie malnutrition, continue dietary supplements Plan of Treatment: outpatient follow-up with primary care physician, Assessment: As above
--- NOTE | 2024-03-31 16:27 | MHC.CM.PN ---
Pt has been medically cleared to DC, she will go today to [facility] for STR via BLS.
== END 2024-03-31 18:33 | disposition skilled nursing facility (03) | DRG 291 ==
LOC: HO.ED 19:49 → HO.EDOVER 22:39 → HO.IMC 03-23 07:30
PROVIDERS: Internal Medicine Gastroenterology; Nurse Practitioner Acute Care; Nurse Practitioner Family; Physician Assistant; Physician Assistant Medical; Physician Assistant Surgical; Radiology Vascular & Interventional Radiology; Admitting Provider Student in an Organized Health Care Education/Training Program; Emergency Provider Emergency Medicine; PCP Family Medicine; Visit Provider Hospitalist
PROC: (CPT 32551; principal; 2024-03-25 10:05)
DX: I50.33 Acute on chronic diastolic (congestive) heart failure (principal); J96.01 Acute respiratory failure with hypoxia; J91.8 Pleural effusion in other conditions classified elsewhere; N17.9 Acute kidney failure, unspecified; E87.21 Acute metabolic acidosis; E44.0 Moderate protein-calorie malnutrition; Z68.1 Body mass index [BMI] 19.9 or less, adult; E87.3 Alkalosis; I50.813 Acute on chronic right heart failure; J43.2 Centrilobular emphysema; K80.20 Calculus of gallbladder without cholecystitis without obstruction; I27.81 Cor pulmonale (chronic); E78.5 Hyperlipidemia, unspecified; Q82.0 Hereditary lymphedema; D50.0 Iron deficiency anemia secondary to blood loss (chronic); K22.0 Achalasia of cardia; K59.00 Constipation, unspecified; E87.5 Hyperkalemia; R13.10 Dysphagia, unspecified; M54.9 Dorsalgia, unspecified; R73.9 Hyperglycemia, unspecified; G89.29 Other chronic pain; Z87.891 Personal history of nicotine dependence; Z20.822 Contact with and (suspected) exposure to COVID-19; Z79.51 Long term (current) use of inhaled steroids; Z79.899 Other long term (current) drug therapy
CPT/HCPCS: 0241U; 32557; 36415; 49405; 71045; 71046; 71250; 74176; 74230; 76705; 80048; 80076; 80143; 80179; 81001; 82272; 82550; 82607; 82728; 82746; 82803; 82947; 83036; 83540; 83605; 83615; 83690; 83735; 83880; 84157; 84484; 85014; 85018; 85025; 85027; 85610; 86850; 86900; 86901; 87040; 87070; 87073; 87086; 87205; 88112; 88305; 89051; 92526; 92610; 92611; 93005; 93306; 94640; 97116; 97162; 97530; 99285; A7041; C1729; C1769; C1887; J0696; J1120; J1171; J1644; J1940; J2003; J2270; J2405; J2919; J3010; J3475; P9047; Q9957

== ENCOUNTER → 2024-03-21 15:03 | Outpatient (BNV) | payer OTHER, SELFPAY | PROVIDERS: Admitting Provider Student in an Organized Health Care Education/Training Program; Emergency Provider Emergency Medicine; PCP Family Medicine; Visit Provider Internal Medicine Cardiovascular Disease | DX: R00.0 Tachycardia, unspecified (principal) | CPT/HCPCS: 93010 ==

== ENCOUNTER → 2024-03-21 15:15 | Outpatient (BNV) | payer OTHER, SELFPAY | PROVIDERS: Emergency Provider Emergency Medicine; PCP Family Medicine; Visit Provider Radiology Diagnostic Radiology | DX: R10.11 Right upper quadrant pain (principal) | CPT/HCPCS: 71046; 71250; 74176; 76705 ==

== ENCOUNTER 2024-03-21 22:34 | Outpatient (BNV) | payer OTHER, SELFPAY | END 2024-03-24 08:00 | PROVIDERS: Admitting Provider Student in an Organized Health Care Education/Training Program; Emergency Provider Emergency Medicine; PCP Family Medicine; Visit Provider Radiology Diagnostic Radiology | DX: R13.10 Dysphagia, unspecified (principal); Z46.82 Encounter for fitting and adjustment of non-vascular catheter | CPT/HCPCS: 71045; 74230 ==

== ENCOUNTER 2024-03-21 22:34 | Outpatient (BNV) | payer OTHER, SELFPAY | END 2024-03-22 07:00 | PROVIDERS: Admitting Provider Student in an Organized Health Care Education/Training Program; Emergency Provider Emergency Medicine; PCP Family Medicine; Visit Provider Internal Medicine Cardiovascular Disease | DX: I36.1 Nonrheumatic tricuspid (valve) insufficiency (principal); I51.7 Cardiomegaly; I42.8 Other cardiomyopathies | CPT/HCPCS: 93306 ==

== ENCOUNTER 2024-03-21 22:34 | Outpatient (BNV) | payer OTHER, SELFPAY | END 2024-03-23 18:48 | PROVIDERS: Admitting Provider Student in an Organized Health Care Education/Training Program; Emergency Provider Emergency Medicine; PCP Family Medicine; Visit Provider Specialist | DX: R10.11 Right upper quadrant pain (principal) | CPT/HCPCS: 76705 ==

== ENCOUNTER 2024-03-21 22:34 | Outpatient (BNV) | payer OTHER, SELFPAY | END 2024-03-28 09:30 | PROVIDERS: Admitting Provider Student in an Organized Health Care Education/Training Program; Emergency Provider Emergency Medicine; PCP Family Medicine; Visit Provider Radiology Diagnostic Radiology | DX: J90 Pleural effusion, not elsewhere classified (principal); J98.11 Atelectasis | CPT/HCPCS: 49405; 71045 ==

== ENCOUNTER 2024-03-21 22:34 | Outpatient (BNV) | payer OTHER, SELFPAY | END 2024-03-27 07:00 | PROVIDERS: Admitting Provider Student in an Organized Health Care Education/Training Program; Emergency Provider Emergency Medicine; PCP Family Medicine; Visit Provider Radiology Diagnostic Radiology | DX: J93.9 Pneumothorax, unspecified (principal) | CPT/HCPCS: 71045 ==

== ENCOUNTER 2024-03-21 22:34 | Outpatient (BNV) | payer OTHER, SELFPAY | END 2024-03-30 07:30 | PROVIDERS: Admitting Provider Student in an Organized Health Care Education/Training Program; Emergency Provider Emergency Medicine; PCP Family Medicine; Visit Provider Radiology Diagnostic Radiology | DX: J98.4 Other disorders of lung (principal) | CPT/HCPCS: 71045 ==

== ENCOUNTER 2024-03-21 22:34 | Outpatient (BNV) | payer OTHER, SELFPAY | END 2024-03-29 07:00 | PROVIDERS: Admitting Provider Student in an Organized Health Care Education/Training Program; Emergency Provider Emergency Medicine; PCP Family Medicine; Visit Provider Radiology Diagnostic Radiology | DX: J93.9 Pneumothorax, unspecified (principal) | CPT/HCPCS: 71045 ==

== ENCOUNTER 2024-03-21 22:34 | Outpatient (BNV) | payer OTHER, SELFPAY | END 2024-03-25 11:00 | PROVIDERS: Admitting Provider Student in an Organized Health Care Education/Training Program; Emergency Provider Emergency Medicine; PCP Family Medicine; Visit Provider Physician Assistant Surgical | DX: J90 Pleural effusion, not elsewhere classified (principal); J98.4 Other disorders of lung; J43.9 Emphysema, unspecified | CPT/HCPCS: 32557; 71045 ==

== ENCOUNTER → 2024-03-21 22:34 | Outpatient (BNV) | payer OTHER, SELFPAY | PROVIDERS: Admitting Provider Student in an Organized Health Care Education/Training Program; Emergency Provider Emergency Medicine; PCP Family Medicine; Visit Provider Internal Medicine Cardiovascular Disease | DX: I50.9 Heart failure, unspecified (principal) | CPT/HCPCS: 99222 ==

== ENCOUNTER → 2024-03-21 22:34 | Outpatient (BNV) | payer OTHER, SELFPAY | PROVIDERS: Admitting Provider Student in an Organized Health Care Education/Training Program; Emergency Provider Emergency Medicine; PCP Family Medicine; Visit Provider Physician Assistant Surgical | DX: J90 Pleural effusion, not elsewhere classified (principal) | CPT/HCPCS: 32551; 99499 ==

== ENCOUNTER → 2024-03-21 22:34 | Outpatient (BNV) | payer OTHER, SELFPAY | PROVIDERS: Admitting Provider Student in an Organized Health Care Education/Training Program; Emergency Provider Emergency Medicine; PCP Family Medicine; Visit Provider Physician Assistant | DX: R79.89 Other specified abnormal findings of blood chemistry (principal) | CPT/HCPCS: 99223; 99232; 99233; 99239 ==

== ENCOUNTER → 2024-03-21 22:34 | Outpatient (BNV) | payer OTHER, SELFPAY | PROVIDERS: Admitting Provider Student in an Organized Health Care Education/Training Program; Emergency Provider Emergency Medicine; PCP Family Medicine; Visit Provider Hospitalist | DX: J96.20 Acute and chronic respiratory failure, unspecified whether with hypoxia or hypercapnia (principal); J43.2 Centrilobular emphysema; J90 Pleural effusion, not elsewhere classified | CPT/HCPCS: 99223 ==

== ENCOUNTER 2024-04-27 13:54 | Outpatient (AMB) | payer OTHER, SELFPAY ==
--- NOTE | 2024-04-27 13:59 | A.OFFPC_ITS ---
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: No Allergies bee pollen [BEE STINGS] Allergy (Intermediate, Verified 04/27/24 14:07) THROAT SWELLING penicillin V Allergy (Intermediate, Verified 04/27/24 14:07) nausea and vomiting Penicillins [PENICILLINS] Allergy (Intermediate, Verified 04/27/24 14:07) YEAST INFECTIONS- UTI - NAUSEA codeine [Codeine] Allergy (Mild, Verified 04/27/24 14:07) ITCHING celecoxib [From Celebrex] Adverse Reaction (Severe, Verified 04/27/24 14:07) RECTAL BLEEDING Medication List - Last Reconciled 04/27/24 by Ed Murillo MD albuterol sulfate 2.5 mg (3 mL) inhalation Q4-6H PRN albuterol sulfate 90 mcg/actuation 2 puffs inhalation Q4-6H PRN 30 days bumetanide 0.5 mg See Protocol PO DAILY carisoprodol 350 mg PO BID PRN 30 days docusate sodium 100 mg PO BID ferrous sulfate 324 mg PO DAILY fluticasone propionate 220 mcg/actuation 2 puffs inhalation BID 30 days foam bandage (Allevyn Gentle Border) change every 72 hours (Q 3 days) food supplemt, lactose-reduced (Ensure Enlive) 1 ea PO BID 30 days ipratropium bromide 17 mcg/actuation (Atrovent HFA) 2 puffs inhalation QID 30 days miscellaneous medical supply Oxygen Concetrator. Daily As directed, 999 days omeprazole 40 mg PO DAILY@0630 oxycodone-acetaminophen 5-325 mg (Percocet) 1 tab PO TID 28 days ropinirole 6 mg (1.5 x 4 mg) PO BEDTIME 30 days sennosides (Senna Lax) 17.2 mg (2 x 8.6 mg) PO DAILY Tobacco use date assessed: 08/20/23 Dental Screening Dental Screen Date: 11/18/22 HPI discharged from rehab HPI Details [facility] [place] hospital admission 03/21/24-03/31/2024 Patient who had had recent positive COVID test was admitted for shortness of breath left lower quadrant abdominal bloating and was found to be in acute hypoxic respiratory failure with acute CHF which was treated with IV diuresis. Bilateral pleural effusion which also improved with diuresis. No growth on cultures. Small pneumothorax which improved over course. Patient did undergo chest tube placement. No malignant cells. Constipation improved with decreased iron. Known Right-sided pelvis mass Patient was discharged to rehab until 04/22/2024 Positive modified barium swallow test. 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 Resent script for ensure. Monitoring weight. Recommended f/u for pelvic mass - known and benign. Was also referred to: [facility] and rehab [facility] TCM Information Date of Discharge 04/22/24 Discharged From Other ([facility] ) Interactive Contact Date (Reference documentation from this date) 04/27/24 HPI Comments History of Present Illness Details Documentation assistance for Ed Murillo MD, was provided by Faisal Woodruff, Commercial Journeyman Electrician on 04/27/2024 at 2:44 PM EST. I, Dr. Murillo, have read, observed, and verified documentation. [facility] Medical History (Updated 04/27/24 @ 15:08 by Ed Murillo MD) Pneumothorax No pertinent past medical history Surgical History H/O oral surgery History of fusion of cervical spine History of biopsy History of lung biopsy History of surgery on left wrist History of shoulder surgery History of rhinoplasty Family History Father Cirrhosis Substance use disorder Mother No problems noted. Brother No problems noted. Son No problems noted. Son No problems noted. Daughter No problems noted. Daughter No problems noted. Daughter No problems noted. 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 All Hoyos, Linda Madison, Omar Crowell and colleagues, with an educational wilton from [employer]. Review of Systems Const Denies chills, Denies fatigue, Denies fever(s), Denies headache(s) and Denies weakness ENT Denies dizziness and Denies headache(s) Card Denies dyspnea Resp Denies cough, Denies dyspnea, Denies wheezing and Denies other (shortness of breath) Musc Denies numbness and Denies tingling Neuro Denies dizziness, Denies headache(s), Denies numbness, Denies tingling and Denies weakness Psych Denies anxiety and Denies depression Endo Denies fatigue Aller/Immun Denies wheezing Physical exam (Primary Care) Vital Signs: Last Vital Signs Temp 97.4 F 04/27/24 14:12 Pulse 119 H 04/27/24 14:12 Resp 14 04/27/24 14:12 BP 90/50 L 04/27/24 14:12 Pulse Ox 92 04/27/24 14:12 Oxygen Delivery Method Room Air 04/27/24 14:12 BMI result Body Mass Index 12.1 Tobacco/Smoking Status: Tobacco use Status Tobacco use date assessed 08/20/23 04/27/24 14:00 Patient Tobacco Use Status Former Tobacco user 04/27/24 14:00 e-Cigarette/Vaping Use Former Use 04/27/24 14:00 Thrive Assessment: Date of Thrive Assessment Date Thrive assessed 03/22/24 04/27/24 14:00 Const General: well developed; No acute distress Nutritional Appearance: underweight Orientation/consciousness: patient oriented x3 HENMT Head: Yes normocephalic and Yes atraumatic Eyes General: appearance normal, both eyes and all related structures Pupils: Equal, round and reactive pupils present EOM: EOMs intact bilaterally Resp Effort & Inspection: normal respiratory effort Auscultation: clear to auscultation bilaterally Cardio Rate: regular rate Rhythm: regular rhythm Heart sounds: S1 normal heart sound present, S2 normal heart sound present, no gallops, no murmurs and no rubs Neuro General: patient oriented x3 and gait normal Cranial nerves: Yes Equal, round and reactive pupils present Psych Affect: normal affect Coding Level of Care Code Est Pt Level 5 (20057) Diagnoses Acute and chronic respiratory failure, unspecified whether with hypoxia or hypercapnia J96.20 Underweight R63.6 Centrilobular emphysema J43.2 COPD type: emphysema Emphysema type: centrilobular PACO (acute kidney injury) N17.9 Elevated liver enzymes R74.8 Malnutrition E46 Difficulty swallowing R13.10 Assessment & Plan Assessment & Plan (1) Acute and chronic respiratory failure, unspecified whether with hypoxia or hypercapnia: Code(s): J96.20 - Acute and chronic respiratory failure, unspecified whether with hypoxia or hypercapnia Category: Medical Plan: Follow-up?after?hospital?discharge?for acute?respiratory?failure?secondary?to? congestive?heart?failure?and?COPD?exacerbation. Patient?is?breathing?at?baseline?today. She?is?Bumex?continue?this. Rechecking?BNP Check?chest?x-ray Avoid?salt/sodium Improve nutrition - ensure Referred?to?cardiology (2) Underweight: Code(s): R63.6 - Underweight Category: Medical Plan: As?above?continue?ensure (3) COPD (chronic obstructive pulmonary disease): Code(s): J44.9 - Chronic obstructive pulmonary disease, unspecified Category: Medical Qualifiers: COPD type: emphysema Emphysema type: centrilobular Qualified Code(s): J43.2 - Centrilobular emphysema Plan: As?above,?patient?is?lung?sounds?are?at?baseline?breathing?at?baseline. Check?chest?x-ray Continue?inhaled?medications Refer?to?Pulmonary?Medicine (4) PACO (acute kidney injury): Code(s): N17.9 - Acute kidney failure, unspecified Category: Medical Plan: Check?renal?function?labs (5) Elevated liver enzymes: Code(s): R74.8 - Abnormal levels of other serum enzymes Category: Medical Plan: Improving Recheck?liver?enzymes (6) Malnutrition: Code(s): E46 - Unspecified protein-calorie malnutrition Category: Medical Plan: As?above (7) Difficulty swallowing: Code(s): R13.10 - Dysphagia, unspecified Category: Medical Plan: Follow?WIND TURBINE PERFORMANCE ENGINEER?recommendations Orders: Orders XR chest 2V Today I50.9 - Heart failure, unspecified B Type Natriuretic Peptide Today I50.9 - Heart failure, unspecified Comprehensive Met. Panel Today I50.9 - Heart failure, unspecified Complete Blood Count Auto Diff Today I50.9 - Heart failure, unspecified, Z00.00 - Encounter for general adult medical examination without abnormal findings UA and rflx microscopic Today I50.9 - Heart failure, unspecified, Z00.00 - Encounter for general adult medical examination without abnormal findings Referrals Cardiology Referral I50.9 - Heart failure, unspecified Pulmonology Referral J43.2 - Centrilobular emphysema, J96.20 - Acute and chronic respiratory failure, unspecified whether with hypoxia or hypercapnia Medications: Refilled ropinirole administer 1-3 hours before bedtime 6 mg (1.5 x 4 mg) PO BEDTIME 30 days 45 tabs 3RF oxycodone-acetaminophen 5-325 mg (Percocet) MassPat verified. Partial refill upon request. 1 tab PO TID 28 days 84 tabs 0RF pain M54.9 - Dorsalgia, unspecified carisoprodol 350 mg PO BID 30 days PRN 60 tabs 0RF muscle pain food supplemt, lactose-reduced (Ensure Enlive) Chocolate Only 1 ea PO BID 30 days 14,220 mL 12RF nutrition fluticasone propionate 220 mcg/actuation 2 puffs inhalation BID 30 days 12 grams 6RF
[2024-04-27 14:12] VITALS: BP 90/50; PULSE 119; RESP 14; TEMP 36.3; O2SAT 92; BMI 12.1
--- OUTSIDE RECORDS SUMMARY | 2024-04-27 17:05 | XMS_ITS | Clinical Summary ---
Author Organization Unknown Care Team Providers Care Machine Filler Shredder Name Role Phone GLENN MANLEY, SILAS Unavailable Unavailable KENDELL URRUTIA, MARIAN Unavailable Unavailable Payers Payer Name Policy Type Policy Number Effective Date Expira tion Date [facility] [place] [id number] MEDICAID [facility] [id number] MEDICARE - [facility] [place] - [place] [id number] Problems Condition Name Condition Details Condition Category Status Onset Date Resolution Date Last Treatment Date Treating Clinician Comments CHRONIC OBSTRUCTIVE PULMONARY DISEASE W (ACUTE) EXACERBATION Active 2-20 00:00: 00 Allergies, Adverse Reactions, Alerts Allergy Name Allergy Type Status Severity Reaction(s) Onset Date Inactive Date Treating Clinician Comments CODEINE SULFATES Propensity to adverse reactions Active 2024-04 12:01:3 0 PCNS Propensity to adverse reactions Active 2024-04 12:01:4 2 CELEBREX Propensity to adverse reactions Active 2024-04 12:01:5 4 Plan of Treatment Planned Activity Planned Date Details Comments Future Scheduled Test SKILLED NU RSE TO EVALUATE PATIENT, IDENTIFY PRIMARY AND CO-MORBID CONDITIONS CODED PER CODING GUIDELINES, AND DEVELOP PATIENT SPECIFIC PLAN OF CARE THAT INCLUDES PATIENT GOAL FOR HOME HEALTH. [code = SKILLED NURSE TO EVALUATE PATIENT, IDENTIFY PRIMARY AND CO-MORBID CONDITIONS CODED PER CODING GUIDELINES, AND DEVELOP PATIENT SPECIFIC PLAN OF CARE THAT INCLUDES PATIENT GOAL FOR HOME HEALTH.] Future Scheduled Test SKILLED NU RSE TO O/A OF PATIENTS MENTAL/BEHAVIORAL STATUS, ASSESS VITAL SIGNS (FREQUENCY OF VS), ALLOW 2 PRNS FOR MEDICATION MANAGEMENT. [code = SKILLED NURSE TO O/A OF PATIENTS MENTAL/BEHAVIORAL STATUS, ASSESS VITAL SIGNS (FREQUENCY OF VS), ALLOW 2 PRNS FOR MEDICATION MANAGEMENT.] Future Scheduled Test SKILLED NU RSE WILL MAINTAIN SITUATIONAL AWARENESS FOR SAFETY AND WILL NOTIFY CLINICAL NUCLEAR EQUIPMENT DESIGN ENGINEER AND PHYSICIAN/PROVIDER WITH ANY CHANGE IN CONDITION. [code = SKILLED NURSE WILL MAINTAIN SITUATIONAL AWARENESS FOR SAFETY AND WILL NOTIFY CLINICAL NUCLEAR EQUIPMENT DESIGN ENGINEER AND PHYSICIAN/PROVIDER WITH ANY CHANGE IN CONDITION.] Future Scheduled Test SKILLED NU RSE FOR O/A OF GENERAL HEALTH STATUS OF PAIN, CARDIAC, RESPIRATORY, GASTROINTESTINAL, GENITOURINARY, SKIN, NEUROLOGIC, ENDOCRINE SYSTEMS TO IDENTIFY CHANGES ASSOCIATED WITH EXACERBATION FOR EARLY INTERVENTION OF COMPLICATIONS (FREQUENCY) [code = SKILLED NURSE FOR O/A OF GENERAL HEALTH STATUS OF PAIN, CARDIAC, RESPIRATORY, GASTROINTESTINAL, GENITOURINARY, SKIN, NEUROLOGIC, ENDOCRINE SYSTEMS TO IDENTIFY CHANGES ASSOCIATED WITH EXACERBATION FOR EARLY INTERVENTION OF COMPLICATIONS (FREQUENCY)] Future Scheduled Test SKILLED NU RSE TO PRE-POUR MEDICATION PER MEDICATION LIST (FREQUENCY). [code = SKILLED NURSE TO PRE-POUR MEDICATION PER MEDICATION LIST (FREQUENCY).] Future Scheduled Test SKILLED NU RSE TO ASSESS PATIENTS PSYCHOSOCIAL STATUS TO IDENTIFY POTENTIAL ISSUES THAT MAY COMPLICATE THE PROVISION OF THE PLAN OF CARE INCLUDING THE PATIENTS ABILITY TO ACCESS COMMUNITY RESOURCES AND PSYCHOSOCIAL SUPPORT SERVICES. [code = SKILLED NURSE TO ASSESS PATIENTS PSYCHOSOCIAL STATUS TO IDENTIFY POTENTIAL ISSUES THAT MAY COMPLICATE THE PROVISION OF THE PLAN OF CARE INCLUDING THE PATIENTS ABILITY TO ACCESS COMMUNITY RESOURCES AND PSYCHOSOCIAL SUPPORT SERVICES.] Future Scheduled Test SKILLED NU RSE FOR O/A OF SELF-CARE DEFICITS AND TO PROVIDE TEACHING RELATED TO SAFE PROVISION OF ADLS. [code = SKILLED NURSE FOR O/A OF SELF-CARE DEFICITS AND TO PROVIDE TEACHING RELATED TO SAFE PROVISION OF ADLS.] Future Scheduled Test PHYSICAL T HERAPIST TO EVALUATE PATIENT FOR(SPECIFY) [code = PHYSICAL THERAPIST TO EVALUATE PATIENT FOR(SPECIFY)] Future Scheduled Test OCCUPATION AL THERAPIST TO EVALUATE PATIENT FOR (SPECIFY) [code = OCCUPATIONAL THERAPIST TO EVALUATE PATIENT FOR (SPECIFY)] Future Scheduled Test MEDICAL SO CIAL WORKER TO EVALUATE PATIENT FOR (SPECIFY) [code = COFFEE URN ATTENDANT TO EVALUATE PATIENT FOR (SPECIFY)] Goal Patient Goal - STAY OUT OF [facility] Goal Provider Goal - A PLAN OF CARE WILL BE ESTABLISHED THAT MEETS PATIENT'S LONG TERM NEEDS AND INCLUDES PATIENT GOAL FOR HOME HEALTH. Goal Provider Goal - ALTERED MENTAL/BEHAVIORAL STATUS WILL BE IDENTIFIED PROMPTLY AND INTERVENTION INITIATED QUICKLY TO MINIMIZE ASSOCIATED RISKS THROUGHOUT CERTIFICATION PERIOD. Goal Provider Goal - PATIENT WILL REMAIN SAFE IN THE COMMUNITY AND WILL BE FREE OF DANGER TO SELF AND OTHERS THROUGHOUT THE CERTIFICATION PERIOD. Goal Provider Goal - CHANGE IN GENERAL HEALTH STATUS WILL BE IDENTIFIED AND REPORTED TO PHYSICIAN FOR PROMPT INTERVENTION TO MINIMIZE ASSOCIATED RISKS THROUGHOUT CERTIFICATION PERIOD. Goal Provider Goal - PATIENT WILL COMPLY WITH MEDICATION WHEN SKILLED NURSE PRE-POURS MEDICATION THROUGHOUT CERTIFICATION PERIOD. Goal Provider Goal - PSYCHOSOCIAL NEEDS WILL BE IDENTIFIED AND PLAN IMPLEMENTED TO MINIMIZE RISK THROUGHOUT CERTIFICATION PERIOD. Goal Provider Goal - PATIENT/CAREGIVER WILL VERBALIZE/DEMONSTRATE UNDERSTANDING OF SAFE PROVISION OF ADLS BY THE END OF THE CERTIFICATION PERIOD. Goal Provider Goal - A PHYSICAL THERAPY EVALUATION TO BE COMPLETED WITH RECOMMENDATIONS AND/OR WRITTEN PLAN OF TREATMENT ESTABLISHED FOR PHYSICIANS SIGNATURE. Goal Provider Goal - OCCUPATIONAL THERAPY EVALUATION TO BE COMPLETED WITH RECOMMENDATIONS AND WRITTEN PLAN OF TREATMENT ESTABLISHED FOR THE PHYSICIANS SIGNATURE. Goal Provider Goal - COFFEE URN ATTENDANT TO COMPLETE EVALUATION TO ADDRESS THE PATIENTS SOCIAL AND EMOTIONAL FACTORS AND/OR WRITTEN PLAN OF TREATMENT ESTABLISHED FOR THE PHYSICIAN'S SIGNATURE. Progress Notes Progress Notes <paragraph>[Visit Date: 2024 by JOBY ALEJANDRO RN]:</paragraph><paragraph>SOC VISIT PT IS A 68 YEAR OLD FEMALE WHO [place] [facility] [place] [facility] FROM [facility] - 04/22 FOR DX COPD EXACERBATION, CHF. PT HAS PMH ANEMIA, ANXIETY, RLS, GERD, CHRONIC PAIN, DYSPHAGIA. PT LIVES ON THE SECOND FLOOR OF A MULTI LEVEL HOME WITH HER FRIENDLY CAT. PT HAS BROTHER AND SISTER IN LAW LIVING ON THE FIRST FLOOR. 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 PT HAS POOR ACTIVITY TOLERANCE DUE TO COPD. PT DOES NOT HAVE OXYGEN IN THE HOME, STATES A CONCENTRATOR IS TOO EXPENSIVE FOR HER ELECTRICITY BUDGET. PT BECOMES SOB WITH MINIMAL ACTIVITY. PT IS FRAIL AND CACHECTIC. PT WALKS WITH A ROLLATOR. PT REQUIRES ASSIST TO TAKE THE STAIRS WELL FREQUENT REST BREAKS. PT MANAGES OWN MEDICATION. PHARMACY IS [facility]. PT WOULD BENEFIT FROM LONG TERM FOR CHRONIC DISEASE MANAGEMENT, CARDIOPULMONARY ASSESSMENT, MEDICATION EDUCATION, PAIN MANAGEMENT. PHYSICAL AND OCCUPATIONAL THERAPY FOR STRENGTHENING, ADL MANAGEMENT. SALES SPECIAL AGENT FOR ASSESSMENT OF AVAILABLE RESOURCES.</paragraph> Encounters Start Date/Time End Date/Time Encounter Type Admission Type Attending Clinicians Care Facility Care Department Encounter ID Discharge Date Discharge Status Discharge Condition Discharge Reason Percent Goals Met 2024-04-23 00:00:00 2024-06-21 00:00:00 Outpatient NEW ADMISSION [facility] [id number] .00
--- OUTSIDE RECORDS SUMMARY | 2024-04-27 17:05 | XMS_ITS | Clinical Summary ---
Author Organization [employer] Address [address] [place] [address] Care Team Providers Care Automotive Diagnostic Technician Name Role Phone Unavailable Primary Care Provider Unavailabl e Allergies Active Allergy Reactions Criticality Noted Date Comments Bee Venom Anaphylaxis High 10/08/2022 Celecoxib 10/30/2022 Codeine Itching 10/08/2022 Penicillins 07/23/2022 Medications albuterol (2.5 MG/3ML) 0.083% nebulizer solution INHALE 3ML EVERY 4 TO 6 HOURS NEEDED FOR SHORTNESS OF BREATH OR WHEEZING 3 Active albuterol 108 (90 Base) MCG/ACT inhaler INHALE 2 PUFFS BY MOUTH EVERY 4 TO 6 HOURS NEEDED FOR SHORTNESS OF BREATH OR WHEEZING 3 Active Flovent HFA 220 MCG/ACT inhaler Inhale 2 puffs 2 times daily. 3 Active gabapentin (Neurontin) 400 MG capsule Take 400 mg by mouth at bedtime. 3 Active Atrovent HFA 17 MCG/ACT inhaler INHALE 2 PUFFS BY MOUTH FOUR TIMES DAILY 3 Active oxyCODONE-aceta minophen (Percocet) 5-325 MG tablet Take 1 tablet by mouth if needed in the morning, at noon, and at bedtime. 3 Active carisoprodol (Soma) 350 MG tablet TAKE 1 TABLET BY MOUTH TWICE DAILY NEEDED FOR MUSCLE PAIN 3 Active omeprazole (PriLOSEC) [address] capsule Take 40 mg by mouth in the morning. 3 Active rOPINIRole (Requip) 4 MG tablet TAKE 1 TABLET BY MOUTH EVERY NIGHT AT BEDTIME AND 1 TO 3 HOURS BEFORE BEDTIME 3 Active azithromycin (Zithromax) 500 MG tablet Take two tabs on day one followed by one tablet from day two until gone. 6 tablet Active Social History Tobacco Use Types Packs/Day Years Used Date Smoking Tobacco: Former Cigarettes Smokeless Tobacco: Former Tobacco Cessation:Counseling Given: Not Answered Alcohol Use Standard Drinks/Week Comments Never 0 (1 standard drink = 0.6 oz pur e alcohol) Comments Unknown Sex and Gender Information Value Date Recorded Sex Assigned at Female 07/15/2022 12:55 PM EDT Legal Sex Female 12:51 PM EDT Gender Identity Female 07/15/2022 12:55 PM EDT Sexual Orientation Choose not to disclose 2022 12:55 PM EDT Last Filed Vital Signs Vital Sign Reading Time Taken Comments Blood Pressure 100/62 10/08/2022 1:03 PM EDT Pulse 80 10/08/2022 1:03 PM EDT Temperature - - Respiratory Rate - - Oxygen Saturation - - Inhaled Oxygen Concentration - - Weight - - Height - - Body Mass Index - - Plan of Treatment Health Maintenance Due Date Last Done Comments CT Colonography 1955 Colonoscopy 1954 Colorectal Cancer Screening 1954 Depression Screening 1955 FIT DNA/Cologuard 1954 FIT 1954 FOBT 1954 SDOH Screening 1954 Sigmoidoscopy 1954 Alcohol/Substance Use Screening 1966 Hepatitis C Screening 1972 Mammogram 1994 Zoster Vaccines (1 of 2) 2004 DTaP/Tdap/Td Vaccines (1 - Tdap) 09/15/2011 09/14/2011 Pneumococcal Vaccine: 50+ Years (2 of 2 - PCV) 11/14/2019 11/13/2018, 01/11/2018, 09/13/2013 Dental Oral Exam 03/29/2023 09/25/2022 Dental Prophylaxis 04/11/2023 10/08/2022 Dental X-Ray: Bitewings 09/27/2023 09/25/2022 COVID-19 Vaccine (4 - season) 2023 03/21/2021, 06/06/2020, 05/09/2020 Influenza Vaccine (#1) 2023 3, 01/10/2022, 12/06/2020, Additional history exists Tobacco Screening 01/06/2024 01/05/2023 Dental X-Ray: Full Mouth 09/26/2025 09/25/2022 RSV Patients and Patients Aged 60 years or older (1 - 1-dose 75+ series) 2029 HIB Vaccines Aged Out No longer eligi ble based on patient's age to complete this topic HPV Vaccines Aged Out No longer eligi ble based on patient's age to complete this topic Hepatitis A Vaccines Aged Out No long er eligible based on patient's age to complete this topic Hepatitis B Vaccines Aged Out No long er eligible based on patient's age to complete this topic IPV Vaccines Aged Out No longer eligi ble based on patient's age to complete this topic Meningococcal Vaccine Aged Out No rina kale eligible based on patient's age to complete this topic RSV under 20 months Aged Out No longe r eligible based on patient's age to complete this topic Rotavirus Vaccines Aged Out No longer eligible based on patient's age to complete this topic Procedures Procedure Name Priority Date/Time Associated Diagnosis Comments PROPHYLAXIS - ADULT Routine 10/08/2022 1 :00 PM EDT INTRAORAL - COMPLETE SERIES OF RADIOGRAPHIC IMAGES Routine 09/25/2022 2:00 PM EDT COMPREHENSIVE ORAL EVALUATION - NEW OR ESTABLISHED PATIENT Routine 09/25/2022 2:00 PM EDT from Last 3 Months or Most Recently Relevant to Health Maintenance Insurance [facility]ENTAL - [facility]
--- OUTSIDE RECORDS SUMMARY | 2024-04-27 17:05 | XMS_ITS | Patient Health Record ---
Author Organization [facility] Address [address] [place] [address] Care Team Providers Care Automotive Tire Worker Name Role Phone Steph(inactive) Giuseppe MANLEY Primary Care Provider U Dawit Kendrick Jr Unavailable ALLERGIES Allergen (clinical drug ingredient) Drug/Non Drug Allergy documented on EMR Reaction Allergy Type Onset Date Status bee stings (uncoded) Unknown Allergy Active PCN (uncoded) Unknown Allergy Active celecoxib celebrex (uncoded) Unknown Allergy A ctive codeine codeine (uncoded) Unknown Allergy Ac tive RESULTS Component Value Reference Range Notes US abdomen limited Reviewed date:03/24/2024 08:02:13 AM Interpretation: Performing Lab: Notes/Report: [address] [address] Ultrasound Report Signed Patient: Gabbie Dominguez MR#: [id number] : 1955 Acct:[id number] Age/Sex: 68 / F ADM Date: 03/21/24 Loc: [facility] 477-[address]: Iesha Grimm NP Ordering Physician: Dawit Terry MD Date of Service: 03/23/24 Procedure(s): US abdomen limited Accession Number(s): [id number] cc: Dawit Terry MD; Ed Murillo MD CLINICAL HISTORY: ascites US abdomen limited Comparison: US - US ABDOMEN LIMITED - 03/21/24 23:02 EST Findings: Mild ascites visualized in the right upper quadrant and right lower quadrant. No ascites seen on left side of the abdomen. Right-sided pleural effusion is visualized. IMPRESSION: 1. Mild ascites in right upper quadrant and right lower quadrant. 2. Right pleural effusion. This document has been electronically signed by: Zaynab Martin MD on 03/23/2024 20:12:49 Dictated By: Zaynab Martin MD Signed By: <Electronically signed by Zaynab Martin MD in OV> 03/23/242013 DD/ 11 TD/TT: 03/23/242011 Orderly: Prothrombin Time INR Reviewed date:03/24/2024 09:18:35 PM Interpretation: Performing Lab:[address] [id number] Notes/Report: Prothrombin Time 14.3 10.9-12.4 SEC INTERNATIONAL NORM RATIO 1.2 0.9-1.1 INTERNATIONAL NORMALIZED RATIO (INR) REFERENCE RANGES Reference Range For patients not on anticoagulant therapy: 0.9 - 1.1 INR ranges for oral anticoagulant therapy: For prevention and treatment of venous thrombosis and pulmonary embolism: 2.0 - 3.0 For acute myocardial infarction with aspirin therapy: 2.0 - 3.0 For acute myocardial infarction without aspirin therapy: 3.0 - 4.0 For patients with mechanical prosthetic heart valves: 2.5 - 3.5 Liver Panel Reviewed date:03/24/2024 09:19:31 PM Interpretation: Performing Lab:[address] [id number] Notes/Report: Bilirubin Total 0.5 0.0-1.0 mg/dL Bilirubin Direct 0.3 0.0-0.5 mg/dL Aspartate Amino Transferase 202 5-31 U/L Alanine Aminotransferase 522 0-31 U/L Total Protein 5.7 6.5-8.0 g/dL Albumin Level 3.2 3.5-5.0 g/dL Alkaline Phosphatase 69 39-117 U/L Basic Metabolic Panel Reviewed date:03/24/2024 09:19:18 PM Interpretation: Performing Lab:[address] [address] Notes/Report: Sodium 137 135-145 mmol/L Potassium 4.7 3.3-5.1 mmol/L Chloride 96 96-108 mmol/L Carbon Dioxide 38 22-29 mmol/L Anion Gap 8 12-20 Blood Urea Nitrogen 36 9-16 mg/dL Creatinine 0.69 0.5-1.4 mg/dL Creatinine Clr Calc Pharmacy 47.3 Provided height and weight: 157.48 cm, 39 kg. eGFR (calculated from the MDRD study equation) and eCrCl (calculated from the Cockcroft-Gault equation) are based on different parameters and may not yield comparable results. If eCrCl result is absurd, please check patient's height/weight. Estimated Glomerular Filt Rate > 60 Chronic Kidney Disease: Estimated GFR < 60 mL/min/1.73m2 Severe Kidney Disease: Estimated GFR < 15 mL/min/1.73m2 Glucose Random 74 60-115 mg/dL Calcium 8.4 8.4-10.2 mg/dL Lipase Reviewed date:03/24/2024 09:18:47 PM Interpretation: Performing Lab:[address] [address] Notes/Report: Lipase 14 8-78 U/L Liver Panel Reviewed date:03/25/2024 09:41:03 PM Interpretation: Performing Lab:[address] [address] Notes/Report: Bilirubin Total 0.5 0.0-1.0 mg/dL Bilirubin Direct 0.3 0.0-0.5 mg/dL Aspartate Amino Transferase 152 5-31 U/L Alanine Aminotransferase 430 0-31 U/L Total Protein 5.5 6.5-8.0 g/dL Albumin Level 3.0 3.5-5.0 g/dL Alkaline Phosphatase 64 39-117 U/L Basic Metabolic Panel Reviewed date:03/25/2024 09:40:54 PM Interpretation: Performing Lab:[address] [address] Notes/Report: Sodium 138 135-145 mmol/L Potassium 4.3 3.3-5.1 mmol/L Chloride 95 96-108 mmol/L Carbon Dioxide 39 22-29 mmol/L Anion Gap 8 12-20 Blood Urea Nitrogen 18 9-16 mg/dL Creatinine 0.54 0.5-1.4 mg/dL Creatinine Clr Calc Pharmacy 60.5 Provided height and weight: 157.48 cm, 39 kg. eGFR (calculated from the MDRD study equation) and eCrCl (calculated from the Cockcroft-Gault equation) are based on different parameters and may not yield comparable results. If eCrCl result is absurd, please check patient's height/weight. Estimated Glomerular Filt Rate > 60 Chronic Kidney Disease: Estimated GFR < 60 mL/min/1.73m2 Severe Kidney Disease: Estimated GFR < 15 mL/min/1.73m2 Glucose Random 77 60-115 mg/dL Calcium 8.5 8.4-10.2 mg/dL IRON PROFILE Reviewed date:03/25/2024 09:40:19 PM Interpretation: Performing Lab:[facility], [address] [place] [phone] Notes/Report: Iron 16 30-160 mcg/dL Total Iron Binding Capacity 348 228-428 mcg/d L Percent Iron Saturation 5 15-50 % Unsaturated Iron Binding 332 Ferritin Reviewed date:03/25/2024 09:40:46 PM Interpretation: Performing Lab:[facility], [address] [place] [phone] Notes/Report: Ferritin 31 10-250 ng/mL Lactate Dehydrogenase Reviewed date:03/25/2024 09:40:37 PM Interpretation: Performing Lab:[facility], [address] [place] [phone] Notes/Report: Lactate Dehydrogenase 224 122-220 U/L REASON FOR REFERRAL No Information MEDICATIONS Medication SIG (Take, Route, Frequency, Duration) Notes Start Date End Date Status Golytely 236 GM as directed before colonoscopy Orally every 15 minutes for 1 day(s) 04/02/2011 03/02/2024 Active Lansoprazole Active rOPINIRole HCl Activ e Atrovent HFA Active Advair Diskus Active oxyCODONE-Acetaminophen Active Prevacid 30 MG 1 capsule before a m eal Orally b.i.d. for 30 day(s) 04/02/2011 03/02/2024 Active Lansoprazole 30 MG 1 capsule before a m eal Orally Twice a day for 90 day(s) 06/01/2012 Active Carisoprodol Active Flovent HFA Active SOCIAL HISTORY Tobacco Use: Social History Observation Description Date Details (start date - stop date) Current Smoker NA - NA Sex Assigned At : Social History Observation Description Sex Assigned At Unknown Tobacco Use/Smoking Question Answer Notes Patient is a current smoker How often do you smoke cigarettes? every day How many cigarettes a day do you smoke? 5 or les s How soon after you wake up do you smoke your fir st cigarette? after 60 minutes Are you interested in quitting? Not ready to deepali t Alcohol Screen Question Answer Notes Did you have a drink contain ing alcohol in the past year? Yes Points 2 Interpretation Negative How often did you have a dri nk containing alcohol in the past year? 2 to 4 times a month (2 points) How many drinks did you have on a typical day when you were drinking in the past year? 1 or 2 drinks (0 point) PROBLEMS Problem Type ICD Code Onset Dates Problem Status W/U Status Risk SNOMED Code Notes Problem Esophageal reflux (530.81) Active confirmed Esophageal refl ux (132592702) Problem Loss of weight (783.21) Active confirmed Weight decrease d (610061974) Problem Dysphagia, oropharyngeal phase (R13.12) Active confirmed Oropharyngeal dysphagia (07028374) Problem Chronic gastroesophageal reflux disease (K21.9) Active confirmed Gastroesophagea l reflux disease (011242921) PLAN OF TREATMENT Future Test Test Name Order Date UPPER GI ENDOSCOPY 04/02/2011 COLONOSCOPY 04/02/2011 Insurance Providers Payer Name Payer Address Payer Phone Subscriber Number Group Number Insured Name Patient Relationship to Insured Coverage Start Date Coverage End Date [facility] [address] [place] [address] [id number] GABBIE DOMINGUEZ Self - patient is the insured MEDICAL (GENERAL) HISTORY Medical History History ICD Code restless leg syndrome COPD pneumonia Surgical History Surgery Date(Month/Year) neck surgery ovarian surgery
== END 2024-04-27 15:10 | disposition home or self-care (01) ==
LOC: HO.HMCFM 13:54
PROVIDERS: PCP Family Medicine; Visit Provider Family Medicine
DX: J96.20 Acute and chronic respiratory failure, unspecified whether with hypoxia or hypercapnia (principal); J43.2 Centrilobular emphysema; N17.9 Acute kidney failure, unspecified; E46 Unspecified protein-calorie malnutrition; R63.6 Underweight; R74.8 Abnormal levels of other serum enzymes; R13.10 Dysphagia, unspecified; Z23 Encounter for immunization

== ENCOUNTER → 2024-04-27 13:54 | Outpatient (BNVA) | payer OTHER, SELFPAY | PROVIDERS: PCP Family Medicine; Visit Provider Family Medicine | DX: Z23 Encounter for immunization (principal); J96.20 Acute and chronic respiratory failure, unspecified whether with hypoxia or hypercapnia; J43.2 Centrilobular emphysema; N17.9 Acute kidney failure, unspecified; R74.8 Abnormal levels of other serum enzymes; E46 Unspecified protein-calorie malnutrition; R13.10 Dysphagia, unspecified | CPT/HCPCS: 36415; 80053; 81003; 83880; 85025; 90471; 90656; 90677; 99212 ==

== ENCOUNTER 2024-04-27 15:22 | Outpatient (REF) | payer OTHER, SELFPAY ==
[2024-04-27 18:30] LABS: MANUAL DIFF FLAG NO
[2024-04-27 18:52] LABS: Appearance Urine Clear; Color Urine Yellow; Glucose Urine UA Negative (Negative); Leukocyte Esterase Urine Negative (Negative); Nitrite Urine Negative (Negative); PH 5.5 (5.0-9.0); Urine Blood Negative (Negative); Urine Ketones Negative (Negative); Urine Protein Negative (Neg-Trace)
[2024-04-27 18:53] LABS: Basophils Absolute Auto 0.1 X10*3/uL (0.0-0.2); Basophils Percent Auto 1.4 % (0-2); Eosinophils Absolute Auto 0.3 X10*3/uL (0.0-0.4); Eosinophils Percent Auto 2.6 % (0-4); Hematocrit 38.5 % (37.0-47.0); Hemoglobin 11.5 g/dl (12.0-16.0); Imm Gran Abs Auto 0.05 X10*3/uL (0.00-0.03); Imm Gran Pct Auto 0.5 % (0.0-0.4); Lymphocytes Absolute Auto 1.1 X10*3/uL (1.2-4.9); Lymphocytes Percent Auto 11.3 % (20-40); Mean Corpuscular HGB Conc 29.9 g/dl (31.0-35.0); Mean Corpuscular Hemoglobin 23.4 pg (27.0-33.0); Mean Corpuscular Volume 78.4 fL (80.0-98.0); Mean Platelet Volume 8.8 fL (9.4-12.3); Monocytes Absolute Auto 0.6 X10*3/uL (0.1-1.2); Monocytes Percent Auto 5.9 % (2-11); Neutrophils Absolute Auto 7.8 x10*3/uL (2.0-8.3); Neutrophils Percent Auto 78.3 % (45-73); Platelet Count 515 X10*3/uL (160-400); Red Blood Count 4.91 X10*6/uL (4.20-5.50); Red Cell Distribution Width 24.8 % (11.0-16.0)
--- OUTSIDE RECORDS SUMMARY | 2024-04-27 18:57 | XMS_ITS | Clinical Summary ---
Author Organization Unknown Care Team Providers Care Clerical Adjudicator Name Role Phone GLENN MANLEY, SILAS Unavailable Unavailable KENDELL URRUTIA, MARIAN Unavailable Unavailable Payers Payer Name Policy Type Policy Number Effective Date Expira tion Date [facility] [place] [id number] MEDICAID [facility] [id number] MEDICARE - [facility] [place] [id number] Problems Condition Name Condition Details Condition Category [...] AWARENESS FOR SAFETY AND WILL NOTIFY CLINICAL ELEVATOR RUNNER AND PHYSICIAN/PROVIDER WITH ANY CHANGE IN CONDITION. [code = SKILLED NURSE WILL MAINTAIN SITUATIONAL AWARENESS FOR SAFETY AND WILL NOTIFY CLINICAL ELEVATOR RUNNER AND PHYSICIAN/PROVIDER WITH ANY CHANGE IN CONDITION.] [...] TO EVALUATE PATIENT FOR (SPECIFY) [code = METAL MELTER TO EVALUATE PATIENT FOR (SPECIFY)] Goal Patient Goal - STAY OUT OF [facility] Goal Provider Goal - A PLAN OF CARE WILL BE ESTABLISHED THAT MEETS PATIENT'S PRISON NEEDS AND INCLUDES PATIENT GOAL FOR HOME [...] THE PHYSICIANS SIGNATURE. Goal Provider Goal - METAL MELTER TO COMPLETE EVALUATION TO ADDRESS THE PATIENTS SOCIAL AND EMOTIONAL FACTORS AND/OR WRITTEN PLAN OF TREATMENT ESTABLISHED FOR THE PHYSICIAN'S SIGNATURE. Progress Notes Progress Notes <paragraph>[Visit Date: 2024 by JOBY ALEJANDRO RN]:</paragraph><paragraph>SOC VISIT PT IS A 68 YEAR OLD FEMALE WHO [place] [facility] [place] [facility] - 04/22 FOR DX COPD EXACERBATION, CHF. PT HAS PMH ANEMIA, ANXIETY, RLS, GERD, CHRONIC PAIN, DYSPHAGIA. PT LIVES ON THE SECOND FLOOR OF A MULTI LEVEL HOME WITH HER FRIENDLY CAT. PT HAS BROTHER AND SISTER IN LAW LIVING ON THE FIRST FLOOR. 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 PT HAS POOR ACTIVITY TOLERANCE DUE TO COPD. PT DOES NOT HAVE OXYGEN IN THE HOME, STATES A CONCENTRATOR IS TOO EXPENSIVE FOR HER ELECTRICITY BUDGET. PT BECOMES SOB WITH MINIMAL ACTIVITY. PT IS FRAIL AND CACHECTIC. PT WALKS WITH A ROLLATOR. PT REQUIRES ASSIST TO TAKE THE STAIRS WELL FREQUENT REST BREAKS. PT MANAGES OWN MEDICATION. PHARMACY IS [facility]. PT WOULD BENEFIT FROM PRISON FOR CHRONIC DISEASE MANAGEMENT, CARDIOPULMONARY ASSESSMENT, MEDICATION EDUCATION, PAIN MANAGEMENT. PHYSICAL AND OCCUPATIONAL THERAPY FOR STRENGTHENING, ADL MANAGEMENT. GRAPHIC DESIGN INTERN FOR ASSESSMENT OF AVAILABLE RESOURCES.</paragraph> Encounters Start Date/Time End Date/Time Encounter Type Admission Type Attending Clinicians Care Facility Care Department Encounter ID Discharge Date Discharge Status Discharge Condition Discharge Reason Percent Goals Met 2024-04-23 00:00:00 2024-06-21 00:00:00 Outpatient NEW ADMISSION [facility] [id number] .00
--- OUTSIDE RECORDS SUMMARY | 2024-04-27 18:57 | XMS_ITS | Clinical Summary ---
Author Organization [employer] Address [address] [place] [address] Care Team Providers Care Key Person Name Role Phone Unavailable Primary Care Provider [...] Relevant to Health Maintenance Insurance [facility] - [facility] [place]
--- OUTSIDE RECORDS SUMMARY | 2024-04-27 18:57 | XMS_ITS | Clinical Summary ---
Author Organization Unknown Care Team Providers Care Calculation Reviewer Name Role Phone GLENN MANLEY, SILAS Unavailable Unavailable KENDELL URRUTIA, MARIAN Unavailable Unavailable Payers Payer Name Policy Type Policy Number Effective Date Expira tion Date [facility] [id number] MEDICAID [facility] [id number] MEDICARE - [facility] [place] - [place] [id number] Problems Condition Name Condition Details Condition Category [...] AWARENESS FOR SAFETY AND WILL NOTIFY CLINICAL INSULATION CUTTER AND FORMER AND PHYSICIAN/PROVIDER WITH ANY CHANGE IN CONDITION. [code = SKILLED NURSE WILL MAINTAIN SITUATIONAL AWARENESS FOR SAFETY AND WILL NOTIFY CLINICAL INSULATION CUTTER AND FORMER AND PHYSICIAN/PROVIDER WITH ANY CHANGE IN CONDITION.] [...] TO EVALUATE PATIENT FOR (SPECIFY) [code = DUST COLLECTOR TO EVALUATE PATIENT FOR (SPECIFY)] Goal Patient Goal - STAY OUT OF [facility] Goal Provider Goal - A PLAN OF CARE WILL BE ESTABLISHED THAT MEETS PATIENT'S [facility] NEEDS AND INCLUDES PATIENT GOAL FOR HOME [...] THE PHYSICIANS SIGNATURE. Goal Provider Goal - DUST COLLECTOR TO COMPLETE EVALUATION TO ADDRESS THE PATIENTS SOCIAL AND EMOTIONAL FACTORS AND/OR WRITTEN PLAN OF TREATMENT ESTABLISHED FOR THE PHYSICIAN'S SIGNATURE. Progress Notes Progress Notes <paragraph>[Visit Date: 2024 by JOBY ALEJANDRO RN]:</paragraph><paragraph>SOC VISIT PT IS A 68 YEAR OLD FEMALE WHO WAS HOSPITALIZED AT [facility] THEN TRANSFERRED TO [facility] FROM 03/31 - 04/22 FOR DX COPD EXACERBATION, CHF. PT HAS PMH ANEMIA, ANXIETY, RLS, GERD, CHRONIC PAIN, DYSPHAGIA. PT LIVES ON THE SECOND FLOOR OF A MULTI LEVEL HOME WITH HER FRIENDLY CAT. PT HAS BROTHER AND SISTER IN LAW LIVING ON THE FIRST FLOOR. 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 PT HAS POOR ACTIVITY TOLERANCE DUE TO COPD. PT DOES NOT HAVE OXYGEN IN THE HOME, STATES A CONCENTRATOR IS TOO EXPENSIVE FOR HER ELECTRICITY BUDGET. PT BECOMES SOB WITH MINIMAL ACTIVITY. PT IS FRAIL AND CACHECTIC. PT WALKS WITH A ROLLATOR. PT REQUIRES ASSIST TO TAKE THE STAIRS WELL FREQUENT REST BREAKS. PT MANAGES OWN MEDICATION. PHARMACY IS [facility]. PT WOULD BENEFIT FROM [facility] FOR CHRONIC DISEASE MANAGEMENT, CARDIOPULMONARY ASSESSMENT, MEDICATION EDUCATION, PAIN MANAGEMENT. PHYSICAL AND OCCUPATIONAL THERAPY FOR STRENGTHENING, ADL MANAGEMENT. SUPERVISOR CLAM BED FOR ASSESSMENT OF AVAILABLE RESOURCES.</paragraph> Encounters Start Date/Time End Date/Time Encounter Type Admission Type Attending Clinicians Care Facility Care Department Encounter ID Discharge Date Discharge Status Discharge Condition Discharge Reason Percent Goals Met 2024-04-23 00:00:00 2024-06-21 00:00:00 Outpatient NEW ADMISSION [facility] [id number]
[2024-04-27 19:11] LABS: Alanine Aminotransferase 17 U/L (0-31); Albumin Level 4.2 g/dL (3.5-5.0); Alkaline Phosphatase 101 U/L (39-117); Anion Gap 12 (12-20); Aspartate Amino Transferase 22 U/L (5-31); Bilirubin Total 0.4 mg/dL (0.0-1.0); Blood Urea Nitrogen 18 mg/dL (9-16); Calcium 9.8 mg/dL (8.4-10.2); Carbon Dioxide 29 mmol/L (22-29); Chloride 99 mmol/L (96-108); Estimated Glomerular Filt Rate > 60; Glucose Random 111 mg/dL (60-115); Potassium 3.8 mmol/L (3.3-5.1); Sodium 136 mmol/L (135-145); Total Protein 8.2 g/dL (6.5-8.0)
[2024-04-27 19:22] LABS: B Type Natriuretic Peptide 81 pg/mL (<100)
== END 2024-04-27 15:23 | disposition home or self-care (01) ==
LOC: HO.WFDLDS 15:22
PROVIDERS: Visit Provider Family Medicine
DX: Z13.89 Encounter for screening for other disorder (principal)
CPT/HCPCS: 36415; 80053; 81003; 83880; 85025

== ENCOUNTER 2024-05-18 14:26 | Outpatient (AMB) | payer OTHER, SELFPAY ==
--- NOTE | 2024-05-18 14:34 | A.OFFPC_ITS ---
Vital Signs 05/18/24 14:42 Height 5 ft 2 in Weight 65 lb 6 oz BMI 12.0 BP 100/60 Blood Pressure Location Rt brachial Position Sitting Respiration 10 L Pulse 109 H Pulse Source Pulse Oximeter Temp 97.6 F Temp Source Oral Pulse Oximetry (%) 94 Oxygen Delivery Method Room Air Intake Visit Reasons: f/u chronic conditions Intake Note: patient is scheduled to follow up on [facility] Doll Wig Hackler Required: No Allergies bee pollen [BEE STINGS] Allergy (Intermediate, Verified 05/18/24 14:35) THROAT SWELLING penicillin V Allergy (Intermediate, Verified 05/18/24 14:35) nausea and vomiting Penicillins [PENICILLINS] Allergy (Intermediate, Verified 05/18/24 14:35) YEAST INFECTIONS- UTI - NAUSEA codeine [Codeine] Allergy (Mild, Verified 05/18/24 14:35) ITCHING celecoxib [From Celebrex] Adverse Reaction (Severe, Verified 05/18/24 14:35) RECTAL BLEEDING Medication List - Last Reconciled 05/18/24 by Ed Murillo MD albuterol sulfate 2.5 mg (3 mL) inhalation Q4-6H PRN albuterol sulfate 90 mcg/actuation 2 puffs inhalation Q4-6H PRN 30 days bumetanide 0.5 mg See Protocol PO DAILY carisoprodol 350 mg PO BID PRN 30 days diazepam 1 to 2 tabs (2-4mg) orally daily PRN; 30 days docusate sodium 100 mg PO BID ferrous sulfate 324 mg PO DAILY fluticasone propionate 220 mcg/actuation 2 puffs inhalation BID 30 days foam bandage (Allevyn Gentle Border) change every 72 hours (Q 3 days) food supplemt, lactose-reduced (Ensure Enlive) 1 ea PO BID 30 days ipratropium bromide 17 mcg/actuation (Atrovent HFA) 2 puffs inhalation QID 30 days miscellaneous medical supply Oxygen Concetrator. Daily As directed, 999 days omeprazole 40 mg PO DAILY@0630 oxycodone-acetaminophen 5-325 mg (Percocet) 1 tab PO TID 28 days ropinirole 6 mg (1.5 x 4 mg) PO BEDTIME 30 days sennosides (Senna Lax) 17.2 mg (2 x 8.6 mg) PO DAILY Tobacco use date assessed: 08/20/23 Dental Screening Dental Screen Date: 11/18/22 HPI f/u chronic conditions HPI Details 68 y/o female presents to f/u CHF, chron ic conditions. Labs drawn 04/27/24. Reviewed labs with pt. Anemia has been improving. BNP 81 pg/mL. Reports slight wheeze. Reports some shortness of breath today. [facility] Medical History (Updated 05/18/24 @ 14:37 by Ed Murillo MD) Pneumothorax No pertinent past medical history Surgical History H/O oral surgery History of fusion of cervical spine History of biopsy History of lung biopsy History of surgery on left wrist History of shoulder surgery History of rhinoplasty Family History Father Cirrhosis Substance use disorder Mother No problems noted. Brother No problems noted. Son No problems noted. Son No problems noted. Daughter No problems noted. Daughter No problems noted. Daughter No problems noted. Social History Household Members: Children Household Members Other:: daughter Housing: House Do you presently have visiting nurse or other home services: Yes ([employer]ACHINE) Unable to assess alcohol history related to: Unknown Patient Tobacco Use Status: Former Tobacco user Cigarettes Per Day: 7 e-Cigarette/Vaping Use: Former Use Second Hand Smoke Exposure: No Substance Use Type: Marijuana service: No Current occupational status: retired and disabled Current occupational exposures/hazards: No Cognitive needs: No Hearing needs: No Vision needs: Yes Questionnaire Thrive Questionnaire Date Thrive assessed: 03/22/24 DEON-7 AMB Questionnaire DEON-7 Date DEON - 7 assessed: 03/11/21 Source: Developed by Drs. All Hoyos, Linda Madison, Omar Crowell and colleagues, with an educational wilton from [employer]. Review of Systems Const Denies chills, Denies fatigue, Denies fever(s), Denies headache(s) and Denies weakness ENT Denies dizziness and Denies headache(s) Card Denies chest pain, Denies lightheadedness, Denies dyspnea and Denies other (Palp itations) Resp Denies cough, Denies dyspnea, Denies wheezing and Denies other ( shortness of breath) Musc Denies numbness and Denies tingling Neuro Denies dizziness, Denies headache(s), Denies numbness, Denies tingling, Denies paresthesias and Denies weakness Psych Denies anxiety and Denies depression Endo Denies fatigue Aller/Immun Denies wheezing Physical exam (Primary Care) Vital Signs: Last Vital Signs Temp 97.6 F 05/18/24 14:42 Pulse 109 H 05/18/24 14:42 Resp 10 L 05/18/24 14:42 BP 100/60 05/18/24 14:42 Pulse Ox 94 05/18/24 14:42 Oxygen Delivery Method Room Air 05/18/24 14:42 BMI result Body Mass Index 12.0 Tobacco/Smoking Status: Tobacco use Status Tobacco use date assessed 08/20/23 05/18/24 14:46 Patient Tobacco Use Status Former Tobacco user 05/18/24 14:46 e-Cigarette/Vaping Use Former Use 05/18/24 14:46 Thrive Assessment: Date of Thrive Assessment Date Thrive assessed 03/22/24 05/18/24 14:46 Const General: no acute distress and well developed Nutritional Appearance: well nourished and underweight Orientation/consciousness: patient oriented x3 HENMT Head: Yes normocephalic and Yes atraumatic Eyes General: appearance normal, both eyes and all related structures Pupils: Equal, round and reactive pupils present EOM: EOMs intact bilaterally Resp Other: Slight wheeze in L upper lungfield Effort & Inspection: normal respiratory effort Auscultation: clear to auscultation bilaterally Cardio Rate: regular rate Rhythm: regular rhythm Heart sounds: S1 normal heart sound present, S2 normal heart sound present, no gallops, no murmurs and no rubs Neuro General: patient oriented x3 and gait normal Cranial nerves: Yes Equal, round and reactive pupils present Psych Affect: normal affect Coding Level of Care Code Est Pt Level 4 (54706) Diagnoses CHF (congestive heart failure) I50.9 Failure to thrive in adult R62.7 Centrilobular emphysema J43.2 COPD type: emphysema Emphysema type: centrilobular Anemia D64.9 Assessment & Plan Assessment & Plan (1) CHF (congestive heart failure): Code(s): I50.9 - Heart failure, unspecified Category: Medical Plan: BNP?now?less?than?100?on?bumetanide. Decreasing?bumetanide?to?0.5?mg?daily She?can?finish?knees?and?discontinue.??If?any?worsening?SOB,?weight?gain?or?wai a, she?will?let?me?know. Lungs?are?essent ially?clear?to?auscultation?with?slight?wheeze?at?left?upper?lung?field. (2) Failure to thrive in adult: Code(s): R62.7 - Adult failure to thrive Category: Medical Plan: Significantly?underweight Weight?is?fairly?stable?however ?Continue?ensure - she?has?been?unable?to?get?this.??Resending?script (3) COPD (chronic obstructive pulmonary disease): Code(s): J44.9 - Chronic obstructive pulmonary disease, unspecified Category: Medical Qualifiers: COPD type: emphysema Emphysema type: centrilobular Qualified Code(s): J43.2 - Centrilobular emphysema Plan: Patient?does?have?some?shortness?of?breath?today Was?essentially?clear?with?slight?wheeze Continue inhaled?medications Will?give?her?a?short?course?prednisone She?has?an?upcoming?appointment?with?Pulmonary?Medicine?in?May She?will?call?or?return?to?office?sooner?if?worsening?or?not?improving. (4) Anemia: Code(s): D64.9 - Anemia, unspecified Category: Medical Plan: Recent?anemia?now?much?improved Will?continue?monitor Orders: Orders B Type Natriuretic Peptide Today I50.9 - Heart failure, unspecified Complete Blood Count Auto Diff Today D64.9 - Anemia, unspecified, Z00.00 - Encounter for general adult medical examination without abnormal findings Comprehensive Met. Panel Today R62.7 - Adult failure to thrive UA and rflx microscopic Today R62.7 - Adult failure to thrive, Z00.00 - Encounter for general adult medical examination without abnormal findings TSH reflex Free T4 Today R62.7 - Adult failure to thrive, Z00.00 - Encounter for general adult medical examination without abnormal findings Medications: New prednisone 20 mg PO DAILY 5 days 5 tabs 0RF Refilled food supplemt, lactose-reduced (Ensure Enlive) Chocolate Only 1 ea PO BID 30 days 14,220 mL 12RF nutrition E46 - Unspecified protein-calorie malnutrition, R62.7 - Adult failure to thrive, R63.6 - Underweight, R64 - Cachexia oxycodone-acetaminophen 5-325 mg (Percocet) MassPat verified. Partial refill upon request. 1 tab PO TID 28 days 84 tabs 0RF pain M54.9 - Dorsalgia, unspecified bumetanide 0.5 mg See Protocol PO DAILY 30 tabs 0RF J96.20 - Acute and chronic respiratory failure, unspecified whether with hypoxia or hypercapnia food supplemt, lactose-reduced (Ensure Enlive) Chocolate Only 1 ea PO BID 30 days 14,220 mL 12RF nutrition E46 - Unspecified protein-calorie malnutrition, R62.7 - Adult failure to thrive, R63.6 - Underweight, R64 - Cachexia carisoprodol 350 mg PO BID 30 days PRN 60 tabs 0RF muscle pain
[2024-05-18 14:42] VITALS: BP 100/60; PULSE 109; RESP 10; TEMP 36.4; O2SAT 94; BMI 12.0
--- OUTSIDE RECORDS SUMMARY | 2024-05-18 16:46 | XMS_ITS ---
Author Organization [facility] Care Team Providers Care Jde Developer Name Role Phone Romeo Cazares Unavailable Unavailable Adrianne Lagunas Unavailable Unavailable Audrey SUPER[employer], Tatiana Allen Unavailable Unavailable Allergies and adverse reactions Code CodeSystem Substance Reaction Severity StartDate Concern Status 7984 RXNORM Penicillin Nausea (code- 696387397, SNOMED CT); Mycosis (code- 7701071, SNOMED CT); Urinary tract infectious disease (code- 20608906, SNOMED CT) Unknown 03/31/2024 active 2670 RXNORM Codeine Itching (code- 715187745, SNOMED CT) Unknown 03/31/2024 active 404451 RXNORM CeleBREX Rectal hemorrha ge (code- 12594306, SNOMED CT) Unknown 03/31/[address] Bee pollen Pharyngeal swel ling (code- 302098522, SNOMED CT); Bee sting (code- 814481779, SNOMED CT) Unknown 03/31/2024 active Care Team Name Role Address Phone Organization Dates Adrianne Lagunas PCP [address], [place], [address], [place] (Office): : [facility] 03/31/2024 - 04/22/2024 Romeo Cazares Attending Physician [place], [facility] 03/31/2024 - 04/22/2024 Tatiana Ventura NP Attending Physician [address], [place], [address], [place] (Office): [facility] 03/31/2024 - 04/22/2024 Goals Section Description Status Target Date Earlene will attend programs of choice 3x weekly, will be open to room visits through next review date. Active 04/19/2024 Earlene will consume >75% of most meals, including higher hi calorie fortified foods, >75% of supplement with gradual wt gain, 1/2 to 1#/week to goal wt of 121#. Active 04/19/2024 Earlene will have improved m ood state via happier, calmer appearance, no s/sx of depression, anxiety or sadness through the review date. Active 04/19/2024 Earlene's discharge goals are: return to the [facility]. Active 04/19/2024 [place]/HCP/Guardian's Advan laura Directives will be honored through next review Active 04/19/2024 The resident will be contine nt at all times through the review date Active 04/19/2024 The resident will be contine nt at all times through the review date. Active 04/19/2024 The resident will be free fr om complications of cardiac problems through the review date. Active 04/19/2024 The resident will be free of falls through the r eview date. Active 04/19/2024 The resident will have a nor mal bowel movement at least every 3 days through the review date. Active 04/19/2024 The resident will have no s/ sx of poor oxygen absorption through the review date. Active 04/19/2024 The resident will improve cu rrent level of function in through the review date. Active 04/19/2024 The resident will not have a n interruption in normal activities due to pain through the review date. Active 04/19/2024 The resident will remain markos e from discomfort, complications or s/sx related to gastro-intestinal alterations through review date. Active 04/19/2024 The resident will remain markos e from infection through the review date. Active 04/19/2024 The resident will remain markos e from pain or at a level of discomfort acceptable to the resident through the review date. Active 04/19/2024 The resident will remain markos e of complications related to altered hematological status through the review date. Active 04/19/19 25 Functional Status Code Name Recorded Time Value Entered By Chair/xvs-bo-iphhl transfer 04/22/2024 Independent tgilmansolomon Eating 04/22/2024 Setup or clean-up assistance tgilmansolomon Lower body dressing 04/22/2024 Setup or clean-up ass islizeth tgilmansolomon Lying to sitting on side of bed 04/22/2024 Independent tgilmansolomon Oral hygiene 04/22/2024 Setup or clean-up assistance tgilmansolomon Personal hygiene 04/22/2024 Setup or clean-up assist ance tgilmansolomon Roll left and right 04/22/2024 Independent tgilmans edagromon Shower/bathe self 04/22/2024 Setup or clean-up leora stanley tgilmansolomon Sit to lying 04/22/2024 Independent tgilmansolomon Sit to stand 04/22/2024 Independent tgilmansolomon Toilet transfer 04/22/2024 Independent tgilmansolom on Toileting hygiene 04/22/2024 Independent tgilmansol omon Upper body dressing 04/22/2024 Setup or clean-up ass ingris tgilmansolomon Wheel 150 feet 04/22/2024 Not assessed tgilmansolomo n Wheel 50 feet with two turns 04/22/2024 Not assessed tgilmansolomon Immunizations Immunization Status Vaccine Details Vaccine Code CodeSystem Date Notes PPSV23 completed pneumococcal polysaccharide vaccine, 23 valent 33 CVX created date: 04/12/2024 administer ed date: 11/13/2018 Influenza-High Dose(Flublok) cancelled created date: 04/12/2024 consent date: 04/01/2024 Educated by on 04/12/2024 COVID-19, mRNA, LNP-S, PF, eddie-sucrose, 30 mcg/0.3 mL cancelled SARS-COV-2 (COVID-19) vaccine, mRNA, spike protein, LNP, preservative free, eddie-sucrose, 30 mcg/0.3 mL dose 309 CVX created date: 04/12/2024 consent date: 04/01/2024 Educated by on 04/12/2024 Medications Section Medication Name Status Code CodeSystem Dose Route Frequency Admin Type Sig Text Start Date End Date Ferrous Sulfate Oral Tablet 325 (65 Fe) MG active 478729 RXNORM 1 tablet Oral one time a day Routine Give 1 tablet by mouth one time a day for anemia 2024 - Carisoprodol Oral Tablet 350 MG active 676450 RXNORM 1 tablet Oral as needed PRN Give 1 tablet by mouth every 12 hours as needed for muscle spasm/ pain 2024 - Albuterol Sulfate Inhalation Nebulization Solution (2.5 MG/3ML) 0.083% active 697254 RXNORM 1 dose Inhalat ion as needed PRN 1 dose inhale orally via nebuli zer every 06 hours as needed for SOB, wheezi ng 2024 - Atrovent HFA Inhalation Aerosol Solution 17 MCG/ACT active 255814 RXNORM 2 puff Inhalat ion four times a day Routine 2 puff inhale orally four times a day for SOB, wheezi ng 2024 - rOPINIRole HCl Oral Tablet aborted 6 mg Oral at bedtime Routine Give 6 mg by mouth at bedtim e for To treat Makayla son diseas e 04/01 Fleet Enema Enema 7-19 GM/118ML active 725105 RXNORM 1 dose Rectal as needed PRN Insert 1 dose rectal ly as needed for Consti pation (Step 3) as needed if no bowel moveme nt for 8 hours after bisaco dyl suppos itory. 2024 - Milk of Magnesia Suspension 400 MG/5ML active 440614 RXNORM 30 ml Oral as needed PRN Give 30 ml by mouth as needed for Consti pation (Step 1) As needed if no bowel moveme nt for three days. (Do not use for Hemodi alysis patien ts). 2024 - Acetaminophen Tablet 325 MG active 319874 RXNORM 2 tablet Oral as needed PRN Give 2 tablet by mouth every 6 hours as needed for Pain Pain Total dosage for acetam inophe n and medica tions that contai n acetam inophe n should not exceed 3 grams / 24 hours. AND Give 2 tablet by mouth every 6 hours as needed for Fever greate r than 100.0F Total dosage for acetam inophe n and medica tions that contai n acetam inophe n should not exceed 3 grams / 24 hours. 2024 - 817667 RXNORM 2 tablet Oral as needed PRN Give 2 tablet by mouth every 6 hours as needed for Pain Pain Total dosage for acetam inophe n and medica tions that contai n acetam inophe n should not exceed 3 grams / 24 hours. AND Give 2 tablet by mouth every 6 hours as needed for Fever greate r than 100.0F Total dosage for acetam inophe n and medica tions that contai n acetam inophe n should not exceed 3 grams / 24 hours. 2024 - Bisacodyl Suppository 10 MG active 515113 RXNORM 1 suppos itory Rectal as needed PRN Insert 1 suppos itory rectal ly as needed for If no bowel moveme nt for 8 hours after Milk of Magnes ia 2024 - Senna Oral Tablet 8.6 MG active 2 tablet Oral one time a day Routine Give 2 tablet by mouth one time a day for consti pation 2024 - Docusate Sodium Oral Tablet 100 MG active 277699 9 RXNORM 1 tablet Oral two times a day Routine Give 1 tablet by mouth two times a day for consti pation Hold for loose stool 2024 - Albuterol Sulfate HFA Inhalation Aerosol Solution 108 (90 Base) MCG/ACT active 631724 RXNORM 2 puff Inhalat ion as needed PRN 2 puff inhale orally every 04 hours as needed for SOB, wheezi ng 2024 - Percocet Oral Tablet 5-325 MG aborted 837490 0 RXNORM 1 tablet Oral three times a day Routine Give 1 tablet by mouth three times a day for pain 04/01 Ensure Enlive Oral Liquid aborted 1 each Oral two times a day Routine Give 1 each by mouth two times a day for supple ment chocol ate only 04/12 Bumetanide Oral Tablet 0.5 MG active 937440 RXNORM 1 tablet Oral one time a day Routine Give 1 tablet by mouth one time a day for treat edema 2024 - Omeprazole Oral Tablet Delayed Release 20 MG active 557684 RXNORM 40 mg Oral one time a day Routine Give 40 mg by mouth one time a day for To treat heart burn, GERD 2024 - Fluticasone Propionate HFA Inhalation Aerosol 220 MCG/ACT active 684531 RXNORM 2 puff Inhalat ion two times a day Routine 2 puff inhale orally two times a day for shortn ess of breath , wheezi ng 2024 - oxyCODONE HCl Oral Tablet 5 MG aborted 192879 1 RXNORM 5 mg Oral three times a day Routine Give 5 mg by mouth three times a day for Pain 04/04 Acetaminophen Oral Tablet 500 MG aborted 752441 RXNORM 1000 mg Oral three times a day Routine Give 1000 mg by mouth three times a day for Pain 04/16 oxyCODONE HCl Oral Tablet 5 MG aborted 058912 1 RXNORM 1 tablet Oral three times a day Routine Give 1 tablet by mouth three times a day for pain 04/01 rOPINIRole HCl Oral Tablet aborted 6 mg Oral at bedtime Routine Give 6 mg by mouth at bedtim e for Restle ss leg syndro me 04/19 oxyCODONE HCl Oral Tablet 5 MG active 742256 1 RXNORM 1 tablet Oral as needed PRN Give 1 tablet by mouth every 6 hours as needed for Pain - Severe 2024 - Tussin Cough Oral Syrup active 10 ml Oral as needed PRN Give 10 ml by mouth every 04 hours as needed for cough 2024 - Ensure Enlive Oral Liquid aborted 1 each Oral two times a day Routine Give 1 each by mouth two times a day for supple ment 04/13 Chloraseptic Mouth/Throat Liquid 1.4 % active 089083 9 RXNORM 1 spray Oral as needed PRN Give 1 spray by mouth as needed for Throat pain May be given q 4 hours 2024 - Multivitamin- Minerals Oral Tablet active 1 tablet Oral in the morning Routine Give 1 tablet by mouth in the mornin g for Supple ment relate d to CHRONI C OBSTRU CTIVE PULMON VICTOR M DISEAS E WITH (ACUTE ) EXACER BATION (J44.1 ) 2024 - rOPINIRole HCl Oral Tablet 3 MG complete d 396087 RXNORM 1 tablet Oral one time only One Time Only Give 1 tablet by mouth one time only for Restle ss leg until 2024 23:30 04/20 rOPINIRole HCl Oral Tablet active 6 mg Oral at bedtime Routine Give 6 mg by mouth at bedtim e for restle ss legs 2024 - Mental Status Section Date Assessment Total Score Description 04/06/2024 BIMS 15 cognitively int act CAM 0 No delirium ind icated 04/06/2024 BIMS 15 cognitively int act CAM 0 No delirium ind icated Problems Problem # Description Date of onset Resolved Date Code CodeSystem Concern Status 1 COVID-[address] active 2 CENTRILOBULAR EMPHYSEMA [address] active 3 ABNORMAL RESULTS OF LIVER FUNCTION STUDIES [address] active 4 ANEMIA, UNSPECIFIED [address] active 5 ANXIETY DISORDER, UNSPECIFIED [address] active 6 CHRONIC OBSTRUCTIVE PULMONARY DISEASE WITH (ACUTE) EXACERBATION [address] active 7 CHRONIC SYSTOLIC (CONGESTIVE) HEART FAILURE [address] active 8 CONSTIPATION, UNSPECIFIED [address] active 9 DYSPHAGIA, UNSPECIFIED [address] active 10 GASTRO-ESOPHAGEAL REFLUX DISEASE WITH ESOPHAGITIS, WITH BLEEDING [address] active 11 HYPERLIPIDEMIA, UNSPECIFIED [address] active 12 INTRA-ABDOMINAL AND PELVIC SWELLING, MASS AND LUMP, UNSPECIFIED SITE [address] active 13 LOW BACK PAIN, UNSPECIFIED [address] active 14 PRIMARY SPONTANEOUS PNEUMOTHORAX [address] active 15 RESTLESS LEGS SYNDROME [address] active 16 RIGHT HEART FAILURE, UNSPECIFIED [address] active 17 UNSPECIFIED CIRRHOSIS OF LIVER [address] active 18 DYSPHAGIA, OROPHARYNGEAL PHASE [address] active 19 MUSCLE WEAKNESS (GENERALIZED) [address] active 20 OTHER ABNORMALITIES OF GAIT AND MOBILITY [address] active 21 UNSPECIFIED LACK OF COORDINATION [address] active 22 UNSTEADINESS ON FEET [address] active Reason for Referral No Reasons for Referral Entered Social History Social History Observation Description Start Date End Date Code Code System Current Smoking Status Tobacco smoking consumption unknown 772694697 SNOMED CT Sex Assigned At Female 1955 86208-0 [facility] Vital Signs Code Code System Vitals Name Values and Units Timing Information 9279-1 [facility] Respiratory Rate Value=18.0 Units=/m in 04/22/2024 8462-4 [facility] Blood Pressure-Diastolic Value=70 Un its=mmHg 04/22/2024 8480-6 [facility] Blood Pressure-Systolic Eiiww=393 Un its=mmHg 04/22/2024 8310-5 [facility] Body Temperature Value=98.0 Units=?? F 04/22/2024 8867-4 [facility] Heart rate Value=96.0 Units=/min 88537-9 [facility] O2 % BldC Oximetry Value=95.0 Units= % 04/22/2024 11285-2 [facility] Pain Level Value=1.0 04/22/2024 81066-8 [facility] Weight Value=63.4 Units=Lbs 04/02 8302-2 [facility] Height Value=62.0 Units=Inches 04/01/2024
--- OUTSIDE RECORDS SUMMARY | 2024-05-18 16:46 | XMS_ITS | Patient Health Record ---
Author Organization [facility] Address [address] [place] [address] Care Team Providers Care Peanut Vendor Name Role Phone Steph(inactive) Giuseppe MANLEY Primary Care Provider U Dawit Kendrick Jr Unavailable [phone] Allergies Allergen (clinical drug ingredient) Drug/Non Drug Allergy documented on EMR Reaction Allergy Type Onset Date Status bee stings (uncoded) Unknown Allergy Active PCN (uncoded) Unknown Allergy Active celecoxib celebrex (uncoded) Unknown Allergy A ctive codeine codeine (uncoded) Unknown Allergy Ac tive Results Component Value Reference Range Notes US abdomen limited Reviewed date:03/24/2024 08:02:13 AM Interpretation: Performing Lab: Notes/Report: [address] [address] Ultrasound Report Signed Patient: Gabbie Dominguez MR#: [id number] : 1955 Acct:[id number] Age/Sex: 68 / F ADM Date: 03/21/24 Loc: [facility] 477-[address]: Iesha Grimm NP Ordering Physician: Dawit Terry MD Date of Service: 03/23/24 Procedure(s): US abdomen limited Accession Number(s): [id number] cc: Dawit Terry MD; Ed Murillo MD [...] in OV> 03/23/242013 DD/ 11 TD/TT: 03/23/242011 Register Of Deeds: [address] [address] Ultrasound Report Signed Patient: Brandy Dominguez MR#: [id number] : 1955 Acct:[id number] Age/Sex: 68 / F ADM Date: 03/21/24 Loc: [facility] 477-[address]: Iesha Grimm NP Ordering Physician: Dawit Terry MD Date of Service: 03/23/24 Procedure(s): US abd omen limited Accession Number(s): [id number] cc: Dawit Terry MD; Ed Murillo MD CLINICAL HISTORY: ascites US abdomen limited Comparison: US - US ABDOMEN LIMITED - 03/21/24 23:02 EST Findings: Mild ascites visuali zed in the right upper quadrant and right lower quadrant. No ascites seen on l eft side of the abdomen. Right-sided pleural effusion is visualized. IMPRESSION: 1. Mild ascites in r ight upper quadrant and right lower quadrant. 2. Right pleural effusion. This document has be en electronically signed by: Zaynab Martin MD on 03/23/2024 20:12:49 Dictated By: Zaynab Martin MD Signed By: <Electronically signed by Zaynab Martin MD in OV> 03/23/242013 DD/ 11 TD/TT: 03/23/242011 Register Of Deeds: Prothrombin Time INR Reviewed date:03/24/2024 09:18:35 PM Interpretation: Performing Lab:[facility], [address] [place] [address] Notes/Report: Prothrombin Time 14.3 10.9-12.4 [employer] [...] Panel Reviewed date:03/24/2024 09:19:31 PM Interpretation: Performing Lab:[address] [address] Notes/Report: Bilirubin Total 0.5 0.0-1.0 mg/dL Bilirubin Direct 0.3 0.0-0.5 mg/dL Aspartate Amino Transferase 202 5-31 U/L Alanine Aminotransferase 522 0-31 U/L Total Protein 5.7 6.5-8.0 g/dL Albumin Level 3.2 3.5-5.0 g/dL Alkaline Phosphatase 69 39-117 U/L Basic Metabolic Panel Reviewed date:03/24/2024 09:19:18 PM Interpretation: Performing Lab:[address] [address] Notes/Report: Sodium 137 135-145 mmol/L Potassium 4.7 [...] Lipase Reviewed date:03/24/2024 09:18:47 PM Interpretation: Performing Lab:[address] [address] Notes/Report: Lipase 14 8-78 U/L Liver Panel Reviewed date:03/25/2024 09:41:03 PM Interpretation: Performing Lab:[facility], [address] [place] [address] Notes/Report: Bilirubin Total 0.5 0.0-1.0 mg/dL Bilirubin Direct 0.3 0.0-0.5 mg/dL Aspartate Amino Transferase 152 5-31 U/L Alanine Aminotransferase 430 0-31 U/L Total Protein 5.5 6.5-8.0 g/dL Albumin Level 3.0 3.5-5.0 g/dL Alkaline Phosphatase 64 39-117 U/L Basic Metabolic Panel Reviewed date:03/25/2024 09:40:54 PM Interpretation: Performing Lab:[facility], [address] [place] [address] Notes/Report: Sodium 138 135-145 mmol/L Potassium 4.3 [...] PROFILE Reviewed date:03/25/2024 09:40:19 PM Interpretation: Performing Lab:[address] [address] Notes/Report: Iron 16 30-160 mcg/dL Total Iron Binding Capacity 348 228-428 mcg/dL Percent Iron Saturation 5 15-50 % Unsaturated Iron Binding 332 Ferritin Reviewed date:03/25/2024 09:40:46 PM Interpretation: Performing Lab:[facility], [address] [place] [address] Notes/Report: Ferritin 31 10-250 ng/mL Lactate Dehydrogenase Reviewed date:03/25/2024 09:40:37 PM Interpretation: Performing Lab:[facility], [address] [place] [address] Notes/Report: Lactate Dehydrogenase 224 122-220 U/L Reason For Referral No Information Medications Medication SIG (Take, Route, Frequency, Duration) Notes [...] 06/01/2012 Active Carisoprodol Active Flovent HFA Active Social History Tobacco Use: Social History Observation Description Date Details (start date - stop date) Current Smoker NA - NA Tobacco Use/Smoking Question Answer Notes Patient is [...] year? 1 or 2 drinks (0 point) Section Notes: She smokes one quarter one p ack of cigarettes per day. She describes alcohol use occasional. Problems Problem Type SNOMED Code ICD Code Onset Dates Problem Status W/U Status Risk Notes Problem Esophageal reflux (874602501) Esophageal reflux (530.81) Active confirmed Problem Weight decreased (945334348) Loss of weight (783.21) Active confirmed Problem Oropharyngeal dysphagia (09114053) Dysphagia, oropharyngeal phase (R13.12) Active confirmed Problem Gastroesophageal reflux disease (927646668) Chronic gastroesophageal reflux disease (K21.9) Active confirmed Plan Of Treatment Future Test Test Name Order Date UPPER GI ENDOSCOPY 04/02/2011 COLONOSCOPY 04/02/2011 Insurance Providers Payer Name Payer Address Payer Phone Subscriber Number Group Number Insured Name Patient Relationship to Insured Coverage Start Date Coverage End Date [facility] [address] [place] [address] [id number] GABBIE DOMINGUEZ Self - patient is the insured Medical (General) History Medical History History ICD Code restless leg syndrome COPD pneumonia Surgical History Surgery Date(Month/Year) neck surgery ovarian surgery
--- OUTSIDE RECORDS SUMMARY | 2024-05-18 16:46 | XMS_ITS | Clinical Summary ---
Author Organization Unknown Care Team Providers Care Carpenter Helper Maintenance Name Role Phone GLENN MANLEY, SILAS Unavailable Unavailable KENDELL URRUTIA, MARIAN Unavailable Unavailable Payers Payer Name Policy Type Policy Number Effective Date Expira tion Date [facility] [id number] MEDICAID [facility] [id number] MEDICARE - [facility]/AK - PD [id number] Problems Condition Name Condition Details Condition Category Status Onset Date Resolution Date Last Treatment Date Treating Clinician Comments CHRONIC OBSTRUCTIVE PULMONARY DISEASE W (ACUTE) EXACERBATION Active 04-21 00:00: 00 OTHER ABNORMALITIE S OF GAIT AND MOBILITY Active 04-28 00:00: 00 MUSCLE WEAKNESS (GENERALIZED ) Active 04-28 00:00: 00 Allergies, Adverse Reactions, Alerts Allergy Name Allergy Type Status Severity Reaction(s) Onset Date Inactive Date Treating Clinician Comments CODEINE SULFATES Propensity to adverse reactions Active 2024-04 12:01:3 0 PCNS Propensity to adverse reactions Active 2024-04 12:01:4 2 CELEBREX Propensity to adverse reactions Active 2024-04 12:01:5 4 Medications Ordered Medication Name Filled Medication Name Start Date Stop Date Current Medication? Ordering Clinician Indication Dosage Frequency Signature (SIG) Comments Components acetaminoph en 325 mg tablet 04-23 00:00: 00 Yes [id number] 2 tablet EVERY 6 HOURS 2 tablet EVERY 6 HOURS (route: oral) Med Classific ation: Analgesic , Anti-infl ammatory or Antipyret ic albuterol sulfate HFA 90 mcg/actuati on aerosol inhaler 04-23 00:00: 00 Yes [id number] 2 puff EVERY 4 HOURS 2 puff EVERY 4 HOURS (route: inhalation ) Med Classific ation: Respirato ry Therapy Agents Atrovent HFA 17 mcg/actuati on aerosol inhaler 04-23 00:00: 00 Yes [id number] 2 puff 4 TIMES DAILY 2 puff 4 TIMES DAILY (route: inhalation ) Med Classific ation: Respirato ry Therapy Agents bumetanide 0.5 mg tablet 04-23 00:00: 00 Yes [id number] 1 tablet DAILY 1 tablet DAILY (route: oral) Med Classific ation: Cardiovas cular Therapy Agents carisoprodo l 350 mg tablet 04-23 00:00: 00 Yes [id number] 1 tablet EVERY 12 HOURS 1 tablet EVERY 12 HOURS (route: oral) Med Classific ation: Locomotor System docusate sodium 100 mg tablet 04-23 00:00: 00 Yes [id number] 1 tablet 2 TIMES DAILY 1 tablet 2 TIMES DAILY (route: oral) Med Classific ation: Gastroint estinal Therapy Agents ferrous sulfate 325 mg (65 mg iron) tablet 04-23 00:00: 00 Yes [id number] 1 tablet DAILY 1 tablet DAILY (route: oral) Med Classific ation: Electroly te Balance-N utritiona l Products fluticasone propionate 220 mcg/actuati on HFA aerosol inhaler 04-23 00:00: 00 Yes [id number] 2 puff 2 TIMES DAILY 2 puff 2 TIMES DAILY (route: inhalation ) Med Classific ation: Respirato ry Therapy Agents multivitami n with minerals tablet 04-23 00:00: 00 Yes [id number] 1 tablet DAILY 1 tablet DAILY (route: oral) Med Classific ation: Electroly te Balance-N utritiona l Products omeprazole 40 mg capsule,del ayed release 04-23 00:00: 00 Yes [id number] 1 capsule DAILY 1 capsule DAILY (route: oral) Med Classific ation: Gastroint estinal Therapy Agents oxycodone 5 mg tablet 04-23 00:00: 00 Yes [id number] 1 tablet EVERY 6 HOURS 1 tablet EVERY 6 HOURS (route: oral) Med Classific ation: Analgesic , Anti-infl ammatory or Antipyret ic ropinirole ER 6 mg tablet,exte nded release 24 hr 04-23 00:00: 00 Yes [id number] 1 tablet BEDTIME 1 tablet BEDTIME (route: oral) Med Classific ation: Central Nervous System Agents Senna Laxative 8.6 mg tablet 04-23 00:00: 00 Yes [id number] 2 tablet BEDTIME 2 tablet BEDTIME (route: oral) Med Classific ation: Gastroint estinal Therapy Agents Tussin 100 mg/5 mL oral liquid 04-23 00:00: 00 Yes [id number] 10 mL EVERY 4 HOURS 10 mL EVERY 4 HOURS (route: oral) Med Classific ation: Respirato ry Therapy Agents Vital Signs Vital Name Observation Time Observation Value Commen ts Temperature 2024-05-14 09:31:00.000 98.7 [degF] Temperature 2024-05-12 15:33:00.000 97.3 [degF] Temperature 2024-05-11 14:58:00.000 97.8 [degF] Temperature 2024-05-04 14:09:00.000 98.1 [degF] Temperature 2024-05-03 16:45:00.000 97.6 [degF] Temperature 2024-04-29 15:30:00.000 97.7 [degF] Temperature 2024-04-28 16:04:00.000 97.7 [degF] Pulse 2024-05-14 09:31:00.000 88 /min Pulse 2024-05-12 15:33:00.000 100 /min Pulse 2024-05-11 14:58:00.000 99 /min Pulse 2024-05-04 14:09:00.000 78 /min Pulse 2024-05-03 16:45:00.000 96 /min Pulse 2024-04-29 15:30:00.000 98 /min Pulse 2024-04-28 16:04:00.000 96 /min O2 Saturation (%) 2024-05-12 15:33:00.000 93 % O2 Saturation (%) 2024-05-03 16:45:00.000 93 % O2 Saturation (%) 2024-04-28 16:04:00.000 95 % Respirations 2024-05-14 09:31:00.000 18 /min Respirations 2024-05-12 15:33:00.000 18 /min Respirations 2024-05-11 14:58:00.000 20 /min Respirations 2024-05-04 14:09:00.000 20 /min Respirations 2024-05-03 16:45:00.000 18 /min Respirations 2024-04-29 15:30:00.000 20 /min Respirations 2024-04-28 16:04:00.000 18 /min Systolic Blood Pressure 2024-05-14 09:31:00.000 110 mm [Hg] Systolic Blood Pressure 2024-05-12 15:33:00.000 110 mm [Hg] Systolic Blood Pressure 2024-05-11 14:58:00.000 118 mm [Hg] Systolic Blood Pressure 2024-05-04 14:09:00.000 126 mm [Hg] Systolic Blood Pressure 2024-05-03 16:45:00.000 106 mm [Hg] Systolic Blood Pressure 2024-04-29 15:30:00.000 140 mm [Hg] Systolic Blood Pressure 2024-04-28 16:04:00.000 136 mm [Hg] Diastolic Blood Pressure 2024-05-14 09:31:00.000 78 mm [Hg] Diastolic Blood Pressure 2024-05-12 15:33:00.000 60 mm [Hg] Diastolic Blood Pressure 2024-05-11 14:58:00.000 68 mm [Hg] Diastolic Blood Pressure 2024-05-04 14:09:00.000 78 mm [Hg] Diastolic Blood Pressure 2024-05-03 16:45:00.000 56 mm [Hg] Diastolic Blood Pressure 2024-04-29 15:30:00.000 86 mm [Hg] Diastolic Blood Pressure 2024-04-28 16:04:00.000 74 mm [Hg] Plan of Treatment Planned Activity Planned Date [...] AWARENESS FOR SAFETY AND WILL NOTIFY CLINICAL DENTAL BILLING SPECIALIST AND PHYSICIAN/PROVIDER WITH ANY CHANGE IN CONDITION. [code = SKILLED NURSE WILL MAINTAIN SITUATIONAL AWARENESS FOR SAFETY AND WILL NOTIFY CLINICAL DENTAL BILLING SPECIALIST AND PHYSICIAN/PROVIDER WITH ANY CHANGE IN CONDITION.] [...] TO EVALUATE PATIENT FOR (SPECIFY) [code = SPOOL SANDER TO EVALUATE PATIENT FOR (SPECIFY)] Future Scheduled Test OCCUPATION AL THERAPIST TO EVALUATE PATIENT SECONDARY TO FUNCTIONAL DEFICITS/SAFETY CONCERNS IDENTIFIED DURING EVALUATION OCCUPATIONAL THERAPY TO ESTABLISH /UPGRADE/DOWNGRADE THERAPEUTIC EXERCISE PROGRAM AND INSTRUCT PATIENT/CAREGIVER ON EXERCISE PRECAUTIONS WITH WRITTEN HOME PROGRAM. MAY INCLUDE PROM, AAROM, AROM, RROM APPROPRIATE TO IMPROVE FUNCTIONAL STRENGTH AND/OR RANGE OF MOTION. OCCUPATIONAL THERAPY TO ASSESS AND RECOMMEND HOME SAFETY ADAPTATIONS AND EDUCATE PATIENT /CAREGIVER ON FALL PREVENTION STRATEGIES TO ENHANCE PARTICIPATION IN ADLS. OCCUPATIONAL THERAPY TO PROVIDE PATIENT/CAREGIVER WITH INSTRUCTIONS AND RECOMMENDATIONS TO IMPROVE ADLS WHILE USING APPROPRIATE ADAPTIVE DEVICES RECOMMENDED. OCCUPATIONAL THERAPY TO PROVIDE PATIENT/CAREGIVER WITH INSTRUCTIONS AND RECOMMENDATIONS TO IMPROVE IADLS WHILE USING APPROPRIATE ADAPTIVE DEVICES RECOMMENDED. SUMMARY OF THERAPY EVAL/ASSESSMENT FINDINGS AND REASON(S) SKILLS OF A THERAPIST ARE INDICATED: OT EVAL 04-29-2024 PT IS A 68 YEAR OLD FEMALE WHO WAS [place] [facility] [place] TO [place] AND CHF . PATIENT THEN TRANSFERRED TO [facility] FROM 03/31 - 04/22/2024 PT HAS PMHX: ANEMIA, ANXIETY, RLS, GERD, CHRONIC PAIN, DYSPHAGIA. PLOF: PATIENT LIVES IN SECOND FLOOR APT WITH FULL FLIGHT OF STAIRS WITH RAIL TO ACCESS. PATIENT HAS FAMILY THAT LIVES ON FIRST FLOOR , INCLUDING HER SOL WHO HAS BEEN HER HIGH SCHOOL MATH TUTOR FOR SEVERAL YEARS. SHE ALSO HAS A MEDICALLY COMPROMISED DGTR THAT LIVES WITH HER BUT SHE DOES NOT CONSISTENTLY ASSIST DUE TO HER OWN ISSUES. PATIENT SPONGE BATHES ONLY AND DECLINES USE OF SHOWER. SHE IS TYPICALLY ABLE TO DRESS , GROOM, PERFORM HYGIENE AND TOILETING WITH MOD I -SBA AND OCCASIONAL PHYSICAL ASSIST DUE TO FATIGUE AND ENDURANCE ISSUES.. SHE CAN HEAT UP LIGHT MICRO MEALS AND PREP BEVS. AMB WITH WALKER. NOT RESPONSIBLE FOR HOME MGT. PATIENT MANAGES HER OWN MEDS. DME IN PLACE: WALKER, SHOWER SEAT, GRABBARS, HH SHOWE HOSE, ELEVATED TOILET. UE AROM WFL US MMT 3/5 COGNITION ALERT AND ORIENTED X 4. PLEASANT AND COOPERATIVE. DUE TO DECREASED FUNCTIONAL INDEP, STRENGTH, ENDURANCE AND STAMINA, PATIENT WILL BENEFIT FROM SKILLED OT TO PROVIDED ADL MGT, FUNCTIONAL MOB AND TRANSFER TRG, UE THER EX, ENERGY CONSERVATION AND WORK SIMP, SAFETY AND FALL PREVENTION TRG. OT TO SEE PATIENT 2WK4. DC PLANNING INITIATED. COOR OF CARE WITH YENIFER TEAM AND PCP THROUGH 485. PATIENT REMAINS HOMEBOUND DUE TO TAXING EFFORT TO LEAVE HOME AND ASSIST OF ANOTHER PERSON DUE TO WEAKNESS. [code = OCCUPATIONAL THERAPIST TO EVALUATE PATIENT SECONDARY TO FUNCTIONAL DEFICITS/SAFETY CONCERNS IDENTIFIED DURING EVALUATION OCCUPATIONAL THERAPY TO ESTABLISH /UPGRADE/DOWNGRADE THERAPEUTIC EXERCISE PROGRAM AND INSTRUCT PATIENT/CAREGIVER ON EXERCISE PRECAUTIONS WITH WRITTEN HOME PROGRAM. MAY INCLUDE PROM, AAROM, AROM, RROM APPROPRIATE TO IMPROVE FUNCTIONAL STRENGTH AND/OR RANGE OF MOTION. OCCUPATIONAL THERAPY TO ASSESS AND RECOMMEND HOME SAFETY ADAPTATIONS AND EDUCATE PATIENT /CAREGIVER ON FALL PREVENTION STRATEGIES TO ENHANCE PARTICIPATION IN ADLS. OCCUPATIONAL THERAPY TO PROVIDE PATIENT/CAREGIVER WITH INSTRUCTIONS AND RECOMMENDATIONS TO IMPROVE ADLS WHILE USING APPROPRIATE ADAPTIVE DEVICES RECOMMENDED. OCCUPATIONAL THERAPY TO PROVIDE PATIENT/CAREGIVER WITH INSTRUCTIONS AND RECOMMENDATIONS TO IMPROVE IADLS WHILE USING APPROPRIATE ADAPTIVE DEVICES RECOMMENDED. SUMMARY OF THERAPY EVAL/ASSESSMENT FINDINGS AND REASON(S) SKILLS OF A THERAPIST ARE INDICATED: OT EVAL 04-29-2024 PT IS A 68 YEAR OLD FEMALE WHO WAS HOSP[place] [facility] [place] TO [place] EX[place]BATION AND CHF . PATIENT THEN TRANSFERRED TO [facility] FROM 03/31 - 04/22/2024 PT HAS PMHX: ANEMIA, ANXIETY, RLS, GERD, CHRONIC PAIN, DYSPHAGIA. PLOF: PATIENT LIVES IN SECOND FLOOR APT WITH FULL FLIGHT OF STAIRS WITH RAIL TO ACCESS. PATIENT HAS FAMILY THAT LIVES ON FIRST FLOOR , INCLUDING HER SOL WHO HAS BEEN HER HIGH SCHOOL MATH TUTOR FOR SEVERAL YEARS. SHE ALSO HAS A MEDICALLY COMPROMISED DGTR THAT LIVES WITH HER BUT SHE DOES NOT CONSISTENTLY ASSIST DUE TO HER OWN ISSUES. PATIENT SPONGE BATHES ONLY AND DECLINES USE OF SHOWER. SHE IS TYPICALLY ABLE TO DRESS , GROOM, PERFORM HYGIENE AND TOILETING WITH MOD I -SBA AND OCCASIONAL PHYSICAL ASSIST DUE TO FATIGUE AND ENDURANCE ISSUES.. SHE CAN HEAT UP LIGHT MICRO MEALS AND PREP BEVS. AMB WITH WALKER. NOT RESPONSIBLE FOR HOME MGT. PATIENT MANAGES HER OWN MEDS. DME IN PLACE: WALKER, SHOWER SEAT, GRABBARS, HH SHOWE HOSE, ELEVATED TOILET. UE AROM WFL US MMT 3/5 COGNITION ALERT AND ORIENTED X 4. PLEASANT AND COOPERATIVE. DUE TO DECREASED FUNCTIONAL INDEP, STRENGTH, ENDURANCE AND STAMINA, PATIENT WILL BENEFIT FROM SKILLED OT TO PROVIDED ADL MGT, FUNCTIONAL MOB AND TRANSFER TRG, UE THER EX, ENERGY CONSERVATION AND WORK SIMP, SAFETY AND FALL PREVENTION TRG. OT TO SEE PATIENT 2WK4. DC PLANNING INITIATED. COOR OF CARE WITH YENIFER TEAM AND PCP THROUGH 485. PATIENT REMAINS HOMEBOUND DUE TO TAXING EFFORT TO LEAVE HOME AND ASSIST OF ANOTHER PERSON DUE TO WEAKNESS. ] Future Scheduled Test PHYSICAL T HERAPIST TO EVALUATE PATIENT SECONDARY TO FUNCTIONAL DEFICITS/SAFETY CONCERNS. THIS 68- YEAR-OLD FEMALE IS REFERRED FOR PT EVALUATION FOLLOWING [place]OSPITALIZ[place] 03/21-03/[place] [facility] [place] [facility] 03/31- 04/22 FOR DX OF COPD EXACERBATION, CHF. PATIENT STATES SHE CAUGHT COVID WHILE AT REHAB. SAW PCP YESTERDAY. CURRENT HT. 5'2 AND WEIGHT 67LBS, UP FROM 63LBS AT REHAB. PATIENT STATES WHEN I DO LITTLE TASKS I GET REALLY SHORT OF BREATH AND I HAVE TO SIT. STATES SHE GETS PANIC ATTACKS WHEN SOB. NO FALLS SINCE HOME, NO CHANGE IN MEDS/MED INS. PATIENT REPORTS CHRONIC AND SEVERE NECK PAIN. H/O 3 LEVEL CERVICAL FUSION AT BASE OF NECK APPROX 20 YEARS AGO. GETS BAD MS. SPASMS. PAIN LEVEL TODAY 8.5/10. USES SOMA AND OXYCODONE WHICH ALLOW HER TO FUNCTION BETTER BUT SELDOM BELOW 7/10 AND SPASMS MAKE IT WORSE. PATIENT MEDICAL HISTORY SIGNIFICANT FOR: COPD, CHF, ANEMIA, ANXIETY, RLS, GERD, CHRONIC PAIN, DYSPHAGIA. PATIENT LIVES IN 2ND FLOOR APT WITH DAUGHTER AND FRIENDLY CAT IN HOME OWNED BY BROTHER WHO LIVES WITH HIS SPOUSE ON 1ST FLOOR (SHE IS PATIENT'S HIGH SCHOOL MATH TUTOR) WITH 18 TOTAL STEPS TO MANAGE TO GET OUT OF HOME. PATIENT HAS HIGH SCHOOL MATH TUTOR CARE MON-FRI 4HRS/DAY. LEVEL OF HOME OWNED BY PATIENT'S BROTHER AND [id number] (PATIENT'S HIGH SCHOOL MATH TUTOR) WHO LIVE ON GROUND LEVEL. JIGNA SH LIMITED TO 90 DEGREES ELEVATION AND 3/5. CERV R ROT TO 50 DEGREES, AND LEFT ROT 5 DEGREES. STRENGTH JIGNA HIPS/LE'S: 3+/5. PATIENT WITH THORACIC KYPHOSIS AND STANDS WITH SHOULDERS POST TO PELVIS. PATIENT AMBULATED WITH ROLLATOR WALKER TO BEDROOM 30FT AND STANDING REST REQ'D. ON RETURN TO KITCHEN CHAIR, SOB, PULSE 108BPM AND OXYGEN 93%. PATIENT EDUCATED IN ENERGY CONSERVATION AND TO STOP ACTIVITY WHEN STARTING TO GET SOB. EDUCATED IN NEED TO STOP AND TAKE DEEPER BREATHS TO RECOVER BREATHING TO AVOID FASTER/SHALLOW BREATHING WHEN NERVOUS AND THEN GETTING ANXIOUS WHICH LEADS TO FASTER AND MORE SHALLOW INEFFECTIVE BREATHING- PATIENT ADMITS SHE DOES THIS AND GETS INTO THIS SITUATION. POOR ACTIVITY TOLERANCE DUE TO COPD AND NO OXYGEN IN THE HOME- STATES A CONCENTRATOR IS TOO EXPENSIVE FOR HER ELECTRICITY BUDGET. PATIENT WILL BENEFIT FROM SKILLED PT INTERVENTION 1-2X/WK FOR TRAINING IN GAIT, TRANSFERS, BALANCE, FUNCTIONAL STRENGTHENING/ENDURANCE, ENERGY CONSERVATION, PAIN MGT, EDUCATION AND HEP. PATIENT IN AGREEMENT WITH PT POC. OFFICE OF DR.THOMAS ELIZABETH NOTIFIED OF PT EVALUATION AND POC. PHYSICAL THERAPY TO ESTABLISH /UPGRADE/DOWNGRADE THERAPEUTIC EXERCISE PROGRAM AND INSTRUCT PATIENT/CAREGIVER ON EXERCISE PRECAUTIONS WITH WRITTEN HOME PROGRAM. MAY INCLUDE AROM, RROM APPROPRIATE TO IMPROVE FUNCTIONAL STRENGTH AND RANGE OF MOTION. PHYSICAL THERAPY TO INSTRUCT PATIENT/CAREGIVER ON SAFE TRANSFER TECHNIQUES USING PROPER BODY MECHANICS AND EQUIPMENT. PHYSICAL THERAPY TO INSTRUCT PATIENT/CAREGIVER ON GAIT TRAINING TECHNIQUES USING APPROPRIATE ASSISTIVE DEVICE, PROPER BODY MECHANICS TO IMPROVE MOBILITY, AND PREVENT INJURY OF PATIENT AND/OR CAREGIVER. PHYSICAL THERAPY TO ASSESS AND RECOMMEND HOME SAFETY ADAPTATIONS AND EDUCATE PATIENT /CAREGIVER ON FALL PREVENTION STRATEGIES. PHYSICAL THERAPY FOR OBSERVATION AND ASSESSMENT OF PAIN, EFFECTIVENESS OF PAIN MANAGEMENT REGIMEN AND SKILLED TEACHING RELATED TO PAIN MANAGEMENT. THERAPIST TO REPORT INCREASED PAIN LEVEL TO PHYSICIAN FOR PROMPT INTERVENTION. [code = PHYSICAL THERAPIST TO EVALUATE PATIENT SECONDARY TO FUNCTIONAL DEFICITS/SAFETY CONCERNS. THIS 68- YEAR-OLD FEMALE IS REFERRED FOR PT EVALUATION FOLLOWING [place]OSP[place]IZ[place]21-03[place] [facility] [place] [facility] 03/31- 04/22 FOR DX OF COPD EXACERBATION, CHF. PATIENT STATES SHE CAUGHT COVID WHILE AT REHAB. SAW PCP YESTERDAY. CURRENT HT. 5'2 AND WEIGHT 67LBS, UP FROM 63LBS AT REHAB. PATIENT STATES WHEN I DO LITTLE TASKS I GET REALLY SHORT OF BREATH AND I HAVE TO SIT. STATES SHE GETS PANIC ATTACKS WHEN SOB. NO FALLS SINCE HOME, NO CHANGE IN MEDS/MED INS. PATIENT REPORTS CHRONIC AND SEVERE NECK PAIN. H/O 3 LEVEL CERVICAL FUSION AT BASE OF NECK APPROX 20 YEARS AGO. GETS BAD MS. SPASMS. PAIN LEVEL TODAY 8.5/10. USES SOMA AND OXYCODONE WHICH ALLOW HER TO FUNCTION BETTER BUT SELDOM BELOW 7/10 AND SPASMS MAKE IT WORSE. PATIENT MEDICAL HISTORY SIGNIFICANT FOR: COPD, CHF, ANEMIA, ANXIETY, RLS, GERD, CHRONIC PAIN, DYSPHAGIA. PATIENT LIVES IN 2ND FLOOR APT WITH DAUGHTER AND FRIENDLY CAT IN HOME OWNED BY BROTHER WHO LIVES WITH HIS SPOUSE ON 1ST FLOOR (SHE IS PATIENT'S HIGH SCHOOL MATH TUTOR) WITH 18 TOTAL STEPS TO MANAGE TO GET OUT OF HOME. PATIENT HAS HIGH SCHOOL MATH TUTOR CARE MON-[place]RI 4HRS/DAY. LEVEL OF HOME OWNED BY PATIENT'S BROTHER AND [id number] (PATIENT'S HIGH SCHOOL MATH TUTOR) WHO LIVE ON GROUND LEVEL. IJGNA SH LIMITED TO 90 DEGREES ELEVATION AND 3/5. CERV R ROT TO 50 DEGREES, AND LEFT ROT 5 DEGREES. STRENGTH JIGNA HIPS/LE'S: 3+/5. PATIENT WITH THORACIC KYPHOSIS AND STANDS WITH SHOULDERS POST TO PELVIS. PATIENT AMBULATED WITH ROLLATOR WALKER TO BEDROOM 30FT AND STANDING REST REQ'D. ON RETURN TO KITCHEN CHAIR, SOB, PULSE 108BPM AND OXYGEN 93%. PATIENT EDUCATED IN ENERGY CONSERVATION AND TO STOP ACTIVITY WHEN STARTING TO GET SOB. EDUCATED IN NEED TO STOP AND TAKE DEEPER BREATHS TO RECOVER BREATHING TO AVOID FASTER/SHALLOW BREATHING WHEN NERVOUS AND THEN GETTING ANXIOUS WHICH LEADS TO FASTER AND MORE SHALLOW INEFFECTIVE BREATHING- PATIENT ADMITS SHE DOES THIS AND GETS INTO THIS SITUATION. POOR ACTIVITY TOLERANCE DUE TO COPD AND NO OXYGEN IN THE HOME- STATES A CONCENTRATOR IS TOO EXPENSIVE FOR HER ELECTRICITY BUDGET. PATIENT WILL BENEFIT FROM SKILLED PT INTERVENTION 1-2X/WK FOR TRAINING IN GAIT, TRANSFERS, BALANCE, FUNCTIONAL STRENGTHENING/ENDURANCE, ENERGY CONSERVATION, PAIN MGT, EDUCATION AND HEP. PATIENT IN AGREEMENT WITH PT POC. OFFICE OF DR.THOMAS ELIZABETH NOTIFIED OF PT EVALUATION AND POC. PHYSICAL THERAPY TO ESTABLISH /UPGRADE/DOWNGRADE THERAPEUTIC EXERCISE PROGRAM AND INSTRUCT PATIENT/CAREGIVER ON EXERCISE PRECAUTIONS WITH WRITTEN HOME PROGRAM. MAY INCLUDE AROM, RROM APPROPRIATE TO IMPROVE FUNCTIONAL STRENGTH AND RANGE OF MOTION. PHYSICAL THERAPY TO INSTRUCT PATIENT/CAREGIVER ON SAFE TRANSFER TECHNIQUES USING PROPER BODY MECHANICS AND EQUIPMENT. PHYSICAL THERAPY TO INSTRUCT PATIENT/CAREGIVER ON GAIT TRAINING TECHNIQUES USING APPROPRIATE ASSISTIVE DEVICE, PROPER BODY MECHANICS TO IMPROVE MOBILITY, AND PREVENT INJURY OF PATIENT AND/OR CAREGIVER. PHYSICAL THERAPY TO ASSESS AND RECOMMEND HOME SAFETY ADAPTATIONS AND EDUCATE PATIENT /CAREGIVER ON FALL PREVENTION STRATEGIES. PHYSICAL THERAPY FOR OBSERVATION AND ASSESSMENT OF PAIN, EFFECTIVENESS OF PAIN MANAGEMENT REGIMEN AND SKILLED TEACHING RELATED TO PAIN MANAGEMENT. THERAPIST TO REPORT INCREASED PAIN LEVEL TO PHYSICIAN FOR PROMPT INTERVENTION.] Goal Patient Goal - ST[facility] OUT [facility] Goal Provider Goal - A PLAN OF CARE WILL BE ESTABLISHED THAT MEETS PATIENT'S JAIL NEEDS AND INCLUDES PATIENT GOAL FOR HOME [...] THE PHYSICIANS SIGNATURE. Goal Provider Goal - SPOOL SANDER TO COMPLETE EVALUATION TO ADDRESS THE PATIENTS SOCIAL AND EMOTIONAL FACTORS AND/OR WRITTEN PLAN OF TREATMENT ESTABLISHED FOR THE PHYSICIAN'S SIGNATURE. Goal Provider Goal - OCCUPATIONAL THERAPIST TO EVALUATE PATIENT SECONDARY TO FUNCTIONAL DEFICITS/SAFETY CONCERNS IDENTIFIED DURING EVALUATION. PATIENT/CAREGIVER WILL PERFORM THERAPEUTIC EXERCISE/S AND DEMONSTRATE PARTICIPATION IN A HOME PROGRAM. CAREGIVER/PATIENT WILL DEMONSTRATE/VERBALIZE UNDERSTANDING OF RECOMMENDATIONS TO INCREASE SAFETY IN THE HOME AND FALL PREVENTION IN ORDER TO MANAGE ADL PATIENT/CAREGIVER WILL DEMONSTRATE IMPROVED ABILITY TO PERFORM ACTIVITIES OF DAILY LIVING. PATIENT/CAREGIVER WILL DEMONSTRATE IMPROVED ABILITY TO PERFORM INSTRUMENTAL ACTIVITIES OF DAILY LIVING. Goal Provider Goal - PHYSICAL THERAPY EVALUATION TO BE COMPLETED WITH RECOMMENDATIONS AND/OR WRITTEN TREATMENT PLAN OF CARE ESTABLISHED FOR THE PHYSICIANS SIGNATURE PATIENT/CAREGIVER WILL PERFORM THERAPEUTIC EXERCISE/S AND DEMONSTRATE PARTICIPATION IN A HOME PROGRAM TO IMPROVE FUNCTIONAL STRENGTH/ENDURANCE OF JIGNA HIPS/LE'S/TRUNK TO IMPROVE GAIT, BALANCE, TRANSFERS, STAIR MGT, PAIN, FALLS PREVENTION PATIENT/CAREGIVER WILL DEMONSTRATE SAFE TRANSFERS USING APPROPRIATE ASSISTIVE DEVICE, BODY MECHANICS AND EQUIPMENT TO IMPROVE GAIT, STAIR MGT, BALANCE, FALLS PREVENTION PATIENT/CAREGIVER WILL DEMONSTRATE IMPROVED GAIT TECHNIQUES TO MINIMIZE RISK OF INJURY TO ALLOW INDEP MOBILITY THROUGHOUT HOME, INDEP STAIR MGT, ACCESS TO COMMUNITY PATIENT/CAREGIVER WILL DEMONSTRATE/VERBALIZE UNDERSTANDING OF RECOMMENDATIONS TO INCREASE SAFETY IN THE HOME AND FALL PREVENTION TO IMPROVE BALANCE, GAIT, TRANSFERS, STAIR MGT INCREASED PAIN OR INEFFECTIVE PAIN CONTROL MEASURES WILL BE IDENTIFIED AND PROMPTLY REPORTED TO THE PHYSICIAN. PATIENT/CAREGIVER WILL DEMONSTRATE EFFECTIVE PAIN MANAGEMENT TO IMPROVE TOLERANCE TO AMB, STAIRS Progress Notes Progress Notes <paragraph>[Visit Date: 2024 by [facility] [place] ([facility]) [facility]]:</paragraph><paragraph>PATIENT SEEN FOR SKILLED OT TREATMENT THIS DATE. OT INITIATED TRG FOR IADL MGT WITH FOCUS ON ENERGY CONSERVATION AND WORK SIMP , SAFETY AND FALL PREVENTION STRATEGIES FOR CHANGING OF KITCHEN CURTAINS. OT ASSISTED PATIENT WITH OVERHEAD REACH OF CURTAINS AND PATIENT WAS ABLE TO MANAGE CHANGE OUT OF CHEST LEVEL CURTAINS. PATIENT IS ABLE TO IDENTIFY NEED FOR SEATED THERAPEUTIC REST AND SELF PACING OF TASK AND WHEN TO ASK FOR ASSIST WITH PORTIONS OF TASK. OT REMINDED PATIENT TO USE MARRIAGE THERAPIST FOR RETRIEVAL OF ITEMS FROM FLOOR AND RECOMMENDS THAT PATIENT KEEP MARRIAGE THERAPIST WITHIN REACH IN KITCHEN BAERRIERS: SIGNIFICANT SOB WITH STANDING TASKS. DC PLANNING ONGOING. PATIENT REMAINS HOMEBOUND DUE TO TAXING EFFORT TO LEAVE HOME AND ASSIST OF ANOTHER PERSON DUE TO WEAKNESS.</paragraph> Encounters Start Date/Time End Date/Time Encounter Type Admission Type Attending Clinicians Care Facility Care Department Encounter ID Discharge Date Discharge Status Discharge Condition Discharge Reason Percent Goals Met 2024-04-23 00:00:00 2024-06-21 00:00:00 Outpatient NEW ADMISSION [facility] [id number]
--- OUTSIDE RECORDS SUMMARY | 2024-05-18 16:47 | XMS_ITS | Clinical Summary ---
Author Organization Unknown Care Team Providers Care Reservoir Caretaker Name Role Phone GLENN MANLEY, SILAS Unavailable Unavailable KENDELL URRUTIA, MARIAN Unavailable Unavailable Payers Payer Name Policy Type Policy Number Effective Date Expira tion Date [facility] [id number] MEDICAID [facility] [id number] MEDICARE - [facility] [place] [id number] Problems Condition Name Condition Details Condition Category [...] 325 mg tablet 04-23 00:00: 00 Yes [id number] 2 tablet EVERY 6 HOURS 2 tablet EVERY 6 HOURS (route: oral) Med Classific ation: Analgesic , Anti-infl ammatory or Antipyret ic albuterol sulfate HFA 90 mcg/actuati on aerosol inhaler 04-23 00:00: 00 Yes [id number] 2 puff EVERY 4 HOURS 2 puff EVERY 4 HOURS (route: inhalation ) Med Classific ation: Respirato ry Therapy Agents Atrovent HFA 17 mcg/actuati on aerosol inhaler 04-23 00:00: 00 Yes [id number] 2 puff 4 TIMES DAILY 2 puff 4 TIMES DAILY (route: inhalation ) Med Classific ation: Respirato ry Therapy Agents bumetanide 0.5 mg tablet 04-23 00:00: 00 Yes [id number] 1 tablet DAILY 1 tablet DAILY (route: oral) Med Classific ation: Cardiovas cular Therapy Agents carisoprodo l 350 mg tablet 04-23 00:00: 00 Yes [id number] 1 tablet EVERY 12 HOURS 1 tablet EVERY 12 HOURS (route: oral) Med Classific ation: Locomotor System docusate sodium 100 mg tablet 04-23 00:00: 00 Yes [id number] 1 tablet 2 TIMES DAILY 1 tablet 2 TIMES DAILY (route: oral) Med Classific ation: Gastroint estinal Therapy Agents ferrous sulfate 325 mg (65 mg iron) tablet 04-23 00:00: 00 Yes [id number] 1 tablet DAILY 1 tablet DAILY (route: oral) Med Classific ation: Electroly te Balance-N utritiona l Products fluticasone propionate 220 mcg/actuati on HFA aerosol inhaler 04-23 00:00: 00 Yes [id number] 2 puff 2 TIMES DAILY 2 puff 2 TIMES DAILY (route: inhalation ) Med Classific ation: Respirato ry Therapy Agents multivitami n with minerals tablet 04-23 00:00: 00 Yes [id number] 1 tablet DAILY 1 tablet DAILY (route: oral) Med Classific ation: Electroly te Balance-N utritiona l Products omeprazole 40 mg capsule,del ayed release 04-23 00:00: 00 Yes [id number] 1 capsule DAILY 1 capsule DAILY (route: oral) Med Classific ation: Gastroint estinal Therapy Agents oxycodone 5 mg tablet 04-23 00:00: 00 Yes [id number] 1 tablet EVERY 6 HOURS 1 tablet EVERY 6 HOURS (route: oral) Med Classific ation: Analgesic , Anti-infl ammatory or Antipyret ic ropinirole ER 6 mg tablet,exte nded release 24 hr 04-23 00:00: 00 Yes [id number] 1 tablet BEDTIME 1 tablet BEDTIME (route: oral) Med Classific ation: Central Nervous System Agents Senna Laxative 8.6 mg tablet 04-23 00:00: 00 Yes [id number] 2 tablet BEDTIME 2 tablet BEDTIME (route: oral) Med Classific ation: Gastroint estinal Therapy Agents Tussin 100 mg/5 mL oral liquid 04-23 00:00: 00 Yes [id number] 10 mL EVERY 4 HOURS 10 mL [...] AWARENESS FOR SAFETY AND WILL NOTIFY CLINICAL TEACHER PHYSICALLY IMPAIRED AND PHYSICIAN/PROVIDER WITH ANY CHANGE IN CONDITION. [code = SKILLED NURSE WILL MAINTAIN SITUATIONAL AWARENESS FOR SAFETY AND WILL NOTIFY CLINICAL TEACHER PHYSICALLY IMPAIRED AND PHYSICIAN/PROVIDER WITH ANY CHANGE IN CONDITION.] [...] TO EVALUATE PATIENT FOR (SPECIFY) [code = CLOTH ROLL WINDER TO EVALUATE PATIENT FOR (SPECIFY)] Future Scheduled [...] YEAR OLD FEM[place] [facility] [place] AND CHF . PATIENT THEN TRANSFERRED TO [facility] FROM 03/31 - 04/22/2024 PT HAS PMHX: ANEMIA, ANXIETY, RLS, GERD, CHRONIC PAIN, DYSPHAGIA. PLOF: PATIENT LIVES IN SECOND FLOOR APT WITH FULL FLIGHT OF STAIRS WITH RAIL TO ACCESS. PATIENT HAS FAMILY THAT LIVES ON FIRST FLOOR , INCLUDING HER SOL WHO HAS BEEN HER FIELD SPECIALIST FOR SEVERAL YEARS. SHE ALSO HAS A [...] YEAR OLD FEMALE [place] [facility] [place] TO [place] AND CHF . PATIENT THEN TRANSFERRED TO [facility] FROM 03/31 - 04/22/2024 PT HAS PMHX: ANEMIA, ANXIETY, RLS, GERD, CHRONIC PAIN, DYSPHAGIA. PLOF: PATIENT LIVES IN SECOND FLOOR APT WITH FULL FLIGHT OF STAIRS WITH RAIL TO ACCESS. PATIENT HAS FAMILY THAT LIVES ON FIRST FLOOR , INCLUDING HER SOL WHO HAS BEEN HER FIELD SPECIALIST FOR SEVERAL YEARS. SHE ALSO HAS A [...] FOR PT EVALUATION FOLLOWING [place] [facility] [place] [facility] 03/31- 04/22 FOR DX [...] SPOUSE ON 1ST FLOOR (SHE IS PATIENT'S FIELD SPECIALIST) WITH 18 TOTAL STEPS TO MANAGE TO GET OUT OF HOME. PATIENT HAS FIELD SPECIALIST CARE MON-FRI 4HRS/DAY. LEVEL OF HOME OWNED BY PATIENT'S BROTHER AND [id number] (PATIENT'S FIELD SPECIALIST) WHO LIVE ON GROUND LEVEL. JIGNA SH [...] FOR PT EVALUATION FOLLOWING [place]OSPITAL[place]21[place] [facility] [place] [facility] 03/31- 04/22 FOR DX [...] SPOUSE ON 1ST FLOOR (SHE IS PATIENT'S FIELD SPECIALIST) WITH 18 TOTAL STEPS TO MANAGE TO GET OUT OF HOME. PATIENT HAS FIELD SPECIALIST CARE MON-FRI 4HRS/DAY. LEVEL OF HOME OWNED BY PATIENT'S BROTHER AND [id number] (PATIENT'S FIELD SPECIALIST) WHO LIVE ON GROUND LEVEL. JIGNA SH [...] Goal Patient Goal - STAY OUT OF [facility] Goal Provider Goal - A PLAN OF CARE WILL BE ESTABLISHED THAT MEETS PATIENT'S [facility] NEEDS AND INCLUDES PATIENT GOAL FOR HOME [...] THE PHYSICIANS SIGNATURE. Goal Provider Goal - CLOTH ROLL WINDER TO COMPLETE EVALUATION TO ADDRESS THE PATIENTS [...] Notes <paragraph>[Visit Date: 2024 by [facility] [place] ([facility]) [facility] - [facility]]:</paragraph><paragraph>PATIENT SEEN FOR SKILLED OT TREATMENT [...] OF TASK. OT REMINDED PATIENT TO USE ASSET RECOVERY SPECIALIST FOR RETRIEVAL OF ITEMS FROM FLOOR AND RECOMMENDS THAT PATIENT KEEP ASSET RECOVERY SPECIALIST WITHIN REACH IN KITCHEN BAERRIERS: SIGNIFICANT SOB [...] 2024-06-21 00:00:00 Outpatient NEW ADMISSION MARIAN RDZ [facility] [id number] 16.67
--- OUTSIDE RECORDS SUMMARY | 2024-05-18 16:47 | XMS_ITS | Clinical Summary ---
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
== END 2024-05-18 15:12 | disposition home or self-care (01) ==
LOC: HO.HMCFM 14:26
PROVIDERS: PCP Family Medicine; Visit Provider Family Medicine
DX: I50.9 Heart failure, unspecified (principal); R62.7 Adult failure to thrive; J43.2 Centrilobular emphysema; D64.9 Anemia, unspecified

== ENCOUNTER → 2024-05-18 14:26 | Outpatient (BNVA) | payer OTHER, SELFPAY | PROVIDERS: PCP Family Medicine; Visit Provider Family Medicine | DX: I50.9 Heart failure, unspecified (principal); R62.7 Adult failure to thrive; J43.2 Centrilobular emphysema; D64.9 Anemia, unspecified | CPT/HCPCS: 99212 ==

== ENCOUNTER 2024-06-28 14:33 | Outpatient (AMB) | payer OTHER, SELFPAY ==
[2024-06-28 14:39] VITALS: BP 84/62; PULSE 112; O2SAT 88; BMI 11.9
--- NOTE | 2024-06-28 14:39 | A.OFFVIS_ITS ---
Vital Signs 06/28/24 14:39 Height 5 ft 2 in Weight 65 lb 0.582 oz BMI 11.9 BP 84/62 L Blood Pressure Location Lt brachial Pulse 112 H Pulse Source Pulse Oximeter Pulse Oximetry (%) 88 L Oxygen Delivery Method Room Air Intake Visit Reasons: resp failure Intake Note: pt is here for [facility] [place] follow up and states she has short of breath with exertion, some short of breath at times when sitting, Lumber Tripper Required: No Allergies bee pollen [BEE STINGS] Allergy (Intermediate, Verified 06/28/24 16:34) THROAT SWELLING penicillin V Allergy (Intermediate, Verified 06/28/24 16:34) nausea and vomiting Penicillins [PENICILLINS] Allergy (Intermediate, Verified 06/28/24 16:34) YEAST INFECTIONS- UTI - NAUSEA codeine [Codeine] Allergy (Mild, Verified 06/28/24 16:34) ITCHING celecoxib [From Celebrex] Adverse Reaction (Severe, Verified 06/28/24 16:34) RECTAL BLEEDING Medication List - Last Reconciled 06/28/24 by Jeffry Nava MD albuterol sulfate 2.5 mg (3 mL) inhalation Q4-6H PRN albuterol sulfate 90 mcg/actuation 2 puffs inhalation Q4-6H PRN 30 days bumetanide 0.5 mg See Protocol PO DAILY carisoprodol 350 mg PO BID PRN 30 days diazepam 1 to 2 tabs (2-4mg) orally daily PRN; 30 days docusate sodium 100 mg PO BID ferrous sulfate 324 mg PO DAILY fluticasone propionate 220 mcg/actuation 2 puffs inhalation BID 30 days foam bandage (Allevyn Gentle Border) change every 72 hours (Q 3 days) food supplemt, lactose-reduced (Ensure Enlive) 1 ea PO BID 30 days ipratropium bromide 17 mcg/actuation (Atrovent HFA) 2 puffs inhalation QID 30 days miscellaneous medical supply Oxygen Concetrator. Daily As directed, 999 days omeprazole 40 mg PO DAILY@0630 oxycodone-acetaminophen 5-325 mg (Percocet) 1 tab PO TID 28 days ropinirole 6 mg (1.5 x 4 mg) PO BEDTIME 30 days sennosides (Senna Lax) 17.2 mg (2 x 8.6 mg) PO DAILY HPI HPI resp failure: Details: Admitted on 03/26/24 ,with past medical history significant for chronic back pain, HLD, COPD unspecified presented to ED with complaints of left lower quadrant pain, dry heaves, decreased appetite, and shortness of breath with exertion, and bloating with eating for the past 4 days, patient admitted with following medical issues. She was found to have Acute hypoxic respiratory failure secondary to acute exacerbation of CHF with bilateral pleural effusions predominantly right heart failure related to cor pulmonale related to severe COPD, Patient treated aggressively with iv diuretics with good response subsequently transitioned to by mouth Bumex,echocardiogram, showed grade 1 diastolic dysfunction, decreased RV function , Patient had Chest tube placement, to completely drain the fluid from right chest, pathology showed no malignant cells, chest tube removed on March 29, . After that patient remained hemodynamically stable. In the hospitals setting she was on oxygen supplementation at 2 L/minute. Recommended to have oxygen at home at the time of discharge, but patient declined, and wanted to have a lightweight just portable unit. After discharge from the hospital in March this the 1st time she comes to the office. She is accompanied by by her daughter who lives with her . Complains of shortness of breath on minimal exertion, . Has mild intermittent cough Complains of general weakness and getting short of breath on minimal walking. Denies any wheezing attacks. STILL SMOKING NOW ABOUT 5-7 CIGARETTES A DAY. [facility] Medical History (Updated 06/28/24 @ 16:54 by Jeffry Nava MD) Respiratory failure with hypoxia Pneumothorax No pertinent past medical history Surgical History H/O oral surgery History of fusion of cervical spine History of biopsy History of lung biopsy History of surgery on left wrist History of shoulder surgery History of rhinoplasty Family History Father Cirrhosis Substance use disorder Mother No problems noted. Brother No problems noted. Son No problems noted. Son No problems noted. Daughter No problems noted. Daughter No problems noted. Daughter No problems noted. Social History Household Members: Children Household Members Other:: daughter Housing: House Do you presently have visiting nurse or other home services: Yes ([employer]CHANGE SERVICE ADVISER) Unable to assess alcohol history related to: Unknown Patient Tobacco Use Status: Former Tobacco user Cigarettes Per Day: 7 e-Cigarette/Vaping Use: Former Use Second Hand Smoke Exposure: No Substance Use Type: Marijuana service: No Current occupational status: retired and disabled Current occupational exposures/hazards: No Cognitive needs: No Hearing needs: No Vision needs: Yes Review of Systems Const All systems reviewed & are unremarkable except as noted in HPI and below Reports weakness (GENERAL NONSPECIFIC) Eyes Reports no additional complaints ENT Reports no additional complaints Card Denies chest pain, Denies leg edema and Reports dyspnea on exertion Resp Reports as per HPI and Reports dyspnea on exertion GI Reports other (VERY POOR APPETITE AND REMAINS MALNOURISHED.) Musc Reports muscle weakness Skin/Breast Reports system reviewed and no additional complaints, except as documented Neuro Reports no additional complaints and Reports weakness (GENERAL NONSPECIFIC) Psych Reports anxiety Endo Reports no additional complaints Yg/Lymph Reports no additional complaints Aller/Immun Reports no additional complaints Physical Exam Vital Signs: Last Vital Signs Pulse 112 H 06/28/24 14:39 BP 84/62 L 06/28/24 14:39 Pulse Ox 91 L 06/28/24 14:39 Oxygen Delivery Method Room Air 06/28/24 14:39 BMI result Body Mass Index 11.9 PATIENT IS OF VERY THIN BUILD, FRAIL BUT CONSCIOUS AND ALERT Const General: healthy appearing, comfortable, no acute distress, alert and awake Orientation/consciousness: patient oriented x3 HEENT Head: Yes normal to inspection General nose exam: No nasal polyps present and No nasal discharge present Face and sinus: Yes sinuses nontender Mouth: oropharynx normal Throat: Yes posterior oropharynx normal Eyes General: appearance normal, both eyes and all related structures Neck Neck: Yes normal visual inspection, Yes no lymphadenopathy, Yes trachea midline and Yes no JVD Thyroid: Thyroid normal Chest Other: HYPER RESONANT Chest palpation & inspection: normal inspection of the chest, normal palpation of entire chest wall and no tenderness Resp Other: PERCUSSION NOTE HYPER-RESONANT, BREATH SOUNDS ARE VERY DISTANT ON BOTH SIDES NO WHEEZES OR RHONCHI Cardio Palpation: normal PMI Rate: regular rate Rhythm: regular rhythm Heart sounds: no gallops and no murmurs GI Palpation (GI): Soft to palpation, nontender, No hepatosplenomegaly present and no masses Auscultation: normal bowel sounds Back/Spine/Pelvis Thoracic/Lumbar Spine: thoracic and lumbar spine normal to inspection Skin General skin exam: no rashes or lesions noted Neuro General: patient oriented x3, gait normal and no focal motor deficits Cranial nerves: Yes CN's II-XII intact bilaterally Extrem General: Yes normal to inspection, Yes no clubbing, cyanosis or edema and Yes no calf tenderness Psych Appearance: grossly normal and well kempt Speech and movement: Normal speech and movement present Affect: Anxious affect present Results Reviewed Results Reviewed: RECORDS FROM HER HOSPITALIZATION IN MARCH REVIEWED Assessment & Plan Assessment & Plan (1) COPD (chronic obstructive pulmonary disease): Comment: THIS PATIENT WITH HISTORY OF SMOKING DOES HAVE CHRONIC OBSTRUCTIVE PULMONARY DISEASE, RELATIVELY STABLE AT PRESENT. Code(s): J44.9 - Chronic obstructive pulmonary disease, unspecified Category: Medical Qualifiers: COPD type: emphysema Emphysema type: centrilobular Qualified Code(s): J43.2 - Centrilobular emphysema Plan: CONTINUE TO USE FLOVENT- 220 2 PUFFS B.I.D. ATROVENT INHALER 1 INHALATION Q 6 HOURS WHILE AWAKE ( AT LEAST 3 TIMES A DAY ) ALBUTEROL HFA 2 PUFFS Q 4-6 HOURS P.R.N. FOR ACUTE DISTRESS. (2) Smoker: Comment: PATIENT STILL SMOKING 5-7 CIGARETTES A DAY . Code(s): F17.200 - Nicotine dependence, unspecified, uncomplicated Category: Social Hx Plan: I HAVE STRONGLY RECOMMENDED THAT SHE SHOULD QUIT SMOKING COMPLETELY, OR AT LEAST CUT DOWN THE NUMBER OF CIGARETTES. (3) Respiratory failure with hypoxia: Comment: PATIENT WAS ADMITTED IN THE HOSPITAL WITH ACUTE ON CHRONIC RESPIRATORY FAILURE. . SHE REQUIRED O2 SUPPLEMENTATION HOME OXYGEN WAS RECOMMENDED AT THAT TIME OF DISCHARGE BUT SHE HAD DECLINED AND WANTED TO HAVE ONLY LIGHTWEIGHT PORTABLE UNIT. TODAY SHE CAME TO THE OFFICE ON ROOM AIR THE O2 SAT WAS 88-89% . Code(s): J96.91 - Respiratory failure, unspecified with hypoxia Category: Medical Plan: I THINK SHE HAS CHRONIC HYPOXEMIA. WHICH WILL ACCENTUATE ON WALKING OR IF SHE DEVELOPS CONGESTIVE HEART FAILURE SHE IS ADVISED TO START USING OXYGEN SUPPLEMENTATION. SHE IS EDUCATED THAT SHE HAS TO START WITH A STATIONARY CONCENTRATOR AT HOME. USE 2 L/MINUTE AT NIGHT AND 2 L/MINUTE DURING THE DAYTIME WITH ANY PHYSICAL ACTIVITY. ONCE SHE STARTS USING THE OXYGEN, THEN WE WILL DO A 6 MINUTES WALK IN THE OFFICE TO SEE IF SHE QUALIFIES FOR A LIGHTWEIGHT PORTABLE UNIT. (4) Malnutrition: Comment: PATIENT IS MALNOURISHED, OF A VERY THIN BUILD, HER APPETITE IS POOR BUT SHE DOES NOT HAVE ANY MECHANICAL DYSPHAGIA. Code(s): E46 - Unspecified protein-calorie malnutrition Category: Medical Plan: ADVISED TO USE HIGH-PROTEIN DIET. ALSO ADVISE THAT SHE SHOULD USE BOOST TO SUPPLEMENTS 2 OR 3 TIMES A DAY Coding Level of Care Code Est Pt Level 5 (64747) Diagnoses Centrilobular emphysema J43.2 COPD type: emphysema Emphysema type: centrilobular Smoker F17.200 Respiratory failure with hypoxia J96.91 Malnutrition E46
--- OUTSIDE RECORDS SUMMARY | 2024-06-28 16:53 | XMS_ITS | Clinical Summary ---
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
== END 2024-06-28 15:13 | disposition home or self-care (01) ==
LOC: HO.HPS 14:33
PROVIDERS: PCP Family Medicine; Referring Provider Family Medicine; Visit Provider Internal Medicine
DX: J43.2 Centrilobular emphysema (principal); F17.210 Nicotine dependence, cigarettes, uncomplicated; J96.91 Respiratory failure, unspecified with hypoxia; E46 Unspecified protein-calorie malnutrition
CPT/HCPCS: 99214

== ENCOUNTER → 2024-06-28 14:33 | Outpatient (BNVA) | payer OTHER, SELFPAY | PROVIDERS: PCP Family Medicine; Referring Provider Family Medicine; Visit Provider Internal Medicine | DX: J43.2 Centrilobular emphysema (principal); J96.91 Respiratory failure, unspecified with hypoxia; E46 Unspecified protein-calorie malnutrition; F17.210 Nicotine dependence, cigarettes, uncomplicated | CPT/HCPCS: 99212 ==

== ENCOUNTER 2024-07-28 14:20 | Outpatient (AMB) | payer OTHER, SELFPAY ==
--- OUTSIDE RECORDS SUMMARY | 2024-07-28 14:29 | XMS_ITS | Patient Health Record ---
Author Organization [facility] Address [address] [place] [address] Care Team Providers Care Preparole Counseling Aide Name Role Phone Steph(inactive) Giuseppe MANLEY Primary Care Provider U Dawit Kendrick Jr Unavailable [phone] Allergies Allergen (clinical drug ingredient) Drug/Non Drug Allergy documented on EMR Reaction Allergy Type Onset Date Status bee stings (uncoded) Unknown Allergy Active PCN (uncoded) Unknown Allergy Active celecoxib celebrex (uncoded) Unknown Allergy A ctive codeine codeine (uncoded) Unknown Allergy Ac tive Results Component Value Reference Range Notes US abdomen limited Reviewed date:03/24/2024 08:02:13 AM Interpretation: Performing Lab: Notes/Report: [address] [address] Ultrasound Report Signed Patient: Gabbie Dominguez MR#: [id number] : 1955 Acct:[id number] Age/Sex: 68 / F ADM Date: 03/21/24 Loc: [facility] 477-[address]: Iesha Grimm NP Ordering Physician: Dawit Terry MD Date of Service: 03/23/24 Procedure(s): US abdomen limited Accession Number(s): [id number] cc: Dawit Terry MD; Ed Murillo MD [...] in OV> 03/23/242013 DD/ 11 TD/TT: 03/23/242011 [employer] Consultant: [address] [address] Ultrasound Report Signed Patient: Brandy Dominguez MR#: [id number] : 1955 Acct:[id number] Age/Sex: 68 / F ADM Date: 03/21/24 Loc: [facility] 477-[address]: Iesha Grimm NP Ordering Physician: Dawit Terry MD Date of Service: 03/23/24 Procedure(s): US abd omen limited Accession Number(s): [id number] cc: Dawit Terry MD; Ed Murillo MD [...] document has be en electronically signed by: Zaynba Martin MD on 03/23/2024 20:12:49 Dictated By: Zaynab Martin MD Signed By: <Electronically signed by Zaynab Martin MD in OV> 03/23/242013 DD/ 11 TD/TT: 03/23/242011 [employer] Consultant: Prothrombin Time INR Reviewed date:03/24/2024 09:18:35 PM Interpretation: Performing Lab:[facility], [address] [place] [phone] Notes/Report: Prothrombin Time 14.3 10.9-12.4 [employer] [...] Panel Reviewed date:03/24/2024 09:19:31 PM Interpretation: Performing Lab:[address] [address] Notes/Report: Bilirubin Total 0.5 0.0-1.0 mg/dL Bilirubin Direct 0.3 0.0-0.5 mg/dL Aspartate Amino Transferase 202 5-31 U/L Alanine Aminotransferase 522 0-31 U/L Total Protein 5.7 6.5-8.0 g/dL Albumin Level 3.2 3.5-5.0 g/dL Alkaline Phosphatase 69 39-117 U/L Basic Metabolic Panel Reviewed date:03/24/2024 09:19:18 PM Interpretation: Performing Lab:[address] [address] Notes/Report: Sodium 137 135-145 mmol/L Potassium 4.7 [...] Lipase Reviewed date:03/24/2024 09:18:47 PM Interpretation: Performing Lab:[address] [address] Notes/Report: Lipase 14 8-78 U/L Liver Panel Reviewed date:03/25/2024 09:41:03 PM Interpretation: Performing Lab:[facility], [address] [place] [phone] Notes/Report: Bilirubin Total 0.5 0.0-1.0 mg/dL Bilirubin Direct 0.3 0.0-0.5 mg/dL Aspartate Amino Transferase 152 5-31 U/L Alanine Aminotransferase 430 0-31 U/L Total Protein 5.5 6.5-8.0 g/dL Albumin Level 3.0 3.5-5.0 g/dL Alkaline Phosphatase 64 39-117 U/L Basic Metabolic Panel Reviewed date:03/25/2024 09:40:54 PM Interpretation: Performing Lab:[facility], [address] [place] [phone] Notes/Report: Sodium 138 135-145 mmol/L Potassium 4.3 [...] PROFILE Reviewed date:03/25/2024 09:40:19 PM Interpretation: Performing Lab:[address] [address] Notes/Report: Iron 16 30-160 mcg/dL Total Iron Binding Capacity 348 228-428 mcg/dL Percent Iron Saturation 5 15-50 % Unsaturated Iron Binding 332 Ferritin Reviewed date:03/25/2024 09:40:46 PM Interpretation: Performing Lab:[facility], [address] [place] [phone] Notes/Report: Ferritin 31 10-250 ng/mL Lactate Dehydrogenase Reviewed date:03/25/2024 09:40:37 PM Interpretation: Performing Lab:[facility], [address] [place] [address] Notes/Report: Lactate Dehydrogenase 224 122-220 U/L Reason [...] W/U Status Risk Notes Problem Esophageal reflux (259622351) Esophageal reflux (530.81) Active confirmed Problem Weight decreased (770203483) Loss of weight (783.21) Active confirmed Problem Oropharyngeal dysphagia (22436165) Dysphagia, oropharyngeal phase (R13.12) Active confirmed Problem Gastroesophageal reflux disease (106909145) Chronic gastroesophageal reflux disease (K21.9) Active confirmed Plan Of Treatment Future Test Test Name Order Date UPPER GI ENDOSCOPY 04/02/2011 COLONOSCOPY 04/02/2011 Insurance Providers Payer Name Payer Address Payer Phone Subscriber Number Group Number Insured Name Patient Relationship to Insured Coverage Start Date Coverage End Date [facility] [address] [place] [phone] [id number] GABBIE DOMINGUEZ Self - patient is the insured Medical (General) History Medical History History ICD Code restless leg syndrome COPD pneumonia Surgical History Surgery Date(Month/Year) neck surgery ovarian surgery
--- NOTE | 2024-07-28 14:49 | MHC.OFFVIS ---
Vital Signs 07/28/24 14:50 Height 5 ft 2 in BP 130/70 Blood Pressure Location Lt brachial Position Sitting Pulse 96 Pulse Source Pulse Oximeter Pulse Oximetry (%) 98 Oxygen Delivery Method Nasal Cannula Oxygen Flow Rate 2 Intake Visit Reasons: Resp Failure Intake Note: pt is here for follow up and is still struggling with heavy oxygen tanks and would like a poc trial and states she has a lot of trouble getting phelgm out, it is very deep and takes a lot out of her to get it up Wolf Hunter Required: No Allergies bee pollen [BEE STINGS] Allergy (Intermediate, Verified 07/28/24 15:12) THROAT SWELLING penicillin V Allergy (Intermediate, Verified 07/28/24 15:12) nausea and vomiting Penicillins [PENICILLINS] Allergy (Intermediate, Verified 07/28/24 15:12) YEAST INFECTIONS- UTI - NAUSEA codeine [Codeine] Allergy (Mild, Verified 07/28/24 15:12) ITCHING celecoxib [From Celebrex] Adverse Reaction (Severe, Verified 07/28/24 15:12) RECTAL BLEEDING Medication List - Last Reconciled 07/28/24 by Jeffry Nava MD albuterol sulfate 2.5 mg (3 mL) inhalation Q4-6H PRN albuterol sulfate 90 mcg/actuation 2 puffs inhalation Q4-6H PRN 30 days bumetanide 0.5 mg See Protocol PO DAILY carisoprodol 350 mg PO BID PRN 30 days diazepam 1 to 2 tabs (2-4mg) orally daily PRN; 30 days docusate sodium 100 mg PO BID ferrous sulfate 324 mg PO DAILY fluticasone propionate 220 mcg/actuation 2 puffs inhalation BID 30 days foam bandage (Allevyn Gentle Border) change every 72 hours (Q 3 days) food supplemt, lactose-reduced (Ensure Enlive) 1 ea PO BID 30 days ipratropium bromide 17 mcg/actuation (Atrovent HFA) 2 puffs inhalation QID 30 days miscellaneous medical supply Oxygen Concetrator. Daily As directed, 999 days omeprazole 40 mg PO DAILY@0630 oxycodone-acetaminophen 5-325 mg (Percocet) 1 tab PO TID 28 days ropinirole 6 mg (1.5 x 4 mg) PO BEDTIME 30 days sennosides (Senna Lax) 17.2 mg (2 x 8.6 mg) PO DAILY HPI HPI Resp Failure: Details: This 68 years old very pleasant lady of a thin build, with advanced obstructive lung disease/hypoxemia. Comes after 4 weeks for follow-up. She has been faithfully using Atrovent inhaler 2 puffs twice a day. Flovent-to 22 puffs twice a day. And ProAir 2 puffs Q 4-6 hours only as needed. At home she also has the nebulizer with albuterol solution but has not used much. She gets hypoxemia with minimal exertion. Has hesitated to get the stationary concentrator because of inability to pay for the electric bill. She likes to get a lightweight unit to use only [facility] in if her O2 sat drops below 90%. LUCKILY SHE HAS QUIT SMOKING COMPLETELY . [facility] Medical History (Updated 07/28/24 @ 15:30 by Jeffry Nava MD) Respiratory failure with hypoxia Pneumothorax No pertinent past medical history Surgical History H/O oral surgery History of fusion of cervical spine History of biopsy History of lung biopsy History of surgery on left wrist History of shoulder surgery History of rhinoplasty Family History Father Cirrhosis Substance use disorder Mother No problems noted. Brother No problems noted. Son No problems noted. Son No problems noted. Daughter No problems noted. Daughter No problems noted. Daughter No problems noted. Social History Household Members: Children Household Members Other:: daughter Housing: House Do you presently have visiting nurse or other home services: Yes ([employer]PA[employer]ER) Unable to assess alcohol history related to: Unknown Patient Tobacco Use Status: Former Tobacco user Cigarettes Per Day: 7 e-Cigarette/Vaping Use: Former Use Second Hand Smoke Exposure: No Substance Use Type: Marijuana service: No Current occupational status: retired and disabled Current occupational exposures/hazards: No Cognitive needs: No Hearing needs: No Vision needs: Yes Review of Systems Const All systems reviewed & are unremarkable except as noted in HPI and below Reports weakness (GENERAL NONSPECIFIC) Eyes Reports no additional complaints ENT Reports no additional complaints Card Denies chest pain, Denies leg edema and Reports dyspnea on exertion Resp Reports as per HPI and Reports dyspnea on exertion GI Reports other (VERY POOR APPETITE AND REMAINS MALNOURISHED.) Musc Reports muscle weakness Skin/Breast Reports system reviewed and no additional complaints, except as documented Neuro Reports no additional complaints and Reports weakness (GENERAL NONSPECIFIC) Psych Reports anxiety Endo Reports no additional complaints Yg/Lymph Reports no additional complaints Aller/Immun Reports no additional complaints Physical Exam Vital Signs: Last Vital Signs Pulse 96 07/28/24 14:50 BP 130/70 07/28/24 14:50 Pulse Ox 98 07/28/24 14:50 Oxygen Delivery Method Nasal Cannula 07/28/24 14:50 Oxygen Flow Rate 2 07/28/24 14:50 PATIENT IS OF VERY THIN BUILD, FRAIL BUT CONSCIOUS AND ALERT Const General: healthy appearing, comfortable, no acute distress, alert and awake Orientation/consciousness: patient oriented x3 HEENT Head: Yes normal to inspection General nose exam: No nasal polyps present and No nasal discharge present Face and sinus: Yes sinuses nontender Mouth: oropharynx normal Throat: Yes posterior oropharynx normal Eyes General: appearance normal, both eyes and all related structures Neck Neck: Yes normal visual inspection, Yes no lymphadenopathy, Yes trachea midline and Yes no JVD Thyroid: Thyroid normal Chest Other: HYPER RESONANT Chest palpation & inspection: normal inspection of the chest, normal palpation of entire chest wall and no tenderness Resp Other: PERCUSSION NOTE HYPER-RESONANT, BREATH SOUNDS ARE VERY DISTANT ON BOTH SIDES NO WHEEZES OR RHONCHI Cardio Palpation: normal PMI Rate: regular rate Rhythm: regular rhythm Heart sounds: no gallops and no murmurs GI Palpation (GI): Soft to palpation, nontender, No hepatosplenomegaly present and no masses Auscultation: normal bowel sounds Back/Spine/Pelvis Thoracic/Lumbar Spine: thoracic and lumbar spine normal to inspection Skin General skin exam: no rashes or lesions noted Neuro General: patient oriented x3, gait normal and no focal motor deficits Cranial nerves: Yes CN's II-XII intact bilaterally Extrem General: Yes normal to inspection, Yes no clubbing, cyanosis or edema and Yes no calf tenderness Psych Appearance: grossly normal and well kempt Speech and movement: Normal speech and movement present Affect: Anxious affect present Office Procedures 6 Minute Walk Time:: 15:15 SPO2 % at rest: 96 Pulse at rest: 101 SPO2 % during excercise: 89 Pulse during excercise: 112 SPO2 % after excercise: 93 Pulse after excercise: 103 Distance in yards walked: 57 Daniel Score: 8 Performance Observations:: Patient walked on level ground with one arm assist at a very slow gait. Patient maintained O2 saturation of 89 -93% and pulse rate of 103-112 for the duration of the walk and did not qualify for poc. 64064 - 6 Minute Walk Results Reviewed Results Reviewed: 6 MINUTES WALK TEST PERFORMED. THE MINIMUM O2 SAT WAS 89%. SO SHE REALLY DOES NOT QUALIFY FOR PORTABLE. OXYGEN AT THIS TIME Assessment & Plan Assessment & Plan (1) COPD (chronic obstructive pulmonary disease): Comment: THIS PATIENT WITH HISTORY OF SMOKING DOES HAVE CHRONIC OBSTRUCTIVE PULMONARY DISEASE, RELATIVELY STABLE AT PRESENT. SHE HAD DIFFICULTY IN USING THE INHALERS DUE TO AFFORDABILITY. NOW SHE IS USING THE FLOVENT, ATROVENT INHALERS REGULARLY AND PROAIR JUST NEEDED. Code(s): J44.9 - Chronic obstructive pulmonary disease, unspecified Category: Medical Qualifiers: COPD type: emphysema Emphysema type: centrilobular Qualified Code(s): J43.2 - Centrilobular emphysema Plan: FLOVENT 222 PUFFS B.I.D. IPRATROPIUM BROMIDE HFA 2 PUFFS Q 6 HOURS WHILE AWAKE ( AT LEAST TWICE A DAY ) ProAir 2 puffs Q 4-6 hours p.r.n./ alternatively albuterol solution in the nebulizer Q 4-6 hours p.r.n.. (2) Respiratory failure with hypoxia: Comment: PATIENT WAS ADMITTED IN THE HOSPITAL WITH ACUTE ON CHRONIC RESPIRATORY FAILURE. . SHE REQUIRED O2 SUPPLEMENTATION HOME OXYGEN WAS RECOMMENDED AT THAT TIME OF DISCHARGE BUT SHE HAD DECLINED AND WANTED TO HAVE ONLY LIGHTWEIGHT PORTABLE UNIT. 6 MINUTES WALK TEST TRIED. SHE WALKS VERY SLOW, AND O2 DROPPED ONLY TO 89%. SO BASED ON THIS SHE WOULD NOT QUALIFY FOR POC. Code(s): J96.91 - Respiratory failure, unspecified with hypoxia Category: Medical Plan: ADVISED, THAT SHE SHOULD KEEP THE OXYGEN CYLINDERS AT HOME. SHE CAN USE 2 L/MINUTE P.R.N. IF SHE GETS INTO ANY DISTRESS. WE WILL TRY TO GET HER BTANKS FOR EASY PORTABILITY. (3) Smoker: Comment: THIS PATIENT DOES HAVE HISTORY OF SMOKING THROUGHOUT HER ADULT LIFE, HAS DIFFICULTY IN QUITTING COMPLETELY. BUT SINCE LAST VISIT SHE HAS STOPPED SMOKING COMPLETELY, OR AT LEAST THAT IS WHAT SHE SAYS. Code(s): F17.200 - Nicotine dependence, unspecified, uncomplicated Category: Social Hx Plan: COMMENDED FOR NOT SMOKING. ADVISED HER NOT TO GO BACK TO SMOKING AT ALL Orders: Orders AMB 6 minute walk Today J43.2 - Centrilobular emphysema, J96.91 - Respiratory failure, unspecified with hypoxia Coding Level of Care Code Est Pt Level 4 (94830) Diagnoses Centrilobular emphysema J43.2 COPD type: emphysema Emphysema type: centrilobular Respiratory failure with hypoxia J96.91 Smoker F17.200 CPT Codes Coding ([id number])
[2024-07-28 14:50] VITALS: BP 130/70; PULSE 96; O2SAT 98
[2024-07-28 15:38] VITALS: PULSE 101; O2SAT 96
== END 2024-07-28 15:29 | disposition home or self-care (01) ==
LOC: HO.HPS 14:20
PROVIDERS: PCP Family Medicine; Visit Provider Internal Medicine
DX: J43.2 Centrilobular emphysema (principal); J96.91 Respiratory failure, unspecified with hypoxia; F17.200 Nicotine dependence, unspecified, uncomplicated
CPT/HCPCS: 94618; 99214

== ENCOUNTER → 2024-07-28 14:20 | Outpatient (BNVA) | payer OTHER, SELFPAY | PROVIDERS: PCP Family Medicine; Visit Provider Internal Medicine | DX: J43.2 Centrilobular emphysema (principal); J96.91 Respiratory failure, unspecified with hypoxia; F17.210 Nicotine dependence, cigarettes, uncomplicated | CPT/HCPCS: 94618; 99212 ==

== ENCOUNTER 2024-08-08 10:27 | Outpatient (AMB) | payer OTHER, SELFPAY ==
--- NOTE | 2024-08-08 10:20 | MHC.PC.OV ---
Intake Visit Reasons: follow up from pulmonology for new o2 tank Allergies bee pollen [BEE STINGS] Allergy (Intermediate, Verified 08/08/24 10:21) THROAT SWELLING penicillin V Allergy (Intermediate, Verified 08/08/24 10:21) nausea and vomiting Penicillins [PENICILLINS] Allergy (Intermediate, Verified 08/08/24 10:21) YEAST INFECTIONS- UTI - NAUSEA codeine [Codeine] Allergy (Mild, Verified 08/08/24 10:21) ITCHING celecoxib [From Celebrex] Adverse Reaction (Severe, Verified 08/08/24 10:21) RECTAL BLEEDING Medication List - Last Reconciled 08/08/24 by Ed Murillo MD albuterol sulfate 2.5 mg (3 mL) inhalation Q4-6H PRN albuterol sulfate 90 mcg/actuation 2 puffs inhalation Q4-6H PRN 30 days carisoprodol 350 mg PO BID PRN 30 days diazepam 1 to 2 tabs (2-4mg) orally daily PRN; 30 days docusate sodium 100 mg PO BID ferrous sulfate 324 mg PO DAILY fluticasone propionate 220 mcg/actuation 2 puffs inhalation BID 30 days foam bandage (Allevyn Gentle Border) change every 72 hours (Q 3 days) food supplemt, lactose-reduced (Ensure Enlive) 1 ea PO BID 30 days ipratropium bromide 17 mcg/actuation (Atrovent HFA) 2 puffs inhalation QID 30 days miscellaneous medical supply Oxygen Concetrator. Daily As directed, 999 days omeprazole 40 mg PO DAILY@0630 oxycodone-acetaminophen 5-325 mg (Percocet) 1 tab PO TID 28 days ropinirole 6 mg (1.5 x 4 mg) PO BEDTIME 30 days sennosides (Senna Lax) 17.2 mg (2 x 8.6 mg) PO DAILY Tobacco use date assessed: 08/20/23 Dental Screening Dental Screen Date: 11/18/22 HPI follow up from pulmonology for new o2 tank HPI Details 69 y/o female presents to f/u pulmonology visit. Has last seen Dr. Nava 07/28/24. Had been struggling with heavy oxygen tanks. Pt reports dry mouth - questions ropinirole. [facility] Medical History (Updated 08/08/24 @ 12:03 by Ed Murillo MD) Respiratory failure with hypoxia Pneumothorax No pertinent past medical history Surgical History H/O oral surgery History of fusion of cervical spine History of biopsy History of lung biopsy History of surgery on left wrist History of shoulder surgery History of rhinoplasty Family History Father Cirrhosis Substance use disorder Mother No problems noted. Brother No problems noted. Son No problems noted. Son No problems noted. Daughter No problems noted. Daughter No problems noted. Daughter No problems noted. 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 All Hoyos, Linda Madison, Omar Crowell and colleagues, with an educational wilton from [employer]. Review of Systems Const Denies chills, Denies fatigue, Denies fever(s), Denies headache(s) and Denies weakness ENT Denies dizziness and Denies headache(s) Card Denies dyspnea Resp Denies cough, Denies dyspnea, Denies wheezing and Denies other (shortness of breath) Musc Denies numbness and Denies tingling Neuro Denies dizziness, Denies headache(s), Denies numbness, Denies tingling and Denies weakness Psych Denies anxiety and Denies depression Endo Denies fatigue Aller/Immun Denies wheezing Physical exam (Primary Care) Tobacco/Smoking Status: Tobacco use Status Tobacco use date assessed 08/20/23 08/08/24 10:26 Patient Tobacco Use Status Former Tobacco user 08/08/24 10:26 e-Cigarette/Vaping Use Former Use 08/08/24 10:26 Thrive Assessment: Date of Thrive Assessment Date Thrive assessed 03/22/24 08/08/24 10:26 Telehealth Telehealth Telehealth Platform: Telephone Location of provider rendering services: practice address Location of patient: address on file Patient Identification confirmed using: Name, : Yes Telehealth method: voice only Patient verbally consented to treatment: Yes Patient verbally consented to billing insurance company: Yes Patient informed of any privacy concerns related to visit: Yes Coding Level of Care Code Tele Est Pt Level 2 (00547) Diagnoses Respiratory failure with hypoxia J96.91 Dry mouth R68.2 Restless legs syndrome G25.81 Underweight R63.6 Assessment & Plan Assessment & Plan (1) Respiratory failure with hypoxia: Code(s): J96.91 - Respiratory failure, unspecified with hypoxia Category: Medical Plan: Followed?by?pulmonology She?will?continue?oxygen?and?they?are?working?on?getting?her?smaller?takes?for?better?mobility Follow-up?with?pulmonology?as?recommended (2) Dry mouth: Code(s): R68.2 - Dry mouth, unspecified Category: Medical Plan: Dry?mouth?with?thick?secretions This?may?be?due?to?her?ropinirole?which?she?uses?for?restless?legs She?will?try?holding?this?medication?for?1-2?days?to?see?if?secretions?improve. Could?try?a?different?medication?such?as?gabapentin?if?that?is?the?case. Hydrate?well (3) Restless legs syndrome: Code(s): G25.81 - Restless legs syndrome Category: Medical Plan: Using?ropinirole?but?may?be?having?adverse?effects-see?above (4) Underweight: Code(s): R63.6 - Underweight Category: Medical Plan: Ongoing?difficulty?maintaining?healthy?weight She?did?receive?ensure?x1?month I?had?prescribed?this?with?12?refills Will?as?medical?career services assistant?to?look?in?to this Medications: Refilled oxycodone-acetaminophen 5-325 mg (Percocet) [employer] verified. Partial refill upon request. 1 tab PO TID 28 days 84 tabs 0RF pain M54.9 - Dorsalgia, unspecified carisoprodol 350 mg PO BID 30 days PRN 60 tabs 0RF muscle pain
--- OUTSIDE RECORDS SUMMARY | 2024-08-08 11:42 | XMS_ITS | Patient Health Record ---
Author Organization [facility] Address [address] [place] [address] Care Team Providers Care Wearing Apparel Folder Name Role Phone Steph(inactive) Giuseppe MANLEY Primary Care Provider U Dawit Kendrick Jr Unavailable Allergies Allergen (clinical drug ingredient) Drug/Non Drug Allergy documented on EMR Reaction Allergy Type Onset Date Status bee stings (uncoded) Unknown Allergy Active PCN (uncoded) Unknown Allergy Active celecoxib celebrex (uncoded) Unknown Allergy A ctive codeine codeine (uncoded) Unknown Allergy Ac tive Results Component Value Reference Range Notes US abdomen limited Reviewed date:03/24/2024 08:02:13 AM Interpretation: Performing Lab: Notes/Report: [address] [address] Ultrasound Report Signed Patient: Gabbie Dominguez MR#: [id number] : 1955 Acct:[id number] Age/Sex: 68 / F ADM Date: 03/21/24 Loc: [facility] 477-[address]: Iesha Grimm NP Ordering Physician: Dawit Terry MD Date of Service: 03/23/24 Procedure(s): US abdomen limited Accession Number(s): [id number] cc: Dawit Terry MD; Ed Murillo MD [...] in OV> 03/23/242013 DD/ 11 TD/TT: 03/23/242011 [employer]en [employer]ence Erector: [address] [address] Ultrasound Report Signed Patient: Brandy Dominguez MR#: [id number] : 1955 Acct:[id number] Age/Sex: 68 / F ADM Date: 03/21/24 Loc: [facility] 477-[address]: Iesha Grimm NP Ordering Physician: Dawit Terry MD Date of Service: 03/23/24 Procedure(s): US abd omen limited Accession Number(s): [id number] cc: Dawit Terry MD; Ed Murillo MD [...] in OV> 03/23/242013 DD/ 11 TD/TT: 03/23/242011 [employer]ence E[employer]ctor: Prothrombin Time INR Reviewed date:03/24/2024 09:18:35 PM Interpretation: Performing Lab:[facility], [address] [place] [id number] Notes/Report: Prothrombin Time 14.3 10.9-12.4 [employer] [...] Panel Reviewed date:03/24/2024 09:19:31 PM Interpretation: Performing Lab:[address] [address] Notes/Report: Bilirubin Total 0.5 0.0-1.0 mg/dL Bilirubin Direct 0.3 0.0-0.5 mg/dL Aspartate Amino Transferase 202 5-31 U/L Alanine Aminotransferase 522 0-31 U/L Total Protein 5.7 6.5-8.0 g/dL Albumin Level 3.2 3.5-5.0 g/dL Alkaline Phosphatase 69 39-117 U/L Basic Metabolic Panel Reviewed date:03/24/2024 09:19:18 PM Interpretation: Performing Lab:[address] [address] Notes/Report: Sodium 137 135-145 mmol/L Potassium 4.7 [...] Lipase Reviewed date:03/24/2024 09:18:47 PM Interpretation: Performing Lab:[address] [address] Notes/Report: Lipase 14 8-78 U/L Liver Panel Reviewed date:03/25/2024 09:41:03 PM Interpretation: Performing Lab:[facility], [address] [place] [phone] Notes/Report: Bilirubin Total 0.5 0.0-1.0 mg/dL Bilirubin Direct 0.3 0.0-0.5 mg/dL Aspartate Amino Transferase 152 5-31 U/L Alanine Aminotransferase 430 0-31 U/L Total Protein 5.5 6.5-8.0 g/dL Albumin Level 3.0 3.5-5.0 g/dL Alkaline Phosphatase 64 39-117 U/L Basic Metabolic Panel Reviewed date:03/25/2024 09:40:54 PM Interpretation: Performing Lab:[facility], [address] [place] [phone] Notes/Report: Sodium 138 135-145 mmol/L Potassium 4.3 [...] PROFILE Reviewed date:03/25/2024 09:40:19 PM Interpretation: Performing Lab:[address] [address] Notes/Report: Iron 16 30-160 mcg/dL Total Iron Binding Capacity 348 228-428 mcg/dL Percent Iron Saturation 5 15-50 % Unsaturated Iron Binding 332 Ferritin Reviewed date:03/25/2024 09:40:46 PM Interpretation: Performing Lab:[facility], [address] [place] [phone] Notes/Report: Ferritin 31 10-250 ng/mL Lactate Dehydrogenase Reviewed date:03/25/2024 09:40:37 PM Interpretation: Performing Lab:[facility], [address] [place] [address] Notes/Report: Lactate Dehydrogenase 224 122-220 U/L Reason [...] W/U Status Risk Notes Problem Esophageal reflux (299255932) Esophageal reflux (530.81) Active confirmed Problem Weight decreased (514140848) Loss of weight (783.21) Active confirmed Problem Oropharyngeal dysphagia (62868130) Dysphagia, oropharyngeal phase (R13.12) Active confirmed Problem Chronic gastroesophageal reflux disease (K21.9) Active confirmed Plan Of Treatment Future Test Test Name Order Date UPPER GI ENDOSCOPY 04/02/2011 COLONOSCOPY 04/02/2011 Insurance Providers Payer Name Payer Address Payer Phone Subscriber Number Group Number Insured Name Patient Relationship to Insured Coverage Start Date Coverage End Date [facility] [address] [place] [address] [id number] GABBIE DOMINGUEZ Self - patient is the insured Medical (General) History Medical History History ICD Code restless leg syndrome COPD pneumonia Surgical History Surgery Date(Month/Year) neck surgery ovarian surgery
== END 2024-08-08 16:19 | disposition home or self-care (01) ==
LOC: HO.HMCFM 10:27
PROVIDERS: PCP Family Medicine; Visit Provider Family Medicine
DX: J96.91 Respiratory failure, unspecified with hypoxia (principal); R68.2 Dry mouth, unspecified; G25.81 Restless legs syndrome; R63.6 Underweight

== ENCOUNTER → 2024-08-08 10:27 | Outpatient (BNVA) | payer OTHER, SELFPAY | PROVIDERS: PCP Family Medicine; Visit Provider Family Medicine ==

== ENCOUNTER 2024-12-16 13:19 | Outpatient (AMB) | payer OTHER, SELFPAY ==
--- NOTE | 2024-12-16 13:26 | MHC.PC.OV ---
Vital Signs 12/16/24 13:34 Height 5 ft 2 in Weight 73 lb 2 oz BMI 13.4 BP 98/62 Blood Pressure Location Lt brachial Position Sitting Respiration 12 Pulse 109 H Pulse Source Pulse Oximeter Temp 98.2 F Temp Source Temporal Artery Scan Pulse Oximetry (%) 92 Oxygen Delivery Method Room Air Intake Visit Reasons: 4 months F/U restless legs Intake Note: Trevor presents in the office today for a 4 month follow up to restless legs. Patient wants to discuss the Gabapentin and the Diazapam. Refused A1C. Allergies bee pollen (BEE STINGS) Allergy (Intermediate, Verified 12/16/24 13:31) THROAT SWELLING penicillin V Allergy (Intermediate, Verified 12/16/24 13:31) nausea and vomiting Penicillins (PENICILLINS) Allergy (Intermediate, Verified 12/16/24 13:31) YEAST INFECTIONS- UTI - NAUSEA codeine (Codeine) Allergy (Mild, Verified 12/16/24 13:31) ITCHING celecoxib (From Celebrex) Adverse Reaction (Severe, Verified 12/16/24 13:31) RECTAL BLEEDING Medication List - Last Reconciled 12/16/24 by Ed Murillo MD albuterol sulfate 2.5 mg (3 mL) inhalation Q4-6H PRN albuterol sulfate 90 mcg/actuation 2 puffs PO Q4-6H PRN carisoprodol 350 mg PO BID PRN 30 days diazepam 1 to 2 tabs (2-4mg) orally daily PRN; 30 days docusate sodium 100 mg PO BID fluticasone propionate 220 mcg/actuation 2 puffs inhalation BID 30 days foam bandage (Allevyn Gentle Border) change every 72 hours (Q 3 days) gabapentin 400 mg PO BEDTIME 30 days ipratropium bromide 17 mcg/actuation (Atrovent HFA) 2 puffs PO QID 30 days miscellaneous medical supply Oxygen Concetrator. Daily As directed, 999 days omeprazole 40 mg PO DAILY@0630 30 days oxycodone-acetaminophen 5-325 mg (Percocet) 1 tab PO TID 28 days sennosides (Senna Lax) 17.2 mg (2 x 8.6 mg) PO DAILY Tobacco use date assessed: 12/16/24 Fall risk assessment: No Falls in past year Last assessed Fall Risk: 12/16/24 Dental Screening Dental Screen Date: 12/16/24 Did you have a dental visit in the last 12 months?: No Did you have a dental problem in the last 6 months where you did not have access to dental care?: No Was dental information given to patient?: Patient declined HPI 4 months F/U restless legs HPI Details Pt presents for f/u chronic conditions and pain management chronic back and leg pain - fair control with percocet and muscle relxer. requests increase of gabapentin today COPD Not using O2 tank today and SaO2 is low and HR elevated. Underweight - gained wt and pt is pleased Dry mouth - essentially resolved with switch from ropinerole to gabapentin PFSH Medical History (Updated 08/08/24 @ 12:03 by Ed Murillo MD) Respiratory failure with hypoxia Pneumothorax No pertinent past medical history Surgical History H/O oral surgery History of fusion of cervical spine History of biopsy History of lung biopsy History of surgery on left wrist History of shoulder surgery History of rhinoplasty Family History Father Cirrhosis Substance use disorder Mother No problems noted. Brother No problems noted. Son No problems noted. Son No problems noted. Daughter No problems noted. Daughter No problems noted. Daughter No problems noted. 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 All Hoyos, Linda Madison, Omar Crowell and colleagues, with an educational wilton from [employer]. Review of Systems Const Denies chills, Denies fatigue, Denies fever(s), Denies headache(s) and Denies weakness ENT Denies dizziness and Denies headache(s) Card Denies dyspnea Resp Denies cough, Denies dyspnea, Denies wheezing and Denies other ( shortness of breath) Musc Denies numbness and Denies tingling Neuro Denies dizziness, Denies headache(s), Denies numbness, Denies tingling, Denies paresthesias and Denies weakness Psych Denies anxiety and Denies depression Endo Denies fatigue Aller/Immun Denies wheezing Physical exam (Primary Care) Vital Signs: Last Vital Signs Temp 98.2 F 12/16/24 13:34 Pulse 109 H 12/16/24 13:34 Resp 12 12/16/24 13:34 BP 98/62 12/16/24 13:34 Pulse Ox 92 12/16/24 13:34 Oxygen Delivery Method Room Air 12/16/24 13:34 BMI result Body Mass Index 13.4 Tobacco/Smoking Status: Tobacco use Status Tobacco use date assessed 12/16/24 12/16/24 13:37 Patient Tobacco Use Status Former Tobacco user 12/16/24 13:34 e-Cigarette/Vaping Use Former Use 12/16/24 13:34 Thrive Assessment: Date of Thrive Assessment Date Thrive assessed 03/22/24 12/16/24 13:26 Const General: no acute distress and well developed Nutritional Appearance: well nourished Orientation/consciousness: patient oriented x3 HENMT Head: Yes normocephalic and Yes atraumatic Eyes General: appearance normal, both eyes and all related structures Pupils: Equal, round and reactive pupils present EOM: EOMs intact bilaterally Resp Effort & Inspection: normal respiratory effort Auscultation: clear to auscultation bilaterally Cardio Rate: regular rate Rhythm: regular rhythm Heart sounds: S1 normal heart sound present, S2 normal heart sound present, no gallops, no murmurs and no rubs Neuro General: patient oriented x3 and gait normal Cranial nerves: Yes Equal, round and reactive pupils present Psych Affect: normal affect Coding Level of Care Code Est Pt Level 4 (14942) Diagnoses Underweight R63.6 Chronic back pain M54.9; G89.29 Restless legs syndrome G25.81 Hypoxia R09.02 Centrilobular emphysema J43.2 COPD type: emphysema Emphysema type: centrilobular Dry mouth R68.2 Assessment & Plan Assessment & Plan (1) Underweight: Code(s): R63.6 - Underweight Category: Medical Plan: Patient has gained back a few lb and I encouraged her to keep working at this Healthy foods 1st and work at increasing calories (2) Chronic back pain: Code(s): M54.9 - Dorsalgia, unspecified; G89.29 - Other chronic pain Category: Medical Plan: Taking carisoprodol and Percocet without problems. No problems with mentation Also using gabapentin for restless leg and she does note that it is helpful for some pain control - she would like to try this during the day (3) Restless legs syndrome: Code(s): G25.81 - Restless legs syndrome Category: Medical Plan: Gabapentin is helping somewhat at night . Ropinirole due to dry mouth (4) Hypoxia: Code(s): R09.02 - Hypoxemia Category: Medical Plan: Patient is using oxygen today. Encouraged her to use her oxygen tank as recommended (5) COPD (chronic obstructive pulmonary disease): Comment: THIS PATIENT WITH HISTORY OF SMOKING DOES HAVE CHRONIC OBSTRUCTIVE PULMONARY DISEASE, RELATIVELY STABLE AT PRESENT. SHE HAD DIFFICULTY IN USING THE INHALERS DUE TO AFFORDABILITY. NOW SHE IS USING THE FLOVENT, ATROVENT INHALERS REGULARLY AND PROAIR JUST NEEDED. Code(s): J44.9 - Chronic obstructive pulmonary disease, unspecified Category: Medical Qualifiers: COPD type: emphysema Emphysema type: centrilobular Qualified Code(s): J43.2 - Centrilobular emphysema Plan: Stable Lungs are clear today Follow-up with Pulmonary Medicine as recommended Continue inhaled medications as recommended (6) Dry mouth: Code(s): R68.2 - Dry mouth, unspecified Category: Medical Plan: This has resolved with discontinuance of ropinirole Plan Significant anxiety and she had benefitted from some diazepam during the day when she goes out. Will use a 2 mg dose p.r.n. and we discussed that she should only use it during the daytime and not close to her Percocet. Discussed that these can cause respiratory depression. Patient understands Orders: Orders Complete Blood Count Auto Diff 12/16/24 Z00.00 - Encounter for general adult medical examination without abnormal findings Lipid Panel 12/16/24 Z00.00 - Encounter for general adult medical examination without abnormal findings UA CC w/rflx Micro + Cult 12/16/24 Z00.00 - Encounter for general adult medical examination without abnormal findings IRON PROFILE 12/16/24 D64.9 - Anemia, unspecified Comprehensive [place]. Panel Fast 12/16/24 Z00.00 - Encounter for general adult medical examination without abnormal findings Microalbumin, Random (w Creat) 12/16/24 I10 - Essential (primary) hypertension TSH reflex Free T4 12/16/24 Z00.00 - Encounter for general adult medical examination without abnormal findings Vitamin B12 and Folate 12/16/24 E53.8 - Deficiency of other specified B group vitamins Vitamin D 25-OH Total 12/16/24 E55.9 - Vitamin D deficiency, unspecified Hemoglobin A1c 12/16/24 R73.01 - Impaired fasting glucose Medications: Changed From gabapentin 400 mg PO BEDTIME 30 days 30 caps 3RF To gabapentin 400 mg PO BID 60 caps 3RF 30 days From diazepam 1 to 2 tabs (2-4mg) orally daily PRN; 30 days 10 tabs 0RF Procedure/Appointment To diazepam MassPat Verified 2 mg PO DAILY PRN 14 tabs 0RF Procedure/Appointment 30 days
[2024-12-16 13:34] VITALS: BP 98/62; PULSE 109; RESP 12; TEMP 36.8; O2SAT 92; BMI 13.4
--- OUTSIDE RECORDS SUMMARY | 2024-12-16 16:02 | XMS_ITS | Clinical Summary ---
Author Organization [employer] Address [address] [place] [address] Care Team Providers Care Stamp Classifier Name Role Phone Unavailable Primary Care Provider [...] 04/11/2023 10/08/2022 Dental X-Ray: Bitewings 09/27/2023 09/25/2022 Tobacco Screening 01/06/2024 01/05/2023 COVID-19 Vaccine ( - season) 2024 03/21/2021, 06/06/2020, 05/09/2020 Influenza Vaccine (#1) 2024 3, 01/10/2022, 12/06/2020, Additional history exists Dental X-Ray: Full Mouth 09/26/2025 09/25/2022 RSV [...] patient's age to complete this topic Meningococcal B Vaccine Aged Out No l onger eligible based on patient's age to complete [...] Relevant to Health Maintenance Insurance DENTAL - [facility]
--- OUTSIDE RECORDS SUMMARY | 2024-12-16 16:02 | XMS_ITS | Patient Health Record ---
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 Name Role Phone Steph(inactive) Giuseppe MANLEY Primary Care Provider U Dawit Kendrick Jr Unavailable [phone] Allergies Allergen (clinical drug ingredient) Drug/Non Drug Allergy documented on EMR Reaction Allergy Type Onset Date Status bee stings (uncoded) Unknown Allergy Active PCN (uncoded) Unknown Allergy Active celecoxib celebrex (uncoded) Unknown Allergy A ctive codeine codeine (uncoded) Unknown Allergy Ac tive Results Component Value Reference Range Notes US abdomen limited Reviewed date:03/24/2024 08:02:13 AM Interpretation: Performing Lab: Notes/Report: [address] [address] Ultrasound Report Signed Patient: Gabbie Dominguez MR#: [id number] : 1955 Acct:[id number] Age/Sex: 68 / F ADM Date: 03/21/24 Loc: [facility] 477-[address]: Iesha Grimm NP Ordering Physician: Dawit Terry MD Date of Service: 03/23/24 Procedure(s): US abdomen limited Accession Number(s): [id number] cc: Dawit Terry MD; Ed Murillo MD [...] in OV> 03/23/242013 DD/ 11 TD/TT: 03/23/242011 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: Prothrombin Time INR Reviewed date:03/24/2024 09:18:35 PM Interpretation: Performing Lab:[address] [id number] Notes/Report: Prothrombin Time 14.3 10.9-12.4 [employer] [...] Panel Reviewed date:03/24/2024 09:19:31 PM Interpretation: Performing Lab:[address] [address] Notes/Report: Bilirubin Total 0.5 0.0-1.0 mg/dL Bilirubin Direct 0.3 0.0-0.5 mg/dL Aspartate Amino Transferase 202 5-31 U/L Alanine Aminotransferase 522 0-31 U/L Total Protein 5.7 6.5-8.0 g/dL Albumin Level 3.2 3.5-5.0 g/dL Alkaline Phosphatase 69 39-117 U/L Basic Metabolic Panel Reviewed date:03/24/2024 09:19:18 PM Interpretation: Performing Lab:[address] [address] Notes/Report: Sodium 137 135-145 mmol/L Potassium 4.7 [...] Lipase Reviewed date:03/24/2024 09:18:47 PM Interpretation: Performing Lab:[address] [address] Notes/Report: Lipase 14 8-78 U/L Liver Panel Reviewed date:03/25/2024 09:41:03 PM Interpretation: Performing Lab:[address] [phone] Notes/Report: Bilirubin Total 0.5 0.0-1.0 mg/dL Bilirubin Direct 0.3 0.0-0.5 mg/dL Aspartate Amino Transferase 152 5-31 U/L Alanine Aminotransferase 430 0-31 U/L Total Protein 5.5 6.5-8.0 g/dL Albumin Level 3.0 3.5-5.0 g/dL Alkaline Phosphatase 64 39-117 U/L Basic Metabolic Panel Reviewed date:03/25/2024 09:40:54 PM Interpretation: Performing Lab:[address] [address] Notes/Report: Sodium 138 135-145 mmol/L Potassium 4.3 [...] PROFILE Reviewed date:03/25/2024 09:40:19 PM Interpretation: Performing Lab:[facility], [address] [place] [id number] Notes/Report: Iron 16 30-160 mcg/dL Total Iron Binding Capacity 348 228-428 mcg/d L Percent Iron Saturation 5 15-50 % Unsaturated Iron Binding 332 Ferritin Reviewed date:03/25/2024 09:40:46 PM Interpretation: Performing Lab:[facility], [address] [place] [id number] Notes/Report: Ferritin 31 10-250 ng/mL Lactate Dehydrogenase Reviewed date:03/25/2024 09:40:37 PM Interpretation: Performing Lab:[facility], [address] [place] [phone] Notes/Report: Lactate Dehydrogenase 224 122-220 U/L Reason For Referral No Information Medications Medication SIG (Take, Route, Frequency, Duration) Notes Start Date End Date Status Golytely 236 GM as directed before colonoscopy Orally every 15 minutes; Duration: 1 day(s) 04/02/2011 03/02/2024 Active Lansoprazole Active rOPINIRole HCl Activ e Atrovent HFA Active Advair Diskus Active oxyCODONE-Acetaminophen Active Prevacid 30 MG 1 capsule before a m eal Orally b.i.d.; Duration: 30 day(s) 04/02/2011 03/02/2024 Active Lansoprazole 30 MG 1 capsule before a m eal Orally Twice a day; Duration: 90 day(s) 06/01/2012 Active Carisoprodol Active Flovent [...] W/U Status Risk Notes Problem Esophageal reflux (715771045) Esophageal reflux (530.81) Active confirmed Problem Weight decreased (537478181) Loss of weight (783.21) Active confirmed Problem Oropharyngeal dysphagia (95222624) Dysphagia, oropharyngeal phase (R13.12) Active confirmed Problem Gastroesophageal reflux disease (660269290) Chronic gastroesophageal reflux disease (K21.9) Active confirmed Plan Of Treatment Future Test Test Name Order Date UPPER GI ENDOSCOPY 04/02/2011 COLONOSCOPY 04/02/2011 Insurance Providers Payer Name Payer Address Payer Phone Subscriber Number Group Number Insured Name Patient Relationship to Insured Coverage Start Date Coverage End Date [facility] [address] [place] [address] [id number] GABBIE DOMINGUEZ Self - patient is the insured Medical (General) History Medical History History ICD Code restless leg syndrome COPD pneumonia Surgical History Surgery Date(Month/Year) neck surgery ovarian surgery
== END 2024-12-16 14:14 | disposition home or self-care (01) ==
LOC: HO.HMCFM 13:20
PROVIDERS: PCP Family Medicine; Visit Provider Family Medicine
DX: R63.6 Underweight (principal); M54.9 Dorsalgia, unspecified; G89.29 Other chronic pain; G25.81 Restless legs syndrome; R09.02 Hypoxemia; J43.2 Centrilobular emphysema; R68.2 Dry mouth, unspecified

== ENCOUNTER → 2024-12-16 13:19 | Outpatient (BNVA) | payer OTHER, SELFPAY | PROVIDERS: PCP Family Medicine; Visit Provider Family Medicine | DX: R63.6 Underweight (principal); M54.9 Dorsalgia, unspecified; G25.81 Restless legs syndrome; R09.02 Hypoxemia; J43.2 Centrilobular emphysema; R68.2 Dry mouth, unspecified; G89.29 Other chronic pain; Z68.1 Body mass index [BMI] 19.9 or less, adult | CPT/HCPCS: 99212 ==

== ENCOUNTER → 2025-02-28 23:54 | Outpatient (BNV) | payer OTHER, SELFPAY | PROVIDERS: Admitting Provider Nurse Practitioner Family; Emergency Provider Emergency Medicine; PCP Family Medicine; Visit Provider Internal Medicine | DX: R00.0 Tachycardia, unspecified (principal); I25.2 Old myocardial infarction | CPT/HCPCS: 93010 ==

== ENCOUNTER → 2025-03-01 00:02 | Outpatient (BNV) | payer OTHER, SELFPAY | PROVIDERS: Emergency Provider Emergency Medicine; PCP Family Medicine; Visit Provider Radiology Diagnostic Radiology | DX: J98.09 Other diseases of bronchus, not elsewhere classified (principal); R06.02 Shortness of breath | CPT/HCPCS: 71045; 71275 ==

== ENCOUNTER → 2025-03-01 05:36 | Outpatient (BNV) | payer OTHER, SELFPAY | PROVIDERS: Admitting Provider Nurse Practitioner Family; Emergency Provider Emergency Medicine; PCP Family Medicine; Visit Provider Student in an Organized Health Care Education/Training Program | DX: J10.1 Influenza due to other identified influenza virus with other respiratory manifestations (principal) | CPT/HCPCS: 99233; 99239; G0180 ==

== ENCOUNTER → 2025-03-01 05:36 | Outpatient (BNV) | payer OTHER, SELFPAY | PROVIDERS: Admitting Provider Nurse Practitioner Family; Emergency Provider Emergency Medicine; PCP Family Medicine; Visit Provider Internal Medicine Critical Care Medicine | DX: A41.9 Sepsis, unspecified organism (principal); R65.21 Severe sepsis with septic shock; J10.1 Influenza due to other identified influenza virus with other respiratory manifestations | CPT/HCPCS: 99291 ==